=== PATIENT | male | born 1970 | race African-American/Black ===

== ENCOUNTER 2016-09-01 22:00 | Emergency (ER) | payer OTHER ==
[~2016-09-01] VITALS: Ht 180.3 cm; Wt 62.0 kg
[~2016-09-01 22:00] MED LIST: AMLO10 PO; CHOL4POW3 PO; HYDR-3533 PO; LABE100T2 PO; PANT40TA3 PO; SODI650T PO
[2016-09-01 22:03] VITALS: BP 178/91; PULSE 91; RESP 16; TEMP 97.9; O2SAT 99
--- NOTE | 2016-09-01 23:39 | PD ---
HPI Chief Complaint: Pain: Acute or Chronic Time Seen by Provider: 22:50 Travel History International Travel<30 days: No Contact w/Intl Traveler<30days: No Traveled to known affect area: No History of Present Illness HPI Patient comes in for evaluation of left shoulder pain ongoing for several years. Patient states over the past couple weeks he's been exercising more and over the past week having increased pain in his left shoulder that is worse with movement. Patient denies any injury, shortness of breath, chest pain, numbness or tingling, fevers, back pain, or neck pain. Pain is achy like in nature and radiates inferiorly. Patient states he ran out of his blood pressure medicine approximately 2 weeks ago and stopped taking his other medication on his own after having cataract surgery as he felt was too much medication to be taking while he was taking his eye drops. Patient denies any other medical concerns at this time. PFSH Past Medical History Arthritis: No Asthma: No Autoimmune Disease: No Blood Disorders: No Anxiety: No Depression: No Heart Rhythm Problems: No Cancer: No Cardiovascular Problems: Yes (HTN) High Cholesterol: No Chemotherapy: No Chest Pain: No Congestive Heart Failure: No COPD: No Cerebrovascular Accident: No Diabetes: Yes Patient Takes Glucophage: No Diminished Hearing: No Endocrine: Yes GERD: No Genitourinary: No Hiatal Hernia: No Immune Disorder: No Kidney Stones: No Musculoskeletal: Yes (right foot surgery) Neurologic: No Psychiatric: No Reproductive: No Respiratory: No (November 2015) Migraines: No Radiation Therapy: No Renal Failure: No Seizures: No Sickle Cell Disease: No Sleep Apnea: No Thyroid Disease: No Ulcer: No Tetanus Vaccination: < 5 Years Past Surgical History Abdominal Surgery: No AICD: No Arteriovenous Shunt: No Cardiac Surgery: No Ear Surgery: No Endocrine Surgery: No Eye Surgery: No Genitourinary Surgery: No Gynecologic Surgery: No Insulin Pump: No Joint Replacement: No Oral Surgery: No Pacemaker: No Thoracic Surgery: No Other Surgery: Yes (AKA L LEG, R FOOT AMPUTATION -APPROX A MONTH AGO) Social History Alcohol Use: No Tobacco Use: No Substance Use: No Allergies-Medications (Allergen,Severity, Reaction): Coded Allergies: *MDRO Multi-Drug Resistant Organism (Verified Adverse Reaction, Unknown, ) MRSA (foot wound) - 03/2010, 10/2014, 04/2015 MRSA PCR screen positive - 09/01/15 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 Sodium Bicarbonate 650 Mg Tab 650 Mg PO Q8HR Pantoprazole (Pantoprazole Sodium) 40 Mg Tab 40 Mg PO DAILY Labetalol (Labetalol HCl) 100 Mg Tab 100 Mg PO Q12HR Norvasc (Amlodipine Besylate) 10 Mg Tab 10 Mg PO DAILY Review of Systems Except as stated in HPI: all other systems reviewed are Neg Physical Exam Narrative GENERAL: Well-developed, well nourished, in no acute distress, and non-ill appearing. SKIN: Warm and dry. HEAD: Atraumatic. Normocephalic. EYES: Pupils equal and round. EOMI. No scleral icterus. No injection or drainage. ENT: No nasal bleeding or discharge. Mucous membranes pink and moist. NECK: Trachea midline. Supple. No nuclear rigidity. CARDIOVASCULAR: Regular rate and rhythm. No murmur appreciated. RESPIRATORY: No accessory muscle use. No respiratory distress. Clear to auscultation. Breath sounds equal bilaterally. MUSCULOSKELETAL: No obvious deformities. No clubbing. No cyanosis. No edema. Full range of motion. Shoulder:FROM equal BL with passive flexion, extension, Abduction, Adduction, internal/external rotation, and pronation/supination. Sensation equal BL deltoid muscles. Pulses equal BL distal to injury. Capillary refill less than 2 seconds distal to injury and equal BL. FROM distal to injury and equal BL. Strength distal to injury equal BL. NV intact distal to injury equal BL. Flexion and extension of thumb equal BL. Equal strength and movement with abduction/adductions of BL fingers. Model [employer]' strength equal BL. Patient reports tenderness to left posterior shoulder and scapula is worse with passive and active movement. Left BKA noted NEUROLOGICAL: Awake and alert. No obvious cranial nerve deficits. Motor grossly within normal limits. Normal speech. PSYCHIATRIC: Appropriate mood and affect; insight and judgment normal. Data Data Last Documented VS Vital Signs Date Time Temp Pulse Resp B/P Pulse Ox O2 Delivery O2 Flow Rate FiO2 09/02/16 01:44 98.2 81 16 156/72 98 09/01/16 22:03 Room Air Orders Basic Metabolic Panel (Bmp) (09/01/16 23:34) Urinalysis - C+S If Indicated (09/01/16 23:39) Urine Culture (09/01/16 23:40) Sodium Polysty Sulfate Liq (Kayexalate L (09/02/16 00:45) Cephalexin (Keflex) (09/02/16 00:45) Labs Laboratory Tests Test 09/01/16 09/01/16 23:30 23:40 Sodium Level 139 MEQ/L Potassium Level 5.2 MEQ/L Chloride Level 111 MEQ/L Carbon Dioxide Level 14.9 MEQ/L Anion Gap 13 MEQ/L Blood Urea Nitrogen 54 MG/DL Creatinine 3.87 MG/DL Estimat Glomerular Filtration 20 ML/MIN Rate Random Glucose 59 MG/DL Calcium Level 8.6 MG/DL Urine Color LIGHT-YELLOW Urine Turbidity HAZY Urine pH 5.5 Urine Specific [place] 1.006 Urine Protein 100 mg/dL Urine Glucose (UA) NEG mg/dL Urine Ketones NEG mg/dL Urine Occult Blood TRACE Urine Nitrite NEG Urine Bilirubin NEG Urine Urobilinogen LESS THAN 2.0 MG/DL Urine Leukocyte Esterase SMALL Urine RBC 1 /hpf Urine WBC 10 /hpf Urine Squamous Epithelial <1 /hpf Cells Urine Amorphous Sediment RARE Urine Bacteria RARE /hpf Urine Mucus FEW /lpf Microscopic Urinalysis Comment CULTURE INDICATED MDM Medical Decision Making Medical Screen Exam Complete: Yes Emergency Medical Condition: No Differential Diagnosis Acute on chronic pain, musculoskeletal pain, medical noncompliance, other Narrative Course Medical screening exam was performed, patient patient decided to stay as he now has concerns that he may be having an issue with his kidneys. There is no evidence of pyelonephritis. The patient is tolerating fluids, no fever and no back pain. There is no clinical evidence to suggest atypical cervicitis, PID, appendicitis. The patient was discharged on antibiotics and given warnings to return if condition worsens in any way, fever, vomiting and unable to tolerate medications or fluids, back pain or as needed. The patient was instructed to follow up with their physician. The patient agrees with plan of care. Patient in no obvious distress upon re-evaluation. All pertinent laboratory result(s) discussed with patient and patient was given a copy to get to his primary care doctor and/or aging department supervisor. Discussed patient with Dr. Falcon prior to discharge, who is in agreement with plan of care and disposition. Patient was asked if they wanted to speak to my attending, which the patient did not wish to do at this time. Any questions/concerns in reference to patient diagnosis/condition discussed and clarified prior to patient's discharge. Reinforced sheer importance of close follow up with patient's primary physician or primary care clinic and/or nephrology. Instructed patient to return to ED immediately, if symptoms return/worsen. Pt showed understanding of above instructions. Further instructions and recommendations were detailed in discharge paperwork. Pt left without difficulty out of ED at discharge. Diagnosis Primary Impression: UTI (urinary tract infection) Qualified Code: N39.0 - Urinary tract infection with hematuria, site unspecified Additional Impression: Noncompliance with medication regimen Referrals: Eitan Sky MD Patient Instructions: General Instructions, Urinary Tract Infection in Men (DC) Additional Instructions: Follow-up with your primary care physician and/or aging department supervisor this week for evaluation. Take all medication as prescribed. Take your home medications prescribed. Return to the emergency department if symptoms get worse. Med/Other Pt SpecificInfo: Prescription(s) given Scripts Cephalexin (Keflex)500 Mg [id number] Mg PO Q12H 10 Days Ref 0 Prov:Dafne Falcon MD 09/02/16 Disposition: 01 DISCHARGE HOME Condition: Stable Lm Otero Sep 01, 2016 23:39
[2016-09-01 23:56] LABS: BACTERIA, URINE RARE /hpf; BLOOD, URINE TRACE (NEG); GLUCOSE,URINE NEG (NEG); KETONE, URINE NEG (NEG); MUCUS URINE FEW /lpf (OCC); NITRITE,URINE NEG (NEG); PH, URINE 5.5 (5.0-8.5); SQUAMOUS EPITHELIAL CELL URINE <1 /hpf (0-5); URINE COLOR LIGHT-YELLOW (YELLW/STRAW)
[2016-09-01 23:57] LABS: COMMENT (UR) CULTURE INDICATED; CULTURE IF INDICATED CULTURE INDICATED
[2016-09-02 00:11] LABS: BICARBONATE 14.9 MEQ/L (21.0-32.0); POTASSIUM 5.2 MEQ/L (3.5-5.1)
[2016-09-02] MEDS ORDERED: SODIUM POLYSTYRENE SULFONATE SUSP 15 GM/60 ML CUP PO ONE (00:45)
[2016-09-02] MEDS ORDERED: CEPHALEXIN MONOHYDRATE 500 MG CAP PO ONE (00:45)
[2016-09-02] MEDS ORDERED: CEPH-460 PO (01:40)
[2016-09-02 01:44] VITALS: BP 156/72; TEMP 98.2
[2016-09-10] MEDS ORDERED: HYDR-3533 PO (13:28)
[2016-10-31] MEDS ORDERED: HYDR-3533 PO (13:11)
[2016-11-12] MEDS ORDERED: BACT800T5 PO (11:57)
[2016-11-12] MEDS ORDERED: ZYVO600T PO (11:57)
== END 2016-09-02 01:52 | disposition home or self-care (01) ==
LOC: NEPB 22:00
DX: N39.0 Urinary tract infection, site not specified (principal); E11.9 Type 2 diabetes mellitus without complications; M25.512 Pain in left shoulder; Z91.14 Patient's other noncompliance with medication regimen; Z89.512 Acquired absence of left leg below knee; Z87.39 Personal history of other diseases of the musculoskeletal system and connective tissue; Z86.79 Personal history of other diseases of the circulatory system
CPT/HCPCS: 80048; 81001; 87086; 99283

== ENCOUNTER 2016-09-06 13:03 | Emergency (ER) | payer OTHER ==
[~2016-09-06] VITALS: Ht 180.3 cm; Wt 60.0 kg
[~2016-09-06 13:03] MED LIST changes: +CEPH-460 PO
[2016-09-06 13:07] VITALS: BP 177/95; PULSE 104; RESP 18; TEMP 97.4; O2SAT 97
--- NOTE | 2016-09-06 13:31 | PD ---
HPI Chief Complaint: Pain: Acute or Chronic Time Seen by Provider: 13:31 Travel History International Travel<30 days: No Contact w/Intl Traveler<30days: No Traveled to known affect area: No History of Present Illness HPI 46-year-old male presents to the emergency department with complaint of left shoulder pain, left flank and left upper quadrant abdominal pain for a couple weeks. He was sent by his primary care provider, Dr. Valencia, for reevaluation. He said he was here just the other day and evaluated for the same complaint. Says he had a "slight fever of 98 or 99 "at the doctor's office. Denies history of kidney stones. Denies dysuria. Reports urinary frequency. Denies hematuria. Reports nausea without vomiting. No change in stool. Reports also feeling fatigued with intermittent feelings of lightheadedness and headaches. Denies headache at this time. Denies chest pain. Reports shortness of breath for the last 7-8 days that is worse with activity. Denies cough, nasal congestion, hemoptysis. Pain is worse with twisting. He says the pain it is just there. Rates pain 8-9/10. Has tried taking BC powder with some relief. No known allergies. Merry care provider is Dr. Valencia. History of hypertension and insulin-dependent diabetes that he is "somewhat" compliant with. History of left BKA. No other modifying factors or associated signs and symptoms. PFSH Past Medical History Arthritis: No Asthma: No Autoimmune Disease: No Blood Disorders: No Anxiety: No Depression: No Heart Rhythm Problems: No Cancer: No Cardiovascular Problems: Yes (HTN) High Cholesterol: No Chemotherapy: No Chest Pain: No Congestive Heart Failure: No COPD: No Cerebrovascular Accident: No Diabetes: Yes Patient Takes Glucophage: No Diminished Hearing: No Endocrine: Yes GERD: No Genitourinary: No Hiatal Hernia: No Hypertension: Yes Immune Disorder: No Kidney Stones: No Musculoskeletal: Yes (right foot surgery) Neurologic: No Psychiatric: No Reproductive: No Respiratory: No (November 2015) Migraines: No Radiation Therapy: No Renal Failure: No Seizures: No Sickle Cell Disease: No Sleep Apnea: No Thyroid Disease: No Ulcer: No Past Surgical History Abdominal Surgery: No AICD: No Arteriovenous Shunt: No Cardiac Surgery: No Ear Surgery: No Endocrine Surgery: No Eye Surgery: No Genitourinary Surgery: No Gynecologic Surgery: No Insulin Pump: No Joint Replacement: No Oral Surgery: No Pacemaker: No Thoracic Surgery: No Other Surgery: Yes (AKA L LEG, R FOOT AMPUTATION -APPROX A MONTH AGO) Social History Alcohol Use: No Tobacco Use: No Substance Use: No Allergies-Medications (Allergen,Severity, Reaction): Coded Allergies: *MDRO Multi-Drug Resistant Organism (Verified Adverse Reaction, Unknown, ) MRSA (foot wound) - 03/2010, 10/2014, 04/2015 MRSA PCR screen positive - 09/01/15 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 HEAD: Atraumatic. Normocephalic. EYES: Pupils equal and round. No scleral icterus. No injection or drainage. ENT: Mucosa pink and moist. Airway patent. NECK: Trachea midline. CARDIOVASCULAR: Regular rate and rhythm. No murmur appreciated. RESPIRATORY: No accessory muscle use. Clear to auscultation with decreased lung sounds to the left lower lung base. Breath sounds equal bilaterally. GASTROINTESTINAL: Abdomen soft, tenderness on palpation to the left upper quadrant, nondistended. Hepatic and splenic margins not palpable. Bowel sounds are active 4 quadrants. Nonrigid. No guarding. BACK: No CVA tenderness. MUSCULOSKELETAL: Left BKA. No obvious deformities. No clubbing. No cyanosis. No edema. NEUROLOGICAL: Awake and alert. Oriented 3. No obvious cranial nerve deficits. Motor grossly within normal limits. Normal speech. PSYCHIATRIC: Appropriate mood and affect; insight and judgment normal. Data Data Last Documented VS Vital Signs Date Time Temp Pulse Resp B/P Pulse Ox O2 Delivery O2 Flow Rate FiO2 09/06/16 13:41 97 Room Air 09/06/16 13:07 97.4 104 18 177/95 Orders Complete Blood Count With Diff (09/06/16 13:34) Comprehensive Metabolic Panel (09/06/16 13:34) Lipase (09/06/16 13:34) Ct Abd/Pel W/O Iv Contrast (09/06/16 13:34) Iv Access Insert/Monitor (09/06/16 13:34) Ecg Monitoring (09/06/16 13:34) Oximetry (09/06/16 13:34) Sodium Chloride 0.9% Flush (Ns Flush) (09/06/16 13:45) Chest, Single Ap (09/06/16 13:34) Labs Laboratory Tests Test 09/06/16 13:24 White Blood Count 9.3 TH/MM3 Red Blood Count 2.86 MIL/MM3 Hemoglobin 8.7 GM/DL Hematocrit 26.5 % Mean Corpuscular Volume 92.4 FL Mean Corpuscular Hemoglobin 30.3 PG Mean Corpuscular Hemoglobin 32.7 % Concent Red Cell Distribution Width 15.6 % Platelet Count 222 TH/MM3 Mean Platelet Volume 9.2 FL Neutrophils (%) (Auto) 66.4 % Lymphocytes (%) (Auto) 21.3 % Monocytes (%) (Auto) 9.6 % Eosinophils (%) (Auto) 1.8 % Basophils (%) (Auto) 0.9 % Neutrophils # (Auto) 6.2 TH/MM3 Lymphocytes # (Auto) 2.0 TH/MM3 Monocytes # (Auto) 0.9 TH/MM3 Eosinophils # (Auto) 0.2 TH/MM3 Basophils # (Auto) 0.1 TH/MM3 CBC Comment DIFF FINAL Differential Comment Sodium Level 138 MEQ/L Potassium Level 4.7 MEQ/L Chloride Level 111 MEQ/L Carbon Dioxide Level 18.1 MEQ/L Anion Gap 9 MEQ/L Blood Urea Nitrogen 45 MG/DL Creatinine 3.98 MG/DL Estimat Glomerular Filtration 20 ML/MIN Rate Random Glucose 98 MG/DL Calcium Level 8.4 MG/DL Total Bilirubin 0.3 MG/DL Aspartate Amino Transf 25 U/L (AST/SGOT) Alanine Aminotransferase 23 U/L (ALT/SGPT) Alkaline Phosphatase 102 U/L Total Protein 7.5 GM/DL Albumin 3.5 GM/DL Lipase 147 U/L [facility] Medical Decision Making Medical Screen Exam Complete: Yes Emergency Medical Condition: Yes Medical Record Reviewed: Yes Differential Diagnosis Nephrolithiasis, flank pain, pancreatitis Narrative Course 46-year-old male with left flank pain that was sent by his primary care provider for reevaluation. He was here the other day and evaluated for the same complaint. Patient placed on cardiopulmonary monitor. IV site obtained. Labs and imaging ordered. 1422: CBC consistent with past levels. BUN and creatinine elevated and consistent with past levels. Lipase 147. CT abdomen/pelvis concludes No evidence of calcified renal stones or hydronephrosis; 2. Contrast versus stones in the gallbladder; 3. Moderate stool in the colon. 1532: Chest x-ray with no acute findings. Patient will be discharged home. Dr. Adorno is aware of the patient's findings and agrees the patient is stable for outpatient follow-up. Patient verbalizes understanding and agreement with treatment plan. Patient is medically cleared and stable for discharge. Discussed reasons to return to the emergency department. Instructed patient to follow up with primary care provider. Patient agrees with treatment plan. The patients vital signs are stable and the patient is stable for outpatient follow- up and treatment. Patient discharged home, stable and in no acute distress. Diagnosis Primary Impression: Left flank pain Referrals: Primary Care Physician Patient Instructions: Flank Pain (ED), General Instructions Additional Instructions: Heating pad and/or ice to affected area to reduce pain Avoid aggravating activities; increase activity as tolerated Follow-up with primary care provider Return to emergency department immediately with worsening of symptoms Med/Other Pt SpecificInfo: No Change to Meds, No Meds Exist/No RX given Disposition: 01 DISCHARGE HOME Condition: Stable Patricia Calhoun Sep 06, 2016 13:31
[2016-09-06 13:41] VITALS: O2SAT 97
[2016-09-06] MEDS ORDERED: SODIUM CHLORIDE 0.9% FLUSH 5 ML FLUSH IVF PRN (13:45)
[2016-09-06 13:55] LABS: AUTOMATED NEUTROPHIL # 6.2 TH/MM3 (1.8-7.7); BASOPHIL # 0.1 TH/MM3 (0-0.2); BASOPHIL % 0.9 % (0.0-2.0); EOSINOPHIL # 0.2 TH/MM3 (0-0.4); EOSINOPHIL % 1.8 % (0.0-4.0); HEMATOCRIT 26.5 % (39.0-51.0); HEMO FLAGS DIFF FINAL; LYMPH % 21.3 % (9.0-44.0); MEAN CELL VOLUME 92.4 FL (80.0-100.0); MEAN CORPUSCULAR HEMOGLOBIN 30.3 PG (27.0-34.0); MEAN CORPUSCULAR HGB CONC 32.7 % (32.0-36.0); MONO % 9.6 % (0.0-8.0); NEUT % 66.4 % (16.0-70.0); PLATELET COUNT 222 TH/MM3 (150-450); RED BLOOD COUNT 2.86 MIL/MM3 (4.50-5.90); RED CELL DISTRIBUTION WIDTH 15.6 % (11.6-17.2); WHITE BLOOD COUNT 9.3 TH/MM3 (4.0-11.0)
[2016-09-06 14:09] LABS: ALT (GPT) 23 U/L (12-78); ANION GAP 9 MEQ/L (5-15); AST (GOT) 25 U/L (15-37); BICARBONATE 18.1 MEQ/L (21.0-32.0); BLOOD UREA NITROGEN 45 MG/DL (7-18); CHLORIDE 111 MEQ/L (98-107); GLOMERULAR FILTRATION RATE 20 ML/MIN (>89); POTASSIUM 4.7 MEQ/L (3.5-5.1); SODIUM (NA) 138 MEQ/L (136-145)
[2016-09-06 14:10] LABS: ALKALINE PHOSPHATASE 102 U/L (45-117); TOTAL BILIRUBIN ADULT 0.3 MG/DL (0.2-1.0)
--- NOTE | 2016-09-06 14:18 | RADRPT ---
EXAM DATE/TIME: 09/06/2016 13:51 [facility] COMPARISON: CT ABDOMEN & PELVIS W/O CONTRAST, December 13, 2015, 5:51. INDICATIONS : Left flank pain; fever, fatigue. ORAL CONTRAST: No oral contrast ingested. RADIATION DOSE: 4.66 CTDIvol (mGy) MEDICAL HISTORY : Hypertension. Diabetes mellitus type 2. SURGICAL HISTORY : None. ENCOUNTER: Initial ACUITY: 1 day PAIN SCALE: 5/10 LOCATION: Bilateral abdomen. TECHNIQUE: Volumetric scanning of the abdomen and pelvis was performed. Using automated exposure control and ad justment of the mA and/or kV according to patient size, radiation dose was kept as low as reasonably achievable to obtain optimal diagnostic quality images. The lack of IV contrast limits the diagnosis for certain organ pathology. FINDINGS: LOWER LUNGS: The visualized lower lungs are clear. LIVER: Homogeneous density without lesion. There is no dilation of the biliary tree. There is contrast vers us stones in the gallbladder. SPLEEN: Normal size without lesion. PANCREAS: Within normal limits. KIDNEYS: Normal in size and shape. There is no mass, stone, or hydronephrosis. ADRENAL GLANDS: Within normal limits. VASCULAR: There is no aortic aneurysm. BOWEL/MESENTERY: The stomach, small bowel, and colon demonstrate no acute abnormality. There is no free intraperitone al air or fluid. No inflammatory changes. Moderate amount of stool in the colon. ABDOMINAL WALL: Within normal limits. RETROPERITONEUM: There is no lymphadenopathy. BLADDER: No wall thickening or mass. REPRODUCTIVE: Within normal limits. INGUINAL: There is no lymphadenopathy or hernia. MUSCULOSKELETAL: Within normal limits for patient age. No significant change compared to the prior study. CONCLUSION: 1. No evidence of calcified renal stones or hydronephrosis. 2. Contrast versus stones in the gallbladder. 3. Moderate stool in the colon. Davy Kim MD on September 06, 2016 at 14:14 Board Certified Radiologist. This report was verified electronically.
--- NOTE | 2016-09-06 15:42 | RADRPT ---
EXAM DATE/TIME: 09/06/2016 14:10 [facility] COMPARISON: CHEST SINGLE AP, June 09, 2016, 22:04. INDICATIONS : Shortness of breath and cough. MEDICAL HISTORY : None. SURGICAL HISTORY : None. ENCOUNTER: Initial ACUITY: 1 week PAIN SCORE: 0/10 LOCATION: Bilateral chest FINDINGS: A single view of the chest demonstrates the lungs to be symmetrically aerated without evidence of mas s, infiltrate or effusion. The cardiomediastinal contours are unremarkable. Osseous structures are intact. CONCLUSION: No acute disease. Oscar Brady MD on September 06, 2016 at 15:40 Board Certified Radiologist. This report was verified electronically.
--- NOTE | 2016-09-06 15:45 | PD ---
Data Data Last Documented VS Vital Signs Date Time Temp Pulse Resp B/P Pulse Ox O2 Delivery O2 Flow Rate FiO2 09/06/16 13:41 97 Room Air 09/06/16 13:07 97.4 104 18 177/95 Orders Complete Blood Count With Diff (09/06/16 13:34) Comprehensive Metabolic Panel (09/06/16 13:34) Lipase (09/06/16 13:34) Ct Abd/Pel W/O Iv Contrast (09/06/16 13:34) Iv Access Insert/Monitor (09/06/16 13:34) Ecg Monitoring (09/06/16 13:34) Oximetry (09/06/16 13:34) Sodium Chloride 0.9% Flush (Ns Flush) (09/06/16 13:45) Chest, Single Ap (09/06/16 13:34) Labs Laboratory Tests Test 09/06/16 13:24 White Blood Count 9.3 TH/MM3 Red Blood Count 2.86 MIL/MM3 Hemoglobin 8.7 GM/DL Hematocrit 26.5 % Mean Corpuscular Volume 92.4 FL Mean Corpuscular Hemoglobin 30.3 PG Mean Corpuscular Hemoglobin 32.7 % Concent Red Cell Distribution Width 15.6 % Platelet Count 222 TH/MM3 Mean Platelet Volume 9.2 FL Neutrophils (%) (Auto) 66.4 % Lymphocytes (%) (Auto) 21.3 % Monocytes (%) (Auto) 9.6 % Eosinophils (%) (Auto) 1.8 % Basophils (%) (Auto) 0.9 % Neutrophils # (Auto) 6.2 TH/MM3 Lymphocytes # (Auto) 2.0 TH/MM3 Monocytes # (Auto) 0.9 TH/MM3 Eosinophils # (Auto) 0.2 TH/MM3 Basophils # (Auto) 0.1 TH/MM3 CBC Comment DIFF FINAL Differential Comment Sodium Level 138 MEQ/L Potassium Level 4.7 MEQ/L Chloride Level 111 MEQ/L Carbon Dioxide Level 18.1 MEQ/L Anion Gap 9 MEQ/L Blood Urea Nitrogen 45 MG/DL Creatinine 3.98 MG/DL Estimat Glomerular Filtration 20 ML/MIN Rate Random Glucose 98 MG/DL Calcium Level 8.4 MG/DL Total Bilirubin 0.3 MG/DL Aspartate Amino Transf 25 U/L (AST/SGOT) Alanine Aminotransferase 23 U/L (ALT/SGPT) Alkaline Phosphatase 102 U/L Total Protein 7.5 GM/DL Albumin 3.5 GM/DL Lipase 147 U/L MDM Supervised Visit with DEEPAK: Yes Narrative Course The history, exam, and medical decision-making in the associated mid-level provider note were completed with my assistance. I reviewed and agree with the findings presented. I attest that I had a [id number] encounter with the patient on the same day, and personally performed and documented my assessment and findings in the medical record. *My assessment and Findings: 46-year-old man who for flank pain. Etiology is unclear. Recently seen for the same. Diagnosis of UTI however culture was negative. Has multiple medical problems including baseline significant chronic kidney disease. We did CT imaging of his abdomen and pelvis, as well as x-ray, which hasn't revealed etiology. Labs are also unremarkable. At this point recommended supportive treatment and outpatient follow-up. There is some concern of fever at some point he may have some kind of occult infection. I don't really see any evidence of that. Diagnosis Primary Impression: Left flank pain Referrals: Primary Care Physician Patient Instructions: General Instructions, Flank Pain (ED) Additional Instruction: Heating pad and/or ice to affected area to reduce pain Avoid aggravating activities; increase activity as tolerated Follow-up with primary care provider Return to emergency department immediately with worsening of symptoms Disposition: 01 DISCHARGE HOME Condition: Stable Hari Adorno MD Sep 06, 2016 15:45
[2016-09-10] MEDS ORDERED: HYDR-3533 PO (13:28)
[2016-10-31] MEDS ORDERED: HYDR-3533 PO (13:11)
[2016-11-12] MEDS ORDERED: BACT800T5 PO (11:57)
[2016-11-12] MEDS ORDERED: ZYVO600T PO (11:57)
== END 2016-09-06 15:58 | disposition home or self-care (01) ==
LOC: NEPA 13:03
DX: R10.12 Left upper quadrant pain (principal); I10 Essential (primary) hypertension; E11.9 Type 2 diabetes mellitus without complications
CPT/HCPCS: 71010; 74176; 80053; 83690; 85025

== ENCOUNTER 2016-09-17 21:22 | Emergency (ER) | payer OTHER ==
[~2016-09-17 21:22] MED LIST changes: -CHOL4POW3 PO; -LABE100T2 PO; -SODI650T PO
[2016-09-17 21:30] VITALS: BP 173/85; PULSE 100; RESP 16; TEMP 98.3; O2SAT 100
[2016-10-31] MEDS ORDERED: HYDR-3533 PO (13:11)
[2016-11-12] MEDS ORDERED: BACT800T5 PO (11:57)
[2016-11-12] MEDS ORDERED: ZYVO600T PO (11:57)
== END 2016-09-17 22:09 | disposition left against medical advice (07) ==
LOC: NED 22:00
DX: Z53.21 Procedure and treatment not carried out due to patient leaving prior to being seen by health care provider (principal)
CPT/HCPCS: 99281

== ENCOUNTER 2016-10-09 12:18 | Inpatient (IN) | payer OTHER ==
[~2016-10-09] VITALS: Ht 180.3 cm; Wt 63.7 kg
[2016-10-09 12:23] VITALS: BP 128/71; PULSE 61; RESP 18; TEMP 98.2; O2SAT 98
--- NOTE | 2016-10-09 12:27 | PD ---
Physical Exam Time Seen by Provider: 12:[address] sent for evaluation of R foot wound that has been here for years with partial amputation. Pt Diabetic. Wound opens and closes periodically. Denies fever, vomiting. No recent antibx. Last took antibx end of 2014. Patient stable. Patient seen in triage. Awaiting bed placement. Data Data Last Documented VS Vital Signs Date Time Temp Pulse Resp B/P Pulse Ox O2 Delivery O2 Flow Rate FiO2 10/09/16 12:23 98.2 61 18 128/71 98 MDM Supervised Visit with DEEPAK: Patricia Hallman Oct 09, 2016 12:27
[2016-10-09 12:54] VITALS: BP 165/78; PULSE 89; RESP 20; O2SAT 100
--- NOTE | 2016-10-09 12:57 | PD ---
HPI Chief Complaint: Skin Problem Time Seen by Provider: 12:57 Travel History International Travel<30 days: No Contact w/Intl Traveler<30days: No Traveled to known affect area: No History of Present Illness HPI 46-year-old insulin dependent diabetic presents the emergency department with open wound on previous partial foot amputation on the right days noticed over the past 3 days. Patient was seen by his PCP today and sent here for further evaluation and treatment. Patient has mild pain in the right foot, but denies significant fever, chills, or changes in his blood sugars. 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 Pain currently is a 3 out of 10. Patient has history of renal insufficiency as well as MRSA. He also takes blood pressure medications. He has no known drug allergies. PFSH Past Medical History Arthritis: No Asthma: No Autoimmune Disease: No Blood Disorders: No Anxiety: No Depression: No Heart Rhythm Problems: No Cancer: No Cardiovascular Problems: Yes (HTN) High Cholesterol: No Chemotherapy: No Chest Pain: No Congestive Heart Failure: No COPD: No Cerebrovascular Accident: No Diabetes: Yes Diminished Hearing: No Endocrine: Yes GERD: No Genitourinary: No Hiatal Hernia: No Hypertension: Yes Immune Disorder: No Kidney Stones: No Musculoskeletal: Yes (right foot surgery) Neurologic: No Psychiatric: No Reproductive: No Respiratory: No (November 2015) Migraines: No Radiation Therapy: No Renal Failure: No Seizures: No Sickle Cell Disease: No Sleep Apnea: No Thyroid Disease: No Ulcer: No Past Surgical History Abdominal Surgery: No AICD: No Arteriovenous Shunt: No Cardiac Surgery: No Ear Surgery: No Endocrine Surgery: No Eye Surgery: No Genitourinary Surgery: No Gynecologic Surgery: No Insulin Pump: No Joint Replacement: No Oral Surgery: No Pacemaker: No Thoracic Surgery: No Other Surgery: Yes (AKA L LEG, R FOOT AMPUTATION -APPROX A MONTH AGO) Social History Alcohol Use: No Tobacco Use: No Substance Use: No Allergies-Medications (Allergen,Severity, Reaction): Coded Allergies: *MDRO Multi-Drug Resistant Organism (Verified Adverse Reaction, Unknown, ) MRSA (foot wound) - 03/2010, 10/2014, 04/2015 MRSA PCR screen positive - 09/01/15 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/16) Reported Meds & Prescriptions Reported Meds & Active Scripts Active Lortab (Hydrocodone-Acetaminophen) 5-325 Mg Tab 1 Tab PO BID PRN Norvasc (Amlodipine Besylate) 10 Mg Tab 10 Mg PO DAILY Reported Lantus Inj (Insulin Glargine) 1,000 Unit/10 Ml Vial 8 Units SQ HS Review of Systems Except as stated in HPI: all other systems reviewed are Neg General / Constitutional: No: Fever, Chills Eyes: No: Visual changes HENT: No: Headaches Cardiovascular: No: Chest Pain or Discomfort Respiratory: No: Shortness of Breath Gastrointestinal: No: Abdominal Pain Genitourinary: No: Dysuria Musculoskeletal: No: Pain Skin: Positive Lesions (diabetic foot wound on the right), No Rash Neurologic: No: Weakness Psychiatric: No: Depression Endocrine: No: Polydipsia Hematologic/Lymphatic: No: Easy Bruising Physical Exam Narrative GENERAL: Patient appears distress. SKIN: Warm and dry. Normal color. Normal turgor. Right foot has an open dry pressure wound to the plantar surface of the distal foot which is in part obtained. There is no erythema or obvious drainage. It is malodorous. The skin surrounding the opening is white and firm. HEAD: Atraumatic. Normocephalic. EYES: Pupils equal and round. No scleral icterus. No injection or drainage. ENT: No nasal bleeding or discharge. Mucous membranes pink and moist. Pharynx is clear. NECK: Trachea midline. No JVD. Supple and nontender. CARDIOVASCULAR: Regular rate and rhythm. RESPIRATORY: No accessory muscle use. Clear to auscultation. Breath sounds equal bilaterally. GASTROINTESTINAL: Abdomen soft, non-tender, nondistended. Hepatic and splenic margins not palpable. MUSCULOSKELETAL: Extremities without clubbing, cyanosis, or edema. Patient has a left-sided BKA and partial right foot amputation. NEUROLOGICAL: Awake and alert. No obvious cranial nerve deficits. Motor grossly within normal limits. Five out of 5 muscle strength in the arms and legs. Normal speech. PSYCHIATRIC: Appropriate mood and affect; insight and judgment normal. Data Data Last Documented VS Vital Signs Date Time Temp Pulse Resp B/P Pulse Ox O2 Delivery O2 Flow Rate FiO2 10/09/16 15:07 91 127/70 98 10/09/16 13:13 Room Air 10/09/16 12:54 20 10/09/16 12:23 98.2 Orders Electrocardiogram (10/09/16 13:01) Complete Blood Count With Diff (10/09/16 13:01) Comprehensive Metabolic Panel (10/09/16 13:01) Prothrombin Time / Inr (Pt) (10/09/16 13:01) Act Partial Throm Time (Ptt) (10/09/16 13:01) Lactic Acid Sepsis Protocol (10/09/16 13:01) Urinalysis - C+S If Indicated (10/09/16 13:01) Blood Culture (10/09/16 13:01) Wound Culture And Gram Stain (10/09/16 13:01) Chest, Single Ap (10/09/16 13:01) Blood Glucose (10/09/16 13:01) Ecg Monitoring (10/09/16 13:01) Iv Access Insert/Monitor (10/09/16 13:01) Oximetry (10/09/16 13:01) Oxygen Administration (10/09/16 13:01) Piperacil-Tazo 4.5 Gm Premix (Zosyn 4.5 (10/09/16 13:01) Vancomycin Inj (Vancomycin Inj) (10/09/16 13:01) Sodium Chlor 0.9% 1000 Ml Inj (Ns 1000 M (10/09/16 13:15) Foot, Complete (Vpy0hvw) (10/09/16 13:01) Ondansetron Inj (Zofran Inj) (10/09/16 15:15) Admit Order (Ed Use Only) (10/09/16 15:34) Consult Vascular Surgery (10/09/16 ) Labs Laboratory Tests Test 10/09/16 10/09/16 13:32 13:50 White Blood Count 9.1 TH/MM3 Red Blood Count 3.03 MIL/MM3 Hemoglobin 9.2 GM/DL Hematocrit 27.9 % Mean Corpuscular Volume 92.1 FL Mean Corpuscular Hemoglobin 30.4 PG Mean Corpuscular Hemoglobin 33.0 % Concent Red Cell Distribution Width 14.1 % Platelet Count 250 TH/MM3 Mean Platelet Volume 8.6 FL Neutrophils (%) (Auto) 70.8 % Lymphocytes (%) (Auto) 17.9 % Monocytes (%) (Auto) 8.1 % Eosinophils (%) (Auto) 2.4 % Basophils (%) (Auto) 0.8 % Neutrophils # (Auto) 6.4 TH/MM3 Lymphocytes # (Auto) 1.6 TH/MM3 Monocytes # (Auto) 0.7 TH/MM3 Eosinophils # (Auto) 0.2 TH/MM3 Basophils # (Auto) 0.1 TH/MM3 CBC Comment DIFF FINAL Differential Comment Sodium Level 137 MEQ/L Potassium Level 5.7 MEQ/L Chloride Level 112 MEQ/L Carbon Dioxide Level 15.9 MEQ/L Anion Gap 9 MEQ/L Blood Urea Nitrogen 61 MG/DL Creatinine 4.09 MG/DL Estimat Glomerular Filtration 19 ML/MIN Rate Random Glucose 68 MG/DL Calcium Level 8.8 MG/DL Total Bilirubin 0.2 MG/DL Aspartate Amino Transf 30 U/L (AST/SGOT) Alanine Aminotransferase 19 U/L (ALT/SGPT) Alkaline Phosphatase 109 U/L Total Protein 7.6 GM/DL Albumin 3.4 GM/DL Prothrombin Time 10.0 SEC Prothromb Time International 0.9 RATIO Ratio Activated Partial 29.0 SEC Thromboplast Time Lactic Acid Level 0.5 mmol/L [facility] Medical Decision Making Medical Screen Exam Complete: Yes Emergency Medical Condition: Yes Medical Record Reviewed: Yes Differential Diagnosis Diabetic foot ulcer. Osteomyelitis. Type I diabetic on insulin. Stage III chronic kidney disease. Narrative Course Patient is medically stable at time of exam. Labs ordered including CBC, CMP, lactic acid, blood cultures 2, and wound culture of the right foot wound. Chest x-ray is ordered as well as EKG and x-ray of the right foot. Patient is given 4.5 g Zosyn as well as 1000 mg vancomycin loading dose. Patient is given 1000 L normal saline IV bolus. Labs show CBC with no significant leukocytosis. Hemoglobin is 9.2. Hematocrit is 27.9. Coagulation studies are normal. CMP shows elevated potassium of 5.7. Chloride of 112. Carbon dioxide is 15.9. BUN is elevated at 61, and creatinine is 4.09, which is high as of the patient 's previous upon review. X-ray shows obvious ulcer in the right foot without obvious signs of osteomyelitis. Call was placed to Dr. Flowers, the assembler trim on-call, to discuss the patient. Patient was discussed with Dr. Flowers who stated that the patient would not benefit from podiatry, but will need a vascular surgeon or orthopedic evaluation for BKA of the right lower extremity. Patient is also in renal insufficiency with a creatinine of 4.09. Patient will be admitted to the hospitalist with consult to Dr. Cheng for right lower extremity evaluation. 1500 hrs. call was placed to the hospitalist for evaluation. 1535 patient is discussed with Dr. Granda, who agreed to admit the patient. Consult was placed for Dr. Cheng. Diagnosis Primary Impression: Acute worsening of stage 3 chronic kidney disease Additional Impression: Diabetic ulcer of right foot associated with type 2 diabetes mellitus Qualified Code: E11.621 - Diabetic ulcer of right midfoot associated with type 2 diabetes mellitus, with necrosis of muscle Admitting Information Admitting Physician Requests: Admit Condition: Stable Bud Louise Oct 09, 2016 12:57
[2016-10-09] MEDS ORDERED: VANCOMYCIN INJ 1,000 MG in SODIUM CHLOR 0.9% 250 ML INJ 250 ML IV STA (13:01)
[2016-10-09] MEDS ORDERED: PIPERACIL-TAZO 4.5 GM PREMIX 100 ML IV STA (13:01)
[2016-10-09 13:13] VITALS: O2SAT 100
[2016-10-09] MEDS ORDERED: SODIUM CHLOR 0.9% 1000 ML INJ 1,000 ML IV ONE (13:15)
[2016-10-09 13:42] LABS: AUTOMATED NEUTROPHIL # 6.4 TH/MM3 (1.8-7.7); BASOPHIL # 0.1 TH/MM3 (0-0.2); BASOPHIL % 0.8 % (0.0-2.0); EOSINOPHIL # 0.2 TH/MM3 (0-0.4); EOSINOPHIL % 2.4 % (0.0-4.0); HEMATOCRIT 27.9 % (39.0-51.0); HEMO FLAGS DIFF FINAL; LYMPH % 17.9 % (9.0-44.0); LYMPHOCYTE # 1.6 TH/MM3 (1.0-4.8); MEAN CELL VOLUME 92.1 FL (80.0-100.0); MEAN CORPUSCULAR HEMOGLOBIN 30.4 PG (27.0-34.0); MONO % 8.1 % (0.0-8.0); NEUT % 70.8 % (16.0-70.0); PLATELET COUNT 250 TH/MM3 (150-450); RED BLOOD COUNT 3.03 MIL/MM3 (4.50-5.90); RED CELL DISTRIBUTION WIDTH 14.1 % (11.6-17.2); WHITE BLOOD COUNT 9.1 TH/MM3 (4.0-11.0)
[2016-10-09 14:00] LABS: ALKALINE PHOSPHATASE 109 U/L (45-117); TOTAL BILIRUBIN ADULT 0.2 MG/DL (0.2-1.0)
[2016-10-09 14:20] LABS: INTERNATIONAL NORMALIZED RATIO 0.9 RATIO
[2016-10-09 14:22] LABS: ALT (GPT) 19 U/L (12-78); ANION GAP 9 MEQ/L (5-15); AST (GOT) 30 U/L (15-37); BICARBONATE 15.9 MEQ/L (21.0-32.0); BLOOD UREA NITROGEN 61 MG/DL (7-18); CHLORIDE 112 MEQ/L (98-107); GLOMERULAR FILTRATION RATE 19 ML/MIN (>89); POTASSIUM 5.7 MEQ/L (3.5-5.1); SODIUM (NA) 137 MEQ/L (136-145)
--- NOTE | 2016-10-09 14:49 | RADRPT ---
EXAM DATE/TIME: 10/09/2016 14:34 [facility] COMPARISON: FOOT RIGHT COMPLETE ([id number]), October 02, 2015, 18:53. INDICATIONS : Right foot discomfort, open wound. MEDICAL HISTORY : Hypertension. Diabetes mellitus type II. SURGICAL HISTORY : Amputation of all toes. ENCOUNTER: Initial ACUITY: 3 days PAIN SCORE: 2/10 LOCATION: Right plantar surface. FINDINGS: There is evidence for prior amputation at the level of the tarsometatarsal junction with hypertrophic changes. Subcutaneous alteration is present without signs of osteomyelitis techniques. CONCLUSION: Subcutaneous ulcer no definite evidence for osteomyelitis for technique. Monica Celaya MD on October 09, 2016 at 14:46 Board Certified Radiologist. This report was verified electronically.
[2016-10-09] MEDS ORDERED: LANTUS2P SQ (15:05)
[2016-10-09 15:07] VITALS: BP 127/70; PULSE 91; O2SAT 98
[2016-10-09] MEDS ORDERED: ONDANSETRON HCL 4 MG/2 ML VIAL IV PUSH ONE (15:15)
[2016-10-09] MEDS ORDERED: SODIUM CHLOR 0.9% 1000 ML INJ 1,000 ML IV SCH (15:33)
--- NOTE | 2016-10-09 15:43 | HHI.HP ---
HPI Service [facility] Primary Care Physician Jean Claude Valencia MD Admission Diagnosis Diabetic Foot Ulcer with Elevated Creatinine Diagnoses: Travel History International Travel<30 Days: No Contact w/Intl Traveler <30 Da: No Traveled to Known Affected Are: No History of Present Illness This is a 46-year-old gentleman status post left below-knee amputation, he has chronic kidney disease and diabetes on insulin, he also has a history of MRSA. He has had problems with his right foot also. He had right midfoot amputation. He went to his primary physician this morning as the right foot started draining with an open ulcer. He was recommended to come to the emergency department for further management. He was seen by the undersigned in room echo 56 at the emergency department. His alert and oriented. He denies any pain. He has seen a primer inspector before however he does not remember the name. No fever chills or diaphoresis. Review of Systems Other 10 systems reviewed and negative except for the above Past Family Social History Past Medical History Insulin requiring diabetes mellitus Peripheral arterial disease Poor nutrition Hypertension Recurrent diarrhea recurrent vomiting Hematemesis for which he had a bronchoscopy Chronic renal disease Past Surgical History Left below-knee amputation Right midfoot amputation Circumcision Reported Medications Reported Meds & Active Scripts Active Lortab (Hydrocodone-Acetaminophen) 5-325 Mg Tab 1 Tab PO BID PRN Norvasc (Amlodipine Besylate) 10 Mg Tab 10 Mg PO DAILY Reported Lantus Inj (Insulin Glargine) 1,000 Unit/10 Ml Vial 8 Units SQ HS Allergies: Coded Allergies: *MDRO Multi-Drug Resistant Organism (Verified Adverse Reaction, Unknown, ) MRSA (foot wound) - 03/2010, 10/2014, 04/2015 MRSA PCR screen positive - 09/01/15 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/16) Family History Reviewed but not contributory Social History No smoking, no excessive alcohol, no illicit drug use Physical Exam Vital Signs Vital Signs Date Time Temp Pulse Resp B/P Pulse Ox O2 Delivery O2 Flow Rate FiO2 10/09/16 15:07 91 127/70 98 10/09/16 13:13 100 Room Air 10/09/16 13:13 100 10/09/16 12:54 89 20 165/78 100 Room Air 10/09/16 12:23 98.2 61 18 128/71 98 Physical Exam GENERAL: This is a pleasant, poorly nourished, well-developed patient, in no apparent distress. SKIN: No rashes, ecchymoses or lesions. Cool and dry. HEAD: Atraumatic. Normocephalic. No temporal or scalp tenderness. EYES: Pupils equal round and reactive. Extraocular motions intact. No scleral icterus. No injection or drainage. ENT: Nose without bleeding, purulent drainage or septal hematoma. Throat without erythema, tonsillar hypertrophy or exudate. Uvula midline. Airway patent. NECK: Trachea midline. No JVD or lymphadenopathy. Supple, nontender, no meningeal signs. CARDIOVASCULAR: Regular rate and rhythm without murmurs, gallops, or rubs. RESPIRATORY: Clear to auscultation. Breath sounds equal bilaterally. No wheezes , rales, or rhonchi. GASTROINTESTINAL: Abdomen soft, non-tender, nondistended. No hepato-splenomegaly , or palpable masses. No guarding. MUSCULOSKELETAL: Left below-knee amputation, right midfoot amputation with a very small but very deep ulcer on the plantar aspect of the right foot stump NEUROLOGICAL: Awake and alert. Cranial nerves II through XII intact. Normal speech. Laboratory Laboratory Tests Test 10/09/16 10/09/16 13:32 13:50 White Blood Count 9.1 Red Blood Count 3.03 Hemoglobin 9.2 Hematocrit 27.9 Mean Corpuscular Volume 92.1 Mean Corpuscular Hemoglobin 30.4 Mean Corpuscular Hemoglobin 33.0 Concent Red Cell Distribution Width 14.1 Platelet Count 250 Mean Platelet Volume 8.6 Neutrophils (%) (Auto) 70.8 Lymphocytes (%) (Auto) 17.9 Monocytes (%) (Auto) 8.1 Eosinophils (%) (Auto) 2.4 Basophils (%) (Auto) 0.8 Neutrophils # (Auto) 6.4 Lymphocytes # (Auto) 1.6 Monocytes # (Auto) 0.7 Eosinophils # (Auto) 0.2 Basophils # (Auto) 0.1 CBC Comment DIFF FINAL Differential Comment Sodium Level 137 Potassium Level 5.7 Chloride Level 112 Carbon Dioxide Level 15.9 Anion Gap 9 Blood Urea Nitrogen 61 Creatinine 4.09 Estimat Glomerular Filtration 19 Rate Random Glucose 68 Calcium Level 8.8 Total Bilirubin 0.2 Aspartate Amino Transf 30 (AST/SGOT) Alanine Aminotransferase 19 (ALT/SGPT) Alkaline Phosphatase 109 Total Protein 7.6 Albumin 3.4 Prothrombin Time 10.0 Prothromb Time International 0.9 Ratio Activated Partial 29.0 Thromboplast Time Lactic Acid Level 0.5 Date/Time Procedure Status Source Growth 10/09/16 13:50 Aerobic Blood Culture Received Blood Peripheral Pending 10/09/16 13:50 Anaerobic Blood Culture Received Blood Peripheral Pending 10/09/16 13:13 Gram Stain - Final Resulted Wound Foot 10/09/16 13:13 Wound Culture Resulted Wound Foot Pending Result Diagram: 10/09/16 1332 10/09/16 1332 Assessment and Plan Assessment and Plan Assessment Right foot stump infection Right foot stump ulcer, rule out osteomyelitis Acute on chronic kidney disease Hyperkalemia Metabolic acidosis Anemia Hypoglycemia Management Admit to telemetry D5W with sodium bicarbonate drip at 100 mL an hour Repeat potassium level If above 5.5 he will need hyperkalemia cocktail Consult infectious disease Consult nephrology Follow renal indices Follow potassium level IV antibiotics Pharmacy to dose according to renal function Consult vascular surgery Discussed with patient Discussed with nurse Discussed with emergency physician Dr. Valencia will follow 40 minutes Discussed With: Nurse Yvrose Granda MD Oct 09, 2016 15:43
[2016-10-09] MEDS ORDERED: GLUCAGON 1 MG/ML VIAL OTHER PRN (15:45)
[2016-10-09] MEDS ORDERED: Vancomycin Consult Pharmacy 1 EA OTHER SCH (15:45)
[2016-10-09] MEDS ORDERED: NALOXONE HCL 0.4 MG/ML AMP IV PRN (15:45)
[2016-10-09] MEDS ORDERED: DEXT 5%-NACL 0.45% 1000 ML INJ 1,000 ML IV SCH (15:45)
[2016-10-09] MEDS ORDERED: SODIUM CHLORIDE 0.9% FLUSH 10 ML FLUSH IV FLUSH PRN (15:45)
[2016-10-09] MEDS ORDERED: DEXTROSE 50% IN WATER 50 ML VIAL(D50) IV PUSH PRN (15:45)
[2016-10-09] MEDS: INSULIN DETEMIR 100 UNITS/ML VIAL SQ SCH ×2 (16:00→23:08)
[2016-10-09] MEDS: INSULIN ASPART SUPPLEMENTAL SCALE SQ SCH ×2 (16:00→21:00)
[2016-10-09] MEDS: SODIUM BICARBONATE 8.4% INJ 100 MEQ in DEXTROSE 5% IN WATE 1000ML INJ 1,000 ML IV SCH ×2 (16:08)
[2016-10-09] MEDS: HEPARIN SODIUM - SQ 10,000 UNITS/ML VIAL SQ SCH (16:08)
[2016-10-09 16:14] VITALS: BP 143/78; PULSE 82; O2SAT 95
--- NOTE | 2016-10-09 16:27 | RADRPT ---
EXAM DATE/TIME: 10/09/2016 14:31 [facility] COMPARISON: CHEST SINGLE AP, September 06, 2016, 14:10. INDICATIONS : Fever. MEDICAL HISTORY : None. SURGICAL HISTORY : None. ENCOUNTER: Initial ACUITY: 1 day PAIN SCORE: 0/10 LOCATION: Bilateral chest FINDINGS: A single view of the chest demonstrates the lungs to be symmetrically aerated without evidence of mas s, infiltrate or effusion. The cardiomediastinal contours are unremarkable. Osseous structures are intact. CONCLUSION: No acute disease. Joe Gan MD on October 09, 2016 at 16:25 Board Certified Radiologist. This report was verified electronically.
[2016-10-09 20:00] VITALS: BP 136/82; PULSE 85; RESP 17; TEMP 95.5; O2SAT 100
--- NOTE | 2016-10-09 21:31 | MB ---
cc: SARAH PICKERING MD DATE OF CONSULTATION 10/09/16 REASON FOR CONSULTATION Chronic kidney disease with elevated BUN and creatinine. HISTORY OF PRESENT ILLNESS This is a very pleasant 46-year-old male with past medical history of diabetes mellitus, longstanding history of hypertension, peripheral vascular disease, chronic kidney disease, history of GI bleeding who was brought to the hospital because of infection in the right foot. I was called to see the patient because of elevated BUN and creatinine. The patient has known history of chronic kidney disease and he was recently seen by Dr. Arreguin for the first time last week and he was told that his kidney function is around 20%. The patient has now come in. He has creatinine of 4.0. He has this creatinine in the range of 3.4-3.8 in the last few months. He was also found to have low bicarb and high potassium. The patient has left below-knee amputation and in the right foot he has transmetatarsal amputation. After this he recently has infection in the bottom of the foot and there is an open wound through which he has a small discharge. He denies any history of fever. No sore throat. No nausea or vomiting. No history of diarrhea. Denies any dysuria, hematuria, not taking any nonsteroidal anti-inflammatory drugs. PAST MEDICAL HISTORY 1. Hypertension, 2. Diabetes mellitus, 3. Peripheral vascular disease, 4. Chronic kidney disease, 5. History of GI bleeding. PAST SURGICAL HISTORY 1. Left below-knee amputation 2. Right mid foot amputation. REVIEW OF SYSTEMS There is no history of fever. No sore throat. No headache, dizziness, no shortness of breath or chest pain. No palpitation. No nausea or vomiting. No history of diarrhea. No dysuria, hematuria. He has this discharge in the right foot. There is no pain. On the left side, he has a below-knee amputation and he has a prosthesis. SOCIAL HISTORY There is no history of smoking or alcoholism FAMILY HISTORY Noncontributory. ALLERGIES NO KNOWN DRUG ALLERGIES. MEDICATIONS Currently he is on following medications 1. IV fluids getting with Sodium bicarbonate. 2. Amlodipine 10 mg once a day 3. Levemir 8 units q.h.s. 4. Insulin aspart sliding scale. 5. Lindrith as needed. 6. He got one dose of Vancomycin and Zosyn. PHYSICAL EXAMINATION GENERAL: On examination the patient is awake, alert. He is not in acute distress. VITAL SIGNS: Last blood pressure is 143/78, temperature 98.2, oxygen saturation on room air is 95-100%. HEENT: Pupils equal reacting to light. Nonicteric sclerae, conjunctivae pale. NECK: Supple. JVD is not elevated. LUNGS: The patient has bilateral decreased air entry with occasional wheezing. HEART: S1, S2, regular rhythm. ABDOMEN: Soft, lax. There is no tenderness. Bowel sounds positive. EXTREMITIES: Left below-knee amputation on the right. There is no pedal edema. The right foot has an open wound with small amount of discharge. LABORATORY DATA WBC count is 9.1, hemoglobin 9.2, platelet count 215, neutrophils 70.8%. Sodium 137. Potassium 5.7, chloride 112, bicarb 15.9, BUN 61, creatinine 4.0, glucose 68. Calcium 8.8, AST, ALT normal, total protein 7.6. Albumin is 3.4. Urinalysis showing protein of 100. This was done last month. He previously had FINN negative and complements normal. This was in 2015. Cultures are pending. IMAGING STUDIES The patient had a chest x-ray done which shows no active disease. X-ray of the foot done shows that he has subcutaneous ulcer, no definite evidence of osteomyelitis. ASSESSMENT/PLAN 1. Infected right foot with peripheral vascular disease 2. Rule out osteomyelitis. 3. Chronic kidney disease, advanced renal failure 4. Metabolic acidosis and hyperkalemia. 5. Anemia. 6. Diabetes mellitus 7. Hypertension The patient has advanced renal disease and most likely he has diabetic nephropathy with proteinuria. He had an ultrasound kidney done in May and it shows that both his kidneys are normal in size with increased echogenicity and bilateral renal cysts. At present, his kidney function seems to be stable. There is some acidosis for which he is getting IV fluids with sodium bicarb. Avoid any nephrotoxins. Watch renal function. I discussed with the patient about possibility of dialysis in the future. Thank you for the consultation. I will follow the patient while he is in the hospital. MD MARISA Gonzalez/ /7:32 PM /9:13 PM
[2016-10-09] MEDS: SODIUM CHLORIDE 0.9% FLUSH 10 ML FLUSH IV FLUSH SCH (23:08)
[2016-10-10] VITALS: BP 148/71; PULSE 91; RESP 17; TEMP 96.8; O2SAT 100
[2016-10-10] MEDS: SODIUM BICARBONATE 8.4% INJ 100 MEQ in DEXTROSE 5% IN WATE 1000ML INJ 1,000 ML IV SCH ×4 (04:19→16:41)
[2016-10-10] MEDS: HEPARIN SODIUM - SQ 10,000 UNITS/ML VIAL SQ SCH ×2 (04:20→16:25)
[2016-10-10] MEDS: INSULIN ASPART SUPPLEMENTAL SCALE SQ SCH ×4 (04:26→19:47)
[2016-10-10 05:44] LABS: AUTOMATED NEUTROPHIL # 4.6 TH/MM3 (1.8-7.7); BASOPHIL # 0.1 TH/MM3 (0-0.2); BASOPHIL % 1.3 % (0.0-2.0); EOSINOPHIL # 0.2 TH/MM3 (0-0.4); EOSINOPHIL % 2.7 % (0.0-4.0); HEMATOCRIT 25.4 % (39.0-51.0); HEMO FLAGS DIFF FINAL; LYMPH % 13.3 % (9.0-44.0); LYMPHOCYTE # 0.8 TH/MM3 (1.0-4.8); MEAN CELL VOLUME 91.4 FL (80.0-100.0); MEAN CORPUSCULAR HEMOGLOBIN 30.3 PG (27.0-34.0); MEAN CORPUSCULAR HGB CONC 33.1 % (32.0-36.0); MONO % 8.3 % (0.0-8.0); NEUT % 74.4 % (16.0-70.0); PLATELET COUNT 222 TH/MM3 (150-450); RED BLOOD COUNT 2.78 MIL/MM3 (4.50-5.90); WHITE BLOOD COUNT 6.2 TH/MM3 (4.0-11.0)
[2016-10-10 06:14] LABS: BICARBONATE 21.8 MEQ/L (21.0-32.0); POTASSIUM 4.8 MEQ/L (3.5-5.1)
[2016-10-10 08:00] VITALS: BP 136/71; PULSE 79; RESP 17; TEMP 99; O2SAT 100
--- NOTE | 2016-10-10 08:46 | HHI.PR ---
Subjective History of Present Illness Patient stable no acute issue Podiatry consulted check Bilateral arterial doppler d/w RN. Review of Systems Constitutional Constitutional: Fatigue, Weakness Integumentary Skin Remarks Right foot wound. amputation of right forefoot. Vitals/Results Intake & Output 10/09/16 10/09/16 10/10/16 15:00 23:00 07:00 Intake Total 1530 ml 1322 ml Output Total 520 ml 200 ml Balance 1010 ml 1122 ml Intake Oral 240 ml 240 ml IV Total 1290 ml 1082 ml Output Urine Total 520 ml 200 ml # Voids 2 Vital Signs Vital Signs Date Time Temp Pulse Resp B/P Pulse Ox O2 Delivery O2 Flow Rate FiO2 10/10/16 08:00 99.0 79 17 136/71 100 10/10/16 00:00 96.8 91 17 148/71 100 10/09/16 20:00 95.5 85 17 136/82 100 10/09/16 16:14 82 143/78 95 Room Air 10/09/16 15:07 91 127/70 98 10/09/16 13:13 100 Room Air 10/09/16 13:13 100 10/09/16 12:54 89 20 165/78 100 Room Air 10/09/16 12:23 98.2 61 18 128/71 98 CBC/BMP: 10/10/16 0504 10/10/16 0504 Lab Results Laboratory Tests Test 10/09/16 10/09/16 10/10/16 13:32 13:50 05:04 White Blood Count 9.1 TH/MM3 6.2 TH/MM3 Red Blood Count 3.03 MIL/MM3 2.78 MIL/MM3 Hemoglobin 9.2 GM/DL 8.4 GM/DL Hematocrit 27.9 % 25.4 % Mean Corpuscular Volume 92.1 FL 91.4 FL Mean Corpuscular Hemoglobin 30.4 PG 30.3 PG Mean Corpuscular Hemoglobin 33.0 % 33.1 % Concent Red Cell Distribution Width 14.1 % 14.0 % Platelet Count 250 TH/MM3 222 TH/MM3 Mean Platelet Volume 8.6 FL 8.5 FL Neutrophils (%) (Auto) 70.8 % 74.4 % Lymphocytes (%) (Auto) 17.9 % 13.3 % Monocytes (%) (Auto) 8.1 % 8.3 % Eosinophils (%) (Auto) 2.4 % 2.7 % Basophils (%) (Auto) 0.8 % 1.3 % Neutrophils # (Auto) 6.4 TH/MM3 4.6 TH/MM3 Lymphocytes # (Auto) 1.6 TH/MM3 0.8 TH/MM3 Monocytes # (Auto) 0.7 TH/MM3 0.5 TH/MM3 Eosinophils # (Auto) 0.2 TH/MM3 0.2 TH/MM3 Basophils # (Auto) 0.1 TH/MM3 0.1 TH/MM3 CBC Comment DIFF FINAL DIFF FINAL Differential Comment Sodium Level 137 MEQ/L 140 MEQ/L Potassium Level 5.7 MEQ/L 4.8 MEQ/L Chloride Level 112 MEQ/L 111 MEQ/L Carbon Dioxide Level 15.9 MEQ/L 21.8 MEQ/L Anion Gap 9 MEQ/L 7 MEQ/L Blood Urea Nitrogen 61 MG/DL 53 MG/DL Creatinine 4.09 MG/DL 3.72 MG/DL Estimat Glomerular Filtration 19 ML/MIN 21 ML/MIN Rate Random Glucose 68 MG/DL 71 MG/DL Calcium Level 8.8 MG/DL 8.2 MG/DL Total Bilirubin 0.2 MG/DL Aspartate Amino Transf 30 U/L (AST/SGOT) Alanine Aminotransferase 19 U/L (ALT/SGPT) Alkaline Phosphatase 109 U/L Total Protein 7.6 GM/DL Albumin 3.4 GM/DL Prothrombin Time 10.0 SEC Prothromb Time International 0.9 RATIO Ratio Activated Partial 29.0 SEC Thromboplast Time Lactic Acid Level 0.5 mmol/L Microbiology Microbiology 10/09/16 Gram Stain - Final, Resulted 10/09/16 Wound Culture, Resulted Pending 10/09/16 Aerobic Blood Culture, Received Pending 10/09/16 Anaerobic Blood Culture, Received Pending 10/09/16 Aerobic Blood Culture, Received Pending 10/09/16 Anaerobic Blood Culture, Received Pending Physical Exam General General Appearance: Well Developed, No Acute Distress, Comfortable Eyes Eye Exam: Pupils Equal, Pupils Reactive, Sclera White, Extraocular Movement Intact Throat Throat Exam: Oral Mucosa [place] & Moist, Oral Pharynx Normal Neck Neck Exam: Neck Supple, Trachea Midline Pulmonary Resp Exam: Clear Bilaterally, Breath Sounds Equal, No Distress Cardiology CV Exam: Regular, Normal Sinus Rhythm Gastrointestinal/Abdomen GI Exam: Soft, Non-Tender, Bowel Sounds Present Musculoskeletal MS Exam: Normal Tone MS Remarks 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 Integumentary Skin Exam: Warm, Dry Skin Remarks Right foot wound. 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 Neurologic Neuro Exam: Alert, Awake, Oriented, Speech Clear, Moving All Extremities, No Focal Deficits Psychiatric Psych Exam: Appropriate Responses VTE Prophylaxis VTE Prophylaxis Meds: Heparin PUD Prophylasis PUD Prophylaxis: Protonix Assessment/Plan Assessment/Plan Assessment and Plan Right foot stump infection Right foot stump ulcer, rule out osteomyelitis Acute on chronic kidney disease Hyperkalemia resolved. Metabolic acidosis Anemia from chronic diseases including renal failure. Hypoglycemia Management Consult Podiatry and Infectious disease check arterial doppler Nephrology input noted D5W with sodium bicarbonate drip at 100 mL an hour Repeat potassium level If above 5.5 he will need hyperkalemia Follow renal indices Follow potassium level IV antibiotics Pharmacy to dose according to renal function Consult vascular surgery Discussed with patient Discussed with nurse Discussed Condition with: Patient Jean Claude Valencia MD Oct 10, 2016 08:46
[2016-10-10] MEDS: SODIUM CHLORIDE 0.9% FLUSH 10 ML FLUSH IV FLUSH SCH ×2 (09:00→19:46)
[2016-10-10 12:00] VITALS: BP 147/69; PULSE 85; RESP 16; TEMP 97; O2SAT 100
--- NOTE | 2016-10-10 14:39 | RADRPT ---
EXAM DATE/TIME: 10/10/2016 00:00 [facility] COMPARISON: No previous studies available for comparison. INDICATIONS : Diabetic Foot Ulcer TECHNIQUE: Five-station segmental examination of the lower extremities was performed. Pulsed-cuff waveform tracings and pressures were recorded. Ankle-brachial indices and toe-brachial indices were calculated. PRESSURES (mmHg): Brachial (arm): Right IV SITE Left 126 Lower Thigh: Right 162 Left BKA Calf: Right 167 Left BKA Ankle: Right 172 Left BKA HARRY: Right 1.37 Left BKA PULSED CUFF WAVEFORMS: Demonstrate normal amplitude bilaterally. CONCLUSION: Elevated segmental pressures and HARRY in the right lower extremity characteristic of vessels chronic v ascular disease. No findings to suggest significant inflow disease. Patrick Butts MD on October 10, 2016 at 14:37 Board Certified Radiologist. This report was verified electronically.
[2016-10-10 15:04] LABS: HEMOGLOBIN A1a 1.3 %; HEMOGLOBIN A1b 1.7 %; HEMOGLOBIN Ao 84.8 %; HEMOGLOBIN LA1C 2.3 %; HEMOGLOBIN P3 5.7 %
[2016-10-10 16:00] VITALS: BP 146/70; PULSE 86; RESP 17; TEMP 96.1; O2SAT 100
[2016-10-10] MEDS: ACETAMINOPHEN/HYDROcodone 325 MG/5 MG TAB PO PRN (16:25)
--- NOTE | 2016-10-10 16:35 | PD.CAR.PN ---
CVT Progress Note Subjective/Hospital Course: Consult received Full evaluation and consult dictation to follow Holly P[place] Objective: Vital Signs Date Time Temp Pulse Resp B/P Pulse Ox O2 Delivery O2 Flow Rate FiO2 10/10/16 12:00 97.0 85 16 147/69 100 10/10/16 08:00 99.0 79 17 136/71 100 10/10/16 00:00 96.8 91 17 148/71 100 10/09/16 20:00 95.5 85 17 136/82 100 Labs: Laboratory Tests Test 10/10/16 05:04 White Blood Count 6.2 TH/MM3 (4.0-11.0) Red Blood Count 2.78 MIL/MM3 (4.50-5.90) Hemoglobin 8.4 GM/DL (13.0-17.0) Hematocrit 25.4 % (39.0-51.0) Mean Corpuscular Volume 91.4 FL (80.0-100.0) Mean Corpuscular Hemoglobin 30.3 PG (27.0-34.0) Mean Corpuscular Hemoglobin 33.1 % Concent (32.0-36.0) Red Cell Distribution Width 14.0 % (11.6-17.2) Platelet Count 222 TH/MM3 (150-450) Mean Platelet Volume 8.5 FL (7.0-11.0) Neutrophils (%) (Auto) 74.4 % (16.0-70.0) Lymphocytes (%) (Auto) 13.3 % (9.0-44.0) Monocytes (%) (Auto) 8.3 % (0.0-8.0) Eosinophils (%) (Auto) 2.7 % (0.0-4.0) Basophils (%) (Auto) 1.3 % (0.0-2.0) Neutrophils # (Auto) 4.6 TH/MM3 (1.8-7.7) Lymphocytes # (Auto) 0.8 TH/MM3 (1.0-4.8) Monocytes # (Auto) 0.5 TH/MM3 (0-0.9) Eosinophils # (Auto) 0.2 TH/MM3 (0-0.4) Basophils # (Auto) 0.1 TH/MM3 (0-0.2) CBC Comment DIFF FINAL Differential Comment Sodium Level 140 MEQ/L (136-145) Potassium Level 4.8 MEQ/L (3.5-5.1) Chloride Level 111 MEQ/L (98-107) Carbon Dioxide Level 21.8 MEQ/L (21.0-32.0) Anion Gap 7 MEQ/L (5-15) Blood Urea Nitrogen 53 MG/DL (7-18) Creatinine 3.72 MG/DL (0.60-1.30) Estimat Glomerular Filtration 21 ML/MIN (>89) Rate Random Glucose 71 MG/DL (74-106) Hemoglobin A1c 5.2 % (4.3-6.0) Calcium Level 8.2 MG/DL (8.5-10.1) Result Diagram: 10/10/16 0504 10/10/16 0504 Zo Kovacs MD Oct 10, 2016 16:35
[2016-10-10] MEDS ORDERED: cefTRIAXone INJ 1,000 MG in SODIUM CHLORIDE 0.9% INJ 100 ML IV SCH (18:00)
--- NOTE | 2016-10-10 18:03 | HHI.NPPN ---
Subjective History of Present Illness 46-year-old male with past medical history of diabetes mellitus, longstanding history of hypertension, peripheral vascular disease, chronic kidney disease, history of GI bleeding who was brought to the hospital because of infection in the right foot. I was called to see the patient because of elevated BUN and creatinine. Additional Remarks Patient is alert, eating well, no SOB. Objective Data Data 10/09/16 10/10/16 19:00 07:00 Intake Total 1290 ml 1562 ml Output Total 450 ml 270 ml Balance 840 ml 1292 ml Intake Oral 480 ml IV Total 1290 ml 1082 ml Output Urine Total 450 ml 270 ml # Voids 2 Vital Signs Date Time Temp Pulse Resp B/P Pulse Ox O2 Delivery O2 Flow Rate FiO2 10/10/16 16:00 96.1 86 17 146/70 100 10/10/16 12:00 97.0 85 16 147/69 100 10/10/16 08:00 99.0 79 17 136/71 100 10/10/16 00:00 96.8 91 17 148/71 100 10/09/16 20:00 95.5 85 17 136/82 100 -: 10/10/16 0504 10/10/16 0504 Physical Exam General Appearance: No Acute Distress, Comfortable Eyes Eye Exam: Pupils Equal, Pupils Reactive, Sclera White, Extraocular Movement Intact Throat Throat Exam: Oral Mucosa [place] & Moist, Oral Pharynx Normal Neck Neck Exam: Neck Supple, Trachea Midline Pulmonary Resp Exam: Clear Bilaterally, Breath Sounds Equal, No Distress Cardiology CV Exam: Regular, Normal Sinus Rhythm Gastrointestinal/Abdomen GI Exam: Soft, Non-Tender, Bowel Sounds Present Musculoskeletal MS Exam: Normal Tone Integumentary Skin Exam: Warm, Dry Extremeties Extremities Exam: Trace Edema Neurologic Neuro Exam: Alert, Awake, Oriented, Speech Clear, No Focal Deficits Psychiatric Psych Exam: Appropriate Responses PUD Prophylasis PUD Prophylaxis: Protonix Assessment/Plan Assessment Summary: Anemia of CKD, Hypertension, Diabetes Mellitus, CKD Stage IV Problem List: (1) Diabetic ulcer of right foot associated with type 2 diabetes mellitus (2) Anemia in chronic illness (3) Cellulitis in diabetic foot (4) Hypertension (5) Diabetes mellitus (6) Chronic kidney disease (CKD) stage G4/A1, severely decreased glomerular filtration rate (GFR) between 15-29 mL/min/1.73 square meter and albuminuria creatinine ratio less than 30 mg/g (7) AMAN (acute kidney injury) Plan Patient has no SOB, doing well, BP is stable. Has some improvement in the Creatinine. Non oliguric. Has stage 4 chronic kidney disease and has an element of AMAN. Seen by ID and Vascular. Continue antibiotics and follow MRI results. Norah Lantigua MD Oct 10, 2016 18:03
--- NOTE | 2016-10-10 18:51 | EKG ---
Date Performed: 10/09/2016 Time Performed: 14:44:49 PTAGE: 46 years EKG: Sinus rhythm NORMAL ECG Compared to prior tracing no significant change PREVIOUS TRACING 06/09/16 23.03.25 DOCTOR: Antonio Falcon Interpretating Date/Time 10/10/2016 18:51:05
[2016-10-10] MEDS: INSULIN DETEMIR 100 UNITS/ML VIAL SQ SCH (19:47)
[2016-10-10 20:00] VITALS: BP 131/79; PULSE 87; RESP 20; TEMP 97.3; O2SAT 100
[2016-10-11] VITALS: BP 158/89; PULSE 82; RESP 20; TEMP 97.6; O2SAT 98
[2016-10-11] MEDS: SODIUM BICARBONATE 8.4% INJ 100 MEQ in DEXTROSE 5% IN WATE 1000ML INJ 1,000 ML IV SCH ×4 (02:03→12:00)
[2016-10-11] MEDS: HEPARIN SODIUM - SQ 10,000 UNITS/ML VIAL SQ SCH ×2 (03:33→16:00)
[2016-10-11] MEDS: INSULIN ASPART SUPPLEMENTAL SCALE SQ SCH ×4 (05:23→21:00)
[2016-10-11 05:26] LABS: AUTOMATED NEUTROPHIL # 2.9 TH/MM3 (1.8-7.7); BASOPHIL # 0.1 TH/MM3 (0-0.2); BASOPHIL % 1.1 % (0.0-2.0); EOSINOPHIL # 0.1 TH/MM3 (0-0.4); EOSINOPHIL % 2.7 % (0.0-4.0); HEMATOCRIT 23.1 % (39.0-51.0); HEMO FLAGS DIFF FINAL; LYMPH % 30.6 % (9.0-44.0); LYMPHOCYTE # 1.6 TH/MM3 (1.0-4.8); MEAN CELL VOLUME 90.1 FL (80.0-100.0); MEAN CORPUSCULAR HEMOGLOBIN 30.5 PG (27.0-34.0); MEAN CORPUSCULAR HGB CONC 33.8 % (32.0-36.0); MONO % 9.6 % (0.0-8.0); PLATELET COUNT 213 TH/MM3 (150-450); RED BLOOD COUNT 2.56 MIL/MM3 (4.50-5.90); WHITE BLOOD COUNT 5.2 TH/MM3 (4.0-11.0)
[2016-10-11 05:49] LABS: ALKALINE PHOSPHATASE 83 U/L (45-117); ALT (GPT) 14 U/L (12-78); ANION GAP 7 MEQ/L (5-15); AST (GOT) 19 U/L (15-37); BICARBONATE 25.9 MEQ/L (21.0-32.0); BLOOD UREA NITROGEN 45 MG/DL (7-18); CHLORIDE 108 MEQ/L (98-107); GLOMERULAR FILTRATION RATE 24 ML/MIN (>89); POTASSIUM 4.2 MEQ/L (3.5-5.1); SODIUM (NA) 141 MEQ/L (136-145); TOTAL BILIRUBIN ADULT 0.1 MG/DL (0.2-1.0)
[2016-10-11 08:00] VITALS: BP 137/79; PULSE 80; RESP 17; TEMP 97.3; O2SAT 100
[2016-10-11] MEDS: SODIUM CHLORIDE 0.9% FLUSH 10 ML FLUSH IV FLUSH SCH ×2 (08:37→21:00)
--- NOTE | 2016-10-11 09:16 | PD.CONS ---
History of Present Illness Service podiatry Consult Requested By ED Reason for Consult R foot ulcer Primary Care Physician Jean Claude Valencia MD Diagnoses: History of Present Illness Patient has long history of ulcer R plantar foot stump and multiple surgeries to include AKA on L side, as well. 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/16) Past Medical History Insulin requiring diabetes mellitus Peripheral arterial disease Poor nutrition Hypertension Recurrent diarrhea recurrent vomiting Hematemesis for which he had a bronchoscopy Chronic renal disease Past Surgical History Left above-knee amputation Right midfoot amputation Circumcision Active Ordered Medications Current Medications Medications (Trade) Dose Ordered Sig/Ayush Route Start Time Stop Time Status Last Admin (NS Flush) 2 ml UNSCH PRN IV FLUSH 10/09/16 15:45 (NS Flush) 2 ml BID IV FLUSH 10/09/16 21:00 10/09/16 23:08 (Heparin Inj) 5,000 units Q12H SQ 10/09/16 16:00 10/11/16 03:33 (Narcan Inj) 0.4 mg UNSCH PRN IV 10/09/16 15:45 (Norvasc) 10 mg DAILY PO 10/10/16 09:00 10/11/16 08:37 (Kempner 5-325 Mg) 1 tab BID PRN PO 10/09/16 15:45 10/10/16 16:25 Insulin Detemir 8 units 8 units HS SQ 10/09/16 16:00 10/10/16 19:47 Sodium Bicarbonate 100 meq/Dextrose 1,100 ml @ 100 mls/hr Q11H IV 10/09/16 16:00 10/11/16 02:03 (Vancomycin Consult Pharmacy) 0 ml @ 0 mls/hr UNSCH OTHER 10/09/16 15:45 (D50w (Vial) Inj) 25 ml UNSCH PRN IV PUSH 10/09/16 15:45 Glucagon 1 mg 1 mg UNSCH PRN OTHER 10/09/16 15:45 (Rocephin Inj/NS Inj) 100 ml @ 200 mls/hr Q24H IV 10/10/16 18:00 10/10/16 18:40 Family History nc Social History denies Physical Exam Vital Signs Vital Signs Date Time Temp Pulse Resp B/P Pulse Ox O2 Delivery O2 Flow Rate FiO2 10/11/16 08:00 97.3 80 17 137/79 100 10/11/16 00:00 97.6 82 20 158/89 98 10/10/16 20:00 97.3 87 20 131/79 100 10/10/16 16:00 96.1 86 17 146/70 100 10/10/16 12:00 97.0 85 16 147/69 100 Physical Exam R plantar foot with distal ulceration probing to bone, no lance purulence. Foul odor present. Macerated tissue present. Opening is 1cm diameter and probes to bone. No granulation tissue present. RLE very warm. Laboratory Laboratory Tests Test 10/11/16 05:00 White Blood Count 5.2 Red Blood Count 2.56 Hemoglobin 7.8 Hematocrit 23.1 Mean Corpuscular Volume 90.1 Mean Corpuscular Hemoglobin 30.5 Mean Corpuscular Hemoglobin 33.8 Concent Red Cell Distribution Width 14.0 Platelet Count 213 Mean Platelet Volume 8.5 Neutrophils (%) (Auto) 56.0 Lymphocytes (%) (Auto) 30.6 Monocytes (%) (Auto) 9.6 Eosinophils (%) (Auto) 2.7 Basophils (%) (Auto) 1.1 Neutrophils # (Auto) 2.9 Lymphocytes # (Auto) 1.6 Monocytes # (Auto) 0.5 Eosinophils # (Auto) 0.1 Basophils # (Auto) 0.1 CBC Comment DIFF FINAL Differential Comment Sodium Level 141 Potassium Level 4.2 Chloride Level 108 Carbon Dioxide Level 25.9 Anion Gap 7 Blood Urea Nitrogen 45 Creatinine 3.33 Estimat Glomerular Filtration 24 Rate Random Glucose 158 Calcium Level 7.5 Total Bilirubin 0.1 Aspartate Amino Transf 19 (AST/SGOT) Alanine Aminotransferase 14 (ALT/SGPT) Alkaline Phosphatase 83 Total Protein 6.2 Albumin 2.6 Random Vancomycin Level 7.8 Date/Time Procedure Status Source Growth 10/09/16 13:50 Aerobic Blood Culture - Preliminary Resulted Blood Peripheral NO GROWTH IN 1 DAY 10/09/16 13:50 Anaerobic Blood Culture - Preliminary Resulted Blood Peripheral NO GROWTH IN 1 DAY 10/09/16 13:13 Gram Stain - Final Resulted Wound Foot 10/09/16 13:13 Wound Culture - Preliminary Resulted Wound Foot HEAVY GROWTH NORMAL SKIN MIRI AT 24HRS Result Diagram: 10/11/16 0500 10/11/16 0500 Imaging Ordering MRI R foot Assessment and Plan Assessment and Plan R residual foot infection Treatment plan for more proximal amputation per Dr Kovacs. Wrote dressing change orders for residual R foot in the meantime. Patient states he may refuse amputation due to L aka and wait until it gets worse before moving forward. I explained risks associated with this. ORdering MRI R foot De Flowers DPM Oct 11, 2016 09:16
[2016-10-11] MEDS: ACETAMINOPHEN/HYDROcodone 325 MG/5 MG TAB PO PRN ×2 (10:14→22:02)
--- NOTE | 2016-10-11 10:15 | HHI.PR ---
Subjective History of Present Illness Patient stable no acute issue Podiatry input noted need more proximal amputation Patient refused amputation risk benefits and alternative explained to patient including he said he did wants amputation even though he will . checked Bilateral arterial doppler and MRI Right foot noted.. Review of Systems Constitutional Constitutional: Fatigue, Weakness Integumentary Skin Remarks Left BKA.Right foot wound. amputation of right forefoot. Vitals/Results Intake & Output 10/10/16 10/10/16 10/11/16 15:00 23:00 07:00 Intake Total 899 ml 922 ml 480 ml Output Total 600 ml 300 ml 550 ml Balance 299 ml 622 ml -70 ml Intake Oral 0 ml 480 ml 480 ml IV Total 899 ml 442 ml Output Urine Total 600 ml 300 ml 550 ml # Bowel Movements 1 Vital Signs Vital Signs Date Time Temp Pulse Resp B/P Pulse Ox O2 Delivery O2 Flow Rate FiO2 10/11/16 08:00 97.3 80 17 137/79 100 10/11/16 00:00 97.6 82 20 158/89 98 10/10/16 20:00 97.3 87 20 131/79 100 10/10/16 16:00 96.1 86 17 146/70 100 10/10/16 12:00 97.0 85 16 147/69 100 CBC/BMP: 10/11/16 0500 10/11/16 0500 Lab Results Laboratory Tests Test 10/11/16 05:00 White Blood Count 5.2 TH/MM3 Red Blood Count 2.56 MIL/MM3 Hemoglobin 7.8 GM/DL Hematocrit 23.1 % Mean Corpuscular Volume 90.1 FL Mean Corpuscular Hemoglobin 30.5 PG Mean Corpuscular Hemoglobin 33.8 % Concent Red Cell Distribution Width 14.0 % Platelet Count 213 TH/MM3 Mean Platelet Volume 8.5 FL Neutrophils (%) (Auto) 56.0 % Lymphocytes (%) (Auto) 30.6 % Monocytes (%) (Auto) 9.6 % Eosinophils (%) (Auto) 2.7 % Basophils (%) (Auto) 1.1 % Neutrophils # (Auto) 2.9 TH/MM3 Lymphocytes # (Auto) 1.6 TH/MM3 Monocytes # (Auto) 0.5 TH/MM3 Eosinophils # (Auto) 0.1 TH/MM3 Basophils # (Auto) 0.1 TH/MM3 CBC Comment DIFF FINAL Differential Comment Sodium Level 141 MEQ/L Potassium Level 4.2 MEQ/L Chloride Level 108 MEQ/L Carbon Dioxide Level 25.9 MEQ/L Anion Gap 7 MEQ/L Blood Urea Nitrogen 45 MG/DL Creatinine 3.33 MG/DL Estimat Glomerular Filtration 24 ML/MIN Rate Random Glucose 158 MG/DL Calcium Level 7.5 MG/DL Total Bilirubin 0.1 MG/DL Aspartate Amino Transf 19 U/L (AST/SGOT) Alanine Aminotransferase 14 U/L (ALT/SGPT) Alkaline Phosphatase 83 U/L Total Protein 6.2 GM/DL Albumin 2.6 GM/DL Random Vancomycin Level 7.8 COMMENT Physical Exam General General Appearance: Well Developed, No Acute Distress, Comfortable Eyes Eye Exam: Pupils Equal, Pupils Reactive, Sclera White, Extraocular Movement Intact Throat Throat Exam: Oral Mucosa [place] & Moist, Oral Pharynx Normal Neck Neck Exam: Neck Supple, Trachea Midline Pulmonary Resp Exam: Clear Bilaterally, Breath Sounds Equal, No Distress Cardiology CV Exam: Regular, Normal Sinus Rhythm Gastrointestinal/Abdomen GI Exam: Soft, Non-Tender, Bowel Sounds Present Musculoskeletal MS Exam: Normal Tone MS Remarks 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 R plantar foot with distal ulceration probing to bone, no lance purulence. Foul odor present. Macerated tissue present. Opening is 1cm diameter and probes to bone. No granulation tissue present. RLE very warm. Integumentary Skin Exam: Warm, Dry Skin Remarks Right foot wound. 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 R plantar foot with distal ulceration probing to bone, no lance purulence. Foul odor present. Macerated tissue present. Opening is 1cm diameter and probes to bone. No granulation tissue present. RLE very warm. Neurologic Neuro Exam: Alert, Awake, Oriented, Speech Clear, Moving All Extremities, No Focal Deficits Psychiatric Psych Exam: Appropriate Responses VTE Prophylaxis VTE Prophylaxis Meds: Heparin PUD Prophylasis PUD Prophylaxis: Protonix Assessment/Plan Assessment/Plan Assessment and Plan Right foot stump infection Right foot stump ulcer, rule out osteomyelitis Acute on chronic kidney disease Hyperkalemia resolved. Metabolic acidosis Anemia from chronic diseases including renal failure. Hypoglycemia Management Podiatry input noted need more proximal amputation Patient refused amputation risk benefits and alternative explained to patient including he said he did wants amputation even though he will . checked Bilateral arterial doppler and MRI Right foot noted.. Nephrology input noted D5W with sodium bicarbonate drip at 100 mL an hour Follow renal indices Follow potassium level IV antibiotics Pharmacy to dose according to renal function vascular surgery input noted. Discussed with patient Discussed with nurse Check CBC with diff Cmp in AM. Discussed Condition with: Patient Jean Claude Valencia MD Oct 11, 2016 10:15
--- NOTE | 2016-10-11 11:47 | RADRPT ---
EXAM DATE/TIME: 10/11/2016 10:30 [facility] COMPARISON: FOOT RIGHT LIMITED (2VWS), November 30, 2015, 15:23. FOOT RIGHT COMPLETE (MIN3VW S), October 09, 2016, 14:34. MRI FOOT RIGHT W/O CONTRAST, December 13, 2015, 15:54. INDICATIONS : Osteomyelitis. MEDICAL HISTORY : Diabetes mellitus type 2. Renal insufficiency, chronic. Hypertension. SURGICAL HISTORY : Right foot partial amputation, left BKA ENCOUNTER: Initial ACUITY: 1 week PAIN SCORE: 0/10 LOCATION: Right foot TECHNIQUE: Multiplanar, multisequence MRI examination was performed without contrast. FINDINGS: The patient is status post amputation at the level of the metatarsals. It appears that the proximal most aspect of the 2nd through 5th metatarsals remain in place. There is chronic remodeling at the s mall 5th metatarsal fragment that remains. There is abnormal signal within the 4th and 5th metatarsa l remaining fragments. These are seen as areas of low signal on the T1 weighted images and increased signal on the T2 weighted images. There are much lesser similar changes seen at the distal lateral cuboid bone. The remaining bony structures appear normal in signal. There is abnormal signal seen a t the distal stump. There is edema in this region. There also appears to be a focus of low signal s een inferior to the 4th and 5th metatarsals likely related to an ulcer at the plantar surface. A foc al fluid collection or abscess is not seen. CONCLUSION: 1. Abnormal signal at the small remaining portions of the proximal 4th and 5th metatarsals. There a ppears to be chronic remodeling at the small 5th metatarsal fragment. These signal changes were pres ent previously. Some degree of osteomyelitis needs to be considered. The patient does have an ulcer seen at the plantar soft tissues at this level. 2. Milder changes in the cuneiform bone being more prominent on the T2 weighted images. The T1 scott ges at the cuboid bone are less prominent making osteomyelitis in this region less likely. Heber Healy MD on October 11, 2016 at 11:29 Board Certified Radiologist. This report was verified electronically.
[2016-10-11 12:00] VITALS: BP 156/82; PULSE 88; RESP 18; TEMP 97.3; O2SAT 99
[2016-10-11] MEDS ORDERED: VANCOMYCIN 1,000 MG/NS 250 ML IV ONE ×2 (14:00)
[2016-10-11 16:00] VITALS: BP 136/72; PULSE 86; RESP 17; TEMP 96.3; O2SAT 99
--- NOTE | 2016-10-11 16:02 | PD.CONS ---
History of Present Illness Service Infectious Disease Consult Requested By Dr Opal Valencia Reason for Consult Evaluate patient with R foot wound Primary Care Physician Jean Claude Valencia MD Diagnoses: History of Present Illness Patient seen and examined. Records reviewed. Patient is a 46-year-old patient, has diabetes and known peripheral vascular disease, has had problem with multiple infections in both lower extremity. He ended up having a left AKA couple years ago. He is also had problem with infection in the right foot, and he had a trans metatarsal amputation back in 2012. 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 He was reportedly seen by his primary care physician on the day of admission because the patient had noted some drainage. He was told to go to the hospital for further evaluation and treatment. There's been no fever or chills. He does not experience any significant pain. Denies any other symptoms. Imaging studies showed some findings which is the same compared to his last MRI from 2012. Culture of the wound had normal felipe. His blood cultures are negative so far. Patient is being evaluated I podiatry as well as surgery. Infectious disease consultation is requested to evaluate the patient. He is currently on IV Rocephin and IV vancomycin Review of Systems Constitutional: DENIES: Fever, Chills, Night Sweats Eyes: DENIES: Eye pain Ears, nose, mouth, throat: DENIES: Nasal discharge, Oral lesions, Throat pain, Ear Pain, Sinus Pain, Toothache Respiratory: DENIES: Cough, Shortness of breath Cardiovascular: DENIES: Chest pain, Palpitations, Syncope, Dyspnea on Exertion Gastrointestinal: DENIES: Abdominal pain, Diarrhea, Nausea, Vomiting, Difficulty Swallowing Genitourinary: DENIES: Hematuria, Dysuria Musculoskeletal: DENIES: Muscle aches Integumentary: DENIES: Pruritus, Rash Neurologic: DENIES: Headache Psychiatric: DENIES: Confusion, Hallucinations 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/16) Past Medical History Insulin requiring diabetes mellitus Peripheral arterial disease Poor nutrition Hypertension Prev C diff colitis Chronic renal disease Multiple episodes of DFI, both LE Past Surgical History Multiple surgeries to L foot, and last one was left below-knee amputation Right midfoot amputation Circumcision Active Ordered Medications [place] Norvasc Rocephin Heparin Insulin Sodium bicarbonate IV vancomycin Social History No smoking No ETOH abuse No illicit drugs Physical Exam Vital Signs Vital Signs Date Time Temp Pulse Resp B/P Pulse Ox O2 Delivery O2 Flow Rate FiO2 10/11/16 12:00 97.3 88 18 156/82 99 10/11/16 08:00 97.3 80 17 137/79 100 10/11/16 00:00 97.6 82 20 158/89 98 10/10/16 20:00 97.3 87 20 131/79 100 10/10/16 16:00 96.1 86 17 146/70 100 Physical Exam GENERAL: This is a thin, well-developed male, awake and alert, in no apparent distress. SKIN: Cool and dry. No generalized rash or ecchymosis. HEAD: Atraumatic. Normocephalic. No temporal or scalp tenderness. EYES: [place] conjunctiva. Pupils equal round and reactive. Extraocular motions intact. No scleral icterus. No injection or drainage. ENT: Nose without bleeding, or purulent drainage. Moist oral mucosa. No thrush. Throat without erythema, or exudate. Uvula midline. Airway patent. NECK: Trachea midline. No JVD or lymphadenopathy. Supple, nontender, no meningeal signs. CARDIOVASCULAR: Regular rate and rhythm without murmurs, gallops, or rubs. RESPIRATORY: Clear to auscultation. Breath sounds equal bilaterally. No wheezes , rales, or rhonchi. GASTROINTESTINAL: Abdomen soft, flat, non-tender, nondistended. No hepato- splenomegaly, or palpable masses. No guarding. MUSCULOSKELETAL: LLE: well healed [place] stump. RLE - has well healed stump, but there is an ulcer on plantar aspect that is about 1 cm size opening, probes to the bone, no redness noted, small amount of serosanguineous drainage, no odor, no tenderness. No joint effusion, or edema, has good ROM. No R calf tenderness. NEUROLOGICAL: Awake and alert. Cranial nerves II through XII intact. Five out of 5 muscle strength in all muscle groups. Normal speech. PSYCH: Normal affect, calm and cooperative LINE: PIV with no evidence of infection Laboratory Laboratory Tests Test 10/11/16 05:00 White Blood Count 5.2 Red Blood Count 2.56 Hemoglobin 7.8 Hematocrit 23.1 Mean Corpuscular Volume 90.1 Mean Corpuscular Hemoglobin 30.5 Mean Corpuscular Hemoglobin 33.8 Concent Red Cell Distribution Width 14.0 Platelet Count 213 Mean Platelet Volume 8.5 Neutrophils (%) (Auto) 56.0 Lymphocytes (%) (Auto) 30.6 Monocytes (%) (Auto) 9.6 Eosinophils (%) (Auto) 2.7 Basophils (%) (Auto) 1.1 Neutrophils # (Auto) 2.9 Lymphocytes # (Auto) 1.6 Monocytes # (Auto) 0.5 Eosinophils # (Auto) 0.1 Basophils # (Auto) 0.1 CBC Comment DIFF FINAL Differential Comment Sodium Level 141 Potassium Level 4.2 Chloride Level 108 Carbon Dioxide Level 25.9 Anion Gap 7 Blood Urea Nitrogen 45 Creatinine 3.33 Estimat Glomerular Filtration 24 Rate Random Glucose 158 Calcium Level 7.5 Total Bilirubin 0.1 Aspartate Amino Transf 19 (AST/SGOT) Alanine Aminotransferase 14 (ALT/SGPT) Alkaline Phosphatase 83 Total Protein 6.2 Albumin 2.6 Random Vancomycin Level 7.8 Date/Time Procedure Status Source Growth 10/09/16 13:50 Aerobic Blood Culture - Preliminary Resulted Blood Peripheral NO GROWTH IN 2 DAYS 10/09/16 13:50 Anaerobic Blood Culture - Preliminary Resulted Blood Peripheral NO GROWTH IN 2 DAYS 10/09/16 13:13 Gram Stain - Final Complete Wound Foot 10/09/16 13:13 Wound Culture - Final Complete Wound Foot HEAVY GROWTH NORMAL SKIN FELIPE... Result Diagram: 10/11/16 0500 10/11/16 0500 Imaging RADIOLOGY STUDIES/FILMS REVIEWED Foot MRI 10/11/16 0000 Signed Impressions: Service Date/Time: Tuesday, October 11, 2016 10:30 - CONCLUSION: 1. Abnormal signal at the small remaining portions of the proximal 4th and 5th metatarsals. There appears to be chronic remodeling at the small 5th metatarsal fragment. These signal changes were present previously. Some degree of osteomyelitis needs to be considered. The patient does have an ulcer seen at the plantar soft tissues at this level. 2. Milder changes in the cuneiform bone being more prominent on the T2 weighted images. The T1 changes at the cuboid bone are less prominent making osteomyelitis in this region less likely. Heber Healy MD Foot X-Ray 10/09/16 1301 Signed Impressions: Service Date/Time: September 14:34 - CONCLUSION: Subcutaneous ulcer no definite evidence for osteomyelitis for technique. Monica Celyaa MD Chest X-Ray 10/09/16 1301 Signed Impressions: Service Date/Time: September 14:31 - CONCLUSION: No acute disease. Joe Gan MD Assessment and Plan Assessment and Plan IMPRESSION Chronic ulcer R foot, clinically no obvious findings of infection on exam that is not red, no swelling, no induration, no pain, has some small drainage, but probes to the bone - MRI has no changed compared to previous MRI - this is his only remaining foot, he has had L AKA DM PVD RECOMMENDATION Get ESR and CRP ? if one option is treat with oral Abx and wound care since he is stable and try to follow his wound closer - it seems that he has not really followed up with any podiatry or wound care clinic for this chronic ulcer - ? tx conservatively since this is his only limb remaining - if he fails and show more aggressive infection then amputate Continue IV vanco - will redose based on level Stop Rocephin Lactinex Monitor progress Will D/W podiatry I will follow along with you Thank you for this consultation Discussed Condition With D/W Margarita Florence MD Oct 11, 2016 16:02
--- NOTE | 2016-10-11 18:16 | MB ---
cc: ZO MAR MD DATE OF CONSULTATION 10/11/16 REASON FOR CONSULTATION Gangrene of the left foot and forefoot amputation, plantar ulcer, peripheral vascular disease, diabetes mellitus and chronic renal failure on dialysis with hypertension as well as medical noncompliance. HISTORY OF PRESENT ILLNESS A 46-year-old black male with quite complex medical history. He already had a right above-knee amputation for peripheral vascular disease. Now he had a left forefoot amputation which had healed nicely. Unfortunately, the patient developed a plantar ulcer and this is macerated and necrotic. The question arises about any possible further care. PAST MEDICAL HISTORY 1. Diabetes mellitus, 2. Hypertension, 3. Chronic renal failure on dialysis and GI bleeding PAST SURGICAL HISTORY Left above-knee amputation and right transmetatarsal amputation with a foot ulcer. SOCIAL HISTORY The patient denies smoking or drinking. MEDICATIONS Can be found on the record REVIEW OF SYSTEMS Except for above-noted, the patient is awake, alert and oriented. He appears to be anemic. PHYSICAL EXAMINATION GENERAL: A 46-year-old male. HEENT: Normocephalic. No trauma to the head. Pupils equally reactive. Extraocular muscles intact. The patient does have bilateral cataracts already. NECK: Bilateral carotid pulses. No bruits. CHEST: Bilateral breath sounds. HEART: Regular rhythm. ABDOMEN: Soft. Active bowel sounds. No rebound, no guarding and no masses. EXTREMITIES: The patient has actually palpable femoral pulses bilateral. He has a left above-knee amputation and on the right side the patient has a forefoot amputation. There is a 2 cm ulcer on the plantar surface of this which is macerated, but I do not see any drainage. There is a gangrenous area around it. The forefoot amputation itself is healed nicely. However, the patient has this ulcer on the bottom of the foot. NEUROLOGIC: Grossly intact. IMPRESSION/RECOMMENDATIONS I reviewed laboratory and diagnostic procedures. This gentleman has non-reconstructable vascular changes consistent with small-vessel disease of diabetes. In addition, the patient already has forefoot amputation. There is nowhere else to go. This ulcer is on tarsal level and there are no other options that below-knee amputation. The patient at this point refuses any surgery and basically dismissed me. I will be available if the patient changes his mind. I thank you much for referral. Zo CASEY /3:28 PM /6:04 PM
[2016-10-11 20:00] VITALS: BP 138/77; PULSE 90; RESP 20; TEMP 98; O2SAT 100
[2016-10-11] MEDS: INSULIN DETEMIR 100 UNITS/ML VIAL SQ SCH (22:00)
[2016-10-12] VITALS: BP 147/87; PULSE 84; RESP 20; TEMP 97; O2SAT 100
[2016-10-12] MEDS: SODIUM BICARBONATE 8.4% INJ 100 MEQ in DEXTROSE 5% IN WATE 1000ML INJ 1,000 ML IV SCH ×4 (00:15→10:00)
[2016-10-12] MEDS: HEPARIN SODIUM - SQ 10,000 UNITS/ML VIAL SQ SCH ×2 (05:19→15:34)
[2016-10-12 05:45] LABS: AUTOMATED NEUTROPHIL # 3.8 TH/MM3 (1.8-7.7); BASOPHIL # 0.1 TH/MM3 (0-0.2); BASOPHIL % 1.4 % (0.0-2.0); EOSINOPHIL # 0.2 TH/MM3 (0-0.4); EOSINOPHIL % 2.9 % (0.0-4.0); HEMATOCRIT 23.9 % (39.0-51.0); HEMO FLAGS DIFF FINAL; LYMPH % 28.1 % (9.0-44.0); LYMPHOCYTE # 1.8 TH/MM3 (1.0-4.8); MEAN CELL VOLUME 89.9 FL (80.0-100.0); MEAN CORPUSCULAR HEMOGLOBIN 30.5 PG (27.0-34.0); MEAN CORPUSCULAR HGB CONC 33.9 % (32.0-36.0); MONO % 9.9 % (0.0-8.0); NEUT % 57.7 % (16.0-70.0); PLATELET COUNT 223 TH/MM3 (150-450); RED BLOOD COUNT 2.66 MIL/MM3 (4.50-5.90); RED CELL DISTRIBUTION WIDTH 13.8 % (11.6-17.2); WHITE BLOOD COUNT 6.5 TH/MM3 (4.0-11.0)
[2016-10-12 05:48] LABS: ALT (GPT) 15 U/L (12-78); AST (GOT) 20 U/L (15-37); BICARBONATE 33.5 MEQ/L (21.0-32.0); BLOOD UREA NITROGEN 42 MG/DL (7-18); CHLORIDE 105 MEQ/L (98-107); GLOMERULAR FILTRATION RATE 26 ML/MIN (>89); POTASSIUM 4.1 MEQ/L (3.5-5.1); SODIUM (NA) 142 MEQ/L (136-145)
[2016-10-12 05:49] LABS: ANION GAP 4 MEQ/L (5-15)
[2016-10-12 05:51] LABS: ALKALINE PHOSPHATASE 83 U/L (45-117); TOTAL BILIRUBIN ADULT 0.2 MG/DL (0.2-1.0)
[2016-10-12] MEDS: INSULIN ASPART SUPPLEMENTAL SCALE SQ SCH ×4 (06:20→20:35)
[2016-10-12 08:00] VITALS: BP 144/85; PULSE 80; RESP 17; TEMP 97.6; O2SAT 100
[2016-10-12] MEDS: SODIUM CHLORIDE 0.9% FLUSH 10 ML FLUSH IV FLUSH SCH ×2 (08:11→20:35)
--- NOTE | 2016-10-12 10:54 | HHI.NPPN ---
Subjective History of Present Illness 46-year-old male with past medical history of diabetes mellitus, longstanding history of hypertension, peripheral vascular disease, chronic kidney disease, history of GI bleeding who was brought to the hospital because of infection in the right foot. I was called to see the patient because of elevated BUN and creatinine. Additional Remarks Patient is alert, eating well, no complain, feeling well. Objective Data Data 10/11/16 10/12/16 19:00 07:00 Intake Total 240 ml 1809 ml Output Total 500 ml 1150 ml Balance -260 ml 659 ml Intake Oral 240 ml 480 ml IV Total 1329 ml Output Urine Total 500 ml 1150 ml # Bowel Movements 0 1 Vital Signs Date Time Temp Pulse Resp B/P Pulse Ox O2 Delivery O2 Flow Rate FiO2 10/12/16 08:00 97.6 80 17 144/85 100 10/12/16 00:00 97.0 84 20 147/87 100 10/11/16 20:00 98.0 90 20 138/77 100 10/11/16 16:00 96.3 86 17 136/72 99 10/11/16 12:00 97.3 88 18 156/82 99 -: 10/12/16 0501 10/12/16 0501 Physical Exam General Appearance: No Acute Distress, Comfortable Eyes Eye Exam: Pupils Equal, Pupils Reactive, Sclera White, Extraocular Movement Intact Throat Throat Exam: Oral Mucosa [place] & Moist, Oral Pharynx Normal Neck Neck Exam: Neck Supple, Trachea Midline Pulmonary Resp Exam: Clear Bilaterally, Breath Sounds Equal, No Distress Cardiology CV Exam: Regular, Normal Sinus Rhythm Gastrointestinal/Abdomen GI Exam: Soft, Non-Tender, Bowel Sounds Present Musculoskeletal MS Exam: Normal Tone Integumentary Skin Exam: Warm, Dry Extremeties Extremities Exam: Trace Edema Neurologic Neuro Exam: Alert, Awake, Oriented, Speech Clear, No Focal Deficits Psychiatric Psych Exam: Appropriate Responses PUD Prophylasis PUD Prophylaxis: Protonix Assessment/Plan Assessment Summary: Anemia of CKD, Hypertension, Diabetes Mellitus, CKD Stage IV Problem List: (1) Diabetic ulcer of right foot associated with type 2 diabetes mellitus (2) Anemia in chronic illness (3) Cellulitis in diabetic foot (4) Hypertension (5) Diabetes mellitus (6) Chronic kidney disease (CKD) stage G4/A1, severely decreased glomerular filtration rate (GFR) between 15-29 mL/min/1.73 square meter and albuminuria creatinine ratio less than 30 mg/g (7) AMAN (acute kidney injury) Plan Patient has no SOB, doing well, BP is stable. Has some improvement in the Creatinine. Non oliguric. Has stage 4 chronic kidney disease and has an element of AMAN. Seen by ID and Vascular. Continue vanco. as per level. D/C IVF. Check iron study and one dose of Epogen for anemia. Norah Lantigua MD Oct 12, 2016 10:54
[2016-10-12] MEDS ORDERED: EPOETIN ALFA 20,000 UNITS/ML VIAL SQ ONE (11:00)
[2016-10-12 12:00] VITALS: BP 123/76; PULSE 89; RESP 18; TEMP 97.3; O2SAT 100
[2016-10-12] MEDS ORDERED: VANCOMYCIN 1,000 MG/NS 250 ML IV ONE ×2 (14:00)
[2016-10-12] MEDS: ACETAMINOPHEN/HYDROcodone 325 MG/5 MG TAB PO PRN (15:38)
[2016-10-12 16:00] VITALS: BP 157/85; PULSE 91; RESP 17; TEMP 98.1; O2SAT 100
[2016-10-12 20:00] VITALS: BP 152/88; PULSE 90; RESP 20; TEMP 97.8; O2SAT 100
[2016-10-12] MEDS: INSULIN DETEMIR 100 UNITS/ML VIAL SQ SCH (20:35)
[2016-10-13] VITALS: BP 146/89; PULSE 88; RESP 20; TEMP 98; O2SAT 98
[2016-10-13] MEDS: INSULIN ASPART SUPPLEMENTAL SCALE SQ SCH ×4 (04:30→21:00)
[2016-10-13] MEDS: HEPARIN SODIUM - SQ 10,000 UNITS/ML VIAL SQ SCH ×2 (04:30→16:58)
[2016-10-13 06:47] LABS: FERRITIN 418 NG/ML (26-388); TRANSFERRIN IRON PROFILE 119 MG/DL (200-360)
[2016-10-13 08:00] VITALS: BP 155/74; PULSE 91; RESP 14; TEMP 97.4; O2SAT 98
--- NOTE | 2016-10-13 08:35 | HHI.PR ---
Subjective History of Present Illness Patient seen on 10/12/16..Patient stable no acute issue Podiatry input noted need more proximal amputation Patient refused amputation risk benefits and alternative explained to patient including he said he did wants amputation even though he will . checked Bilateral arterial doppler and MRI Right foot noted.. need BKA per vascular surgeon. ID Input noted. Review of Systems Constitutional Constitutional: Fatigue, Weakness Integumentary Skin Remarks Left BKA.Right foot wound. amputation of right forefoot. Vitals/Results Intake & Output 10/12/16 10/12/16 10/13/16 15:00 23:00 07:00 Intake Total 960 ml 480 ml Output Total 900 ml 550 ml Balance 60 ml -70 ml Intake Oral 960 ml 480 ml Output Urine Total 900 ml 550 ml # Bowel Movements 0 0 Vital Signs Vital Signs Date Time Temp Pulse Resp B/P Pulse Ox O2 Delivery O2 Flow Rate FiO2 10/13/16 00:00 98.0 88 20 146/89 98 10/12/16 20:00 97.8 90 20 152/88 100 10/12/16 16:00 98.1 91 17 157/85 100 10/12/16 12:00 97.3 89 18 123/76 100 CBC/BMP: 10/12/16 0501 10/12/16 0501 Lab Results Laboratory Tests Test 10/13/16 05:51 Phosphorus Level 3.5 MG/DL Iron Level 68 MCG/DL Total Iron Binding Capacity 167 MCG/DL Percent Iron Saturation 40.8 % Ferritin 418 NG/ML Random Vancomycin Level 20.4 COMMENT Physical Exam General General Appearance: No Acute Distress, Comfortable Eyes Eye Exam: Pupils Equal, Pupils Reactive, Sclera White, Extraocular Movement Intact Throat Throat Exam: Oral Mucosa [place] & Moist, Oral Pharynx Normal Neck Neck Exam: Neck Supple, Trachea Midline Pulmonary Resp Exam: Clear Bilaterally, Breath Sounds Equal, No Distress Cardiology CV Exam: Regular, Normal Sinus Rhythm Gastrointestinal/Abdomen GI Exam: Soft, Non-Tender, Bowel Sounds Present Musculoskeletal MS Exam: Normal Tone MS Remarks 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 R plantar foot with distal ulceration probing to bone, no lance purulence. Foul odor present. Macerated tissue present. Opening is 1cm diameter and probes to bone. No granulation tissue present. RLE very warm. Integumentary Skin Exam: Warm, Dry Skin Remarks Right foot wound. Extremeties Extremities Exam: Trace Edema Extremeties Remarks 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 R plantar foot with distal ulceration probing to bone, no lance purulence. Foul odor present. Macerated tissue present. Opening is 1cm diameter and probes to bone. No granulation tissue present. RLE very warm. Neurologic Neuro Exam: Alert, Awake, Oriented, Speech Clear, No Focal Deficits Psychiatric Psych Exam: Appropriate Responses VTE Prophylaxis VTE Prophylaxis Meds: Heparin PUD Prophylasis PUD Prophylaxis: Protonix Assessment/Plan Assessment/Plan Assessment and Plan Right foot stump infection Right foot stump ulcer, rule out osteomyelitis Acute on chronic kidney disease Hyperkalemia resolved. Metabolic acidosis Anemia from chronic diseases including renal failure. Hypoglycemia Management Podiatry input noted need more proximal amputation Patient refused amputation risk benefits and alternative explained to patient including he said he did wants amputation even though he will . checked Bilateral arterial doppler and MRI Right foot noted.. need BKA per vascular surgeon. Nephrology input noted D5W with sodium bicarbonate drip at 100 mL an hour Follow renal indices Follow potassium level IV antibiotics Pharmacy to dose according to renal function vascular surgery input noted. Discussed with patient Discussed with nurse Check CBC with diff Cmp in AM. Discussed Condition with: Patient Jean Claude Valencia MD Oct 13, 2016 08:35
[2016-10-13] MEDS: SODIUM CHLORIDE 0.9% FLUSH 10 ML FLUSH IV FLUSH SCH ×2 (08:52→21:15)
[2016-10-13] MEDS: ACETAMINOPHEN/HYDROcodone 325 MG/5 MG TAB PO PRN ×2 (08:56→21:23)
[2016-10-13 12:00] VITALS: BP 146/80; PULSE 93; RESP 15; TEMP 97.5; O2SAT 96
[2016-10-13 16:00] VITALS: BP 147/74; PULSE 90; RESP 14; TEMP 98; O2SAT 99
--- NOTE | 2016-10-13 17:04 | HHI.PR ---
Subjective History of Present Illness Patient stable no acute issue Podiatry input noted need more proximal amputation Patient refused amputation risk benefits and alternative explained to patient including he said he did wants amputation even though he will . checked Bilateral arterial doppler and MRI Right foot noted.. need BKA per vascular surgeon. ID Input noted. Review of Systems Constitutional Constitutional: Fatigue, Weakness Integumentary Skin Remarks Left BKA.Right foot wound. amputation of right forefoot. Vitals/Results Intake & Output 10/12/16 10/12/16 10/13/16 15:00 23:00 07:00 Intake Total 960 ml 480 ml Output Total 900 ml 550 ml Balance 60 ml -70 ml Intake Oral 960 ml 480 ml Output Urine Total 900 ml 550 ml # Bowel Movements 0 0 Vital Signs Vital Signs Date Time Temp Pulse Resp B/P Pulse Ox O2 Delivery O2 Flow Rate FiO2 10/13/16 08:00 97.4 91 14 155/74 98 10/13/16 00:00 98.0 88 20 146/89 98 10/12/16 20:00 97.8 90 20 152/88 100 CBC/BMP: 10/12/16 0501 10/12/16 0501 Lab Results Laboratory Tests Test 10/13/16 05:51 Phosphorus Level 3.5 MG/DL Iron Level 68 MCG/DL Total Iron Binding Capacity 167 MCG/DL Percent Iron Saturation 40.8 % Ferritin 418 NG/ML Random Vancomycin Level 20.4 COMMENT Physical Exam General General Appearance: No Acute Distress, Comfortable Eyes Eye Exam: Pupils Equal, Pupils Reactive, Sclera White, Extraocular Movement Intact Throat Throat Exam: Oral Mucosa [place] & Moist, Oral Pharynx Normal Neck Neck Exam: Neck Supple, Trachea Midline Pulmonary Resp Exam: Clear Bilaterally, Breath Sounds Equal, No Distress Cardiology CV Exam: Regular, Normal Sinus Rhythm Gastrointestinal/Abdomen GI Exam: Soft, Non-Tender, Bowel Sounds Present Musculoskeletal MS Exam: Normal Tone MS Remarks 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 R plantar foot with distal ulceration probing to bone, no lance purulence. Foul odor present. Macerated tissue present. Opening is 1cm diameter and probes to bone. No granulation tissue present. RLE very warm. Integumentary Skin Exam: Warm, Dry Skin Remarks Right foot wound. Extremeties Extremities Exam: Trace Edema Extremeties Remarks 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 R plantar foot with distal ulceration probing to bone, no lance purulence. Foul odor present. Macerated tissue present. Opening is 1cm diameter and probes to bone. No granulation tissue present. RLE very warm. Neurologic Neuro Exam: Alert, Awake, Oriented, Speech Clear, No Focal Deficits Psychiatric Psych Exam: Appropriate Responses VTE Prophylaxis VTE Prophylaxis Meds: Heparin PUD Prophylasis PUD Prophylaxis: Protonix Assessment/Plan Assessment/Plan Assessment and Plan Right foot stump infection Right foot stump ulcer, rule out osteomyelitis.. on vancomycin per ID. Acute on chronic kidney disease Hyperkalemia resolved. Metabolic acidosis Anemia from chronic diseases including renal failure. Hypoglycemia Management Podiatry input noted need more proximal amputation Patient refused amputation risk benefits and alternative explained to patient including he said he did wants amputation even though he will . checked Bilateral arterial doppler and MRI Right foot noted.. need BKA per vascular surgeon. Nephrology input noted Follow renal indices Follow potassium level IV antibiotics per ID. Recomendation. Pharmacy to dose according to renal function vascular surgery input noted. Discussed with patient Discussed with nurse Check CBC with diff Cmp in AM. Discussed Condition with: Patient Jean Claude Valencia MD Oct 13, 2016 17:04
--- NOTE | 2016-10-13 17:28 | HHI.NPPN ---
Subjective History of Present Illness 46-year-old male with past medical history of diabetes mellitus, longstanding history of hypertension, peripheral vascular disease, chronic kidney disease, history of GI bleeding who was brought to the hospital because of infection in the right foot. I was called to see the patient because of elevated BUN and creatinine. Additional Remarks Patient is alert, no pain in Rt. leg, no SOB, eating well. Objective Data Data 10/12/16 10/13/16 19:00 07:00 Intake Total 960 ml 480 ml Output Total 900 ml 550 ml Balance 60 ml -70 ml Intake Oral 960 ml 480 ml Output Urine Total 900 ml 550 ml # Bowel Movements 0 0 Vital Signs Date Time Temp Pulse Resp B/P Pulse Ox O2 Delivery O2 Flow Rate FiO2 10/13/16 08:00 97.4 91 14 155/74 98 10/13/16 00:00 98.0 88 20 146/89 98 10/12/16 20:00 97.8 90 20 152/88 100 -: 10/12/16 0501 10/12/16 0501 Physical Exam General Appearance: No Acute Distress, Comfortable Eyes Eye Exam: Pupils Equal, Pupils Reactive, Sclera White, Extraocular Movement Intact Throat Throat Exam: Oral Mucosa [place] & Moist, Oral Pharynx Normal Neck Neck Exam: Neck Supple, Trachea Midline Pulmonary Resp Exam: Clear Bilaterally, Breath Sounds Equal, No Distress Cardiology CV Exam: Regular, Normal Sinus Rhythm Gastrointestinal/Abdomen GI Exam: Soft, Non-Tender, Bowel Sounds Present Musculoskeletal MS Exam: Normal Tone Integumentary Skin Exam: Warm, Dry Extremeties Extremities Exam: Trace Edema Neurologic Neuro Exam: Alert, Awake, Oriented, Speech Clear, No Focal Deficits Psychiatric Psych Exam: Appropriate Responses PUD Prophylasis PUD Prophylaxis: Protonix Assessment/Plan Assessment Summary: Anemia of CKD, Hypertension, Diabetes Mellitus, CKD Stage IV Problem List: (1) Diabetic ulcer of right foot associated with type 2 diabetes mellitus (2) Anemia in chronic illness (3) Cellulitis in diabetic foot (4) Hypertension (5) Diabetes mellitus (6) Chronic kidney disease (CKD) stage G4/A1, severely decreased glomerular filtration rate (GFR) between 15-29 mL/min/1.73 square meter and albuminuria creatinine ratio less than 30 mg/g (7) AMAN (acute kidney injury) Plan Patient has no SOB, doing well, BP is stable. Has some improvement in the Creatinine. Non oliguric. Has stage 4 chronic kidney disease and has an element of AMAN. Seen by ID and Vascular. Continue vanco. as per level. Got one dose of Epogen for anemia. Iron study is normal. Norah Lantigua MD Oct 13, 2016 17:28
[2016-10-13 20:00] VITALS: BP 146/76; PULSE 101; RESP 20; TEMP 97.8; O2SAT 98
[2016-10-13] MEDS: INSULIN DETEMIR 100 UNITS/ML VIAL SQ SCH (21:15)
[2016-10-14] VITALS: BP 140/80; PULSE 94; RESP 20; TEMP 97.8; O2SAT 99
[2016-10-14] MEDS: HEPARIN SODIUM - SQ 10,000 UNITS/ML VIAL SQ SCH ×2 (04:18→17:23)
[2016-10-14] MEDS: INSULIN ASPART SUPPLEMENTAL SCALE SQ SCH ×4 (04:19→21:00)
[2016-10-14 08:00] VITALS: BP 139/76; PULSE 85; RESP 17; TEMP 97.7; O2SAT 97
[2016-10-14] MEDS: SODIUM CHLORIDE 0.9% FLUSH 10 ML FLUSH IV FLUSH SCH ×2 (09:01→21:00)
--- NOTE | 2016-10-14 09:31 | HHI.PR ---
Subjective History of Present Illness Patient stable no acute issue Podiatry input noted need more proximal amputation Patient refused amputation risk benefits and alternative explained to patient including he said he did wants amputation even though he will . checked Bilateral arterial doppler and MRI Right foot noted.. need BKA per vascular surgeon. ID Input noted. Has stage 4 chronic kidney disease and has an element of AMAN. Got one dose of Epogen for anemia. Iron study is normal. Review of Systems Constitutional Constitutional: Fatigue, Weakness Integumentary Skin Remarks Left AKA.Right foot wound. amputation of right forefoot. Vitals/Results Intake & Output 10/13/16 10/13/16 10/14/16 15:00 23:00 07:00 Intake Total 360 ml 440 ml 220 ml Output Total 1125 ml 200 ml 400 ml Balance -765 ml 240 ml -180 ml Intake Oral 360 ml 440 ml 220 ml Output Urine Total 1125 ml 200 ml 400 ml # Bowel Movements 1 0 0 Vital Signs Vital Signs Date Time Temp Pulse Resp B/P Pulse Ox O2 Delivery O2 Flow Rate FiO2 10/14/16 08:00 97.7 85 17 139/76 97 10/14/16 00:00 97.8 94 20 140/80 99 10/13/16 20:00 97.8 101 20 146/76 98 10/13/16 16:00 98.0 90 14 147/74 99 10/13/16 12:00 97.5 93 15 146/80 96 CBC/BMP: 10/12/16 0501 10/14/16 0420 Lab Results Laboratory Tests Test 10/14/16 04:20 Creatinine 2.99 MG/DL Estimat Glomerular Filtration 27 ML/MIN Rate Random Vancomycin Level 14.9 COMMENT Physical Exam General General Appearance: No Acute Distress, Comfortable Eyes Eye Exam: Pupils Equal, Pupils Reactive, Sclera White, Extraocular Movement Intact Throat Throat Exam: Oral Mucosa [place] & Moist, Oral Pharynx Normal Neck Neck Exam: Neck Supple, Trachea Midline Pulmonary Resp Exam: Clear Bilaterally, Breath Sounds Equal, No Distress Cardiology CV Exam: Regular, Normal Sinus Rhythm Gastrointestinal/Abdomen GI Exam: Soft, Non-Tender, Bowel Sounds Present Musculoskeletal MS Exam: Normal Tone MS Remarks Left AKA and right partial foot amputation. R plantar foot with distal ulceration probing to bone, no lance purulence. Foul odor present. Macerated tissue present. Opening is 1cm diameter and probes to bone. No granulation tissue present. RLE very warm. Integumentary Skin Exam: Warm, Dry Skin Remarks Right foot wound. Extremeties Extremities Exam: Trace Edema Extremeties Remarks Left AKA and right partial foot amputation. R plantar foot with distal ulceration probing to bone, no lance purulence. Foul odor present. Macerated tissue present. Opening is 1cm diameter and probes to bone. No granulation tissue present. RLE very warm. Neurologic Neuro Exam: Alert, Awake, Oriented, Speech Clear, No Focal Deficits Psychiatric Psych Exam: Appropriate Responses VTE Prophylaxis VTE Prophylaxis Meds: Heparin PUD Prophylasis PUD Prophylaxis: Protonix Assessment/Plan Assessment/Plan Assessment and Plan Right foot stump infection Right foot stump ulcer, rule out osteomyelitis.. on vancomycin per ID. Acute on chronic kidney disease stage 4 renal failure non oliguric. Hyperkalemia resolved. Metabolic acidosis Anemia from chronic diseases including renal failure. Hypoglycemia..resolved. S/P Left AKA. Management Podiatry input noted need more proximal amputation Patient refused amputation risk benefits and alternative explained to patient including he said he did wants amputation even though he will . checked Bilateral arterial doppler and MRI Right foot noted.. need BKA per vascular surgeon. Nephrology /ID/ Vascular surgeon input noted Follow renal indices Follow potassium level IV antibiotics per ID. Recomendation. Pharmacy to dose according to renal function Discussed with patient Discussed with nurse Check CBC with diff Cmp in AM. Discussed Condition with: Patient Jean Claude Valencia MD Oct 14, 2016 09:31
--- NOTE | 2016-10-14 10:28 | PD.POD ---
Subjective Podiatric Problems Chronic infection/chronic osteomyelitis R plantar lateral residual foot Past Med/Surg/Social History Past Medical History HEENT: REPORTS HX OF: Cataracts Endocrine: REPORTS HX OF: Diabetes mellitus (Diagnosed in 1992), DENIES HX OF : Graves disease, Hyperthyroidism, Hypothyroidism, Other endocrine history Respiratory: DENIES HX OF: Allergies/hay fever, Asthma, COPD, CPAP use, Sleep apnea, Other respiratory history Cardiovascular: DENIES HX OF: Abdominal aortic aneurysm, Angina, Atrial fibrillation, Cardiac arrhythmias, Coronary artery disease, Deep venous thrombosis, Heart failure, Heart valve disease, Hyperlipidemia, Hypertension, Myocardial infarction, Peripheral vascular dz, Other CV history Gastrointestinal: DENIES HX OF: Colitis, GERD, Irritable bowel syndrome, Liver disease, Pancreatitis, Peptic ulcer disease, Other GI history Genitourinary: DENIES HX OF: Chlamydia, Gonorrhea, Hemodialysis, Herpes genitalis, Human papillomavirus, Kidney disease, Kidney failure, Kidney stones, Past UTI, Peritoneal dialysis, Urinary incontinence, Other history Genitourinary - male: DENIES HX OF: Benign prost. hyperplasia, Erectile dysfunction, Prostatitis, Testicular problems, Undescended testicle Musculoskeletal: DENIES HX OF: Fibromyalgia, Fractures, Gout, Osteoarthritis, Osteoporosis, Rheumatoid arthritis, Other musculoskeletal hx Cancer/Hematology: DENIES HX OF: Anemia, Bladder Cancer, Blood cancer, Brain cancer, Breast cancer, Colorectal cancer, Endocrine cancer, Eye cancer, GI cancer, cancer, Kidney cancer, Leukemia, Liver cancer, Lung cancer, Lymphoma , Musculoskeletal cancer, Neurologic cancer, Oral cancer, Skin cancer, Stomach cancer, Thyroid cancer, Other cancer/hematology Cancer - male: DENIES HX OF: Prostate cancer, Testicular cancer Infectious disease: DENIES HX OF: AIDS, Chickenpox, Hepatitis, HIV, Measles, MRSA, Mumps, Polio, Positive PPD, Rheumatic fever, Rubella, Syphilis, Tuberculosis, Vanc-resistant enterococc, Other inf disease history Integumentary: DENIES HX OF: Acne, Eczema, Psoriasis, Other integumentary hx Neurologic: DENIES HX OF: ADHD, Autism, Dementia, Developmental delay, Headaches, Multiple sclerosis, Parkinson disease, Peripheral neuropathy, Restless leg syndrome, Seizures, Stroke, Transient ischemic attack, Other neurologic history Psychiatric: DENIES HX OF: Anorexia nervosa, Anxiety, Bipolar disorder, Bulimia , Depression, Schizophrenia, Other psychiatric history Genetic/metabolic: DENIES HX OF: Cystic fibrosis, Down syndrome, Other genetic history, Other metabolic history Events: DENIES HX OF: Anaphylaxis, Gunshot wound, Motor vehicle accident, Other events Disabilities: DENIES HX OF: Hearing deficit, Vision deficit, Hemiparesis, Paraplegia, Quadriplegia, Other disabilities Past Surgical History Gastrointestinal: DENIES HX OF: Colectomy, total Musculoskeletal: REPORTS HX OF: Other musculoskeletal srg (Lt AKA) Social History Smoking Status: Former Smoker Objective Vital Signs Vital Signs Date Time Temp Pulse Resp B/P Pulse Ox O2 Delivery O2 Flow Rate FiO2 10/14/16 08:00 97.7 85 17 139/76 97 10/14/16 00:00 97.8 94 20 140/80 99 10/13/16 20:00 97.8 101 20 146/76 98 10/13/16 16:00 98.0 90 14 147/74 99 10/13/16 12:00 97.5 93 15 146/80 96 Coded Allergies: *MDRO Multi-Drug Resistant Organism (Verified Adverse Reaction, Unknown, ) MRSA (foot wound) - 03/2010, 10/2014, 04/2015 MRSA PCR Screen POSITIVE - 09/01/15 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/16) Medications and IVs Current Medications Medications (Trade) Dose Ordered Sig/Ayush Route Start Time Stop Time Status Last Admin (NS Flush) 2 ml UNSCH PRN IV FLUSH 10/09/16 15:45 (NS Flush) 2 ml BID IV FLUSH 10/09/16 21:00 10/14/16 09:01 (Heparin Inj) 5,000 units Q12H SQ 10/09/16 16:00 10/14/16 04:18 (Narcan Inj) 0.4 mg UNSCH PRN IV 10/09/16 15:45 (Norvasc) 10 mg DAILY PO 10/10/16 09:00 10/14/16 09:01 ([place] 5-325 Mg) 1 tab BID PRN PO 10/09/16 15:45 10/13/16 21:23 Insulin Detemir 8 units 8 units HS SQ 10/09/16 16:00 10/13/16 21:15 (Vancomycin Consult Pharmacy) 0 ml @ 0 mls/hr UNSCH OTHER 10/09/16 15:45 (D50w (Vial) Inj) 25 ml UNSCH PRN IV PUSH 10/09/16 15:45 Glucagon 1 mg 1 mg UNSCH PRN OTHER 10/09/16 15:45 (Vancomycin Inj/ NS 250 ml Inj) 250 ml @ 250 mls/hr ONCE ONCE IV 10/14/16 11:00 10/14/16 11:59 Other Results Last Impressions Foot MRI 10/11/16 0000 Signed Impressions: Service Date/Time: Tuesday, October 11, 2016 10:30 - CONCLUSION: 1. Abnormal signal at the small remaining portions of the proximal 4th and 5th metatarsals. There appears to be chronic remodeling at the small 5th metatarsal fragment. These signal changes were present previously. Some degree of osteomyelitis needs to be considered. The patient does have an ulcer seen at the plantar soft tissues at this level. 2. Milder changes in the cuneiform bone being more prominent on the T2 weighted images. The T1 changes at the cuboid bone are less prominent making osteomyelitis in this region less likely. Heber Healy MD Foot X-Ray 10/09/16 1301 Signed Impressions: Service Date/Time: September 14:34 - CONCLUSION: Subcutaneous ulcer no definite evidence for osteomyelitis for technique. K. Sammy Celaya MD Chest X-Ray 10/09/16 1301 Signed Impressions: Service Date/Time: September 14:31 - CONCLUSION: No acute disease. Joe Gan MD Assessment & Plan A/P Chronic infection/chronic osteomyelitis R plantar lateral residual foot Called and reviewed treatment options with patient again this morning via telephone at request of attending. Discussed that his options with history of chronic wound and recurring infections with osteomyelitis are to continue with a regimen per infectious diseases recommendations for treatment of osteomyelitis with local wound care vs move forward with BKA R side. I explained I understand his dilemma, and he understands amputation is inevitable, but will consider his options and let his attending know if he wants to move on with IV antibiotics vs amputation. I explained we do not do more proximal amputations at the level of the foot and the next amputation level would be BKA, as he has no foot salvage options at this point. I will pass this information on the the staging technician on-call, Dr Bonner, for further management of the issue, if required. De Flowers DPM Oct 14, 2016 10:28
--- NOTE | 2016-10-14 10:50 | HHI.NPPN ---
Subjective History of Present Illness 46-year-old male with past medical history of diabetes mellitus, longstanding history of hypertension, peripheral vascular disease, chronic kidney disease, history of GI bleeding who was brought to the hospital because of infection in the right foot. I was called to see the patient because of elevated BUN and creatinine. Additional Remarks Patient is alert, no pain in Rt. leg, no SOB, clinically same. Objective Data Data 10/13/16 10/14/16 19:00 07:00 Intake Total 360 ml 660 ml Output Total 1125 ml 600 ml Balance -765 ml 60 ml Intake Oral 360 ml 660 ml Output Urine Total 1125 ml 600 ml # Bowel Movements 1 0 Vital Signs Date Time Temp Pulse Resp B/P Pulse Ox O2 Delivery O2 Flow Rate FiO2 10/14/16 08:00 97.7 85 17 139/76 97 10/14/16 00:00 97.8 94 20 140/80 99 10/13/16 20:00 97.8 101 20 146/76 98 10/13/16 16:00 98.0 90 14 147/74 99 10/13/16 12:00 97.5 93 15 146/80 96 -: 10/12/16 0501 10/14/16 0420 Physical Exam General Appearance: No Acute Distress, Comfortable Eyes Eye Exam: Pupils Equal, Pupils Reactive, Sclera White, Extraocular Movement Intact Throat Throat Exam: Oral Mucosa [place] & Moist, Oral Pharynx Normal Neck Neck Exam: Neck Supple, Trachea Midline Pulmonary Resp Exam: Clear Bilaterally, Breath Sounds Equal, No Distress Cardiology CV Exam: Regular, Normal Sinus Rhythm Gastrointestinal/Abdomen GI Exam: Soft, Non-Tender, Bowel Sounds Present Musculoskeletal MS Exam: Normal Tone Integumentary Skin Exam: Warm, Dry Extremeties Extremities Exam: Trace Edema Neurologic Neuro Exam: Alert, Awake, Oriented, Speech Clear, No Focal Deficits Psychiatric Psych Exam: Appropriate Responses PUD Prophylasis PUD Prophylaxis: Protonix Assessment/Plan Assessment Summary: Anemia of CKD, Hypertension, Diabetes Mellitus, CKD Stage IV Problem List: (1) Diabetic ulcer of right foot associated with type 2 diabetes mellitus (2) Anemia in chronic illness (3) Cellulitis in diabetic foot (4) Hypertension (5) Diabetes mellitus (6) Chronic kidney disease (CKD) stage G4/A1, severely decreased glomerular filtration rate (GFR) between 15-29 mL/min/1.73 square meter and albuminuria creatinine ratio less than 30 mg/g (7) AMAN (acute kidney injury) Plan Patient has no SOB, doing well, BP is stable. Has some more improvement in the Creatinine. Non oliguric, so he has an element of AMAN. Has stage 4 chronic kidney disease and has an element of AMAN. Seen by ID and Vascular. Continue vanco. as per level, now it is above 15. Got one dose of Epogen for anemia. Iron study is normal. Avoid Nephrotoxins, follow BMP. Norah Lantigua MD Oct 14, 2016 10:50
[2016-10-14] MEDS ORDERED: VANCOMYCIN 1,000 MG/NS 250 ML IV ONE ×2 (11:00)
[2016-10-14 12:00] VITALS: BP 142/77; PULSE 94; RESP 17; TEMP 97.6; O2SAT 97
--- NOTE | 2016-10-14 12:26 | HHI.IDPN ---
Subjective Subjective Remarks Notes reviewed No fever Podiatry and vascular notes reviewed MRI no change compared to his MRI from 2016 Antibiotics Vanco - dosing based on level Lines PIV Past Medical History Reviewed Allergies: Coded Allergies: *MDRO Multi-Drug Resistant Organism (Verified Adverse Reaction, Unknown, ) MRSA (foot wound) - 03/2010, 10/2014, 04/2015 MRSA PCR Screen POSITIVE - 09/01/15 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/16) Objective . Vital Signs Date Time Temp Pulse Resp B/P Pulse Ox O2 Delivery O2 Flow Rate FiO2 10/14/16 08:00 97.7 85 17 139/76 97 10/14/16 00:00 97.8 94 20 140/80 99 10/13/16 20:00 97.8 101 20 146/76 98 10/13/16 16:00 98.0 90 14 147/74 99 10/13/16 10/13/16 10/14/16 15:00 23:00 07:00 Intake Total 360 ml 440 ml 220 ml Output Total 1125 ml 200 ml 400 ml Balance -765 ml 240 ml -180 ml Intake Oral 360 ml 440 ml 220 ml Output Urine Total 1125 ml 200 ml 400 ml # Bowel Movements 1 0 0 . Laboratory Tests Test 10/13/16 10/14/16 05:51 04:20 Phosphorus Level 3.5 MG/DL Iron Level 68 MCG/DL Total Iron Binding Capacity 167 MCG/DL Percent Iron Saturation 40.8 % Ferritin 418 NG/ML Creatinine 2.99 MG/DL Estimat Glomerular Filtration 27 ML/MIN Rate Imaging Last Impressions Foot MRI 10/11/16 0000 Signed Impressions: Service Date/Time: Tuesday, October 11, 2016 10:30 - CONCLUSION: 1. Abnormal signal at the small remaining portions of the proximal 4th and 5th metatarsals. There appears to be chronic remodeling at the small 5th metatarsal fragment. These signal changes were present previously. Some degree of osteomyelitis needs to be considered. The patient does have an ulcer seen at the plantar soft tissues at this level. 2. Milder changes in the cuneiform bone being more prominent on the T2 weighted images. The T1 changes at the cuboid bone are less prominent making osteomyelitis in this region less likely. Heber Healy MD Foot X-Ray 10/09/16 1301 Signed Impressions: Service Date/Time: September 14:34 - CONCLUSION: Subcutaneous ulcer no definite evidence for osteomyelitis for technique. K. Sammy Celaya MD Chest X-Ray 10/09/16 1301 Signed Impressions: Service Date/Time: September 14:31 - CONCLUSION: No acute disease. Joe Gan MD Physical Exam GENERAL: awake and alert, in no apparent distress. SKIN: Cool and dry. No generalized rash or ecchymosis. HEENT: [place] conjunctiva. No scleral icterus. No injection or drainage. Moist oral mucosa. NECK: Trachea midline. No JVD or lymphadenopathy. Supple, nontender, no meningeal signs. CARDIOVASCULAR: Regular rate and rhythm without murmurs, gallops, or rubs. RESPIRATORY: Clear to auscultation. Breath sounds equal bilaterally. No wheezes , rales, or rhonchi. GASTROINTESTINAL: Abdomen soft, flat, non-tender, nondistended. No hepato- splenomegaly, or palpable masses. No guarding. MUSCULOSKELETAL: LLE: well healed [place] stump. RLE - has well healed stump, but there is an ulcer on plantar aspect that is about 1 cm size opening, probes to the bone, no redness noted, small amount of serosanguineous drainage, no odor, no tenderness. NEUROLOGICAL: Grossly non-focal. PSYCH: Normal affect, calm and cooperative LINE: PIV with no evidence of infection Assessment & Plan Remarks IMPRESSION Chronic ulcer R foot, clinically no obvious findings of infection on exam that is not red, no swelling, no induration, no pain, has some small drainage, but probes to the bone - MRI has no changed compared to previous MRI - this is his only remaining foot, he has had L AKA DM PVD RECOMMENDATION ? if one option is treat with oral Abx and wound care since he is stable and try to follow his wound closer - it seems that he has not really followed up with any podiatry or wound care clinic for this chronic ulcer - ? tx conservatively since this is his only limb remaining - if he fails and show more aggressive infection then amputate Continue IV vanco - will redose based on level Monitor progress Higher amputation has been recommended to patient and he is making a decision Margarita Rosario MD Oct 14, 2016 12:25
[2016-10-14 16:00] VITALS: BP 121/71; PULSE 88; RESP 17; TEMP 98.1; O2SAT 98
[2016-10-14] MEDS: ACETAMINOPHEN/HYDROcodone 325 MG/5 MG TAB PO PRN (18:14)
[2016-10-14 20:00] VITALS: BP 154/91; PULSE 86; RESP 20; TEMP 97.5; O2SAT 99
[2016-10-14] MEDS: INSULIN DETEMIR 100 UNITS/ML VIAL SQ SCH (21:00)
[2016-10-15] VITALS: BP 131/79; PULSE 88; RESP 20; TEMP 97.6; O2SAT 99
[2016-10-15 05:31] LABS: AUTOMATED NEUTROPHIL # 4.3 TH/MM3 (1.8-7.7); BASOPHIL # 0.1 TH/MM3 (0-0.2); BASOPHIL % 1.2 % (0.0-2.0); EOSINOPHIL # 0.2 TH/MM3 (0-0.4); EOSINOPHIL % 2.2 % (0.0-4.0); HEMATOCRIT 24.4 % (39.0-51.0); HEMO FLAGS DIFF FINAL; LYMPH % 26.8 % (9.0-44.0); LYMPHOCYTE # 2.1 TH/MM3 (1.0-4.8); MEAN CELL VOLUME 91.8 FL (80.0-100.0); MEAN CORPUSCULAR HEMOGLOBIN 30.1 PG (27.0-34.0); MEAN CORPUSCULAR HGB CONC 32.8 % (32.0-36.0); MONO % 13.9 % (0.0-8.0); NEUT % 55.9 % (16.0-70.0); PLATELET COUNT 187 TH/MM3 (150-450); RED BLOOD COUNT 2.66 MIL/MM3 (4.50-5.90); RED CELL DISTRIBUTION WIDTH 13.9 % (11.6-17.2); WHITE BLOOD COUNT 7.7 TH/MM3 (4.0-11.0)
[2016-10-15] MEDS: HEPARIN SODIUM - SQ 10,000 UNITS/ML VIAL SQ SCH ×2 (05:32→15:58)
[2016-10-15 05:44] LABS: ALKALINE PHOSPHATASE 80 U/L (45-117); ALT (GPT) 17 U/L (12-78); ANION GAP 6 MEQ/L (5-15); AST (GOT) 23 U/L (15-37); BLOOD UREA NITROGEN 37 MG/DL (7-18); CHLORIDE 107 MEQ/L (98-107); GLOMERULAR FILTRATION RATE 26 ML/MIN (>89); SODIUM (NA) 141 MEQ/L (136-145); TOTAL BILIRUBIN ADULT 0.2 MG/DL (0.2-1.0)
[2016-10-15] MEDS: INSULIN ASPART SUPPLEMENTAL SCALE SQ SCH ×4 (07:00→21:44)
[2016-10-15 08:00] VITALS: BP 134/73; PULSE 90; RESP 17; TEMP 98.3; O2SAT 99
[2016-10-15] MEDS: SODIUM CHLORIDE 0.9% FLUSH 10 ML FLUSH IV FLUSH SCH ×2 (08:21→21:00)
[2016-10-15 12:00] VITALS: BP 143/82; PULSE 91; RESP 19; TEMP 97.5; O2SAT 100
[2016-10-15] MEDS: ACETAMINOPHEN/HYDROcodone 325 MG/5 MG TAB PO PRN (15:58)
[2016-10-15 16:00] VITALS: BP 157/82; PULSE 95; RESP 18; TEMP 97.3; O2SAT 98
--- NOTE | 2016-10-15 18:35 | HHI.PR ---
Subjective History of Present Illness Patient stable no acute issue Podiatry input noted need more proximal amputation checked Bilateral arterial doppler and MRI Right foot noted.. need BKA per vascular surgeon. ID Input noted. Has stage 4 chronic kidney disease and has an element of AMAN. Patient all question answered to patient satisfaction and patient verbalize understanding. Review of Systems Constitutional Constitutional: Fatigue, Weakness Integumentary Skin Remarks Left AKA.Right foot wound. amputation of right forefoot. Vitals/Results Intake & Output 10/14/16 10/14/16 10/15/16 15:00 23:00 07:00 Intake Total 250 ml 480 ml 240 ml Balance 250 ml 480 ml 240 ml Intake Oral 480 ml 240 ml IV Total 250 ml # Voids 3 1 Vital Signs Vital Signs Date Time Temp Pulse Resp B/P Pulse Ox O2 Delivery O2 Flow Rate FiO2 10/15/16 16:00 97.3 95 18 157/82 98 10/15/16 12:00 97.5 91 19 143/82 100 10/15/16 08:00 98.3 90 17 134/73 99 10/15/16 00:00 97.6 88 20 131/79 99 10/14/16 20:00 97.5 86 20 154/91 99 CBC/BMP: 10/15/16 0420 10/15/16 0420 Lab Results Laboratory Tests Test 10/15/16 04:20 White Blood Count 7.7 TH/MM3 Red Blood Count 2.66 MIL/MM3 Hemoglobin 8.0 GM/DL Hematocrit 24.4 % Mean Corpuscular Volume 91.8 FL Mean Corpuscular Hemoglobin 30.1 PG Mean Corpuscular Hemoglobin 32.8 % Concent Red Cell Distribution Width 13.9 % Platelet Count 187 TH/MM3 Mean Platelet Volume 8.2 FL Neutrophils (%) (Auto) 55.9 % Lymphocytes (%) (Auto) 26.8 % Monocytes (%) (Auto) 13.9 % Eosinophils (%) (Auto) 2.2 % Basophils (%) (Auto) 1.2 % Neutrophils # (Auto) 4.3 TH/MM3 Lymphocytes # (Auto) 2.1 TH/MM3 Monocytes # (Auto) 1.1 TH/MM3 Eosinophils # (Auto) 0.2 TH/MM3 Basophils # (Auto) 0.1 TH/MM3 CBC Comment DIFF FINAL Differential Comment Sodium Level 141 MEQ/L Potassium Level 4.0 MEQ/L Chloride Level 107 MEQ/L Carbon Dioxide Level 28.0 MEQ/L Anion Gap 6 MEQ/L Blood Urea Nitrogen 37 MG/DL Creatinine 3.11 MG/DL Estimat Glomerular Filtration 26 ML/MIN Rate Random Glucose 70 MG/DL Calcium Level 8.3 MG/DL Total Bilirubin 0.2 MG/DL Aspartate Amino Transf 23 U/L (AST/SGOT) Alanine Aminotransferase 17 U/L (ALT/SGPT) Alkaline Phosphatase 80 U/L Total Protein 6.5 GM/DL Albumin 2.8 GM/DL Physical Exam General General Appearance: No Acute Distress, Comfortable Eyes Eye Exam: Pupils Equal, Pupils Reactive, Sclera White, Extraocular Movement Intact Throat Throat Exam: Oral Mucosa [place] & Moist, Oral Pharynx Normal Neck Neck Exam: Neck Supple, Trachea Midline Pulmonary Resp Exam: Clear Bilaterally, Breath Sounds Equal, No Distress Cardiology CV Exam: Regular, Normal Sinus Rhythm Gastrointestinal/Abdomen GI Exam: Soft, Non-Tender, Bowel Sounds Present Musculoskeletal MS Exam: Normal Tone MS Remarks Left AKA and right partial foot amputation. R plantar foot with distal ulceration probing to bone, no lance purulence. Foul odor present. Macerated tissue present. Opening is 1cm diameter and probes to bone. No granulation tissue present. RLE very warm. Integumentary Skin Exam: Warm, Dry Skin Remarks Right foot wound. Extremeties Extremities Exam: Trace Edema Extremeties Remarks Left AKA and right partial foot amputation. R plantar foot with distal ulceration probing to bone, no lance purulence. Foul odor present. Macerated tissue present. Opening is 1cm diameter and probes to bone. No granulation tissue present. RLE very warm. Neurologic Neuro Exam: Alert, Awake, Oriented, Speech Clear, No Focal Deficits Psychiatric Psych Exam: Appropriate Responses VTE Prophylaxis VTE Prophylaxis Meds: Heparin PUD Prophylasis PUD Prophylaxis: Protonix Assessment/Plan Assessment/Plan Assessment and Plan Right foot stump infection Right foot stump ulcer, rule out osteomyelitis.. on vancomycin per ID. Acute on chronic kidney disease stage 4 renal failure non oliguric. Hyperkalemia resolved. Metabolic acidosis Anemia from chronic diseases including renal failure. Hypoglycemia..resolved. S/P Left AKA. Management Podiatry input noted need more proximal amputation Patient refused amputation risk benefits and alternative explained to patient including he said he did not wants amputation even though he will . checked Bilateral arterial doppler and MRI Right foot noted.. need BKA per vascular surgeon. Nephrology /ID/ Vascular surgeon input noted Follow renal indices Follow potassium level IV antibiotics per ID. Recommendation. Pharmacy to dose according to renal function Discussed with patient Discussed with nurse Check CBC with diff Cmp in AM. Discussed Condition with: Patient Jean Claude Valencia MD Oct 15, 2016 18:35 Jean Claude Valencia MD Oct 15, 2016 18:35
--- NOTE | 2016-10-15 18:47 | HHI.NPPN ---
Subjective History of Present Illness 46-year-old male with past medical history of diabetes mellitus, longstanding history of hypertension, peripheral vascular disease, chronic kidney disease, history of GI bleeding who was brought to the hospital because of infection in the right foot. I was called to see the patient because of elevated BUN and creatinine. Additional Remarks Patient is alert, no pain in Rt. leg, no SOB, able to walk small distance, with left leg prosthesis. Objective Data Data 10/14/16 10/15/16 19:00 07:00 Intake Total 250 ml 720 ml Balance 250 ml 720 ml Intake Oral 720 ml IV Total 250 ml # Voids 4 Vital Signs Date Time Temp Pulse Resp B/P Pulse Ox O2 Delivery O2 Flow Rate FiO2 10/15/16 16:00 97.3 95 18 157/82 98 10/15/16 12:00 97.5 91 19 143/82 100 10/15/16 08:00 98.3 90 17 134/73 99 10/15/16 00:00 97.6 88 20 131/79 99 10/14/16 20:00 97.5 86 20 154/91 99 -: 10/15/16 0420 10/15/16 0420 Physical Exam General Appearance: No Acute Distress, Comfortable Eyes Eye Exam: Pupils Equal, Pupils Reactive, Sclera White, Extraocular Movement Intact Throat Throat Exam: Oral Mucosa [place] & Moist, Oral Pharynx Normal Neck Neck Exam: Neck Supple, Trachea Midline Pulmonary Resp Exam: Clear Bilaterally, Breath Sounds Equal, No Distress Cardiology CV Exam: Regular, Normal Sinus Rhythm Gastrointestinal/Abdomen GI Exam: Soft, Non-Tender, Bowel Sounds Present Musculoskeletal MS Exam: Normal Tone Integumentary Skin Exam: Warm, Dry Extremeties Extremities Exam: Trace Edema Neurologic Neuro Exam: Alert, Awake, Oriented, Speech Clear, No Focal Deficits Psychiatric Psych Exam: Appropriate Responses PUD Prophylasis PUD Prophylaxis: Protonix Assessment/Plan Assessment Summary: Anemia of CKD, Hypertension, Diabetes Mellitus, CKD Stage IV Problem List: (1) Diabetic ulcer of right foot associated with type 2 diabetes mellitus (2) Anemia in chronic illness (3) Cellulitis in diabetic foot (4) Hypertension (5) Diabetes mellitus (6) Chronic kidney disease (CKD) stage G4/A1, severely decreased glomerular filtration rate (GFR) between 15-29 mL/min/1.73 square meter and albuminuria creatinine ratio less than 30 mg/g (7) AMAN (acute kidney injury) Plan Patient has no SOB, doing well, BP is stable. Has some more improvement in the Creatinine. Non oliguric, so he has an element of AMAN. Has stage 4 chronic kidney disease and has an element of AMAN. Seen by ID and Vascular. Continue vanco. as per level, now it is above 15. Got one dose of Epogen for anemia. Iron study is normal. ID follow up noted., Continue antibiotics. Follow the Vanco. level. Creatinine is stable. Norah Lantigua MD Oct 15, 2016 18:47
[2016-10-15 20:00] VITALS: BP 115/69; PULSE 89; RESP 17; TEMP 97.7; O2SAT 98
[2016-10-15] MEDS: INSULIN DETEMIR 100 UNITS/ML VIAL SQ SCH (21:44)
[2016-10-16] VITALS: BP 107/62; PULSE 82; RESP 17; TEMP 97.2; O2SAT 98
[2016-10-16] MEDS: HEPARIN SODIUM - SQ 10,000 UNITS/ML VIAL SQ SCH ×2 (06:13→16:00)
[2016-10-16] MEDS: INSULIN ASPART SUPPLEMENTAL SCALE SQ SCH ×4 (06:20→21:00)
[2016-10-16 08:00] VITALS: BP 129/65; PULSE 74; RESP 16; TEMP 97.5; O2SAT 97
[2016-10-16] MEDS: SODIUM CHLORIDE 0.9% FLUSH 10 ML FLUSH IV FLUSH SCH ×2 (09:00→21:00)
--- NOTE | 2016-10-16 09:35 | HHI.NPPN ---
Subjective History of Present Illness 46-year-old male with past medical history of diabetes mellitus, longstanding history of hypertension, peripheral vascular disease, chronic kidney disease, history of GI bleeding who was brought to the hospital because of infection in the right foot. I was called to see the patient because of elevated BUN and creatinine. Additional Remarks Patient is alert, no pain in Rt. leg, no SOB, eating well. Objective Data Data 10/15/16 10/16/16 19:00 07:00 Intake Total 480 ml 240 ml Output Total 800 ml 150 ml Balance -320 ml 90 ml Intake Oral 480 ml 240 ml Output Urine Total 800 ml 150 ml # Bowel Movements 0 1 Vital Signs Date Time Temp Pulse Resp B/P Pulse Ox O2 Delivery O2 Flow Rate FiO2 10/16/16 08:00 97.5 74 16 129/65 97 10/16/16 00:00 97.2 82 17 107/62 98 10/15/16 20:00 97.7 89 17 115/69 98 10/15/16 16:00 97.3 95 18 157/82 98 10/15/16 12:00 97.5 91 19 143/82 100 -: 10/15/16 0420 10/15/16 0420 Physical Exam General Appearance: No Acute Distress, Comfortable Eyes Eye Exam: Pupils Equal, Pupils Reactive, Sclera White, Extraocular Movement Intact Throat Throat Exam: Oral Mucosa [place] & Moist, Oral Pharynx Normal Neck Neck Exam: Neck Supple, Trachea Midline Pulmonary Resp Exam: Clear Bilaterally, Breath Sounds Equal, No Distress Cardiology CV Exam: Regular, Normal Sinus Rhythm Gastrointestinal/Abdomen GI Exam: Soft, Non-Tender, Bowel Sounds Present Musculoskeletal MS Exam: Normal Tone Integumentary Skin Exam: Warm, Dry Extremeties Extremities Exam: Trace Edema Neurologic Neuro Exam: Alert, Awake, Oriented, Speech Clear, No Focal Deficits Psychiatric Psych Exam: Appropriate Responses PUD Prophylasis PUD Prophylaxis: Protonix Assessment/Plan Assessment Summary: Anemia of CKD, Hypertension, Diabetes Mellitus, CKD Stage IV Problem List: (1) Diabetic ulcer of right foot associated with type 2 diabetes mellitus (2) Anemia in chronic illness (3) Cellulitis in diabetic foot (4) Hypertension (5) Diabetes mellitus (6) Chronic kidney disease (CKD) stage G4/A1, severely decreased glomerular filtration rate (GFR) between 15-29 mL/min/1.73 square meter and albuminuria creatinine ratio less than 30 mg/g (7) AMAN (acute kidney injury) Plan Patient has no SOB, doing well, BP is stable. Has some more improvement in the Creatinine. Non oliguric, so he has an element of AMAN. Has stage 4 chronic kidney disease and has an element of AMAN. Seen by ID and Vascular. Continue vanco. as per level, now it is above 15. Got one dose of Epogen for anemia. Iron study is normal. Vanco. level is 16.9. Patient want to try antibiotics before considering amputation. He understand that amputation is a possibility. Creatinine has been stable. Norah Lantigua MD Oct 16, 2016 09:34
[2016-10-16] MEDS ORDERED: VANCOMYCIN 1,000 MG/NS 250 ML IV ONE ×2 (11:00)
[2016-10-16 12:00] VITALS: BP 117/67; PULSE 91; RESP 16; TEMP 96.5; O2SAT 100
--- NOTE | 2016-10-16 12:49 | HHI.IDPN ---
Subjective Subjective Remarks Notes reviewed No fever Podiatry and vascular notes reviewed MRI no change compared to his MRI from 2016 Antibiotics Vanco - dosing based on level Lines PIV Past Medical History Reviewed Allergies: Coded Allergies: *MDRO Multi-Drug Resistant Organism (Verified Adverse Reaction, Unknown, ) MRSA (foot wound) - 03/2010, 10/2014, 04/2015 MRSA PCR Screen POSITIVE - 09/01/15 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/16) Objective . Vital Signs Date Time Temp Pulse Resp B/P Pulse Ox O2 Delivery O2 Flow Rate FiO2 10/16/16 12:00 96.5 91 16 117/67 100 10/16/16 08:00 97.5 74 16 129/65 97 10/16/16 00:00 97.2 82 17 107/62 98 10/15/16 20:00 97.7 89 17 115/69 98 10/15/16 16:00 97.3 95 18 157/82 98 10/15/16 10/15/16 10/16/16 15:00 23:00 07:00 Intake Total 480 ml 240 ml Output Total 800 ml 150 ml Balance -320 ml 90 ml Intake Oral 480 ml 240 ml Output Urine Total 800 ml 150 ml # Bowel Movements 0 1 . Laboratory Tests Test 10/15/16 04:20 White Blood Count 7.7 TH/MM3 Red Blood Count 2.66 MIL/MM3 Hemoglobin 8.0 GM/DL Hematocrit 24.4 % Mean Corpuscular Volume 91.8 FL Mean Corpuscular Hemoglobin 30.1 PG Mean Corpuscular Hemoglobin 32.8 % Concent Red Cell Distribution Width 13.9 % Platelet Count 187 TH/MM3 Mean Platelet Volume 8.2 FL Neutrophils (%) (Auto) 55.9 % Lymphocytes (%) (Auto) 26.8 % Monocytes (%) (Auto) 13.9 % Eosinophils (%) (Auto) 2.2 % Basophils (%) (Auto) 1.2 % Neutrophils # (Auto) 4.3 TH/MM3 Lymphocytes # (Auto) 2.1 TH/MM3 Monocytes # (Auto) 1.1 TH/MM3 Eosinophils # (Auto) 0.2 TH/MM3 Basophils # (Auto) 0.1 TH/MM3 CBC Comment DIFF FINAL Differential Comment Laboratory Tests Test 10/15/16 04:20 Sodium Level 141 MEQ/L Potassium Level 4.0 MEQ/L Chloride Level 107 MEQ/L Carbon Dioxide Level 28.0 MEQ/L Anion Gap 6 MEQ/L Blood Urea Nitrogen 37 MG/DL Creatinine 3.11 MG/DL Estimat Glomerular Filtration 26 ML/MIN Rate Random Glucose 70 MG/DL Calcium Level 8.3 MG/DL Total Bilirubin 0.2 MG/DL Aspartate Amino Transf 23 U/L (AST/SGOT) Alanine Aminotransferase 17 U/L (ALT/SGPT) Alkaline Phosphatase 80 U/L Total Protein 6.5 GM/DL Albumin 2.8 GM/DL Imaging Last Impressions Foot MRI 10/11/16 0000 Signed Impressions: Service Date/Time: Tuesday, October 11, 2016 10:30 - CONCLUSION: 1. Abnormal signal at the small remaining portions of the proximal 4th and 5th metatarsals. There appears to be chronic remodeling at the small 5th metatarsal fragment. These signal changes were present previously. Some degree of osteomyelitis needs to be considered. The patient does have an ulcer seen at the plantar soft tissues at this level. 2. Milder changes in the cuneiform bone being more prominent on the T2 weighted images. The T1 changes at the cuboid bone are less prominent making osteomyelitis in this region less likely. Hebre Healy MD Foot X-Ray 10/09/16 1301 Signed Impressions: Service Date/Time: September 14:34 - CONCLUSION: Subcutaneous ulcer no definite evidence for osteomyelitis for technique. K. Sammy Celaya MD Chest X-Ray 10/09/16 1301 Signed Impressions: Service Date/Time: September 14:31 - CONCLUSION: No acute disease. Joe Gan MD Physical Exam GENERAL: awake and alert, in no apparent distress. SKIN: Cool and dry. No generalized rash or ecchymosis. HEENT: [place] conjunctiva. No scleral icterus. No injection or drainage. Moist oral mucosa. NECK: Trachea midline. No JVD or lymphadenopathy. Supple, nontender, no meningeal signs. CARDIOVASCULAR: Regular rate and rhythm without murmurs, gallops, or rubs. RESPIRATORY: Clear to auscultation. Breath sounds equal bilaterally. No wheezes , rales, or rhonchi. GASTROINTESTINAL: Abdomen soft, flat, non-tender, nondistended. No hepato- splenomegaly, or palpable masses. No guarding. MUSCULOSKELETAL: LLE: well healed LAKA stump. RLE - has well healed stump, but there is an ulcer on plantar aspect that is about 1 cm size opening, probes to the bone, no redness noted, small amount of serosanguineous drainage, no odor, no tenderness. NEUROLOGICAL: Grossly non-focal. PSYCH: Normal affect, calm and cooperative LINE: PIV with no evidence of infection Assessment & Plan Remarks IMPRESSION Chronic ulcer R foot, clinically no obvious findings of infection on exam that is not red, no swelling, no induration, no pain, has some small drainage, but probes to the bone - MRI has no changed compared to previous MRI - this is his only remaining foot, he has had L AKA DM PVD RECOMMENDATION ? if one option is treat with oral Abx and wound care since he is stable and try to follow his wound closer - it seems that he has not really followed up with any podiatry or wound care clinic for this chronic ulcer - ? tx conservatively since this is his only limb remaining - if he fails and show more aggressive infection then amputate Continue IV vanco - will redose based on level Monitor progress Higher amputation has been recommended to patient and he does not want amputation at this time D/W Margarita Florence MD Oct 16, 2016 12:49
[2016-10-16 16:00] VITALS: BP 135/68; PULSE 97; RESP 16; TEMP 94.5; O2SAT 99
[2016-10-16 20:00] VITALS: BP 136/66; PULSE 88; RESP 17; TEMP 97.8; O2SAT 98
[2016-10-16] MEDS: ACETAMINOPHEN/HYDROcodone 325 MG/5 MG TAB PO PRN (21:08)
[2016-10-16] MEDS: INSULIN DETEMIR 100 UNITS/ML VIAL SQ SCH (21:09)
[2016-10-16 21:27] VITALS: O2SAT 98
--- NOTE | 2016-10-16 22:50 | HHI.PR ---
Subjective History of Present Illness I went to patient room and I said good morning and ask how's he doing. Patient was very rude and abnxious with me Used F Word on me he yelled and screemed threatned me RN on duty was present in room with me Security was called in to secure me and two security person came d/w Mr Adhikari security person about patient nasty and abnoxious behaviour . he was angery because I told him that journeyman apprentice electricians and vascular surgeon recommended amputation which he refused. D/W Incharge NOAM Wisdom about the whole situation and told have some other attending to see him tomorrow onword. D/W Dr Lantigua account manager forest service. Review of Systems Integumentary Skin Remarks Left AKA.Right foot wound. amputation of right forefoot. Vitals/Results Intake & Output 10/15/16 10/15/16 10/16/16 15:00 23:00 07:00 Intake Total 480 ml 240 ml Output Total 800 ml 150 ml Balance -320 ml 90 ml Intake Oral 480 ml 240 ml Output Urine Total 800 ml 150 ml # Bowel Movements 0 1 Vital Signs Vital Signs Date Time Temp Pulse Resp B/P Pulse Ox O2 Delivery O2 Flow Rate FiO2 10/16/16 21:27 98 21 10/16/16 20:00 97.8 88 17 136/66 98 10/16/16 16:00 94.5 97 16 135/68 99 10/16/16 12:00 96.5 91 16 117/67 100 10/16/16 08:00 97.5 74 16 129/65 97 10/16/16 00:00 97.2 82 17 107/62 98 CBC/BMP: 10/15/16 0420 10/15/16 0420 Lab Results Laboratory Tests Test 10/16/16 04:37 Random Vancomycin Level 16.9 COMMENT Physical Exam General Appearance Remarks Patient not examined. Musculoskeletal MS Remarks Left AKA and right partial foot amputation. Integumentary Skin Remarks Right foot wound. Extremeties Extremeties Remarks Left AKA and right partial foot amputation. VTE Prophylaxis VTE Prophylaxis Meds: Heparin PUD Prophylasis PUD Prophylaxis: Protonix Assessment/Plan Assessment/Plan Assessment and Plan Right foot stump infection Right foot stump ulcer, rule out osteomyelitis.. on vancomycin per ID. Acute on chronic kidney disease stage 4 renal failure non oliguric. Hyperkalemia resolved. Metabolic acidosis Anemia from chronic diseases including renal failure. Hypoglycemia..resolved. S/P Left AKA. Management Podiatry input noted need more proximal amputation Patient refused amputation risk benefits and alternative explained to patient including he said he did wants amputation even though he will . checked Bilateral arterial doppler and MRI Right foot noted.. need BKA per vascular surgeon. Nephrology /ID/ Vascular surgeon input noted Follow renal indices Follow potassium level IV antibiotics per ID. Recomendation. Pharmacy to dose according to renal function I went to patient room and I said good morning and ask how's he doing. Patient was very rude and abnxious with me Used F Word on me he yelled and screemed threatned me RN on duty was present in room with me Security was called in to secure me and two security person came d/w Mr Adhikari security person about patient nasty and abnoxious behaviour . he was angery because I told him that journeyman apprentice electricians and vascular surgeon recommended amputation which he refused. D/W Incharge NOAM Wisdom about the whole situation and told have some other attending to see him tomorrow onword. D/W Dr Lantigua account manager forest service. Jean Claude Valencia MD Oct 16, 2016 22:50 Discussed with patient Discussed with nurse Check CBC with diff Cmp in AM. Jean Claude Valencia MD Oct 16, 2016 22:50 Assessment/Plan Assessment and Plan Right foot stump infection Right foot stump ulcer, rule out osteomyelitis.. on vancomycin per ID. Acute on chronic kidney disease stage 4 renal failure non oliguric. Hyperkalemia resolved. Metabolic acidosis Anemia from chronic diseases including renal failure. Hypoglycemia..resolved. S/P Left AKA. Management Podiatry input noted need more proximal amputation Patient refused amputation risk benefits and alternative explained to patient including he said he did wants amputation even though he will . checked Bilateral arterial doppler and MRI Right foot noted.. need BKA per vascular surgeon. Nephrology /ID/ Vascular surgeon input noted Follow renal indices Follow potassium level IV antibiotics per ID. Recomendation. Pharmacy to dose according to renal function Discussed with patient Discussed with nurse Check CBC with diff Cmp in AM. Jean Claude Valencia MD Oct 16, 2016 22:50
[2016-10-17] VITALS: BP 126/62; PULSE 80; RESP 17; TEMP 97.4; O2SAT 98
[2016-10-17] MEDS: HEPARIN SODIUM - SQ 10,000 UNITS/ML VIAL SQ SCH ×2 (03:40→15:59)
[2016-10-17] MEDS: INSULIN ASPART SUPPLEMENTAL SCALE SQ SCH ×4 (06:26→22:24)
[2016-10-17 08:00] VITALS: BP 125/64; PULSE 83; RESP 18; TEMP 97.6; O2SAT 99
[2016-10-17] MEDS: SODIUM CHLORIDE 0.9% FLUSH 10 ML FLUSH IV FLUSH SCH ×2 (08:31→19:27)
--- NOTE | 2016-10-17 09:35 | HHI.IDPN ---
Subjective Subjective Remarks Notes reviewed No fever D/W patient regarding Rx of his infection R foot - will Rx with IV Abx, but he needs follow-up with wound care to ensure care for his open wound and try to close and heal this If recurrent infection, then he will need higher amputation Patient does not want higher amputation at this time MRI no change compared to his MRI from 2016 Spent about 45 minutes with laying out and ordering treatment plan, explaining to patient, and arranging with counseling case manager Antibiotics Vanco - dosing based on level Lines PIV Past Medical History Reviewed Allergies: Coded Allergies: *MDRO Multi-Drug Resistant Organism (Verified Adverse Reaction, Unknown, ) MRSA (foot wound) - 03/2010, 10/2014, 04/2015 MRSA PCR Screen POSITIVE - 09/01/15 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/16) Objective . Vital Signs Date Time Temp Pulse Resp B/P Pulse Ox O2 Delivery O2 Flow Rate FiO2 10/17/16 08:00 97.6 83 18 125/64 99 10/17/16 00:00 97.4 80 17 126/62 98 10/16/16 21:27 98 21 10/16/16 20:00 97.8 88 17 136/66 98 10/16/16 16:00 94.5 97 16 135/68 99 10/16/16 12:00 96.5 91 16 117/67 100 10/16/16 10/16/16 10/17/16 15:00 23:00 07:00 Intake Total 240 ml 240 ml 240 ml Output Total 200 ml 200 ml Balance 240 ml 40 ml 40 ml Intake Oral 240 ml 240 ml 240 ml IV Total 0 ml 0 ml Output Urine Total 200 ml 200 ml # Voids 3 # Bowel Movements 0 Imaging Last Impressions Foot MRI 10/11/16 0000 Signed Impressions: Service Date/Time: Tuesday, October 11, 2016 10:30 - CONCLUSION: 1. Abnormal signal at the small remaining portions of the proximal 4th and 5th metatarsals. There appears to be chronic remodeling at the small 5th metatarsal fragment. These signal changes were present previously. Some degree of osteomyelitis needs to be considered. The patient does have an ulcer seen at the plantar soft tissues at this level. 2. Milder changes in the cuneiform bone being more prominent on the T2 weighted images. The T1 changes at the cuboid bone are less prominent making osteomyelitis in this region less likely. Heber Healy MD Foot X-Ray 10/09/16 1301 Signed Impressions: Service Date/Time: September 14:34 - CONCLUSION: Subcutaneous ulcer no definite evidence for osteomyelitis for technique. FanyAntoine Celaya MD Chest X-Ray 10/09/16 1301 Signed Impressions: Service Date/Time: September 14:31 - CONCLUSION: No acute disease. Joe Gan MD Physical Exam GENERAL: awake and alert, in no apparent distress. SKIN: Cool and dry. No generalized rash or ecchymosis. HEENT: [place] conjunctiva. No scleral icterus. No injection or drainage. Moist oral mucosa. NECK: Trachea midline. No JVD or lymphadenopathy. Supple, nontender, no meningeal signs. CARDIOVASCULAR: Regular rate and rhythm without murmurs, gallops, or rubs. RESPIRATORY: Clear to auscultation. Breath sounds equal bilaterally. No wheezes , rales, or rhonchi. GASTROINTESTINAL: Abdomen soft, flat, non-tender, nondistended. No hepato- splenomegaly, or palpable masses. No guarding. MUSCULOSKELETAL: LLE: well healed LAKA stump. RLE - has well healed stump, but there is an ulcer on plantar aspect that is about 1 cm size opening, probes to the bone, no redness noted, small amount of serosanguineous drainage, no odor, no tenderness. NEUROLOGICAL: Grossly non-focal. PSYCH: Normal affect, calm and cooperative LINE: PIV with no evidence of infection Assessment & Plan Remarks IMPRESSION Chronic ulcer R foot, clinically no obvious findings of infection on exam that is not red, no swelling, no induration, no pain, has some small drainage, but probes to the bone - MRI has no changed compared to previous MRI - Probes to bone, osteo very likely - this is his only remaining foot, he has had L AKA DM PVD RECOMMENDATION Will Rx with IV Vanco and combine with aggressive wound care and follow-up D/W patient that if he wants to save his foot, that he needs to be compliant with wound care and their recommendations D/W Dr Lantigua - [place] valle for venous access; I will order [place] placement by IR Consult CM to assist with IV Abx arrangements and patient will also need [facility] for wound care Once arrangements made, then he can be D/C from ID standpoint today Explained plan to the patient Discussed with Margarita Ferguson MD Oct 17, 2016 09:35
--- NOTE | 2016-10-17 09:37 | HHI.FF ---
Infusion Therapy Location of Infusion Therapy: Ambulatory Infusion Therapy Order Patient Information Patient Weight 63.7 kg Diagnosis: Coded Allergies: *MDRO Multi-Drug Resistant Organism (Verified Adverse Reaction, Unknown, ) MRSA (foot wound) - 03/2010, 10/2014, 04/2015 MRSA PCR Screen POSITIVE - 09/01/15 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/16) Administer Medication Vancomycin 1 gram IV q 48 hours Stop Treatment: November 19, 2016 Additional Information Venous access: Other ([place]) Additional Instructions [x] Peripheral flush and dressing changes per protocol [x] Implanted port and central oil field pipeline supervisor: * Implanted port: 10 ml Normal Saline followed by 5 ml Heparin 100 units/ml Heparin flush after each use and monthly to maintain. [] May leave port accessed during therapy. [] May leave peripheral site accessed for duration of therapy. [x] If patient has SOB or respiratory distress, check oxygen saturation. If less than 90% or clinical signs of respiratory distress, administer oxygen at 2 L/min. via nasal cannula and notify physician. [x] Anaphylaxis/Reaction orders: * Stop infusion. * Keep IV line open with saline flush. * Notify physician. * Monitor vital signs every 15 minutes until symptoms resolve. * Check Oxygen saturation; Oxygen at 2 L/min. via nasal cannula if less than 90% or clinical signs of respiratory distress. * Administer diphenhydramine (Benadryl) 25 mg IV STAT, (unless patient has received as pre-med). May repeat once, if necessary. * Solu-Cortef 250 mg IVP over 30-60 seconds, use 100 mg vials for each dissolution. * Epinephrine (1mg/1 ml) 0.3 mg subcutaneously or IVP now with any signs of respiratory distress. * Check with physician for new additional pre-med orders if patient is re- challenged or re-treated. [x] May remove PICC line when treatment complete, after confirming with Physician. [x] If the patient is admitted to the hospital, the ED, or transferred via [facility] , complete transfer form including medication reconciliation order sheet. Laboratory Tests Weekly Labs: CBC w/diff, Creatinine, Vancomycin Trough (Labs every Thursday or Thursday - copy to tn) Margarita Rosario MD Oct 17, 2016 09:37
[2016-10-17] MEDS ORDERED: ceFAZolin 2 GM PREMIX 50 ML IV SCH (11:00)
[2016-10-17] MEDS ORDERED: VANCOMYCIN INJ 1,000 MG in SODIUM CHLOR 0.9% 250 ML INJ 250 ML IV SCH (11:00)
[2016-10-17 12:00] VITALS: BP 129/64; PULSE 86; RESP 20; TEMP 97; O2SAT 100
--- NOTE | 2016-10-17 12:26 | HHI.NPPN ---
Subjective History of Present Illness 46-year-old male with past medical history of diabetes mellitus, longstanding history of hypertension, peripheral vascular disease, chronic kidney disease, history of GI bleeding who was brought to the hospital because of infection in the right foot. I was called to see the patient because of elevated BUN and creatinine. Additional Remarks Patient is alert, no pain in Rt. leg, no SOB, eating well. Objective Data Data 10/16/16 10/17/16 19:00 07:00 Intake Total 240 ml 480 ml Output Total 400 ml Balance 240 ml 80 ml Intake Oral 240 ml 480 ml IV Total 0 ml Output Urine Total 400 ml # Voids 3 # Bowel Movements 0 Vital Signs Date Time Temp Pulse Resp B/P Pulse Ox O2 Delivery O2 Flow Rate FiO2 10/17/16 08:00 97.6 83 18 125/64 99 10/17/16 00:00 97.4 80 17 126/62 98 10/16/16 21:27 98 21 10/16/16 20:00 97.8 88 17 136/66 98 10/16/16 16:00 94.5 97 16 135/68 99 -: 10/15/16 0420 10/15/16 0420 Physical Exam PUD Prophylasis PUD Prophylaxis: Protonix Assessment/Plan Assessment Summary: Anemia of CKD, Hypertension, Diabetes Mellitus, CKD Stage IV Problem List: (1) Diabetic ulcer of right foot associated with type 2 diabetes mellitus (2) Anemia in chronic illness (3) Cellulitis in diabetic foot (4) Hypertension (5) Diabetes mellitus (6) Chronic kidney disease (CKD) stage G4/A1, severely decreased glomerular filtration rate (GFR) between 15-29 mL/min/1.73 square meter and albuminuria creatinine ratio less than 30 mg/g (7) AMAN (acute kidney injury) Plan Patient has no SOB, doing well, BP is stable. Has some more improvement in the Creatinine. Non oliguric, so he has an element of AMAN. Has stage 4 chronic kidney disease and has an element of AMAN. Seen by ID and Vascular. Continue vanco. as per level, now it is above 15. Got one dose of Epogen for anemia. Iron study is normal. Vanco. level is 16.9. Patient want to try antibiotics before considering amputation. He understand that amputation is a possibility. Creatinine has been stable. Norah Lantigua MD Oct 17, 2016 12:26
[2016-10-17] MEDS: LACTOBACILLUS ACIDOPHILUS TAB PO SCH ×2 (12:50→17:54)
--- NOTE | 2016-10-17 13:02 | HHI.FF ---
Face to Face Verification Diagnosis: (1) Diabetic ulcer of right foot associated with type 2 diabetes mellitus (2) Acute on chronic renal failure Home Health Nursing Order: Diabetic education Wound care and dressing changes Nursing assessment with vital signs Instructions: clean stump w normal saline, then apply iodoform packing to the right partial foot amputation, apply 4x4 gauze and primapour daily. I have seen patient Lj Dennison on 10/17/16. My clinical findings support the need for the requested home health care services because: for wound care management Ltd mobility - disease progression Infection w/ risk of complications I certify that my clinical findings support that this patient is homebound because: wound care management Unable to use public transportation Dinorah Gates MD Oct 17, 2016 13:02
[2016-10-17] MEDS ORDERED: fentaNYL CITRATE 250 MCG/5 ML AMP ONE (14:09)
[2016-10-17] MEDS ORDERED: MIDAZOLAM HCL 5 MG/5 ML VIAL ONE (14:09)
--- NOTE | 2016-10-17 14:09 | HHI.PR ---
Subjective Remarks Dr. Valencia requested that pt be transferred to my service as pt no longer wants him to follow him while in the hospital. I evaluated the patient, he tells me that he has some pain but doesn't need any pain meds at this time. He denies any nausea or vomiting, chest pain or SOB. Pt spoke w CM and is hopeful that he can be all set up for outpatient IV abx. Objective Vitals Vital Signs Date Time Temp Pulse Resp B/P Pulse Ox O2 Delivery O2 Flow Rate FiO2 10/17/16 08:00 97.6 83 18 125/64 99 10/17/16 00:00 97.4 80 17 126/62 98 10/16/16 21:27 98 21 10/16/16 20:00 97.8 88 17 136/66 98 10/16/16 16:00 94.5 97 16 135/68 99 I/O 10/16/16 10/16/16 10/16/16 10/17/16 10/17/16 10/17/16 07:00 15:00 23:00 07:00 15:00 23:00 Intake Total 240 ml 240 ml 240 ml Output Total 200 ml 200 ml Balance 240 ml 40 ml 40 ml Intake Oral 240 ml 240 ml 240 ml IV Total 0 ml 0 ml Output Urine Total 200 ml 200 ml # Voids 3 # Bowel Movements 0 Result Diagram: 10/15/16 0420 10/15/16 0420 Imaging Last Impressions Foot MRI 10/11/16 0000 Signed Impressions: Service Date/Time: Tuesday, October 11, 2016 10:30 - CONCLUSION: 1. Abnormal signal at the small remaining portions of the proximal 4th and 5th metatarsals. There appears to be chronic remodeling at the small 5th metatarsal fragment. These signal changes were present previously. Some degree of osteomyelitis needs to be considered. The patient does have an ulcer seen at the plantar soft tissues at this level. 2. Milder changes in the cuneiform bone being more prominent on the T2 weighted images. The T1 changes at the cuboid bone are less prominent making osteomyelitis in this region less likely. Heber Healy MD Foot X-Ray 10/09/16 1301 Signed Impressions: Service Date/Time: September 14:34 - CONCLUSION: Subcutaneous ulcer no definite evidence for osteomyelitis for technique. K. Sammy Celaya MD Chest X-Ray 10/09/16 1301 Signed Impressions: Service Date/Time: September 14:31 - CONCLUSION: No acute disease. Joe Gan MD Objective Remarks GENERAL: Well-nourished, well-developed patient in no apparent distress. CARDIOVASCULAR: Regular rate and rhythm. RESPIRATORY: No accessory muscle use. Clear to auscultation. Breath sounds equal bilaterally. GASTROINTESTINAL: Abdomen soft, non-tender, nondistended. Hepatic and splenic margins not palpable. MUSCULOSKELETAL: Left AKA and right partial foot amputation. dressing over the right stump. d/c/i A/P Assessment and Plan Right foot stump infection Right foot stump ulcer, rule out osteomyelitis. on vancomycin per ID. Acute on chronic kidney disease stage 4 renal failure non oliguric. Hyperkalemia resolved. Metabolic acidosis Anemia from chronic diseases including renal failure. Hypoglycemia.resolved. S/P Left AKA. Management per review of records, Podiatry and vascular sx recommended a more proximal amputation, however pt refused. Pt would like to try to salvage his limb by trying IV abx first. I have discussed the case w Dr. Rosario, and she is ok for patient to go on IV vanc as an outpatient but has emphasized to the patient that he needs follow-up with wound care to ensure care for his open wound and try to close and heal this. Home health Face to face has been submitted to CM. If recurrent infection, then he will need higher amputation, but he must f/u w podiatry/ wound care to ensure care for his open wound and try to close and heal this Debby and she is working on getting everything set up. Pt is going for goldstein placement (which was approved by nephrology) today. Bilateral arterial doppler and MRI Right foot noted.. need BKA per vascular surgeon. Nephrology /ID/ Vascular surgeon input noted Follow renal indices Follow potassium level IV antibiotics per ID Pharmacy to dose according to renal function Discharge Planning awaiting on CM to make final arrangement for d/c planning. Dinorah Gates MD Oct 17, 2016 14:09
[2016-10-17] MEDS ORDERED: LIDOCAINE 1%/EPINEPHrine 1:100,000 SOLN 20 ML VIAL ONE (14:14)
--- NOTE | 2016-10-17 15:20 | PD.RAD ---
Post Procedure Progress Note Pre Procedure Diagnosis: (1) Foot osteomyelitis, right Post Procedure Diagnosis: (1) Foot osteomyelitis, right Procedure Date: Oct 17, 2016 Supervising Radiologist: Jarrell Brooks Proceduralist/Assist: Jo Ann Cameron, RT(R), Silvia Otero RT(R)() Anesthesia: Conscious Sedation Plan of Activity Patient to Unit: [facility] Patient Condition: Good See PACS Report for procedural detail/treatment Central Venous Access Device Procedure 1 Right Internal Jugular Tunneled Central Line Placement single lumen Jarrell Brooks MD Oct 17, 2016 15:20
[2016-10-17 16:00] VITALS: BP 130/62; PULSE 131; RESP 18; TEMP 96.9; O2SAT 96
--- NOTE | 2016-10-17 16:35 | RADRPT ---
EXAM DATE/TIME: 10/17/2016 14:23 [facility] COMPARISON: No previous studies available for comparison. INDICATIONS : Patient with a history of right foot wound requiring antibiotics. MEDICAL HISTORY : Diabetes PAD HTN Renal disease SURGICAL HISTORY : Left below knee amputation Right mid-foot amputation Circumcision ENCOUNTER: Initial ACUITY: 1 week PAIN SCORE: 7/10 LOCATION: Right foot FLUORO TIME: 0.9 minutes IMAGE SERIES: 1 SEDATION TIME: 15 minutes ACCESS: Right internal jugular vein SEDATION: 1.) 2 mg midazolam (Versed) IV 2.) 100 mcg fentanyl (Sublimaze) IV Prophylactic antibiotics were administered with appropriate pre-procedure timing. Vancomycin within 2 hours of procedure, Ancef (or alternative) within 1 hour of procedure. DEVICE: 1. 7 [place]zer[place] single lumen Comer catheter PROCEDURE : 1. Ultrasound-guided puncture of the prescribed vein. 2. Fluoroscopic guidance. 3. Comer catheter placement 4. Conscious sedation with continuous EKG and oximetry monitoring. The risks, benefits and alternatives to the procedure were explained and verbal and written consent w as obtained. The site was prepped in sterile fashion. Full sterile technique was used, including ca p, mask, sterile gloves and gown and a large sterile sheet. Hand hygiene and 2% chlorhexidine Betadi ne was utilized per protocol for cutaneous antisepsis with appropriate dry time for site. The skin a nd subcutaneous tissues were infiltrated with local anesthetic solution. With ultrasound and fluoroscopic guidance a dermatotomy was created in the supraclavicular region. A micropuncture set was used to access to the prescribed vein and serial dilatation was performed to a ccept a Comer catheter. A subcutaneous tunnel was created and in antegrade fashion the catheter wa s pulled through the tunnel, cut to the appropriate length and place through the sheath. The cathete r was locked with heparin and sutured in place. Conscious sedation was performed with the prescribed dosages and duration as above in the presence of an independent trained radiology nurse to assist in the monitoring of the patient. EKG and oximetry remained stable throughout the procedure. The patient tolerated the procedure well and there were no complications. The patient was sent to post anesthesia recovery in stable condition. CONCLUSION: Uncomplicated Comer catheter placement as above. Jarrell Brooks MD on October 17, 2016 at 16:33 Board Certified Radiologist. This report was verified electronically.
[2016-10-17] MEDS: ACETAMINOPHEN/HYDROcodone 325 MG/5 MG TAB PO PRN (19:26)
[2016-10-17] MEDS: INSULIN DETEMIR 100 UNITS/ML VIAL SQ SCH (19:27)
[2016-10-17 20:00] VITALS: BP 147/82; PULSE 84; RESP 17; TEMP 95.5; O2SAT 100
[2016-10-18] VITALS: BP 146/81; PULSE 84; RESP 17; TEMP 96.2; O2SAT 98
[2016-10-18] MEDS: HEPARIN SODIUM - SQ 10,000 UNITS/ML VIAL SQ SCH ×2 (02:33→16:09)
[2016-10-18] MEDS: INSULIN ASPART SUPPLEMENTAL SCALE SQ SCH ×4 (06:19→21:00)
[2016-10-18 08:00] VITALS: BP 153/76; PULSE 90; RESP 18; TEMP 97.4; O2SAT 100
[2016-10-18] MEDS: SODIUM CHLORIDE 0.9% FLUSH 10 ML FLUSH IV FLUSH SCH ×2 (09:20→21:04)
[2016-10-18] MEDS: LACTOBACILLUS ACIDOPHILUS TAB PO SCH ×3 (09:20→16:44)
--- NOTE | 2016-10-18 09:36 | HHI.NPPN ---
Subjective History of Present Illness 46-year-old male with past medical history of diabetes mellitus, longstanding history of hypertension, peripheral vascular disease, chronic kidney disease, history of GI bleeding who was brought to the hospital because of infection in the right foot. I was called to see the patient because of elevated BUN and creatinine. Additional Remarks Appears to have stage IV CKD. No new labs are available. Objective Data Data 10/17/16 10/18/16 19:00 07:00 Intake Total 120 ml 720 ml Output Total 1050 ml Balance 120 ml -330 ml Intake Oral 120 ml 720 ml IV Total 0 ml Output Urine Total 1050 ml # Bowel Movements 0 Vital Signs Date Time Temp Pulse Resp B/P Pulse Ox O2 Delivery O2 Flow Rate FiO2 10/18/16 08:00 97.4 90 18 153/76 100 10/18/16 00:00 96.2 84 17 146/81 98 10/17/16 20:00 95.5 84 17 147/82 100 10/17/16 16:00 96.9 131 18 130/62 96 10/17/16 12:00 97.0 86 20 129/64 100 -: 10/15/16 0420 10/15/16 0420 Physical Exam General Appearance: No Acute Distress Pulmonary Resp Exam: Clear Bilaterally, Breath Sounds Equal Cardiology CV Exam: Normal Sinus Rhythm Gastrointestinal/Abdomen GI Exam: Soft PUD Prophylasis PUD Prophylaxis: Protonix Assessment/Plan Assessment Summary: Anemia of CKD, Hypertension, Diabetes Mellitus, CKD Stage IV Problem List: (1) Diabetic ulcer of right foot associated with type 2 diabetes mellitus (2) Anemia in chronic illness (3) Cellulitis in diabetic foot (4) Hypertension (5) Diabetes mellitus (6) Chronic kidney disease (CKD) stage G4/A1, severely decreased glomerular filtration rate (GFR) between 15-29 mL/min/1.73 square meter and albuminuria creatinine ratio less than 30 mg/g (7) AMAN (acute kidney injury) Plan: patient is s/p left AKA. Now on IV Vancomycin. ID following. Carefully monitor Vancomycin level, avoid levels above 20. Renal function is poor, however there is no immediate need for dialysis. Notes were reviewed. No new labs after . Will repeat. Eitan Sky MD Oct 18, 2016 09:36
--- NOTE | 2016-10-18 11:35 | PD.CAR.PN ---
CVT Progress Note Subjective/Hospital Course: Consult received Full evaluation and consult dictation to follow Holly Paniagua 10/18/16 Patient refuses amputation and wants to be an antibiotics I do not believe that antibiotic therapy combined with the Sheldon amputations in best interest of the patient or medically appropriate for it is futile it will not result in favorable outcome Just because patient wants something doesn't mean its medically indicated appropriate or within standers of accepted care I'll sign off the case and if patient changes his mind I'll be available Objective: Vital Signs Date Time Temp Pulse Resp B/P Pulse Ox O2 Delivery O2 Flow Rate FiO2 10/18/16 08:00 97.4 90 18 153/76 100 10/18/16 00:00 96.2 84 17 146/81 98 10/17/16 20:00 95.5 84 17 147/82 100 10/17/16 16:00 96.9 131 18 130/62 96 10/17/16 12:00 97.0 86 20 129/64 100 Labs: Laboratory Tests Test 10/18/16 02:30 Random Vancomycin Level 30.8 COMMENT Result Diagram: 10/15/16 0420 10/15/16 0420 Zo Kovacs MD Oct 18, 2016 11:35
[2016-10-18 12:00] VITALS: BP 129/67; PULSE 92; RESP 18; TEMP 97.5; O2SAT 100
[2016-10-18] MEDS: ACETAMINOPHEN/HYDROcodone 325 MG/5 MG TAB PO PRN (14:09)
--- NOTE | 2016-10-18 14:51 | HHI.PR ---
Subjective Remarks Patient states he has a little bit of pain in his stump but at this time does not need any pain medications. He spoke with case management regarding his discharge planning. He denies any chest pain, shortness of breath, nausea or vomiting Objective Vitals Vital Signs Date Time Temp Pulse Resp B/P Pulse Ox O2 Delivery O2 Flow Rate FiO2 10/18/16 12:00 97.5 92 18 129/67 100 10/18/16 08:00 97.4 90 18 153/76 100 10/18/16 00:00 96.2 84 17 146/81 98 10/17/16 20:00 95.5 84 17 147/82 100 10/17/16 16:00 96.9 131 18 130/62 96 I/O 10/17/16 10/17/16 10/17/16 10/18/16 10/18/16 10/18/16 07:00 15:00 23:00 07:00 15:00 23:00 Intake Total 240 ml 120 ml 480 ml 240 ml Output Total 200 ml 450 ml 600 ml Balance 40 ml 120 ml 30 ml -360 ml Intake Oral 240 ml 120 ml 480 ml 240 ml IV Total 0 ml 0 ml 0 ml Output Urine Total 200 ml 450 ml 600 ml # Bowel Movements 0 Result Diagram: 10/15/16 0420 10/15/16 0420 Imaging Last Impressions Catheter Placement X-Ray 10/17/16 0000 Signed Impressions: Service Date/Time: Monday, October 17, 2016 14:23 - CONCLUSION: Uncomplicated Goldstein catheter placement as above. Jarrell Brooks MD Foot MRI 10/11/16 0000 Signed Impressions: Service Date/Time: Tuesday, October 11, 2016 10:30 - CONCLUSION: 1. Abnormal signal at the small remaining portions of the proximal 4th and 5th metatarsals. There appears to be chronic remodeling at the small 5th metatarsal fragment. These signal changes were present previously. Some degree of osteomyelitis needs to be considered. The patient does have an ulcer seen at the plantar soft tissues at this level. 2. Milder changes in the cuneiform bone being more prominent on the T2 weighted images. The T1 changes at the cuboid bone are less prominent making osteomyelitis in this region less likely. Heber Haely MD Foot X-Ray 10/09/16 1301 Signed Impressions: Service Date/Time: September 14:34 - CONCLUSION: Subcutaneous ulcer no definite evidence for osteomyelitis for technique. K. Sammy Celaya MD Chest X-Ray 10/09/16 1301 Signed Impressions: Service Date/Time: September 14:31 - CONCLUSION: No acute disease. Joe Gan MD Objective Remarks GENERAL: Well-nourished, well-developed patient in no apparent distress. Patient sitting on the side of the bed CARDIOVASCULAR: Regular rate and rhythm. RESPIRATORY: No accessory muscle use. Clear to auscultation. Breath sounds equal bilaterally. GASTROINTESTINAL: Abdomen soft, non-tender, nondistended. Hepatic and splenic margins not palpable. MUSCULOSKELETAL: Left AKA and right partial foot amputation. dressing over the right stump. d/c/i A/P Assessment and Plan Right foot stump infection Right foot stump ulcer, rule out osteomyelitis. on vancomycin per ID. Acute on chronic kidney disease stage 4 renal failure non oliguric. Hyperkalemia resolved. Metabolic acidosis Anemia from chronic diseases including renal failure. Hypoglycemia.resolved. S/P Left AKA. Management per review of records, Podiatry and vascular sx recommended a more proximal amputation, however pt continues to refuse. Pt would like to try to salvage his limb by trying IV abx first. I have discussed the case w Dr. Rosario, and she is ok for patient to go on IV vanc as an outpatient but has emphasized to the patient that he needs follow-up with wound care to ensure care for his open wound and try to close and heal this. Home health Face to face has been submitted to CM. If recurrent infection, then he will need higher amputation, but he must f/u w podiatry/ wound care to ensure care for his open wound and try to close and heal this Debby and she is working on getting everything set up. Pt did get his goldstein placement (which was approved by nephrology). Bilateral arterial doppler and MRI Right foot noted.. need BKA per vascular surgeon however patient continues to refuse. Nephrology /ID/ Vascular surgeon input noted Follow renal indices Follow potassium level IV antibiotics per ID Pharmacy to dose according to renal function Discharge Planning awaiting on CM to make final arrangement for d/c planning. Dinorah Gates MD Oct 18, 2016 14:51
[2016-10-18 16:00] VITALS: BP 138/81; PULSE 83; RESP 18; TEMP 96.5; O2SAT 100
[2016-10-18 20:00] VITALS: BP 148/101; PULSE 90; RESP 20; TEMP 97.7; O2SAT 100
[2016-10-18] MEDS: INSULIN DETEMIR 100 UNITS/ML VIAL SQ SCH (21:04)
[2016-10-19] VITALS: BP 151/97; PULSE 101; RESP 20; TEMP 98; O2SAT 100
[2016-10-19] MEDS: ACETAMINOPHEN/HYDROcodone 325 MG/5 MG TAB PO PRN ×2 (03:00→21:41)
[2016-10-19] MEDS: HEPARIN SODIUM - SQ 10,000 UNITS/ML VIAL SQ SCH ×2 (03:00→16:32)
[2016-10-19] MEDS: INSULIN ASPART SUPPLEMENTAL SCALE SQ SCH ×4 (06:45→21:00)
[2016-10-19 06:51] LABS: BASOPHIL # 0.1 TH/MM3 (0-0.2); BASOPHIL % 0.7 % (0.0-2.0); EOSINOPHIL # 0.3 TH/MM3 (0-0.4); EOSINOPHIL % 2.7 % (0.0-4.0); HEMATOCRIT 24.2 % (39.0-51.0); HEMO FLAGS DIFF FINAL; LYMPH % 24.9 % (9.0-44.0); LYMPHOCYTE # 2.3 TH/MM3 (1.0-4.8); MEAN CELL VOLUME 93.7 FL (80.0-100.0); MEAN CORPUSCULAR HEMOGLOBIN 30.1 PG (27.0-34.0); MEAN CORPUSCULAR HGB CONC 32.1 % (32.0-36.0); MONO % 8.4 % (0.0-8.0); NEUT % 63.3 % (16.0-70.0); PLATELET COUNT 218 TH/MM3 (150-450); RED BLOOD COUNT 2.58 MIL/MM3 (4.50-5.90); RED CELL DISTRIBUTION WIDTH 14.2 % (11.6-17.2); WHITE BLOOD COUNT 9.4 TH/MM3 (4.0-11.0)
[2016-10-19 07:04] LABS: BICARBONATE 22.3 MEQ/L (21.0-32.0); POTASSIUM 4.5 MEQ/L (3.5-5.1)
[2016-10-19 08:00] VITALS: BP 133/76; PULSE 97; RESP 20; O2SAT 95
[2016-10-19] MEDS: LACTOBACILLUS ACIDOPHILUS TAB PO SCH ×3 (08:20→16:33)
[2016-10-19] MEDS: SODIUM CHLORIDE 0.9% FLUSH 10 ML FLUSH IV FLUSH SCH ×2 (08:21→21:43)
--- NOTE | 2016-10-19 10:27 | HHI.NPPN ---
Subjective History of Present Illness 46-year-old male with past medical history of diabetes mellitus, longstanding history of hypertension, peripheral vascular disease, chronic kidney disease, history of GI bleeding who was brought to the hospital because of infection in the right foot. I was called to see the patient because of elevated BUN and creatinine. Additional Remarks Appears to have stage IV CKD. Labs noted. Objective Data Data 10/18/16 10/19/16 19:00 07:00 Intake Total 800 ml 960 ml Output Total 400 ml Balance 400 ml 960 ml Intake Oral 800 ml 960 ml Output Urine Total 400 ml # Voids 4 # Bowel Movements 1 1 Vital Signs Date Time Temp Pulse Resp B/P Pulse Ox O2 Delivery O2 Flow Rate FiO2 10/19/16 08:00 97 20 133/76 95 10/19/16 04:00 18 10/19/16 00:00 98.0 101 20 151/97 100 10/18/16 20:00 97.7 90 20 148/101 100 10/18/16 16:00 96.5 83 18 138/81 100 10/18/16 12:00 97.5 92 18 129/67 100 -: 10/19/16 0500 10/19/16 0500 Physical Exam General Appearance: No Acute Distress Pulmonary Resp Exam: Clear Bilaterally, Breath Sounds Equal Cardiology CV Exam: Normal Sinus Rhythm Gastrointestinal/Abdomen GI Exam: Soft PUD Prophylasis PUD Prophylaxis: Protonix Assessment/Plan Assessment Summary: Anemia of CKD, Hypertension, Diabetes Mellitus, CKD Stage IV Problem List: (1) Diabetic ulcer of right foot associated with type 2 diabetes mellitus (2) Anemia in chronic illness (3) Cellulitis in diabetic foot (4) Hypertension (5) Diabetes mellitus (6) Chronic kidney disease (CKD) stage G4/A1, severely decreased glomerular filtration rate (GFR) between 15-29 mL/min/1.73 square meter and albuminuria creatinine ratio less than 30 mg/g (7) AMAN (acute kidney injury) Plan: patient is s/p left AKA. Now on IV Vancomycin. ID following. Carefully monitor Vancomycin level, avoid levels above 20. Renal function is poor, however there is no immediate need for dialysis. Notes were reviewed. Repeat labs noted. No immediate need for dialysis, but dialysis is in his future. Eitan Sky MD Oct 19, 2016 10:26
--- NOTE | 2016-10-19 11:36 | HHI.PR ---
Subjective Remarks pt tells me that he has had 3 bouts of loose stools today. no abdominal cramping. no CP/SOB/N/V Objective Vitals Vital Signs Date Time Temp Pulse Resp B/P Pulse Ox O2 Delivery O2 Flow Rate FiO2 10/19/16 08:00 97 20 133/76 95 10/19/16 04:00 18 10/19/16 00:00 98.0 101 20 151/97 100 10/18/16 20:00 97.7 90 20 148/101 100 10/18/16 16:00 96.5 83 18 138/81 100 10/18/16 12:00 97.5 92 18 129/67 100 I/O 10/18/16 10/18/16 10/18/16 10/19/16 10/19/16 10/19/16 07:00 15:00 23:00 07:00 15:00 23:00 Intake Total 240 ml 800 ml 480 ml 480 ml Output Total 600 ml 400 ml Balance -360 ml 400 ml 480 ml 480 ml Intake Oral 240 ml 800 ml 480 ml 480 ml IV Total 0 ml Output Urine Total 600 ml 400 ml # Voids 2 2 # Bowel Movements 1 1 Result Diagram: 10/19/16 0500 10/19/16 0500 Imaging Last Impressions Catheter Placement X-Ray 10/17/16 0000 Signed Impressions: Service Date/Time: Monday, October 17, 2016 14:23 - CONCLUSION: Uncomplicated Goldstein catheter placement as above. Jarrell Brooks MD Foot MRI 10/11/16 0000 Signed Impressions: Service Date/Time: Tuesday, October 11, 2016 10:30 - CONCLUSION: 1. Abnormal signal at the small remaining portions of the proximal 4th and 5th metatarsals. There appears to be chronic remodeling at the small 5th metatarsal fragment. These signal changes were present previously. Some degree of osteomyelitis needs to be considered. The patient does have an ulcer seen at the plantar soft tissues at this level. 2. Milder changes in the cuneiform bone being more prominent on the T2 weighted images. The T1 changes at the cuboid bone are less prominent making osteomyelitis in this region less likely. Heber Healy MD Foot X-Ray 10/09/16 1301 Signed Impressions: Service Date/Time: September 14:34 - CONCLUSION: Subcutaneous ulcer no definite evidence for osteomyelitis for technique. K. Sammy Celaya MD Chest X-Ray 10/09/16 1301 Signed Impressions: Service Date/Time: September 14:31 - CONCLUSION: No acute disease. Joe Gan MD Objective Remarks GENERAL: Well-nourished, well-developed patient in no apparent distress. Patient sitting on the side of the bed CARDIOVASCULAR: Regular rate and rhythm. RESPIRATORY: No accessory muscle use. Clear to auscultation. Breath sounds equal bilaterally. GASTROINTESTINAL: Abdomen soft, non-tender, nondistended. MUSCULOSKELETAL: Left AKA and right partial foot amputation. dressing over the right stump A/P Assessment and Plan Update management 10/19/16: continue IV abx. Pt w loose stools today. Monitor closely. Pt already on lactinex, continue. Consider testing for C. Diff if pt continues to have loose stools. Awaiting for CM to arrange outpatient IV abx and home health for wound care. Right foot stump infection Right foot stump ulcer, rule out osteomyelitis. on vancomycin per ID. Acute on chronic kidney disease stage 4 renal failure non oliguric. Hyperkalemia resolved. Metabolic acidosis Anemia from chronic diseases including renal failure. Hypoglycemia.resolved. S/P Left AKA. Management per review of records, Podiatry and vascular sx recommended a more proximal amputation, however pt continues to refuse. Pt would like to try to salvage his limb by trying IV abx first. I have discussed the case w Dr. Rosario, and she is ok for patient to go on IV vanc as an outpatient but has emphasized to the patient that he needs follow-up with wound care to ensure care for his open wound and try to close and heal this. Home health Face to face has been submitted to CM. If recurrent infection, then he will need higher amputation, but he must f/u w podiatry/ wound care to ensure care for his open wound and try to close and heal this Debby and she is working on getting everything set up. Pt did get his goldstein placement (which was approved by nephrology). Bilateral arterial doppler and MRI Right foot noted.. need BKA per vascular surgeon however patient continues to refuse. Nephrology /ID/ Vascular surgeon input noted Follow renal indices Follow potassium level IV antibiotics per ID Pharmacy to dose according to renal function Discharge Planning awaiting on CM to make final arrangement for d/c planning. Dinorah Gates MD Oct 19, 2016 11:36
[2016-10-19 12:00] VITALS: BP 148/80; PULSE 91; RESP 20; TEMP 97.9; O2SAT 100
[2016-10-19 16:00] VITALS: BP 156/73; PULSE 97; RESP 18; TEMP 97.4; O2SAT 98
[2016-10-19 20:49] VITALS: BP 144/74; PULSE 80; RESP 18; TEMP 97.7; O2SAT 95
[2016-10-19] MEDS: INSULIN DETEMIR 100 UNITS/ML VIAL SQ SCH (21:43)
[2016-10-20] MEDS: HEPARIN SODIUM - SQ 10,000 UNITS/ML VIAL SQ SCH ×2 (04:58→16:19)
[2016-10-20] MEDS: INSULIN ASPART SUPPLEMENTAL SCALE SQ SCH ×4 (07:00→21:45)
[2016-10-20 08:00] VITALS: BP 140/75; PULSE 84; RESP 18; TEMP 97.4; O2SAT 100
[2016-10-20] MEDS: LACTOBACILLUS ACIDOPHILUS TAB PO SCH ×3 (08:19→16:19)
[2016-10-20] MEDS: SODIUM CHLORIDE 0.9% FLUSH 10 ML FLUSH IV FLUSH SCH ×2 (08:20→21:42)
[2016-10-20 12:00] VITALS: BP 124/65; PULSE 85; RESP 18; TEMP 97.5; O2SAT 100
[2016-10-20 16:00] VITALS: BP 156/88; PULSE 93; RESP 20; TEMP 96.4; O2SAT 99
--- NOTE | 2016-10-20 16:29 | HHI.NPPN ---
Subjective History of Present Illness 46-year-old male with past medical history of diabetes mellitus, longstanding history of hypertension, peripheral vascular disease, chronic kidney disease, history of GI bleeding who was brought to the hospital because of infection in the right foot. I was called to see the patient because of elevated BUN and creatinine. Additional Remarks Patient is alert, no SOB, mild pain in Rt. foot. Objective Data Data 10/19/16 10/20/16 19:00 07:00 Intake Total 800 ml Output Total 375 ml Balance 425 ml Intake Oral 800 ml Output Urine Total 375 ml # Bowel Movements 2 Vital Signs Date Time Temp Pulse Resp B/P Pulse Ox O2 Delivery O2 Flow Rate FiO2 10/20/16 12:00 97.5 85 18 124/65 100 10/20/16 08:00 97.4 84 18 140/75 100 10/19/16 22:41 18 10/19/16 20:49 97.7 80 18 144/74 95 -: 10/19/16 0500 10/19/16 0500 Physical Exam General Appearance: No Acute Distress Pulmonary Resp Exam: Clear Bilaterally, Breath Sounds Equal Cardiology CV Exam: Normal Sinus Rhythm Gastrointestinal/Abdomen GI Exam: Soft PUD Prophylasis PUD Prophylaxis: Protonix Assessment/Plan Assessment Summary: Anemia of CKD, Hypertension, Diabetes Mellitus, CKD Stage IV Problem List: (1) Diabetic ulcer of right foot associated with type 2 diabetes mellitus (2) Anemia in chronic illness (3) Cellulitis in diabetic foot (4) Hypertension (5) Diabetes mellitus (6) Chronic kidney disease (CKD) stage G4/A1, severely decreased glomerular filtration rate (GFR) between 15-29 mL/min/1.73 square meter and albuminuria creatinine ratio less than 30 mg/g (7) AMAN (acute kidney injury) Plan: patient is s/p left AKA. Now on IV Vancomycin. ID following. Carefully monitor Vancomycin level, avoid levels above 20. Renal function is stable, however there is no immediate need for dialysis. Hgb. is low and stable. Epogen given 10/12. To continue out patient antibiotics as per ID. Problem Qualifiers (1) Hypertension: Qualified Code: I10 - Essential hypertension Norah Lantigua MD October 20, 2016 16:29
--- NOTE | 2016-10-20 17:25 | HHI.PR ---
Subjective Remarks Pt feels well. had 2 loose stools today. no other complaints. denies any chest pain, SOB, nausea or vomiting Objective Vitals Vital Signs Date Time Temp Pulse Resp B/P Pulse Ox O2 Delivery O2 Flow Rate FiO2 10/20/16 12:00 97.5 85 18 124/65 100 10/20/16 08:00 97.4 84 18 140/75 100 10/19/16 22:41 18 10/19/16 20:49 97.7 80 18 144/74 95 I/O 10/19/16 10/19/16 10/19/16 10/20/16 10/20/16 10/20/16 07:00 15:00 23:00 07:00 15:00 23:00 Intake Total 480 ml 800 ml 0 ml Output Total 375 ml Balance 480 ml 425 ml 0 ml Intake Oral 480 ml 800 ml IV Total 0 ml Output Urine Total 375 ml # Voids 2 # Bowel Movements 1 2 Result Diagram: 10/19/16 0500 10/19/16 0500 Imaging Last Impressions Catheter Placement X-Ray 10/17/16 0000 Signed Impressions: Service Date/Time: Monday, October 17, 2016 14:23 - CONCLUSION: Uncomplicated Goldstein catheter placement as above. Jarrell Brooks MD Foot MRI 10/11/16 0000 Signed Impressions: Service Date/Time: Tuesday, October 11, 2016 10:30 - CONCLUSION: 1. Abnormal signal at the small remaining portions of the proximal 4th and 5th metatarsals. There appears to be chronic remodeling at the small 5th metatarsal fragment. These signal changes were present previously. Some degree of osteomyelitis needs to be considered. The patient does have an ulcer seen at the plantar soft tissues at this level. 2. Milder changes in the cuneiform bone being more prominent on the T2 weighted images. The T1 changes at the cuboid bone are less prominent making osteomyelitis in this region less likely. Heber eHaly MD Foot X-Ray 10/09/16 1301 Signed Impressions: Service Date/Time: September 14:34 - CONCLUSION: Subcutaneous ulcer no definite evidence for osteomyelitis for technique. K. Sammy Celaya MD Chest X-Ray 10/09/16 1301 Signed Impressions: Service Date/Time: September 14:31 - CONCLUSION: No acute disease. Joe Gan MD Objective Remarks GENERAL: Well-nourished, well-developed patient in no apparent distress. Patient sitting on the side of the bed CARDIOVASCULAR: Regular rate and rhythm. RESPIRATORY: No accessory muscle use. Clear to auscultation. Breath sounds equal bilaterally. GASTROINTESTINAL: Abdomen soft, non-tender, nondistended. MUSCULOSKELETAL: Left AKA and right partial foot amputation. dressing over the right stump A/P Assessment and Plan Update management 10/19/16: continue IV abx. Pt w loose stools today. Monitor closely. Pt already on lactinex, continue. Consider testing for C. Diff if pt continues to have loose stools. Awaiting for CM to arrange outpatient IV abx and home health for wound care. Update management 10/20/16: continue IV abx. continue lactinex and monitor BMs. Awaiting for CM to arrange outpatient IV abx and home health for wound care. Right foot stump infection Right foot stump ulcer, rule out osteomyelitis. on vancomycin per ID. Acute on chronic kidney disease stage 4 renal failure non oliguric. Hyperkalemia resolved. Metabolic acidosis Anemia from chronic diseases including renal failure. Hypoglycemia.resolved. S/P Left AKA. Management per review of records, Podiatry and vascular sx recommended a more proximal amputation, however pt continues to refuse. Pt would like to try to salvage his limb by trying IV abx first. I have discussed the case w Dr. Rosario, and she is ok for patient to go on IV vanc as an outpatient but has emphasized to the patient that he needs follow-up with wound care to ensure care for his open wound and try to close and heal this. Home health Face to face has been submitted to CM. If recurrent infection, then he will need higher amputation, but he must f/u w podiatry/ wound care to ensure care for his open wound and try to close and heal this Debby and she is working on getting everything set up. Pt did get his goldstein placement (which was approved by nephrology). Bilateral arterial doppler and MRI Right foot noted.. need BKA per vascular surgeon however patient continues to refuse. Nephrology /ID/ Vascular surgeon input noted Follow renal indices Follow potassium level IV antibiotics per ID Pharmacy to dose according to renal function Discharge Planning awaiting on CM to make final arrangement for d/c planning. Dinorah Gates MD October 20, 2016 17:25
[2016-10-20 20:00] VITALS: BP 144/82; PULSE 90; RESP 20; TEMP 97.2; O2SAT 97
[2016-10-20] MEDS ORDERED: VANCOMYCIN 1,000 MG/NS 250 ML IV ONE ×2 (21:00)
[2016-10-20] MEDS: ACETAMINOPHEN/HYDROcodone 325 MG/5 MG TAB PO PRN (21:41)
[2016-10-20] MEDS: INSULIN DETEMIR 100 UNITS/ML VIAL SQ SCH (21:45)
[2016-10-21] VITALS: BP 139/84; PULSE 86; RESP 18; TEMP 98; O2SAT 99
[2016-10-21] MEDS: HEPARIN SODIUM - SQ 10,000 UNITS/ML VIAL SQ SCH (05:07)
[2016-10-21] MEDS: INSULIN ASPART SUPPLEMENTAL SCALE SQ SCH ×2 (06:26→10:51)
[2016-10-21 08:00] VITALS: BP 156/77; PULSE 92; RESP 16; TEMP 96.3; O2SAT 99
[2016-10-21] MEDS: LACTOBACILLUS ACIDOPHILUS TAB PO SCH ×2 (08:34→11:29)
[2016-10-21] MEDS: SODIUM CHLORIDE 0.9% FLUSH 10 ML FLUSH IV FLUSH SCH (08:36)
[2016-10-21 12:00] VITALS: BP 135/72; PULSE 94; RESP 17; TEMP 96.6; O2SAT 100
--- NOTE | 2016-10-21 13:02 | HHI.DS ---
Discharge Summary Admission Date Oct 09, 2016 at 15:37 Discharge Date: October 21, 2016 Admitting Diagnosis Diabetic Foot Ulcer with Elevated Creatinine (1) Diabetic ulcer of right foot associated with type 2 diabetes mellitus ICD Code: E11.621 (2) Chronic kidney disease (CKD) stage G4/A1, severely decreased glomerular filtration rate (GFR) between 15-29 mL/min/1.73 square meter and albuminuria creatinine ratio less than 30 mg/g ICD Code: N18.4 (3) Diabetes mellitus ICD Code: E11.9 Procedures 10/17/16 Comer catheter placement Brief History - From Admission This is a 46-year-old gentleman status post left below-knee amputation, he has chronic kidney disease and diabetes on insulin, he also has a history of MRSA. He has had problems with his right foot also. He had right midfoot amputation. He went to his primary physician this morning as the right foot started draining with an open ulcer. He was recommended to come to the emergency department for further management. He was seen by the undersigned in room echo 56 at the emergency department. His alert and oriented. He denies any pain. 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 No fever chills or diaphoresis. CBC/BMP: 10/19/16 0500 10/21/16 0513 Significant Findings Laboratory Tests Test 10/19/16 10/21/16 05:00 05:13 Red Blood Count 2.58 MIL/MM3 (4.50-5.90) Hemoglobin 7.8 GM/DL (13.0-17.0) Hematocrit 24.2 % (39.0-51.0) Monocytes (%) (Auto) 8.4 % (0.0-8.0) Chloride Level 112 MEQ/L (98-107) Blood Urea Nitrogen 46 MG/DL (7-18) Creatinine 3.48 MG/DL 2.96 MG/DL (0.60-1.30) (0.60-1.30) Estimat Glomerular Filtration 23 ML/MIN (>89) 28 ML/MIN (>89) Rate Random Glucose 144 MG/DL (74-106) Albumin 3.1 GM/DL (3.4-5.0) Imaging Last Impressions Catheter Placement X-Ray 10/17/16 0000 Signed Impressions: Service Date/Time: Monday, October 17, 2016 14:23 - CONCLUSION: Uncomplicated Comer catheter placement as above. Jarrell Brooks MD Foot MRI 10/11/16 0000 Signed Impressions: Service Date/Time: Tuesday, October 11, 2016 10:30 - CONCLUSION: 1. Abnormal signal at the small remaining portions of the proximal 4th and 5th metatarsals. There appears to be chronic remodeling at the small 5th metatarsal fragment. These signal changes were present previously. Some degree of osteomyelitis needs to be considered. The patient does have an ulcer seen at the plantar soft tissues at this level. 2. Milder changes in the cuneiform bone being more prominent on the T2 weighted images. The T1 changes at the cuboid bone are less prominent making osteomyelitis in this region less likely. Heber Healy MD Foot X-Ray 10/09/16 1301 Signed Impressions: Service Date/Time: September 14:34 - CONCLUSION: Subcutaneous ulcer no definite evidence for osteomyelitis for technique. K. Sammy Celaya MD Chest X-Ray 10/09/16 1301 Signed Impressions: Service Date/Time: September 14:31 - CONCLUSION: No acute disease. Joe Gan MD PE at Discharge GENERAL: Well-nourished, well-developed patient in no apparent distress. Patient sitting on the side of the bed CARDIOVASCULAR: Regular rate and rhythm. RESPIRATORY: No accessory muscle use. Clear to auscultation. Breath sounds equal bilaterally. GASTROINTESTINAL: Abdomen soft, non-tender, nondistended. MUSCULOSKELETAL: Left AKA and right partial foot amputation. dressing over the right stump Pt update on day of discharge The patient has no complaints at this time. He is anxious to be discharged home. Pain is well controlled. Hospital Course The patient was admitted for treatment of infection of the right foot stump. Podiatry was consulted. Infectious disease was consulted. Antibiotics were adjusted. Nephrology was consulted regarding acute on chronic kidney disease. Vascular surgery was consulted. Recommendation was made for below-knee amputation. The patient refused. He requested to have the infection treated with IV antibiotics to try to salvage his leg. Infectious disease made recommendations for outpatient antibiotics. Comer catheter was placed. Arrangements were made by case management for the patient to receive outpatient IV antibiotics. Pt Condition on Discharge: Stable Discharge Disposition: Disch w/ Home Health Serv Discharge Time: > 30 minutes Discharge Instructions DIET: Follow Instructions for: Diabetic Diet Activities you can perform: Regular-No Restrictions Follow up Referrals: Nephrology with Norah Lantigua MD PCP Follow-up - 1 Week [facility]ound Care Clinic Continued Medications: Amlodipine (Norvasc) 10 Mg Tab 10 MG PO DAILY #30 TAB Hydrocodone-Acetaminophen (Lortab) 5-325 Mg Tab 1 TAB PO BID PRN PAIN #60 Ref 0 TAB Insulin Glargine Inj (Lantus Inj) 1,000 Unit/10 Ml Vial 8 UNITS SQ HS Blood Sugar Management Ref 0 VIAL Dilip Auguste MD October 21, 2016 13:01
--- NOTE | 2016-10-21 14:58 | HHI.NPPN ---
Subjective History of Present Illness 46-year-old male with past medical history of diabetes mellitus, longstanding history of hypertension, peripheral vascular disease, chronic kidney disease, history of GI bleeding who was brought to the hospital because of infection in the right foot. I was called to see the patient because of elevated BUN and creatinine. Additional Remarks Patient seen before the discharge, feeling well, pain in foot is better. Objective Data Data 10/20/16 10/21/16 19:00 07:00 Intake Total 600 ml 910 ml Output Total 400 ml 150 ml Balance 200 ml 760 ml Intake Oral 600 ml 660 ml IV Total 0 ml 250 ml Output Urine Total 400 ml 150 ml # Bowel Movements 2 0 Vital Signs Date Time Temp Pulse Resp B/P Pulse Ox O2 Delivery O2 Flow Rate FiO2 10/21/16 12:00 96.6 94 17 135/72 100 10/21/16 08:00 96.3 92 16 156/77 99 10/21/16 00:00 98.0 86 18 139/84 99 10/20/16 20:00 97.2 90 20 144/82 97 10/20/16 16:00 96.4 93 20 156/88 99 -: 10/19/16 0500 10/21/16 0513 Physical Exam General Appearance: No Acute Distress Pulmonary Resp Exam: Clear Bilaterally, Breath Sounds Equal Cardiology CV Exam: Normal Sinus Rhythm Gastrointestinal/Abdomen GI Exam: Soft PUD Prophylasis PUD Prophylaxis: Protonix Assessment/Plan Assessment Summary: Anemia of CKD, Hypertension, Diabetes Mellitus, CKD Stage IV Problem List: (1) Diabetic ulcer of right foot associated with type 2 diabetes mellitus (2) Anemia in chronic illness (3) Cellulitis in diabetic foot (4) Hypertension (5) Diabetes mellitus (6) Chronic kidney disease (CKD) stage G4/A1, severely decreased glomerular filtration rate (GFR) between 15-29 mL/min/1.73 square meter and albuminuria creatinine ratio less than 30 mg/g (7) AMAN (acute kidney injury) Plan: Patient is s/p left AKA. On IV Vanco. for Rt. foot wound. Creatinine is better, has an element of AMAN also. Now for D/C, I will follow in 2-3 weeks. Problem Qualifiers (1) Hypertension: Qualified Code: I10 - Essential hypertension Norah Lantigua MD October 21, 2016 14:58
[2016-10-31] MEDS ORDERED: HYDR-3533 PO (13:11)
[2016-11-12] MEDS ORDERED: ZYVO600T PO (11:57)
[2016-11-12] MEDS ORDERED: BACT800T5 PO (11:57)
== END 2016-10-21 14:15 | disposition home health service (06) | DRG 638 ==
LOC: NEPE 12:18 → NEDA 15:37 → N07A 18:48
PROVIDERS: ADMIT Family Medicine; ATTEND Family Medicine
PROC: 05HM33Z Insertion of Infusion Device into Right Internal Jugular Vein, Percutaneous Approach (ICD-10-PCS; principal; 2016-10-17)
PROC: B513ZZA Fluoroscopy of Right Jugular Veins, Guidance (ICD-10-PCS; 2016-10-17)
DX: E11.621 Type 2 diabetes mellitus with foot ulcer (principal); E87.2 Acidosis; L97.519 Non-pressure chronic ulcer of other part of right foot with unspecified severity; N17.9 Acute kidney failure, unspecified; E11.22 Type 2 diabetes mellitus with diabetic chronic kidney disease; L03.115 Cellulitis of right lower limb; I12.9 Hypertensive chronic kidney disease with stage 1 through stage 4 chronic kidney disease, or unspecified chronic kidney disease; N18.4 Chronic kidney disease, stage 4 (severe); E11.649 Type 2 diabetes mellitus with hypoglycemia without coma; E87.5 Hyperkalemia; D63.1 Anemia in chronic kidney disease; Z79.4 Long term (current) use of insulin; Z89.512 Acquired absence of left leg below knee; Z86.14 Personal history of Methicillin resistant Staphylococcus aureus infection; I73.9 Peripheral vascular disease, unspecified; Z89.431 Acquired absence of right foot; Z91.19 Patient's noncompliance with other medical treatment and regimen; H26.9 Unspecified cataract; Z87.891 Personal history of nicotine dependence
CPT/HCPCS: 36558; 71010; 73630; 73718; 76937; 77001; 80048; 80053; 80069; 80202; 82565; 82728; 82948; 83036; 83540; 83550; 83605; 84100; 85025; 85610; 85652; 85730; 86140; 87040; 87070; 93005; 93923; 96365; 96375; 99152; C1751; C1769; J0696; J1642; J1644; J1815; J2250; J2405; J2543; J3010; J3370; J7030; J7050; J7070; Q4081

== ENCOUNTER 2016-12-08 12:53 | Day surgery (SDC) | payer OTHER ==
[~2016-12-08 12:53] MED LIST changes: +BACT800T5 PO; -CEPH-460 PO; +LANTUS2P SQ; -PANT40TA3 PO; +ZYVO600T PO
[2016-12-08 13:12] VITALS: BP 144/82; PULSE 85; RESP 20; TEMP 96.4; O2SAT 100
[2016-12-08] MEDS ORDERED: FURO40TA PO (13:14)
[2016-12-08 14:30] VITALS: BP 117/70; PULSE 83; RESP 18; TEMP 96.5; O2SAT 100
--- NOTE | 2016-12-08 15:27 | RADRPT ---
EXAM DATE/TIME: 12/08/2016 00:00 [facility] COMPARISON: LUCERO CATHETER PLACEMENT W/US, RIGHT, October 17, 2016, 14:23. INDICATIONS : Patient completed antibiotics, no longer needs lucero. MEDICAL HISTORY : Diabetes PAD HTN Renal disease Hx of GI bleed SURGICAL HISTORY : Left below knee amputation Right mid-foot amputation Circumcision ENCOUNTER: Subsequent ACUITY: 2 months PAIN SCORE: 0/10 PROCEDURE : 1. PermaCath removal. The risks, benefits and alternatives to the procedure were explained and verbal and written consent w as obtained. The site was prepped in sterile fashion. Full sterile technique was used, including ca p, mask, sterile gloves and gown and a large sterile sheet. Hand hygiene and 2% chlorhexidine and/or betadine/alcohol prep was utilized per protocol for cutaneous antisepsis. The skin and subcutaneous tissues were infiltrated with local anesthetic solution. The tract was anesthetized with 1% Lidocaine using. The single lumen Lucero catheter was dissected from the subcutaneous tissues and easily removed in one piece. Manual pressure was applied to the ve notomy site until hemostasis was obtained. Sterile dressing was applied. The patient tolerated the procedure well and there were no complications. CONCLUSION: Uncomplicated Lucero catheter removal. Cristian De La Torre MD on December 08, 2016 at 15:24 Board Certified Radiologist. This report was verified electronically.
== END 2016-12-08 14:45 | disposition home or self-care (01) ==
LOC: HROP 12:53 → HRIP 12:54 → HROP 14:45
PROVIDERS: ATTEND Internal Medicine Infectious Disease
DX: Z45.2 Encounter for adjustment and management of vascular access device (principal); N28.9 Disorder of kidney and ureter, unspecified; E11.9 Type 2 diabetes mellitus without complications; I10 Essential (primary) hypertension; I73.9 Peripheral vascular disease, unspecified
CPT/HCPCS: 36589

== ENCOUNTER 2017-02-02 03:55 | Observation (INO) | payer OTHER ==
[~2017-02-02 03:55] MED LIST changes: -BACT800T5 PO; +FURO40TA PO
[2017-02-02 03:58] VITALS: BP 178/96; PULSE 114; RESP 16; O2SAT 100
[2017-02-02] MEDS ORDERED: BACT400T PO (04:09)
[2017-02-02] MEDS ORDERED: AMLO10TA2 PO (04:09)
[2017-02-02] MEDS ORDERED: PANT40TA3 PO (04:09)
[2017-02-02] MEDS ORDERED: AMOX500T PO (04:09)
[2017-02-02] MEDS ORDERED: TYLETAB34 PO (04:12)
[2017-02-02] MEDS ORDERED: MORPHINE SULFATE 4 MG/ML INJ IV PUSH ONE (04:15)
[2017-02-02] MEDS ORDERED: ONDANSETRON HCL 4 MG/2 ML VIAL IV PUSH ONE (04:15)
--- NOTE | 2017-02-02 04:22 | PD ---
HPI Chief Complaint: Pain: Acute or Chronic Time Seen by Provider: 04:05 Travel History International Travel<30 days: No Contact w/Intl Traveler<30days: No Traveled to known affect area: No History of Present Illness HPI The patient is a 46 year old male who presents to the [facility] emergency department with a history of worsening pain in his left shoulder and back that began 2 days ago. The patient also reports having difficulty concentrating and focusing. He is unsure whether this may be related to changes in his medication regimen. He reports that he has been dizzy over the last 2 days doing family things and has not administered his Lantus insulin. The patient reports that he has not taken any pain medicine for the last 2 days. He is on hydrocodone for pain related to an open wound on his right foot. The patient reports that the open wound is cared for by Dr. Dunham. The patient denies any new trauma or heavy lifting to exacerbate his pain. He denies having any chest pain, chest pressure, or shortness of breath. He does report 2 days ago having nausea and vomiting twice. He reports that his primary care physician is Dr. Barrios. The patient reports that his recent history is complicated by having a dental infection. He reports that he is on amoxicillin currently for this. He reports that he was also given a prescription for Tylenol with Codeine for pain. The patient reports that he does smoke marijuana frequently. He did smoke prior to arrival. On review of systems, patient denies any recent fevers , cough, congestion, neck pain, abdominal pain,diarrhea, or neurologic symptoms. The patient reports that he last moved his bowels earlier today. The patient reports that he has been urinating less frequently. [facility] Past Medical History Narrative Medical The patient's past medical history is significant for peripheral arterial disease status post amputation of the left leg [id number], forefoot amputation of the right foot in 2012. The patient has a history of hypertension , diabetes mellitus, hyperlipidemia, and a history of renal insufficiency. Arthritis: No Asthma: No Autoimmune Disease: No Blood Disorders: No Anxiety: No Depression: No Heart Rhythm Problems: No Cancer: No Cardiovascular Problems: Yes (HTN) High Cholesterol: No Chemotherapy: No Chest Pain: No Congestive Heart Failure: No COPD: No Cerebrovascular Accident: No Diabetes: Yes Patient Takes Glucophage: No Diminished Hearing: No Endocrine: Yes GERD: No Genitourinary: No Hiatal Hernia: No Hypertension: Yes Immune Disorder: No Kidney Stones: No Musculoskeletal: Yes (right foot surgery) Neurologic: No Psychiatric: No Reproductive: No Respiratory: Yes (November 2015) Migraines: No Radiation Therapy: No Renal Failure: Yes Seizures: No Sickle Cell Disease: No Sleep Apnea: No Thyroid Disease: No Ulcer: No Past Surgical History Narrative Surgical The patient's past surgical history is significant for a right forefoot amputation, left [id number] amputation, colectomy. 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 Reported Meds & Prescriptions Reported Meds & Active Scripts Active Lortab (Hydrocodone-Acetaminophen) 5-325 Mg Tab 1 Tab PO BID PRN Reported Tylenol-Codeine #3 (Acetaminophen-Codeine) 300-30 mg Tab 1 Tab PO Q4H PRN Amlodipine (Amlodipine Besylate) 10 Mg Tab 10 Mg PO DAILY Pantoprazole (Pantoprazole Sodium) 40 Mg Tab 40 Mg PO DAILY Bactrim (Sulfamethoxazole-Trimethoprim) 400-80 Mg Tab 1 Tab PO BID Amoxicillin 500 Mg Tab 500 Mg PO TID Lantus Inj (Insulin Glargine) 1,000 Unit/10 Ml Vial 8 Units SQ HS Review of Systems Except as stated in HPI: all other systems reviewed are Neg General / Constitutional: No: Fever Eyes: No: Visual changes HENT: No: Headaches Cardiovascular: No: Chest Pain or Discomfort Respiratory: No: Shortness of Breath Gastrointestinal: No: Abdominal Pain Genitourinary: No: Dysuria Musculoskeletal: Positive: Myalgias, Arthralgias, Pain Skin: No Rash Neurologic: Positive: Change in Mentation, No: Weakness, Focal Abnormalities, Slurred Speech, Sensory Disturbance Psychiatric: No: Depression Endocrine: No: Polydipsia Hematologic/Lymphatic: No: Easy Bruising Physical Exam Narrative General: The patient is a well-developed well-nourished male, uncomfortable appearing on arrival reporting back and left shoulder pain. Head and Neck exam: Head is normocephalic atraumatic. Eyes: EOMI, pupils are equal round and reactive to light. Nose: Midline septum with pink mucous membranes Mouth: Dentition unremarkable. Moist mucus membranes. Posterior oropharynx is not erythematous. No tonsillar hypertrophy. Uvula midline. Airway patent. Neck: No palpable lymphadenopathy. No nuchal rigidity. No thyromegaly. Cardiovascular: Regular rate and rhythm without murmurs, gallops, or rubs. No pulse deficit to the extremities and simultaneous auscultation and palpation of his radial artery. Lungs: Clear to auscultation bilaterally. No wheezes, rhonchi, or rales. Abdomen: Soft, without tenderness to palpation in all 4 quadrants of the abdomen. No guarding, rebound, or rigidity. Normal bowel sounds are audible. No tenderness on palpation of McBurney's point. Negative [place] sign. Extremities: No clubbing, cyanosis, or edema. 2+ pulses in bilateral upper extremities. No calf tenderness on palpation on the right. The patient has a clean, dry, and intact bandage in place over the right foot. The patient has a left above-the- knee amputation noted. Back: No spinous process tenderness to palpation. No costovertebral angle tenderness to palpation. The patient on examination of the left shoulder, is noted to have tenderness on palpation along the left trapezius muscle. There is no erythema or ecchymosis. No step-off or crepitus. No loss of range of motion of the left shoulder. Neurologic Exam: Grossly nonfocal. Data Data Last Documented VS Vital Signs Date Time Temp Pulse Resp B/P Pulse Ox O2 Delivery O2 Flow Rate FiO2 02/02/17 05:57 16 02/02/17 05:52 98.4 95 122/66 99 Room Air Orders Electrocardiogram (02/02/17 04:05) Complete Blood Count With Diff (02/02/17 04:05) Comprehensive Metabolic Panel (02/02/17 04:05) Creatine Kinase (Cpk) (02/02/17 04:05) Ckmb (Isoenzyme) Profile (02/02/17 04:05) Troponin I (02/02/17 04:05) Prothrombin Time / Inr (Pt) (02/02/17 04:05) Act Partial Throm Time (Ptt) (02/02/17 04:05) C-Reactive Protein (Crp) (02/02/17 04:05) Lipase (02/02/17 04:05) Urinalysis - C+S If Indicated (02/02/17 04:05) [place] Sedimentation Rate (02/02/17 04:05) Magnesium (Mg) (02/02/17 04:05) Chest, Single Ap (02/02/17 04:05) Ct Brain W/O Iv Contrast(Rout) (02/02/17 04:05) Iv Access Insert/Monitor (02/02/17 04:05) Ecg Monitoring (02/02/17 04:05) Oximetry (02/02/17 04:05) Drug Screen, Random Urine (02/02/17 04:05) Alcohol (Ethanol) (02/02/17 04:05) Morphine Inj (Morphine Inj) (02/02/17 04:15) Ondansetron Inj (Zofran Inj) (02/02/17 04:15) Sodium Chlorid 0.9% 500 Ml Inj (Ns 500 M (02/02/17 04:30) CKMB (02/02/17 04:30) CKMB% (02/02/17 04:30) Admit Order (Ed Use Only) (02/02/17 06:04) Labs Laboratory Tests Test 02/02/17 04:30 White Blood Count 11.4 TH/MM3 Red Blood Count 2.96 MIL/MM3 Hemoglobin 8.5 GM/DL Hematocrit 26.9 % Mean Corpuscular Volume 91.1 FL Mean Corpuscular Hemoglobin 28.7 PG Mean Corpuscular Hemoglobin 31.6 % Concent Red Cell Distribution Width 14.4 % Platelet Count 300 TH/MM3 Mean Platelet Volume 7.9 FL Neutrophils (%) (Auto) 70.7 % Lymphocytes (%) (Auto) 18.8 % Monocytes (%) (Auto) 7.5 % Eosinophils (%) (Auto) 1.9 % Basophils (%) (Auto) 1.1 % Neutrophils # (Auto) 8.1 TH/MM3 Lymphocytes # (Auto) 2.1 TH/MM3 Monocytes # (Auto) 0.9 TH/MM3 Eosinophils # (Auto) 0.2 TH/MM3 Basophils # (Auto) 0.1 TH/MM3 CBC Comment DIFF FINAL Differential Comment Erythrocyte Sedimentation Rate GREATER THAN 140 mm/hr Prothrombin Time 10.4 SEC Prothromb Time International 0.9 RATIO Ratio Activated Partial 28.9 SEC Thromboplast Time Sodium Level 140 MEQ/L Potassium Level 5.6 MEQ/L Chloride Level 114 MEQ/L Carbon Dioxide Level 17.6 MEQ/L Anion Gap 8 MEQ/L Blood Urea Nitrogen 78 MG/DL Creatinine 4.97 MG/DL Estimat Glomerular Filtration 15 ML/MIN Rate Random Glucose 103 MG/DL Calcium Level 8.3 MG/DL Magnesium Level 2.5 MG/DL Total Bilirubin 0.1 MG/DL Aspartate Amino Transf 22 U/L (AST/SGOT) Alanine Aminotransferase 16 U/L (ALT/SGPT) Alkaline Phosphatase 96 U/L Total Creatine Kinase 290 U/L Creatine Kinase MB 5.7 NG/ML Troponin I LESS THAN 0.02 NG/ML C-Reactive Protein 1.22 MG/DL Total Protein 8.8 GM/DL Albumin 3.8 GM/DL Lipase 200 U/L Ethyl Alcohol Level LESS THAN 3 MG/DL MDM Medical Decision Making Medical Screen Exam Complete: Yes Emergency Medical Condition: Yes Medical Record Reviewed: Yes Interpretation(s) Last Impressions Head CT 02/02/17404 Signed Impressions: Service Date/Time: Thursday, February 02, 2017 05:21 - CONCLUSION: Negative noncontrast CT brain. Todd Cueva MD Chest X-Ray 02/02/175 Signed Impressions: Service Date/Time: Thursday, February 02, 2017 04:10 - CONCLUSION: The lungs are clear. Todd Cueva MD Differential Diagnosis Musculoskeletal strain, versus arthritis, versus exacerbation of chronic pain, versus acute coronary syndrome Narrative Course During the course of the patients emergency department visit, the patients history, examination, and differential diagnosis were reviewed with the patient. The patient had IV access obtained and blood work sent for analysis. The patient was on a plant guard with oximetry and blood pressure monitoring. An EKG was ordered. The patient's EKG shows a sinus tachycardia rate of 102, no acute ST segment elevation or depression. QRS duration is 90 ms , QTC 392 ms. No peaked T waves. The patient was initially provided morphine 4 mg IV for pain, Zofran 4 mg IV for nausea. The patient was started on normal saline 500 mL bolus 1. The patients laboratory studies were reviewed and remarkable for a CBC that shows a white count of 11.4, hemoglobin 8.5 which is stable compared to previously, platelets 300 with 70.7 neutrophils, lymphocytes 18.8, monocytes 7.5. Sedimentation rate is elevated at greater than 140, CMP is remarkable for a potassium of 5.6, acidosis with CO2 of 17.6, creatinine is elevated at 4.97 which is increased compared to his last evaluation at 3.48, BUN is also elevated at 78 compared to 46 on October 19, 2016. Given the patient's acidosis and hyperkalemia with acute on chronic renal failure the patient will be admitted to the hospital for IV hydration and reassessment of his electrolytes and kidney function. Radiology studies were reviewed and remarkable for CT scan of the brain that shows no acute abnormality, chest x-ray shows no acute abnormality. The patients results were discussed with the patient, including the plan of care. I explained that further testing and/ or monitoring is indicated based on the patients history, examination, and/ or laboratory findings. Therefore, I recommended admission for additional evaluation. The patient expressed understanding and was agreeable with this plan. The patient was admitted to the hospital in guarded condition and sent to a bed under the care of the [facility]. Physician Communication Physician Communication The patient's case was discussed with Dr. Sosa who did agree to admit the patient for further evaluation and treatment at this time. Diagnosis Primary Impression: Acute on chronic renal failure Qualified Code: N17.9 - Acute renal failure superimposed on chronic kidney disease, unspecified CKD stage, unspecified acute renal failure type Additional Impressions: Hyperkalemia Acidosis Noncompliance w/medication treatment due to intermit use of medication Admitting Information Admitting Physician Requests: Observation Dafne Falcon MD Feb 02, 2017 04:22
[2017-02-02] MEDS ORDERED: SODIUM CHLORID 0.9% 500 ML INJ 500 ML IV ONE (04:30)
--- NOTE | 2017-02-02 04:36 | RADRPT ---
EXAM DATE/TIME: 02/02/2017 04:10 [facility] COMPARISON: CHEST SINGLE AP, October 09, 2016, 14:31. INDICATIONS : Cough. MEDICAL HISTORY : None. SURGICAL HISTORY : None. ENCOUNTER: Initial ACUITY: 1 day PAIN SCORE: 0/10 LOCATION: Bilateral chest FINDINGS: A single view of the chest demonstrates the lungs to be symmetrically aerated without evidence of mas s, infiltrate or effusion. The cardiomediastinal contours are unremarkable. Osseous structures are intact. CONCLUSION: The lungs are clear. Todd Cueva MD on February 02, 2017 at 4:34 Board Certified Radiologist. This report was verified electronically.
[2017-02-02 05:01] LABS: AUTOMATED NEUTROPHIL # 8.1 TH/MM3 (1.8-7.7); BASOPHIL # 0.1 TH/MM3 (0-0.2); BASOPHIL % 1.1 % (0.0-2.0); EOSINOPHIL # 0.2 TH/MM3 (0-0.4); EOSINOPHIL % 1.9 % (0.0-4.0); HEMATOCRIT 26.9 % (39.0-51.0); HEMO FLAGS DIFF FINAL; LYMPH % 18.8 % (9.0-44.0); LYMPHOCYTE # 2.1 TH/MM3 (1.0-4.8); MEAN CELL VOLUME 91.1 FL (80.0-100.0); MEAN CORPUSCULAR HEMOGLOBIN 28.7 PG (27.0-34.0); MEAN CORPUSCULAR HGB CONC 31.6 % (32.0-36.0); MONO % 7.5 % (0.0-8.0); NEUT % 70.7 % (16.0-70.0); PLATELET COUNT 300 TH/MM3 (150-450); RED BLOOD COUNT 2.96 MIL/MM3 (4.50-5.90); RED CELL DISTRIBUTION WIDTH 14.4 % (11.6-17.2); WHITE BLOOD COUNT 11.4 TH/MM3 (4.0-11.0)
[2017-02-02 05:11] LABS: ANION GAP 8 MEQ/L (5-15); AST (GOT) 22 U/L (15-37); BICARBONATE 17.6 MEQ/L (21.0-32.0); BLOOD UREA NITROGEN 78 MG/DL (7-18); CHLORIDE 114 MEQ/L (98-107); GLOMERULAR FILTRATION RATE 15 ML/MIN (>89); MAGNESIUM 2.5 MG/DL (1.5-2.5); POTASSIUM 5.6 MEQ/L (3.5-5.1); SODIUM (NA) 140 MEQ/L (136-145)
[2017-02-02 05:12] LABS: APTT (PATIENT) 28.9 SEC (24.3-30.1); INTERNATIONAL NORMALIZED RATIO 0.9 RATIO; PROTHROMBIN TIME - PATIENT 10.4 SEC (9.8-11.6)
[2017-02-02 05:15] LABS: ALKALINE PHOSPHATASE 96 U/L (45-117); ALT (GPT) 16 U/L (12-78); CREATINE KINASE 290 U/L (39-308); TOTAL BILIRUBIN ADULT 0.1 MG/DL (0.2-1.0)
--- NOTE | 2017-02-02 05:31 | RADRPT ---
EXAM DATE/TIME: 02/02/2017 05:21 [facility] COMPARISON: CT BRAIN W/O CONTRAST, December 13, 2015, 5:49. INDICATIONS : Altered mental status; patient complains of tremors and feeling unable to focus. RADIATION DOSE: 37.49 CTDIvol (mGy) MEDICAL HISTORY : Hypertension. Diabetes mellitus type 2. Renal failure. SURGICAL HISTORY : None. ENCOUNTER: Initial ACUITY: 1 day PAIN SCALE: 0/10 LOCATION: cranial TECHNIQUE: Multiple contiguous axial images were obtained of the head. Using automated exposure control and adj ustment of the mA and/or kV according to patient size, radiation dose was kept as low as reasonably a chievable to obtain optimal diagnostic quality images. DICOM format image data is available electro nically for review and comparison. FINDINGS: CEREBRUM: The ventricles are normal for age. No evidence of midline shift, mass lesion, hemorrhage or acute in farction. No extra-axial fluid collections are seen. POSTERIOR FOSSA: The cerebellum and brainstem are intact. The 4th ventricle is midline. The cerebellopontine angle i s unremarkable. EXTRACRANIAL: The visualized portion of the orbits is intact. SKULL: The calvaria is intact. No evidence of skull fracture. Focal area of scalp thickening in the left s upraorbital frontal region at site of prior hematoma CONCLUSION: Negative noncontrast CT brain. Todd Cueva MD on February 02, 2017 at 5:27 Board Certified Radiologist. This report was verified electronically.
[2017-02-02 05:33] LABS: ALCOHOL LESS THAN 3 MG/DL (0-5)
[2017-02-02 05:45] LABS: CKMB 5.7 NG/ML (0.5-3.6)
[2017-02-02 05:52] VITALS: BP 122/66; PULSE 95; RESP 16; TEMP 98.4; O2SAT 99
[2017-02-02] MEDS ORDERED: SODIUM CHLOR 0.9% 1000 ML INJ 1,000 ML IV SCH ×2 (06:22→06:30)
[2017-02-02] MEDS ORDERED: SENNOSIDES 8.6 MG TAB PO PRN (06:30)
[2017-02-02] MEDS ORDERED: ONDANSETRON HCL 4 MG/2 ML VIAL IVP PRN (06:30)
[2017-02-02] MEDS ORDERED: ACETAMINOPHEN/HYDROcodone 325 MG/5 MG TAB PO PRN (06:30)
[2017-02-02] MEDS ORDERED: MAGNESIUM HYDROXIDE SUSP 30 ML CUP PO PRN (06:30)
[2017-02-02] MEDS ORDERED: GLUCAGON 1 MG/ML VIAL OTHER PRN (06:30)
[2017-02-02] MEDS ORDERED: DEXTROSE 50% IN WATER 50 ML VIAL(D50) IV PRN (06:30)
[2017-02-02] MEDS ORDERED: SODIUM CHLORIDE 0.9% FLUSH 10 ML FLUSH IV FLUSH PRN (06:30)
[2017-02-02] MEDS ORDERED: MORPHINE SULFATE 4 MG/ML INJ IV PRN (06:30)
[2017-02-02] MEDS ORDERED: BISACODYL 10 MG SUPP RECTAL PRN (06:30)
[2017-02-02] MEDS ORDERED: LACTULOSE SYRUP 20 GM/30 ML CUP PO PRN (06:30)
[2017-02-02] MEDS ORDERED: ACETAMINOPHEN 325 MG TAB PO PRN (06:30)
[2017-02-02] MEDS: INSULIN ASPART SUPPLEMENTAL SCALE SQ SCH ×4 (07:00→21:00)
[2017-02-02 07:51] LABS: BACTERIA, URINE RARE /hpf; COMMENT (UR) CULTURE INDICATED; CULTURE IF INDICATED CULTURE INDICATED; HYALINE CAST, URINE 2 /lpf (RARE)
[2017-02-02 08:21] LABS: GLUCOSE,URINE NEG (NEG); KETONE, URINE NEG (NEG); NITRITE,URINE NEG (NEG); URINE COLOR YELLOW (YELLW/STRAW)
[2017-02-02 08:25] LABS: BLOOD, URINE TRACE (NEG)
[2017-02-02] MEDS: SODIUM CHLORIDE 0.9% FLUSH 10 ML FLUSH IV FLUSH SCH ×2 (09:00→21:00)
[2017-02-02 09:01] VITALS: BP 120/61; PULSE 84; RESP 18; TEMP 97.8; O2SAT 100
[2017-02-02] MEDS: DOCUSATE SODIUM 50 MG/SENNA 8.6 MG TAB PO SCH ×2 (09:02→22:15)
[2017-02-02] MEDS: PANTOPRAZOLE SOD 40 MG DELAYED RELEASE TAB PO SCH (09:02)
[2017-02-02] MEDS ORDERED: SODIUM POLYSTYRENE SULFONATE SUSP 15 GM/60 ML CUP PO ONE (10:30)
--- NOTE | 2017-02-02 10:31 | HHI.HP ---
2 days is the estimated time the patient will need to remain in the hospital, assuming treatment plan goals are met and no additional complications. HPI Service [facility] Hospitalists Primary Care Physician No Primary Care Physician Admission Diagnosis Acute on chronic renal failure, medication non-compliance Diagnoses: (1) Metabolic encephalopathy Diagnosis: Principal (2) Malnutrition Diagnosis: Principal (3) Foot ulcer Diagnosis: Principal (4) ATN (acute tubular necrosis) Diagnosis: Principal (5) Acute renal failure Diagnosis: Principal (6) Noncompliance Diagnosis: Principal (7) Toxic metabolic encephalopathy Diagnosis: Principal (8) Weakness Diagnosis: Secondary (9) Noncompliance with medication regimen Diagnosis: Principal (10) HTN (hypertension) Diagnosis: Principal (11) DM (diabetes mellitus) Diagnosis: Principal (12) Status post above knee amputation of left lower extremity Diagnosis: Principal (13) Smoker Diagnosis: Principal (14) Noncompliance w/medication treatment due to intermit use ofmedication Diagnosis: Principal Chief Complaint: Left-sided upper back and shoulder pain Difficulty focusing and concentrating Decreased urinary output Travel History International Travel<30 Days: No Contact w/Intl Traveler <30 Da: No Traveled to Known Affected Are: No History of Present Illness This is a 46 yo male with a PMHX significant for hypertension, dyslipidemia, chronic renal insufficiency, insulin-dependent diabetes, PAD status post left AKA and right forefoot amputation who presents to [facility] ED with complaints of left-sided upper back and shoulder pain ongoing for the past 2 days. Patient also states he's had difficulty focusing and concentrating. He is having difficulty recalling words. He endorses occasional dizziness. He states he's felt feverish at the house but did not take his temperature. He reports nausea with nonbilious non-bloody vomiting several days ago but this has since resolved. He denies any complaints of abdominal pain. He denies any complaints of chest pain or shortness of breath. He does endorse palpitations intermittently. He denies any numbness, tingling or weakness. He denies any hematuria, dysuria, diarrhea or constipation. He last moved his bowels this morning. He does state that he feels that his urinary output has been low. He also endorses a 10 pound weight loss in the past month due to decreased appetite. He admits he has not been eating and drinking as he normally does. He also admits that he occasionally does not take his medications. He follows with [facility] Dr. Arreguin of [facility] and was last seen in December. He had been taking a sample of a medication that Dr. Arreguin had given him but ran out. He can not recall the name of the medication. He also reports being treated with a one month course of Amoxicillin for a dental infection but completed the treatment 4 or 5 days ago. Additionally, patient reports a non healing ulcer on the right foot that he has been undergoing treatment for from Dr. Dunham. In the ED, patient has slightly elevated white count of 11.4. His ESR is 140 and CRP is 1.22. His potassium is 5.6. His BUN is 78. Creatinine is 4.97 and GFR is 15. Troponin was less than 0.02. CT of the head was unremarkable. I do not feel patient will turn around in 24 hours it appears he will need to stay in the hospital at least 2-3 days Will make him a admission instead of observation Review of Systems ROS Limitations: Altered Mental Status Constitutional: COMPLAINS OF: Fatigue, Fever, Weight loss, Chills, Change in appetite, DENIES: Diaphoretic episodes, Weight gain, Dizziness Endocrine: DENIES: Heat/cold intolerance, Polydipsia, Polyuria Eyes: DENIES: Blurred vision, Diplopia, Eye inflammation Ears, nose, mouth, throat: DENIES: Tinnitus, Hearing loss, Vertigo, Nasal discharge Respiratory: DENIES: Apneas, Cough, Snoring, Wheezing Cardiovascular: DENIES: Chest pain, Palpitations, Syncope, Dyspnea on Exertion Gastrointestinal: DENIES: Abdominal pain, Bloody stools Musculoskeletal: COMPLAINS OF: Joint pain, Muscle aches, DENIES: Stiffness, Joint Swelling Integumentary: DENIES: Abnormal pigmentation Hematologic/lymphatic: DENIES: Bruising, Lymphadenopathy Immunologic/allergic: DENIES: Eczema, Urticaria Neurologic: COMPLAINS OF: Headache, Speech Problems, DENIES: Abnormal gait, Localized weakness, Paresthesias, Seizures Psychiatric: COMPLAINS OF: Anxiety, Confusion, DENIES: Mood changes, Depression, Hallucinations, Agitation, Suicidal Ideation, Homicidal Ideation, Delusions Except as stated in HPI: all other systems reviewed are Neg Past Family Social History Past Medical History Hypertension IDDM HLD Renal insufficiency nonhealing ulcer right foot PAD status post left AKA and right forefoot amputation History of MRSA GERD Past Surgical History Left above-knee amputation Right forefoot amputation Reported Medications Tylenol-Codeine #3 (Acetaminophen-Codeine) 300-30 mg Tab 1 Tab PO Q4H PRN Amlodipine (Amlodipine Besylate) 10 Mg Tab 10 Mg PO DAILY Pantoprazole (Pantoprazole Sodium) 40 Mg Tab 40 Mg PO DAILY Bactrim (Sulfamethoxazole-Trimethoprim) 400-80 Mg Tab 1 Tab PO BID Amoxicillin 500 Mg Tab 500 Mg PO TID Lantus Inj (Insulin Glargine) 1,000 Unit/10 Ml Vial 8 Units SQ HS Allergies: Coded Allergies: *MDRO Multi-Drug Resistant Organism (Verified Adverse Reaction, Unknown, ) MRSA (foot wound) - 03/2010, 10/2014, 04/2015 MRSA PCR Screen POSITIVE - 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 Active Ordered Medications Current Medications Medications (Trade) Dose Ordered Sig/Ayush Route Start Time Stop Time Status Last Admin Sodium Chloride 1,000 ml @ 100 mls/hr Q10H IV 02/02/17 06:30 (NS 1000 ml Inj) 1,000 ml @ 100 mls/hr Q10H IV 02/02/17 06:22 02/02/17 06:49 (NS Flush) 2 ml UNSCH PRN IV FLUSH 02/02/17 06:30 (NS Flush) 2 ml BID IV FLUSH 02/02/17 09:00 (Zofran Inj) 4 mg Q6H PRN IVP 02/02/17 06:30 (Tylenol) 650 mg Q6H PRN PO 02/02/17 06:30 ([place] 5-325 Mg) 1 tab Q4H PRN PO 02/02/17 06:30 (Morphine Inj) 2 mg Q3H PRN IV 02/02/17 06:30 (Sneha-Colace) 1 tab BID PO 02/02/17 09:00 02/02/17 09:02 (Milk Of Magnesia Liq) 30 ml Q12H PRN PO 02/02/17 06:30 (Senokot) 17.2 mg Q12H PRN PO 02/02/17 06:30 (Dulcolax Supp) 10 mg DAILY PRN RECTAL 02/02/17 06:30 (Lactulose Liq) 30 ml DAILY PRN PO 02/02/17 06:30 (Norvasc) 10 mg DAILY PO 02/02/17 09:00 02/02/17 09:02 (Levemir Inj) 8 units HS SQ 02/02/17 21:00 (Protonix) 40 mg DAILY PO 02/02/17 09:00 02/02/17 09:02 (D50w (Vial) Inj) 50 ml UNSCH PRN IV 02/02/17 06:30 (Glucagon Inj) 1 mg UNSCH PRN OTHER 02/02/17 06:30 Family History Mother, HTN Father, in his 60s, mesothelioma Social History Patient has a history of tobacco use but quit 1-1/2 years ago. Prior to quitting, patient reports smoking a pack of cigars daily since 1995. He denies any alcohol use. He admits to frequent marijuana use. Denies any history of IV drug use. Patient lives with his brother. Physical Exam Vital Signs Vital Signs Date Time Temp Pulse Resp B/P Pulse Ox O2 Delivery O2 Flow Rate FiO2 02/02/17 09:01 97.8 84 18 120/61 100 02/02/17 05:57 16 02/02/17 05:52 98.4 95 16 122/66 99 Room Air 02/02/17 03:58 114 16 178/96 100 Physical Exam GENERAL: This is a well-nourished, well-developed patient, in no apparent distress. Awake and alert. A&Ox3. Some difficulty getting the words out from what he normally does SKIN: Cool and dry. Wound right foot. Dressed. HEAD: Atraumatic. Normocephalic. No temporal or scalp tenderness. EYES: Pupils equal round and reactive. Extraocular motions intact. No scleral icterus. No injection or drainage. ENT: Nose without bleeding, purulent drainage or septal hematoma. Throat without erythema, tonsillar hypertrophy or exudate. Uvula midline. Airway patent. NECK: Trachea midline. No JVD or lymphadenopathy. Supple, nontender, no meningeal signs. CARDIOVASCULAR: Regular rate and rhythm without murmurs, gallops, or rubs. S1- S2 no S3 or S4 no heave or thrill or rub or gallop RESPIRATORY: Clear to auscultation. Breath sounds equal bilaterally. No wheezes , rales, or rhonchi. GASTROINTESTINAL: Abdomen soft, non-tender, nondistended. No hepato-splenomegaly , or palpable masses. No guarding. MUSCULOSKELETAL: (+)tender palpable muscle spasm left periscapular area. Extremities without clubbing or cyanosis. (+) Trace edema noted in the right lower extremity. (+)open wound right foot/dressed. Status post left AKA. Status post right forefoot amputation. No joint tenderness, effusion, or edema noted. No calf tenderness. NEUROLOGICAL: Awake and alert. Able to move all extremities. No focal neurologic findings appreciated. Slow but appropriate speech with stuttering. Insight and judgment are limited mood and behavior are appropriate Laboratory Laboratory Tests Test 02/02/17 02/02/17 04:30 06:40 White Blood Count 11.4 Red Blood Count 2.96 Hemoglobin 8.5 Hematocrit 26.9 Mean Corpuscular Volume 91.1 Mean Corpuscular Hemoglobin 28.7 Mean Corpuscular Hemoglobin 31.6 Concent Red Cell Distribution Width 14.4 Platelet Count 300 Mean Platelet Volume 7.9 Neutrophils (%) (Auto) 70.7 Lymphocytes (%) (Auto) 18.8 Monocytes (%) (Auto) 7.5 Eosinophils (%) (Auto) 1.9 Basophils (%) (Auto) 1.1 Neutrophils # (Auto) 8.1 Lymphocytes # (Auto) 2.1 Monocytes # (Auto) 0.9 Eosinophils # (Auto) 0.2 Basophils # (Auto) 0.1 CBC Comment DIFF FINAL Differential Comment Erythrocyte Sedimentation Rate GREATER THAN 140 Prothrombin Time 10.4 Prothromb Time International 0.9 Ratio Activated Partial 28.9 Thromboplast Time Sodium Level 140 Potassium Level 5.6 Chloride Level 114 Carbon Dioxide Level 17.6 Anion Gap 8 Blood Urea Nitrogen 78 Creatinine 4.97 Estimat Glomerular Filtration 15 Rate Random Glucose 103 Calcium Level 8.3 Magnesium Level 2.5 Total Bilirubin 0.1 Aspartate Amino Transf 22 (AST/SGOT) Alanine Aminotransferase 16 (ALT/SGPT) Alkaline Phosphatase 96 Total Creatine Kinase 290 Creatine Kinase MB 5.7 Troponin I LESS THAN 0.02 C-Reactive Protein 1.22 Total Protein 8.8 Albumin 3.8 Lipase 200 Ethyl Alcohol Level LESS THAN 3 Urine Color YELLOW Urine Turbidity CLEAR Urine pH 5.0 Urine Specific Ligu[place] 1.010 Urine Protein 100 Urine Glucose (UA) NEG Urine Ketones NEG Urine Occult Blood TRACE Urine Nitrite NEG Urine Bilirubin NEG Urine Urobilinogen 0.2 Urine Leukocyte Esterase SMALL Urine RBC 2 Urine WBC 13 Urine Bacteria RARE Urine Hyaline Casts 2 Urine Yeast (Budding) FEW Microscopic Urinalysis Comment CULTURE INDICATED Urine Opiates Screen NEG Urine Barbiturates Screen NEG Urine Amphetamines Screen NEG Urine Benzodiazepines Screen NEG Urine Cocaine Screen NEG Urine Cannabinoids Screen POS Date/Time Procedure Status Source Growth 02/02/17 06:40 Urine Culture Received Urine Random Urine Pending Result Diagram: 02/02/1742902/02/17429 Imaging Last Impressions Head CT 02/02/17404 Signed Impressions: Service Date/Time: Thursday, February 02, 2017 05:21 - CONCLUSION: Negative noncontrast CT brain. Todd Cueva MD Chest X-Ray 02/02/17404 Signed Impressions: Service Date/Time: Thursday, February 02, 2017 04:10 - CONCLUSION: The lungs are clear. Todd Cueva MD Assessment and Plan Problem List: (1) Noncompliance ICD Code: Z91.19 Status: Chronic (2) ATN (acute tubular necrosis) ICD Code: N17.0 Status: Acute (3) Acute renal failure ICD Code: N17.9 Status: Resolved (4) Delirium secondary to multiple medical problems ICD Code: F05 Status: Acute (5) Diabetes mellitus ICD Code: E11.9 Status: Chronic (6) AMAN (acute kidney injury) ICD Code: N17.9 Status: Acute (7) Hypertension ICD Code: I10 Status: Chronic (8) Acute on chronic renal failure ICD Code: N17.9 Status: Acute (9) Anemia in chronic illness ICD Code: D63.8 Status: Chronic (10) Diabetic ulcer of right foot associated with type 2 diabetes mellitus ICD Code: E11.621 Status: Chronic (11) Status post above knee amputation of left lower extremity ICD Code: Z89.612 Status: Chronic (12) Smoker ICD Code: F17.200 Status: Acute Assessment and Plan 46 yo male with a PMHX significant for hypertension, dyslipidemia, chronic renal insufficiency, insulin-dependent diabetes, PAD status post left AKA and right forefoot amputation who presents to [facility] ED with complaints of left-sided upper back and shoulder pain ongoing for the past 2 days as well as decreased urinary output, difficulty with concentration, 10lb wt loss in the past month and nonhealing wound on the right foot. Acute on chronic renal failure Medication noncompliance Azotemia creatinine 4.97. baseline appears to be 3 - 3.4 recent Bactrim use Consult Nephrology IVF strict I&Os avoid nephrotoxic agents monitor BMP UTI UA positive for proteinuria, small leukocytes, 13 WBCs and rare bacteria. Culture indicated. Begin IV Rocephin follow up on urine culture results Metabolic encephalopathy secondary to acute renal failure and UTI CT head personally reviewed and unremarkable treat underlying cause and monitor for improvement obtain TSH level and ammonia level Hyperkalemia potassium 5.6 possibly due to recent Bactrim use give dose of Kayexalate monitor potassium level Hypertension resume patients home dose of amlodipine 10mg daily Monitor BP IDDM resume patients home dose of insulin accuchecks ISS Hgb A1c 5.2 10/10/16 obtain new A1c level Nonhealing wound right foot patient followed by Dr. Dunham as outpatient previously on Bactrim Wound care consult pain management obtain wound culture Left sided upper back pain likely musculoskeletal K thermia Lidocaine patch monitor Weight loss patient reports 10lb weight loss in past month Audiovisual Lead Technician consult Anemia likely secondary to chronic disease/renal insufficiency chronic stable monitor as indicated Marijuana use UDS positive for cannabinoids counseled on cessation GI prophylaxis/GERD Pantoprazole daily DVT prophylaxis SCD/LILIANA hose Discussed with patient and Dr. Pemberton Code Status Full code Discussed Condition With As discussed with physician plant attendant or assistant operator and patient The exam, history, and the medical decision-making described in the above note were completed with the assistance of the mid-level provider. I reviewed and agree with the findings presented. I attest that I had a [id number] encounter with the patient on the same day, and personally performed and documented my assessment and findings in the medical record. The services are ordered in accordance with Medicare regulations or non- Medicare payer requirements, as applicable. In the case of services not specified as inpatient-only, they are appropriately provided as inpatient services in accordance with the 2-midnight benchmark. Problem Qualifiers (1) Acute on chronic renal failure: Qualified Code: N17.9 - Acute renal failure superimposed on chronic kidney disease, unspecified CKD stage, unspecified acute renal failure type Lizzy Mike Feb 02, 2017 10:31 Delmer Pemberton DO Feb 02, 2017 11:12
[2017-02-02] MEDS: cefTRIAXone INJ 1,000 MG in SODIUM CHLORIDE 0.9% INJ 100 ML IV SCH (11:26)
[2017-02-02] MEDS: LACTOBACILLUS ACIDOPHILUS TAB PO SCH ×2 (11:32→22:15)
[2017-02-02] MEDS: LIDOCAINE HCL 5% PATCH T-DERMAL SCH (12:09)
--- NOTE | 2017-02-02 12:15 | PD.CONS ---
[facility] Service Nephrology Consult Requested By Rashid Reason for Consult Acute on CKD Primary Care Physician No Primary Care Physician History of Present Illness This is a 46 y/o AAM patient. He has a hx of diabetes mellitus, HTN, anemia, hyperlipidemia, PAD s/p AKA on left, midfoot amputation on left. He also has CKD 4, baseline creatinine ranges from 3-3.4, GFR around 23-27. On arrival his labs were abnormal for the following: K 5.6, C02 17.6, Cr 4.97, BUN 78. He came in for shoulder and back pain, no injury. He has a non healing wound on his right foot that he has been on Bactrim for several weeks. Since admission he has received Kayexalate, has been on 0.9% NS @ 100 cc/hr. He is not in distress. We were consulted for renal management. He is a full code. (Izzy Bhakta) Review of Systems Constitutional: COMPLAINS OF: Fatigue, Weight loss, DENIES: Change in appetite Respiratory: DENIES: Cough, Shortness of breath Cardiovascular: DENIES: Chest pain, Lower Extremity Edema Gastrointestinal: DENIES: Abdominal pain, Diarrhea, Nausea, Vomiting Musculoskeletal: COMPLAINS OF: Joint pain, Muscle aches, Back pain Neurologic: COMPLAINS OF: Speech Problems Psychiatric: DENIES: Mood changes (Izzy Bhakta) Past Family Social History Allergies: Coded Allergies: *MDRO Multi-Drug Resistant Organism (Verified Adverse Reaction, Unknown, ) MRSA (foot wound) - 03/2010, 10/2014, 04/2015 MRSA PCR Screen POSITIVE - 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 Past Medical History 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, baseline creatinine 3-3.4, GFR 23-27 Hypertension DM II Hyperlipidemia nonhealing ulcer right foot PAD status post left AKA and right forefoot amputation History of MRSA GERD Past Surgical History Left above-knee amputation Right forefoot amputation Reported Medications Tylenol-Codeine #3 (Acetaminophen-Codeine) 300-30 mg Tab 1 Tab PO Q4H PRN Amlodipine (Amlodipine Besylate) 10 Mg Tab 10 Mg PO DAILY Pantoprazole (Pantoprazole Sodium) 40 Mg Tab 40 Mg PO DAILY Bactrim (Sulfamethoxazole-Trimethoprim) 400-80 Mg Tab 1 Tab PO BID Amoxicillin 500 Mg Tab 500 Mg PO TID Lantus Inj (Insulin Glargine) 1,000 Unit/10 Ml Vial 8 Units SQ HS Active Ordered Medications Current Medications Medications (Trade) Dose Ordered Sig/Ayush Route Start Time Stop Time Status Last Admin Sodium Chloride 1,000 ml @ 100 mls/hr Q10H IV 02/02/17 06:30 (NS 1000 ml Inj) 1,000 ml @ 100 mls/hr Q10H IV 02/02/17 06:22 02/02/17 06:49 (NS Flush) 2 ml UNSCH PRN IV FLUSH 02/02/17 06:30 (NS Flush) 2 ml BID IV FLUSH 02/02/17 09:00 (Zofran Inj) 4 mg Q6H PRN IVP 02/02/17 06:30 (Tylenol) 650 mg Q6H PRN PO 02/02/17 06:30 ([place] 5-325 Mg) 1 tab Q4H PRN PO 02/02/17 06:30 (Morphine Inj) 2 mg Q3H PRN IV 02/02/17 06:30 (Sneha-Colace) 1 tab BID PO 02/02/17 09:00 02/02/17 09:02 (Milk Of Magnesia Liq) 30 ml Q12H PRN PO 02/02/17 06:30 (Senokot) 17.2 mg Q12H PRN PO 02/02/17 06:30 (Dulcolax Supp) 10 mg DAILY PRN RECTAL 02/02/17 06:30 (Lactulose Liq) 30 ml DAILY PRN PO 02/02/17 06:30 (Norvasc) 10 mg DAILY PO 02/02/17 09:00 02/02/17 09:02 (Levemir Inj) 8 units HS SQ 02/02/17 21:00 (Protonix) 40 mg DAILY PO 02/02/17 09:00 02/02/17 09:02 (D50w (Vial) Inj) 50 ml UNSCH PRN IV 02/02/17 06:30 Glucagon 1 mg 1 mg UNSCH PRN OTHER 02/02/17 06:30 (Rocephin Inj/NS Inj) 100 ml @ 200 mls/hr Q24H IV 8/14/17 11:00 02/02/17 11:26 (Lidoderm 5% Patch.12 Hr) 1 patch DAILY T-DERMAL 02/02/17 11:00 (Lactinex) 1 tab Q12HR PO 02/02/17 10:30 02/02/17 11:32 Miscellaneous Information 1 Q24H T-DERMAL 02/02/17 21:00 ([place] 5-325 Mg) 1 tab BID PRN PO 02/02/17 11:30 UNV (Bactrim 400-80 Mg) 1 tab BID PO 02/02/17 21:00 UNV Family History No hx of renal disorders Social History Single lives locally with brother former smoker No ETOH, uses marijuana occasionally ambulatory with prosthetic full code (Izzy Bhakta) Physical Exam Vital Signs Vital Signs Date Time Temp Pulse Resp B/P Pulse Ox O2 Delivery O2 Flow Rate FiO2 02/02/17 09:01 97.8 84 18 120/61 100 02/02/17 05:57 16 02/02/17 05:52 98.4 95 16 122/66 99 Room Air 02/02/17 03:58 114 16 178/96 100 Physical Exam Middle aged AAM awake, alert; some stuttering and expressive aphasia lungs: decreased in bases, no wheezing or rhonchi S1/S2, RRR no murmurs Abd: normal bowel sounds, non tender Ext: left AKA, incision well healed; right mid foot amputation, wound plantar surface Laboratory Laboratory Tests Test 02/02/17 02/02/17 04:30 06:40 White Blood Count 11.4 Red Blood Count 2.96 Hemoglobin 8.5 Hematocrit 26.9 Mean Corpuscular Volume 91.1 Mean Corpuscular Hemoglobin 28.7 Mean Corpuscular Hemoglobin 31.6 Concent Red Cell Distribution Width 14.4 Platelet Count 300 Mean Platelet Volume 7.9 Neutrophils (%) (Auto) 70.7 Lymphocytes (%) (Auto) 18.8 Monocytes (%) (Auto) 7.5 Eosinophils (%) (Auto) 1.9 Basophils (%) (Auto) 1.1 Neutrophils # (Auto) 8.1 Lymphocytes # (Auto) 2.1 Monocytes # (Auto) 0.9 Eosinophils # (Auto) 0.2 Basophils # (Auto) 0.1 CBC Comment DIFF FINAL Differential Comment Erythrocyte Sedimentation Rate GREATER THAN 140 Prothrombin Time 10.4 Prothromb Time International 0.9 Ratio Activated Partial 28.9 Thromboplast Time Sodium Level 140 Potassium Level 5.6 Chloride Level 114 Carbon Dioxide Level 17.6 Anion Gap 8 Blood Urea Nitrogen 78 Creatinine 4.97 Estimat Glomerular Filtration 15 Rate Random Glucose 103 Calcium Level 8.3 Magnesium Level 2.5 Total Bilirubin 0.1 Aspartate Amino Transf 22 (AST/SGOT) Alanine Aminotransferase 16 (ALT/SGPT) Alkaline Phosphatase 96 Total Creatine Kinase 290 Creatine Kinase MB 5.7 Troponin I LESS THAN 0.02 C-Reactive Protein 1.22 Total Protein 8.8 Albumin 3.8 Lipase 200 Ethyl Alcohol Level LESS THAN 3 Urine Color YELLOW Urine Turbidity CLEAR Urine pH 5.0 Urine Specific [place] 1.010 Urine Protein 100 Urine Glucose (UA) NEG Urine Ketones NEG Urine Occult Blood TRACE Urine Nitrite NEG Urine Bilirubin NEG Urine Urobilinogen 0.2 Urine Leukocyte Esterase SMALL Urine RBC 2 Urine WBC 13 Urine Bacteria RARE Urine Hyaline Casts 2 Urine Yeast (Budding) FEW Microscopic Urinalysis Comment CULTURE INDICATED Urine Opiates Screen NEG Urine Barbiturates Screen NEG Urine Amphetamines Screen NEG Urine Benzodiazepines Screen NEG Urine Cocaine Screen NEG Urine Cannabinoids Screen POS Date/Time Procedure Status Source Growth 02/02/17 06:40 Urine Culture Received Urine Random Urine Pending (Izzy Bhakta) Result Diagram: 02/02/1742902/02/17 043 Imaging Last [address] 02/02/17404 Signed Impressions: Service Date/Time: Thursday, February 02, 2017 05:21 - CONCLUSION: Negative noncontrast CT brain. Todd Cueva MD Chest X-Ray 02/02/17404 Signed Impressions: Service Date/Time: Thursday, February 02, 2017 04:10 - CONCLUSION: The lungs are clear. Todd Cueva MD (Izzy Bhakta) Assessment and Plan Problem List: (1) Acute on chronic renal failure Plan: He has underlying CKD 4, due to diabetic nephropathy he had follow up with Dr. He in past few months and reports his renal function had been stable he reports his oral fluid intake recently has been poor past several days; in addition he has been on Bactrim for several weeks for wound on his right foot ( Bactrim can cause AMAN and hyperkalemia) I will change IVF to contain bicarbonate, currently on 0.9% NS @ 100 cc/hr follow urine output, he is being treated for UTI with rocephin quantify proteinuria avoid nephrotoxic substances obtain Renal US to evaluate for obstruction labs in AM he is not in need of dialysis support at this time (2) Hyperkalemia Plan: Due to reduction in GFR also, Trimethoprim (ingredient in Bactrim) prevents distal tubular potassium and creatinine secretion, causing serum levels of both to rise he was given Kayexalate give 1/2 amp Dextrose and 10 units IV insulin follow BMP (3) Metabolic acidosis Plan: change IVF to contain sodium bicarbonate follow renal panel (4) Anemia in chronic illness Plan: check iron profile (5) DM (diabetes mellitus) Plan: continue insulin as ordered blood sugar goal 140-180 mg/dL (6) HTN (hypertension) Plan: He is on amlodipine follow blood pressure, currently acceptable (Izzy Bhakta) Assessment and Plan patient was seen and examined. Agree with above assessment and plan. Bicarbonate drip. Monitor potassium. He has underlying stage IV CKD, likely due to diabetic nephropathy. (Eitan Sky MD) Problem Qualifiers (1) Acute on chronic renal failure: Qualified Code: N17.9 - Acute renal failure superimposed on chronic kidney disease, unspecified CKD stage, unspecified acute renal failure type Izzy Bhakta Feb 02, 2017 12:15 Eitan Sky MD Feb 03, 2017 11:50
--- NOTE | 2017-02-02 13:47 | RADRPT ---
EXAM DATE/TIME: 02/02/2017 12:16 [place] COMPARISON: US KIDNEY/RENAL/BLADDER, June 12, 2016, 14:23. INDICATIONS : Increased BUN/Creatinine. MEDICAL HISTORY : Hypertension. Renal failure. Diabetes. SURGICAL HISTORY : Right foot surgery. Left AKA. ENCOUNTER: Initial ACUITY: 1 day PAIN SCORE: 0/10 LOCATION: Bilateral flank MEASUREMENTS: RIGHT KIDNEY: 9.9 x 4.4 x 4.6 cm LEFT KIDNEY: 10.5 x 6.1 x 5.0 cm FINDINGS: RIGHT KIDNEY: The kidney is echogenic. No hydronephrosis or solid lesion. A 5 mm anechoic cyst is seen involving th e medial upper pole. LEFT KIDNEY: The kidney is echogenic. No hydronephrosis or solid lesion. 2 simple cysts are seen. Each measures 5 mm. One within the upper pole and one within the lower pole. BLADDER: Within normal limits given the degree of distension. CONCLUSION: Echogenic kidneys without hydronephrosis. This is a nonspecific finding. Todd Julien Jr., MD on February 02, 2017 at 13:06 Board Certified Radiologist. This report was verified electronically.
[2017-02-02] MEDS ORDERED: SODIUM CHLORIDE 23.4% INJ 38.5 MEQ, SODIUM BICARBONATE 8.4% INJ 75 MEQ in WATER STERILE... IV SCH (14:00)
[2017-02-02] MEDS ORDERED: INSULIN HUMAN REGULAR 1,000 UNITS/10 ML VIAL IV PUSH ONE (14:00)
[2017-02-02] MEDS ORDERED: DEXTROSE 50% IN WATER 50 ML SYRINGE IV ONE (14:00)
[2017-02-02] MEDS: SODIUM CHLORIDE 23.4% INJ 38.5 MEQ, SODIUM BICARBONATE 8.4% INJ 100 MEQ in WATER STERIL... IV SCH (14:15)
[2017-02-02 15:48] VITALS: BP 121/68; PULSE 76; RESP 20; TEMP 98.1; O2SAT 98
--- NOTE | 2017-02-02 16:41 | EKG ---
Date Performed: 02/02/2017 Time Performed: 05:16:06 PTAGE: 46 years EKG: SINUS TACHYCARDIA ABNORMAL RHYTHM ECG PREVIOUS TRACING : 10/09/2016 14.44 Since previous tracing, no significant change noted DOCTOR: Elizabeth Choi Interpretating Date/Time 02/02/2017 16:39:54
[2017-02-02 20:29] VITALS: BP 154/76; PULSE 67; RESP 18; TEMP 98.4; O2SAT 97
[2017-02-02] MEDS: INSULIN DETEMIR 100 UNITS/ML VIAL SQ SCH (21:00)
[2017-02-02] MEDS: REMOVE OLD LIDOCAINE PATCH T-DERMAL SCH (21:00)
[2017-02-02] MEDS ORDERED: SULFAMETHOXAZOLE-TRIMETHOPRIM 400-80 MG TAB PO SCH (21:00)
[2017-02-02 23:25] LABS: POTASSIUM 5.5 MEQ/L (3.5-5.1)
[2017-02-03] VITALS (9 sets, daily range): BP systolic 122–154; BP diastolic 62–89; PULSE 73–88; RESP 16–18; TEMP 96.3–98.6; O2SAT 99–100
[2017-02-03] MEDS: SODIUM CHLORIDE 23.4% INJ 38.5 MEQ, SODIUM BICARBONATE 8.4% INJ 100 MEQ in WATER STERIL... IV SCH ×2 (01:49→14:57)
[2017-02-03] MEDS: ACETAMINOPHEN/HYDROcodone 325 MG/5 MG TAB PO PRN ×2 (02:01→21:18)
[2017-02-03] MEDS: INSULIN ASPART SUPPLEMENTAL SCALE SQ SCH ×4 (05:47→21:00)
--- NOTE | 2017-02-03 08:19 | HHI.PR ---
Subjective Remarks resting comfortably with no distress. no pain, sob. afebrile. Objective Vitals Vital Signs Date Time Temp Pulse Resp B/P Pulse Ox O2 Delivery O2 Flow Rate FiO2 02/03/17 04:00 96.3 80 18 123/78 100 02/03/17 03:01 16 02/03/17 01:33 98.6 86 18 151/83 100 02/02/17 20:29 98.4 67 18 154/76 97 02/02/17 15:48 98.1 76 20 121/68 98 02/02/17 09:01 97.8 84 18 120/61 100 I/O 02/02/17 02/02/17 02/02/17 02/03/17 02/03/17 02/03/17 07:00 15:00 23:00 07:00 15:00 23:00 Intake Total 240 ml Output Total 500 ml 750 ml Balance -500 ml -510 ml Intake Oral 240 ml Output Urine Total 200 ml 750 ml Emesis 300 ml # Voids 3 Result Diagram: 02/02/17 04302/02/172050 Imaging Last Impressions Head CT 02/02/17404 Signed Impressions: Service Date/Time: Thursday, February 02, 2017 05:21 - CONCLUSION: Negative noncontrast CT brain. Todd Cueva MD Chest X-Ray 02/02/17404 Signed Impressions: Service Date/Time: Thursday, February 02, 2017 04:10 - CONCLUSION: The lungs are clear. Todd Cueva MD Renal Ultrasound 02/02/17 0000 Signed Impressions: Service Date/Time: Thursday, February 02, 2017 12:16 - CONCLUSION: Echogenic kidneys without hydronephrosis. This is a nonspecific finding. Todd Julien Jr., MD Objective Remarks GENERAL: This is a well-nourished, well-developed patient, in no apparent distress. CARDIOVASCULAR: Regular rate and regular rhythm without murmurs, gallops, or rubs. RESPIRATORY: Clear to auscultation. Breath sounds equal bilaterally. No wheezes , rales, or rhonchi. GASTROINTESTINAL: Abdomen soft, non-tender, nondistended. Normal, active bowel sounds MUSCULOSKELETAL: Extremities without clubbing, cyanosis, or edema. NEURO: Alert & Oriented x4 to person, place, time, situation. Moves all ext x4 Medications and IVs Current Medications Morphine Sulfate (Morphine Inj) 4 mg ONCE ONCE IV PUSH Last administered on 04:40; Start 02/02/17 at 04:15; Stop 02/02/17 at 04:16; Status DC Ondansetron HCl 4 mg 4 mg ONCE ONCE IV PUSH Last administered on 02/02/17 04: 40; Start 02/02/17 at 04:15; Stop 02/02/17 at 04:16; Status DC Sodium Chloride 500 ml @ 500 mls/hr BOLUS ONCE IV Last administered on 04:40; Start 02/02/17 at 04:30; Stop 02/02/17 at 05:36; Status DC Sodium Chloride 1,000 ml @ 100 mls/hr Q10H IV ; Start 02/02/17 at 06:30; Stop 02/02/17 at 11:59; Status DC Sodium Chloride (NS 1000 ml Inj) 1,000 ml @ 100 mls/hr Q10H IV Last administered on 02/02/17 06:49; Start 02/02/17 at 06:22; Stop 02/02/17 at 11:59 ; Status DC Sodium Chloride (NS Flush) 2 ml UNSCH PRN IV FLUSH FLUSH AFTER USING IV ACCESS ; Start 02/02/17 at 06:30 Sodium Chloride (NS Flush) 2 ml BID IV FLUSH ; Start 02/02/17 at 09:00 Ondansetron HCl (Zofran Inj) 4 mg Q6H PRN IVP NAUSEA OR VOMITING; Start at 06:30 Acetaminophen (Tylenol) 650 mg Q6H PRN PO FEVER/PAIN SCALE 1 TO 2; Start at 06:30 Acetaminophen/ Hydrocodone Bitart ([place] 5-325 Mg) 1 tab Q4H PRN PO PAIN SCALE 3 TO 5; Start 02/02/17 at 06:30; Stop 02/02/17 at 12:16; Status DC Morphine Sulfate (Morphine Inj) 2 mg Q3H PRN IV Pain 6-10; Start 02/02/17 at 06 :30 Senna/Docusate Sodium (Sneha-Colace) 1 tab BID PO Last administered on 22:15; Start 02/02/17 at 09:00 Magnesium Hydroxide (Milk Of Magnesia Liq) 30 ml Q12H PRN PO MILD - MODERATE CONSTIPATION; Start 02/02/17 at 06:30 Sennosides (Senokot) 17.2 mg Q12H PRN PO MODERATE - SEVERE CONSTIPATION; Start 02/02/17 at 06:30 Bisacodyl (Dulcolax Supp) 10 mg DAILY PRN RECTAL SEVERE CONSITIPATION; Start at 06:30 Lactulose (Lactulose Liq) 30 ml DAILY PRN PO SEVERE CONSITIPATION; Start at 06:30 Amlodipine Besylate (Norvasc) 10 mg DAILY PO Last administered on 02/02/17 09: 02; Start 02/02/17 at 09:00 Insulin Detemir (Levemir Inj) 8 units HS SQ ; Start 02/02/17 at 21:00 Pantoprazole Sodium (Protonix) 40 mg DAILY PO Last administered on 02/02/17 09 :02; Start 02/02/17 at 09:00 Dextrose (D50w (Vial) Inj) 50 ml UNSCH PRN IV HYPOGLYCEMIA-SEE COMMENTS; Start 02/02/17 at 06:30 Glucagon (Glucagon Inj) 1 mg UNSCH PRN OTHER HYPOGLYCEMIA-SEE COMMENTS; Start 02/02/17 at 06:30 Insulin Aspart 1 1 ACHS SLIDING SCALE SQ ; Start 02/02/17 at 07:00 Ceftriaxone Sodium/Sodium Chloride (Rocephin Inj/NS Inj) 100 ml @ 200 mls/hr Q24H IV Last administered on 02/02/17 11:26; Start 02/02/17 at 11:00 Sodium Polystyrene Sulfonate (Kayexalate Liq) 30 gm ONCE ONCE PO Last administered on 02/02/17 11:24; Start 02/02/17 at 10:30; Stop 02/02/17 at 10:52 ; Status DC Lidocaine HCl (Lidoderm 5% Patch.12 Hr) 1 patch DAILY T-DERMAL Last administered on 02/02/17 12:09; Start 02/02/17 at 11:00 Lactobacillus Acidophilus (Lactinex) 1 tab Q12HR PO Last administered on 22:15; Start 02/02/17 at 10:30 Miscellaneous Information 1 Q24H T-DERMAL Last administered on 02/02/17 21:00 ; Start 02/02/17 at 21:00 Acetaminophen/ Hydrocodone Bitart ([place] 5-325 Mg) 1 tab BID PRN PO PAIN 1-5 Last administered on 02/03/17 02:01; Start 02/02/17 at 11:30 Trimethoprim/ Sulfamethoxazole 1 tab 1 tab BID PO ; Start 02/02/17 at 21:00; Stop 02/02/17 at 21:00; Status DC Sodium Chloride 38.5 meq/Sodium Bicarbonate 75 meq/Sterile Water 1,084.625 ml @ 70 mls/hr [id number] IV ; Start 02/02/17 at 14:00; Stop 02/02/17 at 14:00; Status DC Sodium Chloride/ Sodium Bicarbonate/ Sterile Water (Sodium Chloride 23.4% Inj/ Sodium Bicarbonate 8.4% Inj/Sterile Water For Inj) 1,109.625 ml @ 70 mls/hr [id number] IV Last administered on 02/03/17 01:49; Start 02/02/17 at 14:00 Insulin Human Regular (NovoLIN R INJ) 10 units ONCE ONCE IV PUSH Last administered on 02/02/17 14:14; Start 02/02/17 at 14:00; Stop 02/02/17 at 14:01 ; Status DC Dextrose (D50w (Syr) Inj) 25 ml ONCE ONCE IV Last administered on 02/02/17 14 :15; Start 02/02/17 at 14:00; Stop 02/02/17 at 14:01; Status DC A/P Assessment and Plan Acute on chronic renal failure Medication noncompliance Azotemia creatinine 4.97. baseline appears to be 3 - 3.4 recent Bactrim use nephrology consult appreciated. continue IVF strict I&Os avoid nephrotoxic agents monitor BMP UTI UA positive for proteinuria, small leukocytes, 13 WBCs and rare bacteria. Culture indicated. continue IV Rocephin follow up on urine culture results Metabolic encephalopathy-improved secondary to acute renal failure and UTI CT head unremarkable treat underlying cause and monitor for improvement Hyperkalemia possibly due to recent Bactrim use received dose of Kayexalate monitor potassium level Hypertension resumed patients home dose of amlodipine 10mg daily Monitor BP IDDM resumed patients home dose of insulin accu checks ISS Hgb A1c 5.2 10/10/16 obtain new A1c level Nonhealing wound right foot patient followed by Dr. Dunham as outpatient previously on Bactrim Wound care consulted pain management follow wound culture Left sided upper back pain likely musculoskeletal K thermia Lidocaine patch monitor Weight loss patient reports 10lb weight loss in past month Aerophysics Engineer consulted Anemia likely secondary to chronic disease/renal insufficiency chronic stable monitor as indicated Marijuana use UDS positive for cannabinoids counseled on cessation GI prophylaxis/GERD Pantoprazole daily DVT prophylaxis SCD/LILIANA Jazmyne Anne MD Feb 03, 2017 08:19
[2017-02-03] MEDS: SODIUM CHLORIDE 0.9% FLUSH 10 ML FLUSH IV FLUSH SCH ×2 (09:00→21:19)
[2017-02-03] MEDS: PANTOPRAZOLE SOD 40 MG DELAYED RELEASE TAB PO SCH (09:55)
[2017-02-03] MEDS: LACTOBACILLUS ACIDOPHILUS TAB PO SCH ×2 (09:55→21:18)
[2017-02-03] MEDS: DOCUSATE SODIUM 50 MG/SENNA 8.6 MG TAB PO SCH ×2 (09:55→21:00)
[2017-02-03] MEDS: LIDOCAINE HCL 5% PATCH T-DERMAL SCH (09:56)
[2017-02-03 10:47] LABS: HEMOGLOBIN A1a 1.3 %; HEMOGLOBIN A1b 1.6 %; HEMOGLOBIN Ao 82.9 %; HEMOGLOBIN F 0.3 %; HEMOGLOBIN LA1C 2.6 %; HEMOGLOBIN P3 6.5 %
--- NOTE | 2017-02-03 11:10 | HHI.NPPN ---
Subjective Renal Failure: Chronic, Acute, Stage IV Interval History He is resting comfortably. AM labs have not resulted. No concerns from the patient. He is non oliguric. (Izzy Bhakta) Review of Systems General Constitutional: Fatigue (Izzy Bhakta) Skin Skin: Ulcers (Izzy Bhakta) Objective Data Data 02/02/17 02/03/17 19:00 07:00 Intake Total 240 ml Output Total 500 ml 750 ml Balance -500 ml -510 ml Intake Oral 240 ml Output Urine Total 200 ml 750 ml Emesis 300 ml # Voids 3 Vital Signs Date Time Temp Pulse Resp B/P Pulse Ox O2 Delivery O2 Flow Rate FiO2 02/03/17 08:00 97.9 78 16 154/89 99 02/03/17 04:00 96.3 80 18 123/78 100 02/03/17 03:01 16 02/03/17 01:33 98.6 86 18 151/83 100 02/02/17 20:29 98.4 67 18 154/76 97 02/02/17 15:48 98.1 76 20 121/68 98 (Izzy Bhakta) -: 02/02/17 0430 02/02/17 2051 Microbiology 02/02/17 Gram Stain - Final, Resulted 02/02/17 Wound Culture, Resulted Pending Imaging Last Impressions Head CT 02/02/17 0405 Signed Impressions: Service Date/Time: Thursday, February 02, 2017 05:21 - CONCLUSION: Negative noncontrast CT brain. Todd Cueva MD Chest X-Ray 02/02/17 0405 Signed Impressions: Service Date/Time: Thursday, February 02, 2017 04:10 - CONCLUSION: The lungs are clear. Todd Cueva MD Renal Ultrasound 02/02/17 0000 Signed Impressions: Service Date/Time: Thursday, February 02, 2017 12:16 - CONCLUSION: Echogenic kidneys without hydronephrosis. This is a nonspecific finding. Todd Julien Jr., MD Drip Comment bicarb gtt (Izzy Bhakta) Physical Exam General Appearance: Well Developed, No Acute Distress, Comfortable, Sleeping (Izzy Bhakta) Eyes Eye Exam: Pupils Equal (Izzy Bhakta) Throat Throat Exam: Oral Mucosa [place] & Moist (Izzy Bhakat) Pulmonary Resp Exam: Clear Bilaterally, Breath Sounds Equal (Izzy Bhakta) Cardiology CV Exam: Regular, Normal Sinus Rhythm, Good Perfusion (Izzy Bhakta) Gastrointestinal/Abdomen GI Exam: Soft, Non-Tender, Bowel Sounds Present (Izzy Bhakta) Musculoskeletal MS Exam: Normal Tone, Good Strength MS Remarks left AKA right midfoot amputation (Izzy Bhakta) Integumentary Skin Exam: Warm, Dry Skin Remarks ulcer plantar surface of right foot (Izzy Bhakta) Extremeties Extremities Exam: No Edema (Izzy Bhakta) Neurologic Neuro Exam: Alert, Awake, Oriented, Speech Clear, Moving All Extremities ( Izzy Bhakta) Psychiatric Psych Exam: Appropriate Responses (Izzy hBakta) Assessment/Plan Discussed Condition With: Patient Assessment Summary: AMAN/Acute Renal Failure, Hypertension, CKD Stage IV Electrolyte Assessment: Hyperkalemia, Metabolic Acidosis Problem List: (1) Acute on chronic renal failure Plan: He has underlying CKD 4, due to diabetic nephropathy, follow with Dr. He outpatient AMAN from Bactrim use, (Bactrim can cause elevated serum creatinine and potassium levels), also possible dehydration, prerenal azotemia Continue bicarbonate drip US is negative for obstruction being treated for UTI with Rocephi, he is non oliguric protein quantification ordered avoid nephrotoxic substances daily renal panel (2) Hyperkalemia Plan: Due to reduction in GFR also, Trimethoprim (ingredient in Bactrim) prevents distal tubular potassium and creatinine secretion, causing serum levels of both to rise (Bactrim was stopped) repeat renal panel in process If needed, repeat IV dextrose, insulin, bicarbonate (3) Metabolic acidosis Plan: continue sodium bicarbonate gtt follow renal panel (4) Anemia in chronic illness Plan: iron profile has been ordered (5) DM (diabetes mellitus) Plan: continue insulin as ordered blood sugar goal 140-180 mg/dL (6) HTN (hypertension) Plan: He is on amlodipine follow blood pressure, currently acceptable (Izzy Bhakta) Plan patient was seen and examined. Renal function has improved, now at baseline. Hyperkalemia has improved. Stop IVF. Encourage oral intake. Needs dietary potassium restriction. He can be discharged if no other medical concerns exist. (Eitan Sky MD) Problem Qualifiers (1) Acute on chronic renal failure: Qualified Code: N17.9 - Acute renal failure superimposed on chronic kidney disease, unspecified CKD stage, unspecified acute renal failure type Izzy Bhakta Feb 03, 2017 11:10 Eitan Sky MD Feb 03, 2017 17:30
[2017-02-03] MEDS: cefTRIAXone INJ 1,000 MG in SODIUM CHLORIDE 0.9% INJ 100 ML IV SCH (11:50)
[2017-02-03 13:30] LABS: AUTOMATED NEUTROPHIL # 4.7 TH/MM3 (1.8-7.7); BASOPHIL # 0.1 TH/MM3 (0-0.2); BASOPHIL % 1.8 % (0.0-2.0); EOSINOPHIL # 0.2 TH/MM3 (0-0.4); EOSINOPHIL % 2.8 % (0.0-4.0); HEMATOCRIT 23.3 % (39.0-51.0); HEMO FLAGS DIFF FINAL; LYMPHOCYTE # 1.7 TH/MM3 (1.0-4.8); MEAN CELL VOLUME 88.2 FL (80.0-100.0); MEAN CORPUSCULAR HEMOGLOBIN 31.1 PG (27.0-34.0); MEAN CORPUSCULAR HGB CONC 35.3 % (32.0-36.0); NEUT % 64.4 % (16.0-70.0); PLATELET COUNT 238 TH/MM3 (150-450); RED BLOOD COUNT 2.64 MIL/MM3 (4.50-5.90); RED CELL DISTRIBUTION WIDTH 14.1 % (11.6-17.2); WHITE BLOOD COUNT 7.4 TH/MM3 (4.0-11.0)
[2017-02-03 13:44] LABS: TRANSFERRIN IRON PROFILE 132 MG/DL (200-360)
--- NOTE | 2017-02-03 13:46 | PD.WCN.NOT ---
Wound Consult Description: Consult for Wound Management of the right foot per TRE Mike Communicated with: NOAM Joel Recommendation: Cleanse right 5th metatarsal wound with NS and gauze. Apply Optifoam Gentle AG cut to fit into wound bed. Secure with dry cover such as rolled gauze and latasha wrap for extra protection if desired. Change every 3 days and PRN for saturation or dislodgement. Additional Information: Patient seen on for chronic right foot wound. Rolled gauze was removed to reveal a wound noted to 5th met head on the plantar surface fo the right foot. Wound bed is pale red and moist measuring 3cm x 1.6cm x 1cm with 2.3cm of undermining noted @ 5 o'clock. Wound margins are hyperkeratotic measuring ~2cm out from wound bed. Wound was cleansed with NS and gauze, with wound culture obtained. Wound was dressed with Optifoam Gentle AG as ordered per Dr Dunham in the outpatient setting, which is recommended for continuity of care. Optifoam AG was secured with 4x4's and rolled gauze with latasha wrap which may remain in place for up to 3-5 days unless soiled or dislodged. Gabrielle Hernandez [facility] Feb 03, 2017 13:46
[2017-02-03 13:49] LABS: ALT (GPT) 12 U/L (12-78); ANION GAP 6 MEQ/L (5-15); AST (GOT) 18 U/L (15-37); BICARBONATE 22.2 MEQ/L (21.0-32.0); BLOOD UREA NITROGEN 69 MG/DL (7-18); CHLORIDE 112 MEQ/L (98-107); GLOMERULAR FILTRATION RATE 23 ML/MIN (>89); MAGNESIUM 2.2 MG/DL (1.5-2.5); POTASSIUM 4.7 MEQ/L (3.5-5.1); SODIUM (NA) 140 MEQ/L (136-145)
[2017-02-03 13:54] LABS: ALKALINE PHOSPHATASE 86 U/L (45-117); FREE T4 1.14 NG/DL (0.76-1.46); TOTAL BILIRUBIN ADULT 0.2 MG/DL (0.2-1.0)
[2017-02-03 16:13] LABS: HEMOGLOBIN A1a 1.4 %; HEMOGLOBIN LA1C 2.6 %; HEMOGLOBIN P3 6.4 %
[2017-02-03] MEDS: REMOVE OLD LIDOCAINE PATCH T-DERMAL SCH (21:00)
[2017-02-03] MEDS: INSULIN DETEMIR 100 UNITS/ML VIAL SQ SCH (21:17)
[2017-02-04] VITALS: BP 133/76; PULSE 84; RESP 16; TEMP 98; O2SAT 100
[2017-02-04 04:00] VITALS: BP 135/77; PULSE 83; RESP 16; TEMP 98; O2SAT 100
[2017-02-04] MEDS: INSULIN ASPART SUPPLEMENTAL SCALE SQ SCH ×3 (05:11→16:00)
[2017-02-04 08:00] VITALS: BP 147/74; PULSE 78; RESP 18; TEMP 98.7; O2SAT 97
[2017-02-04] MEDS: LACTOBACILLUS ACIDOPHILUS TAB PO SCH (08:00)
[2017-02-04] MEDS: DOCUSATE SODIUM 50 MG/SENNA 8.6 MG TAB PO SCH (08:00)
[2017-02-04] MEDS: PANTOPRAZOLE SOD 40 MG DELAYED RELEASE TAB PO SCH (08:00)
[2017-02-04] MEDS: SODIUM CHLORIDE 0.9% FLUSH 10 ML FLUSH IV FLUSH SCH (08:00)
[2017-02-04] MEDS: LIDOCAINE HCL 5% PATCH T-DERMAL SCH (08:01)
--- NOTE | 2017-02-04 08:04 | HHI.PR ---
Subjective Remarks resting comfortably with no distress. no chest pain or sob. renal function at his baseline now. d/w the RN. Objective Vitals Vital Signs Date Time Temp Pulse Resp B/P Pulse Ox O2 Delivery O2 Flow Rate FiO2 02/04/17 04:00 98.0 83 16 135/77 100 02/04/17 00:00 98.0 84 16 133/76 100 02/03/17 20:00 97.5 88 16 135/71 99 02/03/17 16:07 79 02/03/17 16:00 98.2 79 16 126/82 99 02/03/17 12:09 76 02/03/17 12:00 98.0 77 18 122/62 99 02/03/17 08:26 75 02/03/17 08:00 97.9 78 16 154/89 99 I/O 02/03/17 02/03/17 02/03/17 02/04/17 02/04/17 02/04/17 07:00 15:00 23:00 07:00 15:00 23:00 Intake Total 240 ml 644 ml 1270 ml 350 ml Output Total 750 ml 950 ml 300 ml Balance -510 ml 644 ml 320 ml 50 ml Intake Oral 240 ml 1270 ml 350 ml IV Total 644 ml Output Urine Total 750 ml 950 ml 300 ml # Voids 3 # Bowel Movements 2 0 Result Diagram: 02/03/17 1255 02/03/17 1255 Imaging Last Impressions Head CT 02/02/175 Signed Impressions: Service Date/Time: Thursday, February 02, 2017 05:21 - CONCLUSION: Negative noncontrast CT brain. Todd Cueva MD Chest X-Ray 02/02/17 0405 Signed Impressions: Service Date/Time: Thursday, February 02, 2017 04:10 - CONCLUSION: The lungs are clear. oTdd Cueva MD Renal Ultrasound 02/02/17 0000 Signed Impressions: Service Date/Time: Thursday, February 02, 2017 12:16 - CONCLUSION: Echogenic kidneys without hydronephrosis. This is a nonspecific finding. Todd Julien Jr., MD Objective Remarks GENERAL: This is a well-nourished, well-developed patient, in no apparent distress. CARDIOVASCULAR: Regular rate and regular rhythm without murmurs, gallops, or rubs. RESPIRATORY: Clear to auscultation. Breath sounds equal bilaterally. No wheezes , rales, or rhonchi. GASTROINTESTINAL: Abdomen soft, non-tender, nondistended. Normal, active bowel sounds MUSCULOSKELETAL: Extremities without clubbing, cyanosis, or edema. NEURO: Alert & Oriented x4 to person, place, time, situation. Moves all ext x4 Procedures none Medications and IVs Current Medications Morphine Sulfate (Morphine Inj) 4 mg ONCE ONCE IV PUSH Last administered on 04:40; Start 02/02/17 at 04:15; Stop 02/02/17 at 04:16; Status DC Ondansetron HCl 4 mg 4 mg ONCE ONCE IV PUSH Last administered on 02/02/17 04: 40; Start 02/02/17 at 04:15; Stop 02/02/17 at 04:16; Status DC Sodium Chloride 500 ml @ 500 mls/hr BOLUS ONCE IV Last administered on 04:40; Start 02/02/17 at 04:30; Stop 02/02/17 at 05:36; Status DC Sodium Chloride 1,000 ml @ 100 mls/hr Q10H IV ; Start 02/02/17 at 06:30; Stop 02/02/17 at 11:59; Status DC Sodium Chloride (NS 1000 ml Inj) 1,000 ml @ 100 mls/hr Q10H IV Last administered on 02/02/17 06:49; Start 02/02/17 at 06:22; Stop 02/02/17 at 11:59 ; Status DC Sodium Chloride (NS Flush) 2 ml UNSCH PRN IV FLUSH FLUSH AFTER USING IV ACCESS ; Start 02/02/17 at 06:30 Sodium Chloride (NS Flush) 2 ml BID IV FLUSH Last administered on 02/03/17 21: 19; Start 02/02/17 at 09:00 Ondansetron HCl (Zofran Inj) 4 mg Q6H PRN IVP NAUSEA OR VOMITING; Start at 06:30 Acetaminophen (Tylenol) 650 mg Q6H PRN PO FEVER/PAIN SCALE 1 TO 2; Start at 06:30 Acetaminophen/ Hydrocodone Bitart ([place] 5-325 Mg) 1 tab Q4H PRN PO PAIN SCALE 3 TO 5; Start 02/02/17 at 06:30; Stop 02/02/17 at 12:16; Status DC Morphine Sulfate (Morphine Inj) 2 mg Q3H PRN IV Pain 6-10; Start 02/02/17 at 06 :30 Senna/Docusate Sodium (Sneha-Colace) 1 tab BID PO Last administered on 09:55; Start 02/02/17 at 09:00 Magnesium Hydroxide (Milk Of Magnesia Liq) 30 ml Q12H PRN PO MILD - MODERATE CONSTIPATION; Start 02/02/17 at 06:30 Sennosides (Senokot) 17.2 mg Q12H PRN PO MODERATE - SEVERE CONSTIPATION Last administered on 02/03/17 09:55; Start 02/02/17 at 06:30 Bisacodyl (Dulcolax Supp) 10 mg DAILY PRN RECTAL SEVERE CONSITIPATION; Start at 06:30 Lactulose (Lactulose Liq) 30 ml DAILY PRN PO SEVERE CONSITIPATION; Start at 06:30 Amlodipine Besylate (Norvasc) 10 mg DAILY PO Last administered on 02/03/17 09: 55; Start 02/02/17 at 09:00 Insulin Detemir (Levemir Inj) 8 units HS SQ Last administered on 02/03/17 21: 17; Start 02/02/17 at 21:00 Pantoprazole Sodium (Protonix) 40 mg DAILY PO Last administered on 02/03/17 09 :55; Start 02/02/17 at 09:00 Dextrose (D50w (Vial) Inj) 50 ml UNSCH PRN IV HYPOGLYCEMIA-SEE COMMENTS; Start 02/02/17 at 06:30 Glucagon (Glucagon Inj) 1 mg UNSCH PRN OTHER HYPOGLYCEMIA-SEE COMMENTS; Start 02/02/17 at 06:30 Insulin Aspart 1 1 ACHS SLIDING SCALE SQ ; Start 02/02/17 at 07:00 Ceftriaxone Sodium/Sodium Chloride (Rocephin Inj/NS Inj) 100 ml @ 200 mls/hr Q24H IV Last administered on 02/03/17 11:50; Start 02/02/17 at 11:00 Sodium Polystyrene Sulfonate (Kayexalate Liq) 30 gm ONCE ONCE PO Last administered on 02/02/17 11:24; Start 02/02/17 at 10:30; Stop 02/02/17 at 10:52 ; Status DC Lidocaine HCl (Lidoderm 5% Patch.12 Hr) 1 patch DAILY T-DERMAL Last administered on 02/03/17 09:56; Start 02/02/17 at 11:00 Lactobacillus Acidophilus (Lactinex) 1 tab Q12HR PO Last administered on 21:18; Start 02/02/17 at 10:30 Miscellaneous Information 1 Q24H T-DERMAL Last administered on 02/03/17 21:00 ; Start 02/02/17 at 21:00 Acetaminophen/ Hydrocodone Bitart ([place] 5-325 Mg) 1 tab BID PRN PO PAIN 1-5 Last administered on 02/03/17 21:18; Start 02/02/17 at 11:30 Trimethoprim/ Sulfamethoxazole 1 tab 1 tab BID PO ; Start 02/02/17 at 21:00; Stop 02/02/17 at 21:00; Status DC Sodium Chloride 38.5 meq/Sodium Bicarbonate 75 meq/Sterile Water 1,084.625 ml @ 70 mls/hr [id number] IV ; Start 02/02/17 at 14:00; Stop 02/02/17 at 14:00; Status DC Sodium Chloride/ Sodium Bicarbonate/ Sterile Water (Sodium Chloride 23.4% Inj/ Sodium Bicarbonate 8.4% Inj/Sterile Water For Inj) 1,109.625 ml @ 70 mls/hr [id number] IV Last administered on 02/03/17 14:57; Start 02/02/17 at 14:00; Stop 02/03/17 at 17:30; Status DC Insulin Human Regular (NovoLIN R INJ) 10 units ONCE ONCE IV PUSH Last administered on 02/02/17 14:14; Start 02/02/17 at 14:00; Stop 02/02/17 at 14:01 ; Status DC Dextrose (D50w (Syr) Inj) 25 ml ONCE ONCE IV Last administered on 02/02/17 14 :15; Start 02/02/17 at 14:00; Stop 02/02/17 at 14:01; Status DC A/P Assessment and Plan Acute on chronic renal failure-improved and now at his baseline. Medication noncompliance Azotemia recent Bactrim use nephrology f/u appreciated; signed off- f/u as outpatient. avoid nephrotoxic agents monitor BMP possible UTI UA positive for proteinuria, small leukocytes, 13 WBCs and rare bacteria. Culture negative. stop antibiotic. Metabolic encephalopathy-resolved. secondary to acute renal failure CT head unremarkable Hyperkalemia-resolved. possibly due to recent Bactrim use Hypertension resumed patients home dose of amlodipine 10mg daily Monitor BP IDDM resumed patients home dose of insulin accu checks ISS A1c 5.5. Nonhealing wound right foot patient followed by Dr. 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 see med list. f/u; pcp and nephrology. d/w the patient and RN. Jazmyne Izaguirre MD Feb 04, 2017 08:04
--- NOTE | 2017-02-04 08:06 | HHI.DS ---
Discharge Summary Admission Date Feb 02, 2017 at 06:06 Discharge Date: Feb 04, 2017 Admitting Diagnosis Acute on chronic renal failure, medication non-compliance (1) Noncompliance ICD Code: Z91.19 Diagnosis: Principal (2) ATN (acute tubular necrosis) ICD Code: N17.0 Diagnosis: Principal (3) Acute renal failure ICD Code: N17.9 Diagnosis: Principal (4) Delirium secondary to multiple medical problems ICD Code: F05 Diagnosis: Principal (5) Diabetes mellitus ICD Code: E11.9 Diagnosis: Secondary (6) AMAN (acute kidney injury) ICD Code: N17.9 Diagnosis: Principal (7) Hypertension ICD Code: I10 Diagnosis: Secondary (8) Acute on chronic renal failure ICD Code: N17.9 Diagnosis: Principal (9) Anemia in chronic illness ICD Code: D63.8 Diagnosis: Secondary (10) Diabetic ulcer of right foot associated with type 2 diabetes mellitus ICD Code: E11.621 Diagnosis: Secondary Procedures none Brief History - From Admission This is a 46 yo male with a PMHX significant for hypertension, dyslipidemia, chronic renal insufficiency, insulin-dependent diabetes, PAD status post left AKA and right forefoot amputation who presents to [facility] ED with complaints of left-sided upper back and shoulder pain ongoing for the past 2 days. Patient also states he's had difficulty focusing and concentrating. He is having difficulty recalling words. He endorses occasional dizziness. He states he's felt feverish at the house but did not take his temperature. He reports nausea with nonbilious non-bloody vomiting several days ago but this has since resolved. He denies any complaints of abdominal pain. He denies any complaints of chest pain or shortness of breath. He does endorse palpitations intermittently. He denies any numbness, tingling or weakness. He denies any hematuria, dysuria, diarrhea or constipation. He last moved his bowels this morning. He does state that he feels that his urinary output has been low. He also endorses a 10 pound weight loss in the past month due to decreased appetite. He admits he has not been eating and drinking as he normally does. He also admits that he occasionally does not take his medications. He follows with Exercise Planner Dr. Arreguin of [facility] and was last seen in December. He had been taking a sample of a medication that Dr. Arreguin had given him but ran out. He can not recall the name of the medication. He also reports being treated with a one month course of Amoxicillin for a dental infection but completed the treatment 4 or 5 days ago. Additionally, patient reports a non healing ulcer on the right foot that he has been undergoing treatment for from Dr. Dunham. In the ED, patient has slightly elevated white count of 11.4. His ESR is 140 and CRP is 1.22. His potassium is 5.6. His BUN is 78. Creatinine is 4.97 and GFR is 15. Troponin was less than 0.02. CT of the head was unremarkable. I do not feel patient will turn around in 24 hours it appears he will need to stay in the hospital at least 2-3 days Will make him a admission instead of observation CBC/BMP: 02/03/17 1255 02/03/17 1255 Significant Findings Laboratory Tests Test 02/02/17 02/02/17 02/02/17 02/03/17 04:30 06:40 20:51 12:55 White Blood Count 11.4 TH/MM3 (4.0-11.0) Red Blood Count 2.96 MIL/MM3 2.64 MIL/MM3 (4.50-5.90) (4.50-5.90) Hemoglobin 8.5 GM/DL 8.2 GM/DL (13.0-17.0) (13.0-17.0) Hematocrit 26.9 % 23.3 % (39.0-51.0) (39.0-51.0) Mean Corpuscular Hemoglobin 31.6 % Concent (32.0-36.0) Neutrophils (%) (Auto) 70.7 % (16.0-70.0) Neutrophils # (Auto) 8.1 TH/MM3 (1.8-7.7) Erythrocyte Sedimentation Rate GREATER THAN 140 mm/hr (0-15) Potassium Level 5.6 MEQ/L 5.5 MEQ/L (3.5-5.1) (3.5-5.1) Chloride Level 114 MEQ/L 112 MEQ/L (98-107) (98-107) Carbon Dioxide Level 17.6 MEQ/L (21.0-32.0) Blood Urea Nitrogen 78 MG/DL (7-18) 69 MG/DL (7-18) Creatinine 4.97 MG/DL 3.51 MG/DL (0.60-1.30) (0.60-1.30) Estimat Glomerular Filtration 15 ML/MIN (>89) 23 ML/MIN (>89) Rate Calcium Level 8.3 MG/DL 7.9 MG/DL (8.5-10.1) (8.5-10.1) Total Bilirubin 0.1 MG/DL (0.2-1.0) Creatine Kinase MB 5.7 NG/ML (0.5-3.6) Troponin I LESS THAN 0.02 NG/ML (0.02-0.05) C-Reactive Protein 1.22 MG/DL (0.00-0.30) Total Protein 8.8 GM/DL (6.4-8.2) Urine Protein 100 mg/dL (NEG-TRACE) Urine Occult Blood TRACE (NEG) Urine WBC 13 /hpf (0-5) Urine Bacteria RARE /hpf (NONE) Urine Yeast (Budding) FEW (NONE) Urine Cannabinoids Screen POS (NEG) Random Glucose 70 MG/DL (74-106) Total Iron Binding Capacity 185 MCG/DL (250-450) Albumin 3.1 GM/DL (3.4-5.0) Imaging Last Impressions Head CT 02/02/17404 Signed Impressions: Service Date/Time: Thursday, February 02, 2017 05:21 - CONCLUSION: Negative noncontrast CT brain. Todd Cueva MD Chest X-Ray 02/02/175 Signed Impressions: Service Date/Time: Thursday, February 02, 2017 04:10 - CONCLUSION: The lungs are clear. Todd Cueva MD Renal Ultrasound 02/02/17 0000 Signed Impressions: Service Date/Time: Thursday, February 02, 2017 12:16 - CONCLUSION: Echogenic kidneys without hydronephrosis. This is a nonspecific finding. Todd Julien Jr., MD PE at Discharge GENERAL: This is a well-nourished, well-developed patient, in no apparent distress. CARDIOVASCULAR: Regular rate and regular rhythm without murmurs, gallops, or rubs. RESPIRATORY: Clear to auscultation. Breath sounds equal bilaterally. No wheezes , rales, or rhonchi. GASTROINTESTINAL: Abdomen soft, non-tender, nondistended. Normal, active bowel sounds MUSCULOSKELETAL: Extremities without clubbing, cyanosis, or edema. NEURO: Alert & Oriented x4 to person, place, time, situation. Moves all ext x4 Hospital Course Acute on chronic renal failure-improved and now at his baseline. Medication noncompliance Azotemia recent Bactrim use nephrology f/u appreciated; signed off- f/u as outpatient. avoid nephrotoxic agents monitor BMP possible UTI UA positive for proteinuria, small leukocytes, 13 WBCs and rare bacteria. Culture negative. stop antibiotic. Metabolic encephalopathy-resolved. secondary to acute renal failure CT head unremarkable Hyperkalemia-resolved. possibly due to recent Bactrim use Hypertension resumed patients home dose of amlodipine 10mg daily Monitor BP IDDM resumed patients home dose of insulin accu checks ISS A1c 5.5. Nonhealing wound right foot patient followed by Dr. Dunham as outpatient previously on Bactrim Wound care consulted Left sided upper back pain likely musculoskeletal K thermia Weight loss patient reports 10lb weight loss in past month Dye Range Operator Cloth consulted Anemia likely secondary to chronic disease/renal insufficiency chronic stable monitor as indicated Marijuana use UDS positive for cannabinoids counseled on cessation GI prophylaxis/GERD Pantoprazole daily DVT prophylaxis SCD/LILIANA hose Pt Condition on Discharge: Good Discharge Disposition: Discharge Home Discharge Time: <= 30 minutes Discharge Instructions DIET: Follow Instructions for: Diabetic Diet, Renal Failure Diet Activities you can perform: Regular-No Restrictions Follow up Referrals: Nephrology PCP Follow-up Continued Medications: Acetaminophen-Codeine (Tylenol-Codeine #3) 300-30 mg Tab 1 TAB PO Q4H PRN PAIN Ref 0 TAB Amlodipine (Amlodipine) 10 Mg Tab 10 MG PO DAILY Blood Pressure Management #30 Ref 0 TAB Hydrocodone-Acetaminophen (Lortab) 5-325 Mg Tab 1 TAB PO BID PRN PAIN #60 Ref 0 TAB Insulin Glargine Inj (Lantus Inj) 1,000 Unit/10 Ml Vial 8 UNITS SQ HS Blood Sugar Management Ref 0 VIAL Pantoprazole (Pantoprazole) 40 Mg Tab 40 MG PO DAILY Reflux #30 Ref 0 TAB Discontinued Medications: Amoxicillin (Amoxicillin) 500 Mg Tab 500 MG PO TID Infection Ref 0 TAB Sulfamethoxazole-Trimethoprim (Bactrim) 400-80 Mg Tab 1 TAB PO BID Infection Ref 0 TAB Jazmyne Izaguirre MD Feb 04, 2017 08:06
[2017-02-04] MEDS: ARTIFICIAL TEARS OPTH SOLN 15 ML BTL RIGHT EYE SCH ×3 (09:00→17:00)
[2017-02-04] MEDS: cefTRIAXone INJ 1,000 MG in SODIUM CHLORIDE 0.9% INJ 100 ML IV SCH (11:46)
[2017-02-04 12:00] VITALS: BP 138/80; PULSE 70; RESP 18; TEMP 98.1; O2SAT 98
[2017-02-04 16:00] VITALS: BP 139/77; PULSE 74; RESP 18; TEMP 97.6; O2SAT 99
[2017-02-13] MEDS ORDERED: HYDR-3533 PO (09:50)
[2017-04-08] MEDS ORDERED: HYDR-3533 PO (14:04)
== END 2017-02-04 21:53 | disposition home or self-care (01) ==
LOC: NEPE 03:55 → NEDA 06:06 → NEPGCP 07:46 → INTOOBSV 11:11 → OBSVTOIN 11:11 → HOCB 02-03 01:10
PROVIDERS: ADMIT Internal Medicine; ATTEND Internal Medicine
DX: N17.0 Acute kidney failure with tubular necrosis (principal); F05 Delirium due to known physiological condition; N18.4 Chronic kidney disease, stage 4 (severe); I12.9 Hypertensive chronic kidney disease with stage 1 through stage 4 chronic kidney disease, or unspecified chronic kidney disease; E11.22 Type 2 diabetes mellitus with diabetic chronic kidney disease; E11.621 Type 2 diabetes mellitus with foot ulcer; L97.519 Non-pressure chronic ulcer of other part of right foot with unspecified severity; D63.8 Anemia in other chronic diseases classified elsewhere; E87.5 Hyperkalemia; E78.5 Hyperlipidemia, unspecified; E46 Unspecified protein-calorie malnutrition; F12.90 Cannabis use, unspecified, uncomplicated; I73.9 Peripheral vascular disease, unspecified; K21.9 Gastro-esophageal reflux disease without esophagitis; N39.0 Urinary tract infection, site not specified; A49.8 Other bacterial infections of unspecified site; R94.31 Abnormal electrocardiogram [ECG] [EKG]; Z79.4 Long term (current) use of insulin; Z89.612 Acquired absence of left leg above knee; Z91.14 Patient's other noncompliance with medication regimen
CPT/HCPCS: 70450; 71010; 76775; 80053; 80307; 81001; 82140; 82550; 82552; 82948; 83036; 83540; 83550; 83690; 83735; 84100; 84132; 84439; 84443; 84484; 85025; 85610; 85652; 85730; 86140; 87070; 87077; 87086; 87186; 87205; 93005; 96361; 96365; 96372; 96375; 97162; 97165; 99285; G0378; G8987; G8988; G8989; J0696; J1815; J2270; J2405; J7030; J7040

== ENCOUNTER 2017-06-20 15:27 | Emergency (ER) | payer OTHER ==
[~2017-06-20] VITALS: Ht 180.3 cm; Wt 57.0 kg
[~2017-06-20 15:27] MED LIST changes: -AMLO10 PO; +AMLO10TA2 PO; -FURO40TA PO; +HYDR-3516 PO; +PANT40TA3 PO; +TYLETAB34 PO; -ZYVO600T PO
[2017-06-20 15:29] VITALS: BP 129/73; PULSE 91; RESP 14; TEMP 97.8; O2SAT 100
[2017-06-20 16:14] VITALS: RESP 16; O2SAT 100
[2017-06-20] MEDS ORDERED: SODIUM CHLORIDE 0.9% FLUSH 10 ML FLUSH IVF PRN (16:15)
[2017-06-20 16:38] LABS: AUTOMATED NEUTROPHIL # 6.1 TH/MM3 (1.8-7.7); BASOPHIL # 0.1 TH/MM3 (0-0.2); BASOPHIL % 1.4 % (0.0-2.0); EOSINOPHIL # 0.2 TH/MM3 (0-0.4); EOSINOPHIL % 2.8 % (0.0-4.0); HEMATOCRIT 27.1 % (39.0-51.0); HEMOGLOBIN 8.8 GM/DL (13.0-17.0); LYMPH % 18.7 % (9.0-44.0); LYMPHOCYTE # 1.6 TH/MM3 (1.0-4.8); MEAN CELL VOLUME 91.5 FL (80.0-100.0); MEAN CORPUSCULAR HEMOGLOBIN 29.6 PG (27.0-34.0); MEAN CORPUSCULAR HGB CONC 32.4 % (32.0-36.0); MONO % 7.7 % (0.0-8.0); MONOCYTE # 0.7 TH/MM3 (0-0.9); NEUT % 69.4 % (16.0-70.0); PLATELET COUNT 256 TH/MM3 (150-450); RED BLOOD COUNT 2.96 MIL/MM3 (4.50-5.90); WHITE BLOOD COUNT 8.7 TH/MM3 (4.0-11.0)
[2017-06-20 17:03] LABS: ALBUMIN 3.8 GM/DL (3.4-5.0); AST (GOT) 16 U/L (15-37); BLOOD UREA NITROGEN 70 MG/DL (7-18); CALCIUM 8.7 MG/DL (8.5-10.1); CHLORIDE 111 MEQ/L (98-107); CREATININE 3.66 MG/DL (0.60-1.30); GLOMERULAR FILTRATION RATE 22 ML/MIN (>89); GLUCOSE,RANDOM 90 MG/DL (74-106); SODIUM (NA) 138 MEQ/L (136-145)
[2017-06-20 17:05] LABS: ALT (GPT) 19 U/L (12-78)
[2017-06-20 17:07] LABS: ALKALINE PHOSPHATASE 104 U/L (45-117); TOTAL BILIRUBIN ADULT 0.2 MG/DL (0.2-1.0); TOTAL PROTEIN 8.6 GM/DL (6.4-8.2)
[2017-06-20 17:30] VITALS: BP 122/85; PULSE 86; RESP 16; TEMP 97.8; O2SAT 100
--- NOTE | 2017-06-20 17:57 | PD ---
HPI Chief Complaint: Abnormal Results Time Seen by Provider: 15:52 Travel History International Travel<30 days: No Contact w/Intl Traveler<30days: No Traveled to known affect area: No History of Present Illness HPI This is a 46-year-old male with a history of diabetes mellitus, stage III kidney disease, who presents here today stating his primary care doctor called him and told him to come to the emergency department for abnormal blood test. The patient was told that he has a low hemoglobin. The patient reports he was not told how low it was. When asked if he's been lightheaded or dizzy he says he has been a little weaker than normal. He denies any shortness of breath or chest pain or palpitations. Patient denies any melanotic stool. He denies any urinary frequency or dysuria. He has no other complaints time my examination. PFSH Past Medical History Arthritis: No Asthma: No Autoimmune Disease: No Blood Disorders: No Anxiety: No Depression: No Heart Rhythm Problems: No Cancer: No Cardiovascular Problems: Yes High Cholesterol: No Chemotherapy: No Chest Pain: No Congestive Heart Failure: No COPD: No Cerebrovascular Accident: No Diabetes: Yes Patient Takes Glucophage: No Diminished Hearing: No Endocrine: Yes GERD: No Genitourinary: No Hiatal Hernia: No Hypertension: Yes Immune Disorder: No Kidney Stones: No Musculoskeletal: Yes (right foot surgery, left aka amputation) Neurologic: No Psychiatric: No Reproductive: No Respiratory: No Migraines: No Radiation Therapy: No Renal Failure: Yes Seizures: No Sickle Cell Disease: No Sleep Apnea: No Thyroid Disease: No Ulcer: No Tetanus Vaccination: < 5 Years Influenza Vaccination: Yes Past Surgical History Abdominal Surgery: No AICD: No Arteriovenous Shunt: No Cardiac Surgery: No Ear Surgery: No Endocrine Surgery: No Eye Surgery: No Genitourinary Surgery: No Gynecologic Surgery: No Insulin Pump: No Joint Replacement: No Oral Surgery: No Pacemaker: No Thoracic Surgery: No Other Surgery: Yes (AKA L LEG, R FOOT AMPUTATION ) Social History Alcohol Use: No Tobacco Use: No (quit 2 years) Substance Use: No Allergies-Medications (Allergen,Severity, Reaction): Coded Allergies: *MDRO Multi-Drug Resistant Organism (Verified Adverse Reaction, Unknown, 06/20/17) MRSA (foot wound) - 03/2010, 10/2014, 04/2015 MRSA PCR Screen POSITIVE - 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 Reported Meds & Prescriptions Reported Meds & Active Scripts Active Zantac (Ranitidine HCl) 150 Mg Tab 150 Mg PO DAILY Hydrocodone-Acetaminophen 5-325 mg Tab 1 Tab PO BID PRN Reported Amlodipine (Amlodipine Besylate) 10 Mg Tab 10 Mg PO DAILY Lantus Inj (Insulin Glargine) 1,000 Unit/10 Ml Vial 4-6 Units SQ HS Review of Systems Except as stated in HPI: all other systems reviewed are Neg General / Constitutional: No: Fever, Chills HENT: No: Headaches, Lightheadedness Cardiovascular: No: Chest Pain or Discomfort, Palpitations Respiratory: No: Cough, Shortness of Breath Gastrointestinal: No: Nausea, Vomiting, Abdominal Pain, Hematochezia, Other ( no melanotic stool) Genitourinary: No: Frequency, Dysuria Musculoskeletal: Positive: Weakness (I'll generalized), Other (left AKA), No: Pain Neurologic: Positive: Weakness, No: Dizziness (mild generalized), Headache Physical Exam Narrative GENERAL: Developed well-nourished male in no acute rest her distress. SKIN: Focused skin assessment warm/dry. HEAD: Atraumatic. Normocephalic. EYES: No scleral icterus. No injection or drainage. ENT: No nasal bleeding or discharge. Mucous membranes pink and moist. NECK: Trachea midline. Supple. CARDIOVASCULAR: Regular rate and rhythm. No murmur appreciated. RESPIRATORY: No accessory muscle use. Clear to auscultation. Breath sounds equal bilaterally. GASTROINTESTINAL: Abdomen soft, non-tender, nondistended. RECTAL EXAM: No masses or tenderness, stool is brown. Questionable trace positive. MUSCULOSKELETAL: Status post left AKA. Right lower extremity has no pretibial edema. He has had have his foot removed secondary to diabetes mellitus. NEUROLOGICAL: Awake and alert. No obvious cranial nerve deficits. Motor grossly within normal limits. Normal speech. PSYCHIATRIC: Appropriate mood and affect; insight and judgment normal. Data Data Last Documented VS Vital Signs Date Time Temp Pulse Resp B/P (MAP) Pulse Ox O2 Delivery O2 Flow Rate FiO2 06/20/17 17:30 97.8 86 16 122/85 (97) 100 Room Air Orders Orders Complete Blood Count With Diff (06/20/17 16:01) Comprehensive Metabolic Panel (06/20/17 16:01) Prothrombin Time / Inr (Pt) (06/20/17 16:01) Act Partial Throm Time (Ptt) (06/20/17 16:01) Type And Screen (06/20/17 16:01) Ecg Monitoring (06/20/17 16:01) Iv Access Insert/Monitor (06/20/17 16:) Oximetry (06/20/17 16:01) Sodium Chloride 0.9% Flush (Ns Flush) (06/20/17 16:15) Labs Laboratory Tests Test 06/20/17 16:15 White Blood Count 8.7 TH/MM3 Red Blood Count 2.96 MIL/MM3 Hemoglobin 8.8 GM/DL Hematocrit 27.1 % Mean Corpuscular Volume 91.5 FL Mean Corpuscular Hemoglobin 29.6 PG Mean Corpuscular Hemoglobin Concent 32.4 % Red Cell Distribution Width 15.0 % Platelet Count 256 TH/MM3 Mean Platelet Volume 8.0 FL Neutrophils (%) (Auto) 69.4 % Lymphocytes (%) (Auto) 18.7 % Monocytes (%) (Auto) 7.7 % Eosinophils (%) (Auto) 2.8 % Basophils (%) (Auto) 1.4 % Neutrophils # (Auto) 6.1 TH/MM3 Lymphocytes # (Auto) 1.6 TH/MM3 Monocytes # (Auto) 0.7 TH/MM3 Eosinophils # (Auto) 0.2 TH/MM3 Basophils # (Auto) 0.1 TH/MM3 CBC Comment DIFF FINAL Differential Comment Prothrombin Time 10.0 SEC Prothromb Time International Ratio 1.0 RATIO Activated Partial Thromboplast Time 31.2 SEC Blood Urea Nitrogen 70 MG/DL Creatinine 3.66 MG/DL Random Glucose 90 MG/DL Total Protein 8.6 GM/DL Albumin 3.8 GM/DL Calcium Level 8.7 MG/DL Alkaline Phosphatase 104 U/L Aspartate Amino Transf (AST/SGOT) 16 U/L Alanine Aminotransferase (ALT/SGPT) 19 U/L Total Bilirubin 0.2 MG/DL Sodium Level 138 MEQ/L Potassium Level 4.8 MEQ/L Chloride Level 111 MEQ/L Carbon Dioxide Level 16.0 MEQ/L Anion Gap 11 MEQ/L Estimat Glomerular Filtration Rate 22 ML/MIN MDM Medical Decision Making Medical Screen Exam Complete: Yes Emergency Medical Condition: Yes Differential Diagnosis Anemia versus lab error versus metabolic derangement. Narrative Course 46-year-old male with a history of stage III renal disease, chronic anemia, who presents at the request of his primary care doctor stating his hemoglobin was low. The patient states that he's been slightly more weak than normal but not severely. On exam he had questionable trace heme positive stools. Hemoglobin here is 8.8 which is at his baseline. His BUN/creatinine is also at his baseline. The patient will be discharged and placed on Zantac 150 daily. He is instructed to follow up with his primary care physician as well as his painter airbrush. CC: Dr. Heber Barrios. Dr. Luis A Arreguin Diagnosis Primary Impression: chronic anemia Additional Impressions: Stage III chronic kidney disease questionable trace heme positive stool Additional Instructions: Follow up with your primary care doctor and painter airbrush. Return as needed. Med/Other Pt SpecificInfo: Prescription(s) given Scripts Ranitidine (Zantac) 150 Mg Tab 150 MG PO DAILY for Reduce Stomach Acid, #30 TAB 0 Refills Prov: Ganesh Cabrera MD 06/20/17 Disposition: 01 DISCHARGE HOME Condition: Stable Ganesh Cabrera MD Jun 20, 2017 17:57
[2017-06-20] MEDS ORDERED: ZANT150T2 PO (18:43)
== END 2017-06-20 20:00 | disposition home or self-care (01) ==
LOC: NEPC 15:27
DX: I12.9 Hypertensive chronic kidney disease with stage 1 through stage 4 chronic kidney disease, or unspecified chronic kidney disease (principal); N18.3 Chronic kidney disease, stage 3 (moderate); E11.22 Type 2 diabetes mellitus with diabetic chronic kidney disease; D63.1 Anemia in chronic kidney disease; Z79.4 Long term (current) use of insulin; Z87.891 Personal history of nicotine dependence; Z89.612 Acquired absence of left leg above knee
CPT/HCPCS: 80053; 85025; 85610; 85730; 86850; 86900; 86901; 99283

== ENCOUNTER 2017-10-07 19:07 | Observation (INO) | payer OTHER ==
[~2017-10-07] VITALS: Ht 180.3 cm; Wt 60.5 kg
[~2017-10-07 19:07] MED LIST changes: -HYDR-3533 PO; -PANT40TA3 PO; -TYLETAB34 PO; +ZANT150T2 PO
[2017-10-07 20:10] VITALS: BP 182/90; PULSE 98; RESP 18; TEMP 97.8; O2SAT 100
[2017-10-07] MEDS ORDERED: FOLI20CA PO (22:55)
[2017-10-07] MEDS ORDERED: iron PO (22:55)
[2017-10-07] MEDS ORDERED: PANTOPRAZOLE INJ 80 MG in SODIUM CHLORIDE 0.9% INJ 100 ML IV SCH (23:00)
[2017-10-07] MEDS ORDERED: SODIUM CHLOR 0.9% 1000 ML INJ 1,000 ML IV ONE (23:00)
[2017-10-07] MEDS ORDERED: PANTOPRAZOLE SODIUM 40 MG VIAL IV PUSH ONE (23:00)
--- NOTE | 2017-10-07 23:03 | PD ---
HPI Chief Complaint: GI Complaint Time Seen by Provider: 22:33 Travel History International Travel<30 days: No Contact w/Intl Traveler<30days: No Traveled to known affect area: No History of Present Illness HPI pt has N/V/D and now turned to blood coffee ground emesis . epigastric pain and he recently was in the ER and admitted for Anemia had EGD to search for source and nothing found, colonscopy planned for in [facility] . now dull ache abdo local in epigastric area , vomited coffee ground in ER guaiac positive , Pt on IRON , AMODIPINE and epogen IM but last HBG was 11 so they didnt given it per pt PFSH Past Medical History Arthritis: No Asthma: No Autoimmune Disease: No Blood Disorders: No Anxiety: No Depression: No Heart Rhythm Problems: No Cancer: No Cardiovascular Problems: Yes High Cholesterol: No Chemotherapy: No Chest Pain: No Congestive Heart Failure: No COPD: No Cerebrovascular Accident: No Diabetes: Yes Patient Takes Glucophage: Yes Diminished Hearing: No Endocrine: Yes GERD: No Genitourinary: No Hiatal Hernia: No Hypertension: Yes Immune Disorder: No Kidney Stones: No Musculoskeletal: Yes (right foot surgery, left aka amputation) Neurologic: No Psychiatric: No Reproductive: No Respiratory: No Migraines: No Radiation Therapy: No Renal Failure: Yes Seizures: No Sickle Cell Disease: No Sleep Apnea: No Thyroid Disease: No Ulcer: No Past Surgical History Abdominal Surgery: No AICD: No Arteriovenous Shunt: No Cardiac Surgery: No Ear Surgery: No Endocrine Surgery: No Eye Surgery: No Genitourinary Surgery: No Gynecologic Surgery: No Insulin Pump: No Joint Replacement: No Oral Surgery: No Pacemaker: No Thoracic Surgery: No Other Surgery: Yes (AKA L LEG, R FOOT AMPUTATION ) Social History Alcohol Use: No Tobacco Use: No (quit 2 years) Substance Use: No Allergies-Medications (Allergen,Severity, Reaction): Coded Allergies: *MDRO Multi-Drug Resistant Organism (Verified Adverse Reaction, Unknown, ) MRSA (foot wound) - 03/2010, 10/2014, 04/2015 MRSA PCR Screen POSITIVE - 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 HEAD: Atraumatic. Normocephalic. EYES: Pupils equal and round. No scleral icterus. No injection or drainage. ENT: No nasal bleeding or discharge. Mucous membranes pink and moist. NECK: Trachea midline. No JVD. CARDIOVASCULAR: Regular rate and rhythm. RESPIRATORY: No accessory muscle use. Clear to auscultation. Breath sounds equal bilaterally. GASTROINTESTINAL: Abdomen tenderness epigastric tenderness , nondistended. Hepatic and splenic margins not palpable. MUSCULOSKELETAL: Extremities without clubbing, cyanosis, or edema. No obvious deformities. NEUROLOGICAL: Awake and alert. No obvious cranial nerve deficits. Motor grossly within normal limits. Five out of 5 muscle strength in the arms and legs. Normal speech. PSYCHIATRIC: Appropriate mood and affect; insight and judgment normal. Data Data Last Documented VS Vital Signs Date Time Temp Pulse Resp B/P (MAP) Pulse Ox O2 Delivery O2 Flow Rate FiO2 10/07/17 20:10 97.8 98 18 182/90 (120) 100 Orders Orders Pantoprazole Inj (Protonix Inj) (10/07/17 23:00) Pantoprazole Inj (Protonix Inj) (10/07/17 23:00) Sodium Chlor 0.9% 1000 Ml Inj (Ns 1000 M (10/07/17 23:00) Complete Blood Count With Diff (10/07/17 22:57) Comprehensive Metabolic Panel (10/07/17 22:57) Lipase (10/07/17 22:57) Magnesium (Mg) (10/07/17 22:57) Chest, Single Ap (10/07/17 22:57) Type And Screen (10/07/17 22:57) Ondansetron Inj (Zofran Inj) (10/07/17 23:30) Ondansetron Inj (Zofran Inj) (10/08/17 00:15) Sodium Chlor 0.9% 1000 Ml Inj (Ns 1000 M (10/08/17 01:15) Dext 5%-Nacl 0.45% 1000 Ml Inj (D5w-1/2 (10/08/17 01:15) Place In Observation (10/08/17 ) Vital Signs (Adult) Q4H (10/08/17 01:37) Activity Oob Ad Bella (10/08/17 01:37) Sanitation Officer / Telemetry KIRT.Q8H (10/08/17 01:37) Intake + Output KIRT.QSHIFT (10/08/17 01:37) Diet Npo (10/08/17 Breakfast) Sodium Chloride 0.9% Flush (Ns Flush) (10/08/17 01:45) Sodium Chloride 0.9% Flush (Ns Flush) (10/08/17 09:00) Sodium Chloride 0.9... W/Pantoprazole In (10/08/17 10:00) Hgb & Hct (10/08/17 05:00) Hgb & Hct (10/08/17 11:00) Hgb & Hct (10/08/17 17:00) Complete Blood Count With Diff (10/08/17 05:00) Comprehensive Metabolic Panel (10/08/17 05:00) Consult Gastroenterology (10/08/17 ) Bedside Glucose KIRT.CSUGAR (10/08/17 01:37) Blood Glucose Goal (Criteria) (10/08/17 01:37) Hypoglycemia 70 Mg/Dl Or < (10/08/17 01:37) Notify Dr: Other (10/08/17 01:37) Dextrose 50% In Edy (Vial) Inj (D50w (Vi (10/08/17 01:45) Glucagon Inj (Glucagon Inj) (10/08/17 01:45) Insulin Aspart Supplemtl Scale (Novolog (10/08/17 08:00) Dext 5%-Nacl 0.9% 1000 Ml Inj (D5w-Ns 10 (10/08/17 01:45) Amlodipine (Norvasc) (10/08/17 09:00) Morphine Inj (Morphine Inj) (10/08/17 01:45) Labs Laboratory Tests Test 10/07/17 23:00 White Blood Count 17.1 TH/MM3 Red Blood Count 3.91 MIL/MM3 Hemoglobin 11.1 GM/DL Hematocrit 34.5 % Mean Corpuscular Volume 88.3 FL Mean Corpuscular Hemoglobin 28.5 PG Mean Corpuscular Hemoglobin Concent 32.3 % Red Cell Distribution Width 16.0 % Platelet Count 231 TH/MM3 Mean Platelet Volume 9.2 FL Neutrophils (%) (Auto) 92.0 % Lymphocytes (%) (Auto) 4.6 % Monocytes (%) (Auto) 3.0 % Eosinophils (%) (Auto) 0.0 % Basophils (%) (Auto) 0.4 % Neutrophils # (Auto) 15.8 TH/MM3 Lymphocytes # (Auto) 0.8 TH/MM3 Monocytes # (Auto) 0.5 TH/MM3 Eosinophils # (Auto) 0.0 TH/MM3 Basophils # (Auto) 0.1 TH/MM3 CBC Comment DIFF FINAL Differential Comment Blood Urea Nitrogen 62 MG/DL Creatinine 4.65 MG/DL Random Glucose 166 MG/DL Total Protein 9.9 GM/DL Albumin 3.9 GM/DL Calcium Level 9.2 MG/DL Magnesium Level 2.1 MG/DL Alkaline Phosphatase 101 U/L Aspartate Amino Transf (AST/SGOT) 39 U/L Alanine Aminotransferase (ALT/SGPT) 17 U/L Total Bilirubin 0.4 MG/DL Sodium Level 142 MEQ/L Potassium Level 5.1 MEQ/L Chloride Level 109 MEQ/L Carbon Dioxide Level 22.4 MEQ/L Anion Gap 11 MEQ/L Estimat Glomerular Filtration Rate 16 ML/MIN Lipase 169 U/L [facility] Medical Decision Making Medical Screen Exam Complete: Yes Emergency Medical Condition: Yes Differential Diagnosis gastric ulcer vs duodenal ulcer vs gerd or variceal bleed Narrative Course pt has coffee ground emesis and vomitted multiple times in ER protonix 80 mg push and 8mg drip IVPB and zofran x 2 and med surg H and H Diagnosis Primary Impression: GI bleed Qualified Codes: K25.4 - Chronic or unspecified gastric ulcer with hemorrhage Admitting Information Admitting Physician Requests: Shravan Marte MD Oct 07, 2017 23:03
[2017-10-07 23:11] LABS: AUTOMATED NEUTROPHIL # 15.8 TH/MM3 (1.8-7.7); BASOPHIL # 0.1 TH/MM3 (0-0.2); BASOPHIL % 0.4 % (0.0-2.0); HEMATOCRIT 34.5 % (39.0-51.0); HEMOGLOBIN 11.1 GM/DL (13.0-17.0); LYMPH % 4.6 % (9.0-44.0); LYMPHOCYTE # 0.8 TH/MM3 (1.0-4.8); MEAN CELL VOLUME 88.3 FL (80.0-100.0); MEAN CORPUSCULAR HEMOGLOBIN 28.5 PG (27.0-34.0); MEAN CORPUSCULAR HGB CONC 32.3 % (32.0-36.0); MEAN PLATELET VOLUME 9.2 FL (7.0-11.0); MONOCYTE # 0.5 TH/MM3 (0-0.9); PLATELET COUNT 231 TH/MM3 (150-450); RED BLOOD COUNT 3.91 MIL/MM3 (4.50-5.90); WHITE BLOOD COUNT 17.1 TH/MM3 (4.0-11.0)
--- NOTE | 2017-10-07 23:20 | RADRPT ---
EXAM DATE/TIME: 10/07/2017 23:13 [place] COMPARISON: CHEST SINGLE AP, February 02, 2017, 4:10. INDICATIONS : Chest discomfort, nausea, vomiting for 2 days MEDICAL HISTORY : None. SURGICAL HISTORY : None. ENCOUNTER: Initial ACUITY: 2 days PAIN SCORE: 0/10 LOCATION: Bilateral chest FINDINGS: A single view of the chest demonstrates the lungs to be symmetrically aerated without evidence of mas s, infiltrate or effusion. The cardiomediastinal contours are unremarkable. Osseous structures are intact. CONCLUSION: No evidence of acute cardiopulmonary disease. Heber Osuna MD on October 07, 2017 at 23:18 Board Certified Radiologist. This report was verified electronically.
[2017-10-07] MEDS ORDERED: ONDANSETRON HCL 4 MG/2 ML VIAL IV PUSH ONE (23:30)
[2017-10-07 23:35] LABS: ALKALINE PHOSPHATASE 101 U/L (45-117); TOTAL BILIRUBIN ADULT 0.4 MG/DL (0.2-1.0); TOTAL PROTEIN 9.9 GM/DL (6.4-8.2)
[2017-10-08 00:04] LABS: ALBUMIN 3.9 GM/DL (3.4-5.0); ALT (GPT) 17 U/L (12-78); AST (GOT) 39 U/L (15-37); BICARBONATE 22.4 MEQ/L (21.0-32.0); BLOOD UREA NITROGEN 62 MG/DL (7-18); CALCIUM 9.2 MG/DL (8.5-10.1); CHLORIDE 109 MEQ/L (98-107); CREATININE 4.65 MG/DL (0.60-1.30); GLOMERULAR FILTRATION RATE 16 ML/MIN (>89); GLUCOSE,RANDOM 166 MG/DL (74-106); MAGNESIUM 2.1 MG/DL (1.5-2.5); SODIUM (NA) 142 MEQ/L (136-145)
[2017-10-08] MEDS ORDERED: ONDANSETRON HCL 4 MG/2 ML VIAL IV PUSH ONE (00:15)
[2017-10-08] MEDS ORDERED: SODIUM CHLOR 0.9% 1000 ML INJ 1,000 ML IV ONE (01:15)
[2017-10-08] MEDS ORDERED: DEXT 5%-NACL 0.45% 1000 ML INJ 1,000 ML IV SCH (01:15)
[2017-10-08] MEDS ORDERED: GLUCAGON 1 MG/ML VIAL OTHER PRN (01:45)
[2017-10-08] MEDS ORDERED: DEXTROSE 50% IN WATER 50 ML VIAL(D50) IV PUSH PRN (01:45)
[2017-10-08] MEDS ORDERED: SODIUM CHLORIDE 0.9% FLUSH 10 ML FLUSH IV FLUSH PRN (01:45)
[2017-10-08] MEDS: DEXT 5%-NACL 0.9% 1000 ML INJ 1,000 ML IV SCH ×3 (02:46→18:41)
[2017-10-08 05:25] VITALS: BP 180/101; PULSE 100; RESP 19; TEMP 98.7; O2SAT 100
[2017-10-08 05:52] LABS: AUTOMATED NEUTROPHIL # 13.4 TH/MM3 (1.8-7.7); BASOPHIL # 0.1 TH/MM3 (0-0.2); BASOPHIL % 0.4 % (0.0-2.0); HEMATOCRIT 31.5 % (39.0-51.0); HEMOGLOBIN 10.1 GM/DL (13.0-17.0); LYMPH % 7.1 % (9.0-44.0); LYMPHOCYTE # 1.1 TH/MM3 (1.0-4.8); MEAN CELL VOLUME 88.8 FL (80.0-100.0); MEAN CORPUSCULAR HEMOGLOBIN 28.6 PG (27.0-34.0); MEAN CORPUSCULAR HGB CONC 32.2 % (32.0-36.0); MEAN PLATELET VOLUME 9.1 FL (7.0-11.0); MONO % 5.8 % (0.0-8.0); MONOCYTE # 0.9 TH/MM3 (0-0.9); NEUT % 86.7 % (16.0-70.0); PLATELET COUNT 220 TH/MM3 (150-450); RED BLOOD COUNT 3.54 MIL/MM3 (4.50-5.90); RED CELL DISTRIBUTION WIDTH 16.2 % (11.6-17.2); WHITE BLOOD COUNT 15.4 TH/MM3 (4.0-11.0)
[2017-10-08 06:20] LABS: ALBUMIN 3.4 GM/DL (3.4-5.0); ALKALINE PHOSPHATASE 91 U/L (45-117); ALT (GPT) 16 U/L (12-78); AST (GOT) 34 U/L (15-37); BICARBONATE 20.2 MEQ/L (21.0-32.0); BLOOD UREA NITROGEN 60 MG/DL (7-18); CALCIUM 8.4 MG/DL (8.5-10.1); CHLORIDE 115 MEQ/L (98-107); CREATININE 4.25 MG/DL (0.60-1.30); GLOMERULAR FILTRATION RATE 18 ML/MIN (>89); GLUCOSE,RANDOM 154 MG/DL (74-106); SODIUM (NA) 145 MEQ/L (136-145); TOTAL BILIRUBIN ADULT 0.2 MG/DL (0.2-1.0); TOTAL PROTEIN 8.4 GM/DL (6.4-8.2)
[2017-10-08] MEDS: INSULIN ASPART SUPPLEMENTAL SCALE SQ SCH ×4 (08:00→21:00)
[2017-10-08 08:19] VITALS: BP 185/87; PULSE 93; RESP 18; TEMP 98.5; O2SAT 100
[2017-10-08] MEDS: PANTOPRAZOLE INJ 80 MG in SODIUM CHLORIDE 0.9% INJ 100 ML IV SCH ×2 (08:44→18:40)
[2017-10-08] MEDS: SODIUM CHLORIDE 0.9% FLUSH 10 ML FLUSH IV FLUSH SCH ×2 (09:00→21:00)
--- NOTE | 2017-10-08 09:57 | PD.CONS ---
HPI History of Present Illness This is a 47 year old male with DM, renal failure, h pylori, who presented to the ER for n/v with coffee ground emesis, abd pain. Pain is in epigastric area , intermittent and worse with movement. Admits some diarrhea as well. ONset 2d ago. After multiple episodes vomiting he started to notice coffee ground appearance. Denies blood in stool or black tarry stool, fever, sick contacts. he had an EGD 2 months ago at [facility] with finding "swelling and redness." he had EGD here in 2016 with finding h pylori, esophagitis, gastritis, gastroparesis. Subsequently had GES that did show gastroparesis. He sees a GI physician in [facility] and has colonoscopy scheduled in a few weeks from now. 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 Family History denies Social History no etoh no tobacco no illicit drug use Review of Systems Constitutional: DENIES: Fever Endocrine: DENIES: Polydipsia Eyes: DENIES: Blurred vision Ears, nose, mouth, throat: DENIES: Hearing loss Respiratory: DENIES: Cough Cardiovascular: DENIES: Chest pain Gastrointestinal: COMPLAINS OF: Abdominal pain, Diarrhea, Nausea, Vomiting, Hematemesis, DENIES: Black stools, Bloody stools Genitourinary: DENIES: Hematuria Musculoskeletal: DENIES: Muscle aches Integumentary: DENIES: Abnormal pigmentation Hematologic/lymphatic: DENIES: Bruising Immunologic/allergic: DENIES: Eczema Neurologic: COMPLAINS OF: Abnormal gait (amputee) Psychiatric: DENIES: Confusion GI Exam Vitals I&O Vital Signs Date Time Temp Pulse Resp B/P (MAP) Pulse Ox O2 Delivery O2 Flow Rate FiO2 10/08/17 08:19 98.5 93 18 185/87 (119) 100 Room Air 10/08/17 05:25 98.7 100 19 180/101 (127) 100 Room Air 10/07/17 20:10 97.8 98 18 182/90 (120) 100 I/O 10/07/17 10/07/17 10/07/17 10/08/17 10/08/17 10/08/17 07:00 15:00 23:00 07:00 15:00 23:00 Intake Total 2000 ml Balance 2000 ml Intake IV Total 2000 ml Imaging Last Impressions Chest X-Ray 10/07/17 2283 Signed Impressions: Service Date/Time: Saturday, October 07, 2017 23:13 - CONCLUSION: No evidence of acute cardiopulmonary disease. Heber Osuna MD Laboratory Test 10/07/17 23:00 10/08/17 05:19 White Blood Count 17.1 TH/MM3 15.4 TH/MM3 Red Blood Count 3.91 MIL/MM3 3.54 MIL/MM3 Hemoglobin 11.1 GM/DL 10.1 GM/DL Hematocrit 34.5 % 31.5 % Mean Corpuscular Volume 88.3 FL 88.8 FL Mean Corpuscular Hemoglobin 28.5 PG 28.6 PG Mean Corpuscular Hemoglobin Concent 32.3 % 32.2 % Red Cell Distribution Width 16.0 % 16.2 % Platelet Count 231 TH/MM3 220 TH/MM3 Mean Platelet Volume 9.2 FL 9.1 FL Neutrophils (%) (Auto) 92.0 % 86.7 % Lymphocytes (%) (Auto) 4.6 % 7.1 % Monocytes (%) (Auto) 3.0 % 5.8 % Eosinophils (%) (Auto) 0.0 % 0.0 % Basophils (%) (Auto) 0.4 % 0.4 % Neutrophils # (Auto) 15.8 TH/MM3 13.4 TH/MM3 Lymphocytes # (Auto) 0.8 TH/MM3 1.1 TH/MM3 Monocytes # (Auto) 0.5 TH/MM3 0.9 TH/MM3 Eosinophils # (Auto) 0.0 TH/MM3 0.0 TH/MM3 Basophils # (Auto) 0.1 TH/MM3 0.1 TH/MM3 CBC Comment DIFF FINAL DIFF FINAL Differential Comment Blood Urea Nitrogen 62 MG/DL 60 MG/DL Creatinine 4.65 MG/DL 4.25 MG/DL Random Glucose 166 MG/DL 154 MG/DL Total Protein 9.9 GM/DL 8.4 GM/DL Albumin 3.9 GM/DL 3.4 GM/DL Calcium Level 9.2 MG/DL 8.4 MG/DL Magnesium Level 2.1 MG/DL Alkaline Phosphatase 101 U/L 91 U/L Aspartate Amino Transf (AST/SGOT) 39 U/L 34 U/L Alanine Aminotransferase (ALT/SGPT) 17 U/L 16 U/L Total Bilirubin 0.4 MG/DL 0.2 MG/DL Sodium Level 142 MEQ/L 145 MEQ/L Potassium Level 5.1 MEQ/L 3.7 MEQ/L Chloride Level 109 MEQ/L 115 MEQ/L Carbon Dioxide Level 22.4 MEQ/L 20.2 MEQ/L Anion Gap 11 MEQ/L 10 MEQ/L Estimat Glomerular Filtration Rate 16 ML/MIN 18 ML/MIN Lipase 169 U/L Physical Examination HEENT: PERRL; normocephalic; atraumatic; no jaundice. CHEST: CTA. CARDIAC: RRR ABDOMEN: Soft, nondistended, nontender; no hepatosplenomegaly; bowel sounds are present in all four quadrants. EXTREMITIES: right foot amputation, left AKA SKIN: Normal; no rash; no jaundice. 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 Assessment and Plan Plan ASSESSMENT - n/v, epigastric pain, coffee ground emesis - could be underlying gastroparesis with bleeding from ulcer or esophagitis. has hx esophagitis, h pylori stool is guiac pos. says he had EGD 2m ago at [facility] but I do not see record. [place] [facility] [place]ritis, suggestive gastroparesis, esophagitis, h pylori. Does not take anything for gastroparesis. - anemia - mild multifactorial PLAN - EGD today - NPO - obtain consent - consider trial EENathan bethanechol - further recs to follow pt seen by myself and Dr Handley and this note is on her behalf Reyna Mckay Oct 08, 2017 09:57
[2017-10-08] MEDS ORDERED: LIDOCAINE HCL 1% PF 5 ML SYRINGE OTHER ONE (12:00)
[2017-10-08] MEDS ORDERED: PROPOFOL 200 MG/20 ML AMP IV ONE (12:00)
[2017-10-08] MEDS ORDERED: SUCCINYLCHOLINE CHLORIDE 100 MG/5 ML SYRINGE IV PUSH ONE (12:00)
[2017-10-08 12:13] VITALS: BP 193/89; PULSE 103; RESP 18; O2SAT 98
[2017-10-08] MEDS ORDERED: IRON18TA PO (12:38)
[2017-10-08] MEDS ORDERED: SODIUM CHLORID 0.9% 500 ML IV PRN (13:30)
[2017-10-08] MEDS ORDERED: POVIDONE IODINE 5% (ANTISEPSIS KIT) 4 APPLICATIONS EACH NARE PRN (13:30)
[2017-10-08] MEDS ORDERED: LACTATED RINGER'S 1000 ML IV PRN (13:30)
[2017-10-08] MEDS ORDERED: CHLORHEXIDINE GLUCONATE 2 % 1 PACK (2 CLOTHS) TOPICAL PRN (13:30)
[2017-10-08] MEDS ORDERED: METOPROLOL TARTRATE 25 MG TAB PO PRN (13:30)
[2017-10-08] MEDS ORDERED: ETOMIDATE 20 MG/10 ML VIAL ONE (14:14)
--- NOTE | 2017-10-08 15:20 | GIPROC ---
[facility] [address] [facility]. [facility], [address] EGD PROCEDURE REPORT EXAM DATE: 10/08/2017 PATIENT NAME: Lj Dennison MR #: [id number] BIRTHDATE: 1970 ATTENDING: Aisha Handley MD ORDER #: [id number] DATA CONTROL CLERK: Baljit Rojas and Nayeli Carnes STATUS: inpatient INDICATIONS: The patient is a 47 yr old male here for an EGD due to nausea, vomiting, abdominal pain PROCEDURE PERFORMED: EGD w/ biopsy MEDICATIONS: None and Per Anesthesia. TOPICAL ANESTHETIC: none CONSENT: The patient understands the risks and benefits of the procedure and understands that these risks include, but are not limited to: sedation, allergic reaction, infection, perforation and/or bleeding. Alternative means of evaluation and treatment include, among others: physical exam, x-rays, and/or surgical intervention. The patient elects to proceed with this endoscopic procedure. medical equipment was checked for proper function. Hand hygiene and appropriate measures for infection prevention was taken. After the risks, benefits and alternatives of the procedure were thoroughly explained, Informed consent was verified, confirmed and timeout was successfully executed by the treatment team. The patient was anesthetized with topical anesthesia and the Pentax [id number] endoscope was introduced through the mouth and advanced to the second portion of the duodenum. Retroflexed views revealed a hiatal hernia The gastroscope was then slowly withdrawn and removed. Gastritis antrum-biopsy duodenum second [id number] esophagitis severe, hemorrhagic distal esophagus-biopsy. ADVERSE EVENTS: There were no complications. IMPRESSIONS: 1. Gastritis antrum-biopsy duodenum second [id number] esophagitis severe, hemorrhagic distal esophagus-biopsy 2. Retroflexed views revealed a hiatal hernia RECOMMENDATIONS: 1. Await biopsy results. Biopsy results will not be ready for 7-10 days. If you don't hear from us in two weeks, call our office for biopsy results. 2. Anti-reflux regimen 3. Continue PPI 4. Npo except medication reglan iv carafate liquid PATIENT CONDITION: stable DISPOSITION: Inpatient REPEAT EXAM: Return 6 weeks EGD Aisha Handley MD eSigned: Aisha Handley MD 10/08/2017 3:20 PM cc: PATIENT NAME: Lj Dennison MR#: [id number]
[2017-10-08] MEDS ORDERED: DO NOT ADM ANY ANTICOAGULANT DRUGS PRN (16:00)
--- NOTE | 2017-10-08 17:05 | HHI.HP ---
[facility] Primary [facility] Physician Heber Barrios MD Admission Diagnosis GI hemorrhage coffee ground Emesis Diagnoses: Chief Complaint: Nausea, vomiting, diarrhea. Travel History International Travel<30 Days: No Contact w/Intl Traveler <30 Da: No Traveled to Known Affected Are: No History of Present Illness Mr. Dennison is a 47 year old male with a history of hypertension , diabetes mellitus, CKD stage IV who presents to the ED on 10/08/2017 due to nausea, vomiting, diarrhea that started in the morning of 10/07/2017. He reports coffee ground emesis but no melena or hematochezia. At the time of this interview, patient is about to go to endoscopy lab for EGD. He denies any chest pain, shortness of breath, fever, chills. He was started on Protonix drip in the ED. Review of Systems Except as stated in HPI: all other systems reviewed are Neg Past Family Social History Past Medical History Hypertension Diabetes mellitus CKD stage IV Past Surgical History Partial right foot amputation left AKA Reported Medications Hydrocodone-Acetaminophen 5-325 mg Tab 1 Tab PO BID PRN Reported [iron] PO DAILY Folic Acid 20 Mg Cap PO DAILY Amlodipine (Amlodipine Besylate) 10 Mg Tab 10 Mg PO DAILY Lantus Inj (Insulin Glargine) 1,000 Unit/10 Ml Vial 4-6 Units SQ HS Allergies: Coded Allergies: *MDRO Multi-Drug Resistant Organism (Verified Adverse Reaction, Unknown, ) MRSA (foot wound) - 03/2010, 10/2014, 04/2015 MRSA PCR Screen POSITIVE - 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 Social History Patient denies using tobacco, alcohol, illicit drugs. Physical Exam Vital Signs Vital Signs Date Time Temp Pulse Resp B/P (MAP) Pulse Ox O2 Delivery O2 Flow Rate FiO2 10/08/17 15:45 97.9 94 16 165/96 (119) 98 10/08/17 15:30 93 16 185/96 (125) 96 10/08/17 15:26 97.9 96 15 166/94 (118) 96 Room Air 10/08/17 12:13 103 18 193/89 (123) 98 Room Air 10/08/17 08:19 98.5 93 18 185/87 (119) 100 Room Air 10/08/17 05:25 98.7 100 19 180/101 (127) 100 Room Air 10/07/17 20:10 97.8 98 18 182/90 (120) 100 Physical Exam GENERAL: This is a well-nourished, well-developed patient, in no apparent distress. SKIN: No rashes, ecchymoses or lesions. Warm and dry. HEAD: Atraumatic. Normocephalic. No temporal or scalp tenderness. EYES: Pupils equal round and reactive. No injection or drainage. ENT: Nose without bleeding, purulent drainage or septal hematoma. Airway patent. NECK: Trachea midline. No lymphadenopathy. Supple, nontender, no meningeal signs. CARDIOVASCULAR: Regular rate and rhythm without murmurs, gallops, or rubs. No JVD. RESPIRATORY: Clear to auscultation. Breath sounds equal bilaterally. No wheezes , rales, or rhonchi. GASTROINTESTINAL: Abdomen soft, non-tender, nondistended. No guarding. MUSCULOSKELETAL: Extremities without clubbing, cyanosis, or edema. Left AKA and right partial foot amputation noted NEUROLOGICAL: Awake and alert. Cranial nerves II through XII intact. No focal neurological deficits. Normal speech. Laboratory Laboratory Tests Test 10/07/17 23:00 10/08/17 05:19 White Blood Count 17.1 15.4 Red Blood Count 3.91 3.54 Hemoglobin 11.1 10.1 Hematocrit 34.5 31.5 Mean Corpuscular Volume 88.3 88.8 Mean Corpuscular Hemoglobin 28.5 28.6 Mean Corpuscular Hemoglobin Concent 32.3 32.2 Red Cell Distribution Width 16.0 16.2 Platelet Count 231 220 Mean Platelet Volume 9.2 9.1 Neutrophils (%) (Auto) 92.0 86.7 Lymphocytes (%) (Auto) 4.6 7.1 Monocytes (%) (Auto) 3.0 5.8 Eosinophils (%) (Auto) 0.0 0.0 Basophils (%) (Auto) 0.4 0.4 Neutrophils # (Auto) 15.8 13.4 Lymphocytes # (Auto) 0.8 1.1 Monocytes # (Auto) 0.5 0.9 Eosinophils # (Auto) 0.0 0.0 Basophils # (Auto) 0.1 0.1 CBC Comment DIFF FINAL DIFF FINAL Differential Comment Blood Urea Nitrogen 62 60 Creatinine 4.65 4.25 Random Glucose 166 154 Total Protein 9.9 8.4 Albumin 3.9 3.4 Calcium Level 9.2 8.4 Magnesium Level 2.1 Alkaline Phosphatase 101 91 Aspartate Amino Transf (AST/SGOT) 39 34 Alanine Aminotransferase (ALT/SGPT) 17 16 Total Bilirubin 0.4 0.2 Sodium Level 142 145 Potassium Level 5.1 3.7 Chloride Level 109 115 Carbon Dioxide Level 22.4 20.2 Anion Gap 11 10 Estimat Glomerular Filtration Rate 16 18 Lipase 169 Result Diagram: 10/08/1719 10/08/1719 Imaging Last Impressions Chest X-Ray 10/07/17 0905 Signed Impressions: Service Date/Time: Saturday, October 07, 2017 23:13 - CONCLUSION: No evidence of acute cardiopulmonary disease. MD Al Jacobseni VTE Risk Assessment Caprini VTE Risk Assessment: No/Low Risk (score <= 1) Caprini Risk Assessment Model Point Value = 1 Point Value = 2 Point Value = 3 Point Value = 5 Age 41-60 Minor surgery BMI > 25 kg/m2 Swollen legs Varicose veins or History of unexplained or recurrent spontaneous Oral contraceptives or hormone replacement Sepsis (< 1 month) Serious lung disease, including pneumonia (< 1 month) Abnormal pulmonary function Acute myocardial infarction Congestive heart failure (< 1 month) History of inflammatory bowel disease Medical patient at bed rest Age 61-74 Arthroscopic surgery Major open surgery (> 45 min) Laparoscopic surgery (> 45 min) Malignancy Confined to bed (> 72 hours) Immobilizing plaster cast Central venous access Age >= 75 History of VTE Family history of VTE Factor V Leiden Prothrombin [id number] Lupus anticoagulant Anticardiolipin antibodies Elevated serum homocysteine Heparin-induced thrombocytopenia Other congenital or acquired thrombophilia Stroke (< 1 month) Elective arthroplasty Hip, pelvis, or leg fracture Acute spinal cord injury (< 1 month) Prophylaxis Regimen Total Risk Factor Score Risk Level Prophylaxis Regimen 0-1 Low Early ambulation 2 Moderate Order ONE of the following: *Sequential Compression Device (SCD) *Heparin 5000 units SQ BID 3-4 Higher Order ONE of the following medications: *Heparin 5000 units SQ TID *Enoxaparin/Lovenox 40 mg SQ daily (WT < 150 kg, CrCl > 30 mL/min) *Enoxaparin/Lovenox 30 mg SQ daily (WT < 150 kg, CrCl > 10-29 mL/min) *Enoxaparin/Lovenox 30 mg SQ BID (WT < 150 kg, CrCl > 30 mL/min) AND/OR *Sequential Compression Device (SCD) 5 or more Highest Order ONE of the following medications: *Heparin 5000 units SQ TID (Preferred with Epidurals) *Enoxaparin/Lovenox 40 mg SQ daily (WT < 150 kg, CrCl > 30 mL/min) *Enoxaparin/Lovenox 30 mg SQ daily (WT < 150 kg, CrCl > 10-29 mL/min) *Enoxaparin/Lovenox 30 mg SQ BID (WT < 150 kg, CrCl > 30 mL/min) AND *Sequential Compression Device (SCD) Assessment and Plan Problem List: (1) Acute GI bleeding ICD Code: K92.2 - Gastrointestinal hemorrhage, unspecified (2) Chronic kidney disease (CKD) stage G4/A1, severely decreased glomerular filtration rate (GFR) between 15-29 mL/min/1.73 square meter and albuminuria creatinine ratio less than 30 mg/g ICD Code: N18.4 - Chronic kidney disease, stage 4 (severe) Status: Chronic (3) HTN (hypertension) ICD Code: I10 - Essential (primary) hypertension Status: Chronic (4) DM (diabetes mellitus) ICD Code: E11.9 - Type 2 diabetes mellitus without complications Status: Chronic Assessment and Plan Mr. Dennison is a pleasant 47-year-old -Turk[place] male with a history of diabetes mellitus, CKD stage IV, hypertension who presents to the emergency department on 10/08/2017 due to nausea vomiting diarrhea and later on hematemesis that started on 10/07/2017. Hemoglobin was 11.1 on arrival. Patient underwent EGD on the same day. Acute upper GI bleeding Hemoglobin 11.1 on arrival. Last repeated hemoglobin 9.5. EGD shows gastritis and hemorrhagic distal esophagus. Sucralfate, PPI drip. CBC, BMP in the morning. If Hgb remains stable, we can likely change PPI drip to PO PPI twice a day. Hypertension Continue amlodipine 10 mg daily. Clonidine as needed. Diabetes mellitus we will continue sliding scale insulin. Will add Levemir 5 units QHS. May need meal coverage as well Goal blood glucose 140-180. 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 Creatinine 3.6 in May 2017. This admission creatinine 4.65 and later on is 4.25. Avoid nephrotoxins. Full code. Ambulation. If longer than 24-48 hour hospitalization anticipated, consider SCDs for DVT prophylaxis. Hank Valencia DO Oct 08, 2017 17:05
[2017-10-08 18:04] VITALS: BP 188/97; PULSE 107; RESP 18; TEMP 98.3; O2SAT 99
[2017-10-08] MEDS: ONDANSETRON HCL 4 MG/2 ML VIAL IV PUSH PRN (20:09)
[2017-10-08] MEDS: MORPHINE SULFATE 2 MG/ML SYRINGE IV PUSH PRN (20:09)
[2017-10-08 21:06] VITALS: BP 186/102; PULSE 88; RESP 16; TEMP 98.6; O2SAT 98
[2017-10-08 21:08] VITALS: PULSE 101
[2017-10-08] MEDS ORDERED: NITROGLYCERIN 0.4 MG SL 25 TABS/BTL SL PRN (22:15)
[2017-10-08] MEDS: METOCLOPRAMIDE HCL 10 MG/2 ML VIAL IV PUSH SCH (22:24)
[2017-10-08 22:34] LABS: HEMATOCRIT 29.7 % (39.0-51.0); HEMOGLOBIN 9.5 GM/DL (13.0-17.0)
[2017-10-08 23:53] LABS: TROPONIN I 0.04 NG/ML (0.02-0.05)
[2017-10-09] VITALS (15 sets, daily range): BP systolic 133–195; BP diastolic 76–103; PULSE 76–103; RESP 15–20; TEMP 98.3–98.8; O2SAT 18–100
[2017-10-09] MEDS ORDERED: GLUCAGON 1 MG/ML VIAL OTHER PRN
[2017-10-09] MEDS ORDERED: DEXTROSE 50% IN WATER 50 ML VIAL(D50) IV PUSH PRN
[2017-10-09] MEDS: cloNIDine HCL 0.1 MG TAB PO PRN (00:56)
[2017-10-09] MEDS: PANTOPRAZOLE INJ 80 MG in SODIUM CHLORIDE 0.9% INJ 100 ML IV SCH (03:08)
[2017-10-09] MEDS: DEXT 5%-NACL 0.9% 1000 ML INJ 1,000 ML IV SCH ×2 (03:10→14:33)
[2017-10-09 04:05] LABS: AUTOMATED NEUTROPHIL # 11.8 TH/MM3 (1.8-7.7); BASOPHIL # 0.1 TH/MM3 (0-0.2); BASOPHIL % 0.5 % (0.0-2.0); EOSINOPHIL % 0.2 % (0.0-4.0); HEMATOCRIT 29.7 % (39.0-51.0); HEMOGLOBIN 9.4 GM/DL (13.0-17.0); LYMPH % 10.1 % (9.0-44.0); LYMPHOCYTE # 1.4 TH/MM3 (1.0-4.8); MEAN CELL VOLUME 88.4 FL (80.0-100.0); MEAN CORPUSCULAR HEMOGLOBIN 27.9 PG (27.0-34.0); MEAN CORPUSCULAR HGB CONC 31.6 % (32.0-36.0); MEAN PLATELET VOLUME 8.5 FL (7.0-11.0); MONO % 6.9 % (0.0-8.0); NEUT % 82.3 % (16.0-70.0); PLATELET COUNT 191 TH/MM3 (150-450); RED BLOOD COUNT 3.37 MIL/MM3 (4.50-5.90); RED CELL DISTRIBUTION WIDTH 16.1 % (11.6-17.2); WHITE BLOOD COUNT 14.3 TH/MM3 (4.0-11.0)
[2017-10-09] MEDS ORDERED: cloNIDine HCL 0.1 MG TAB PO ONE (04:30)
[2017-10-09] MEDS ORDERED: ACETAMINOPHEN/HYDROcodone 325 MG/5 MG TAB PO ONE (04:30)
[2017-10-09 04:46] LABS: TROPONIN I 0.04 NG/ML (0.02-0.05)
[2017-10-09] MEDS: METOCLOPRAMIDE HCL 10 MG/2 ML VIAL IV PUSH SCH ×3 (04:53→20:22)
[2017-10-09] MEDS: ONDANSETRON HCL 4 MG/2 ML VIAL IV PUSH PRN ×2 (06:08→21:33)
[2017-10-09] MEDS: INSULIN ASPART SUPPLEMENTAL SCALE SQ SCH ×4 (08:00→20:21)
[2017-10-09] MEDS: SUCRALFATE 1 GM/10 ML CUP PO SCH ×4 (08:56→20:20)
[2017-10-09] MEDS: SODIUM CHLORIDE 0.9% FLUSH 10 ML FLUSH IV FLUSH SCH ×2 (08:57→20:21)
--- NOTE | 2017-10-09 09:35 | HHI.GIFU ---
Subjective Remarks Pt resting in bed Complaining of some nausea, controlled on medication Denies emesis since EGD yesterday Denies abdominal pain Would like something to drink (Carol Blair) Objective Vitals I&O Vital Signs Date Time Temp Pulse Resp B/P (MAP) Pulse Ox O2 Delivery O2 Flow Rate FiO2 10/09/17 07:08 98.7 85 18 166/93 (117) 98 10/09/17 05:54 98.3 76 15 174/95 (121) 97 10/09/17 04:44 160/91 (114) 10/09/17 04:11 85 10/09/17 03:03 98.4 84 16 173/103 (126) 100 10/09/17 02:16 98 18 177/93 (121) 100 10/09/17 00:06 103 15 189/98 (128) 98 10/09/17 00:04 101 10/08/17 21:08 101 10/08/17 21:06 98.6 88 16 186/102 (130) 98 10/08/17 18:04 98.3 107 18 188/97 (127) 99 10/08/17 15:45 97.9 94 16 165/96 (119) 98 10/08/17 15:30 93 16 185/96 (125) 96 10/08/17 15:26 97.9 96 15 166/94 (118) 96 Room Air 10/08/17 12:13 103 18 193/89 (123) 98 Room Air I/O 10/08/17 10/08/17 10/08/17 10/09/17 10/09/17 10/09/17 07:00 15:00 23:00 07:00 15:00 23:00 Intake Total 2000 ml 150 ml 1000 ml Output Total 700 ml 1000 ml Balance 2000 ml -700 ml 150 ml 0 ml Intake Oral 1000 ml IV Total 2000 ml Other 150 ml Output Urine Total 700 ml 1000 ml # Voids 1 Laboratory Laboratory Tests Test 10/08/17 22:15 10/08/17 22:52 10/09/17 03:49 Hemoglobin 9.5 9.4 Hematocrit 29.7 29.7 Total Creatine Kinase 1445 1292 Creatine Kinase MB 7.6 6.7 Creatine Kinase MB % 0.5 0.5 Troponin I 0.04 0.04 White Blood Count 14.3 Red Blood Count 3.37 Mean Corpuscular Volume 88.4 Mean Corpuscular Hemoglobin 27.9 Mean Corpuscular Hemoglobin Concent 31.6 Red Cell Distribution Width 16.1 Platelet Count 191 Mean Platelet Volume 8.5 Neutrophils (%) (Auto) 82.3 Lymphocytes (%) (Auto) 10.1 Monocytes (%) (Auto) 6.9 Eosinophils (%) (Auto) 0.2 Basophils (%) (Auto) 0.5 Neutrophils # (Auto) 11.8 Lymphocytes # (Auto) 1.4 Monocytes # (Auto) 1.0 Eosinophils # (Auto) 0.0 Basophils # (Auto) 0.1 CBC Comment DIFF FINAL Differential Comment Imaging Last Impressions Chest X-Ray 10/07/17 5729 Signed Impressions: Service Date/Time: Saturday, October 07, 2017 23:13 - CONCLUSION: No evidence of acute cardiopulmonary disease. Heber Osuna MD Physical Exam HEENT: Normocephalic; atraumatic CHEST: Even/unlabored CARDIAC: RRR ABDOMEN: Soft, nondistended, nontender; bowel sounds active EXTREMITIES: L AKA and R partial foot amputation RN TRANSPORT: Alert and oriented times three. (Carol Blair) Assessment and Plan Plan ASSESSMENT - Epigastric pain/N/V/coffee ground emesis- states EGD 2 months ago at [facility] with findings of swelling and redness. S/P EGD yesterday --> Gastritis in the antrum. Normal duodenum. Severe esophagitis, hemorrhagic distal esophagus. Hiatal hernia. History of H Pylori. - Diarrhea- started at same time as symptoms above. Denies continued diarrhea at this time. - Gastroparesis- GES (05/2016) --> Abnormal gastric emptying. Mild response to Reglan. - Anemia- normocytic- H/H 11.1/34.5 on admission - Impaired renal function PLAN - EGD biopsy pending - Carafate - Reglan - BGL control - Clear liquids - Monitor H/H - DC Protonix gtt - Protonix PO BID - Further recommendations based on clinical course Pt has been seen and examined by myself and Dr. Handley and this note is written on her behalf (Carol Blair) Carol Blair Oct 09, 2017 09:35 Aisha Handley MD Oct 09, 2017 17:06
[2017-10-09 11:49] LABS: BICARBONATE 21.8 MEQ/L (21.0-32.0); CALCIUM 7.8 MG/DL (8.5-10.1); CREATININE 3.71 MG/DL (0.60-1.30)
--- NOTE | 2017-10-09 11:56 | HHI.PR ---
Subjective Remarks in no acute distress. no abdominal pain, nausea or vomiting. no active bleed. Objective Vitals Vital Signs Date Time Temp Pulse Resp B/P (MAP) Pulse Ox O2 Delivery O2 Flow Rate FiO2 10/09/17 07:08 98.7 85 18 166/93 (117) 98 10/09/17 07:05 81 10/09/17 05:54 98.3 76 15 174/95 (121) 97 10/09/17 04:44 160/91 (114) 10/09/17 04:11 85 10/09/17 03:03 98.4 84 16 173/103 (126) 100 10/09/17 02:16 98 18 177/93 (121) 100 10/09/17 00:06 103 15 189/98 (128) 98 10/09/17 00:04 101 10/08/17 21:08 101 10/08/17 21:06 98.6 88 16 186/102 (130) 98 10/08/17 18:04 98.3 107 18 188/97 (127) 99 10/08/17 15:45 97.9 94 16 165/96 (119) 98 10/08/17 15:30 93 16 185/96 (125) 96 10/08/17 15:26 97.9 96 15 166/94 (118) 96 Room Air 10/08/17 12:13 103 18 193/89 (123) 98 Room Air I/O 10/08/17 10/08/17 10/08/17 10/09/17 10/09/17 10/09/17 07:00 15:00 23:00 07:00 15:00 23:00 Intake Total 2000 ml 150 ml 1000 ml Output Total 700 ml 1000 ml Balance 2000 ml -700 ml 150 ml 0 ml Intake Oral 1000 ml IV Total 2000 ml Other 150 ml Output Urine Total 700 ml 1000 ml # Voids 1 Result Diagram: 10/09/17 0349 10/09/17 1057 Imaging Last Impressions Chest X-Ray 10/07/17 9941 Signed Impressions: Service Date/Time: Saturday, October 07, 2017 23:13 - CONCLUSION: No evidence of acute cardiopulmonary disease. Heber Osuna MD Objective Remarks GENERAL: This is a well-nourished, well-developed patient, in no apparent distress. CARDIOVASCULAR: Regular rate and regular rhythm without murmurs, gallops, or rubs. RESPIRATORY: Clear to auscultation. Breath sounds equal bilaterally. No wheezes , rales, or rhonchi. GASTROINTESTINAL: Abdomen soft, non-tender, nondistended. Normal, active bowel sounds MUSCULOSKELETAL: Extremities without clubbing, cyanosis, or edema. NEURO: Alert & Oriented x4 to person, place, time, situation. Moves all ext x4 Procedures EGD Medications and IVs Inpatient Medications Acetaminophen/ Hydrocodone Bitart ([place] 5-325 Mg) 1 tab ONCE ONCE PO Last administered on 10/09/17at 04:53; Start 10/09/17 at 04:30; Stop 10/09/17 at 04:32 ; Status DC Amlodipine Besylate (Norvasc) 10 mg DAILY PO Last administered on 10/09/17at 08: 57; Start 10/08/17 at 09:00 Chlorhexidine Gluconate (Chlorhexidine 2% Cloth) 3 pack V BELT INSPECTOR PRN TOPICAL SEE LABEL COMMENTS; Start 10/08/17 at 13:30; Stop 10/11/17 at 13:29 Clonidine (Catapres) 0.1 mg ONCE ONCE PO Last administered on 10/09/17at 06:02 ; Start 10/09/17 at 04:30; Stop 10/09/17 at 04:32; Status DC Dextrose (D50w (Vial) Inj) 50 ml UNSCH PRN IV PUSH HYPOGLYCEMIA-SEE COMMENTS; Start 10/09/17 at 00:00 Dextrose/Sodium Chloride 1,000 ml @ 100 mls/hr Q10H IV Last administered on at 03:10; Start 10/08/17 at 01:45 Glucagon (Glucagon Inj) 1 mg UNSCH PRN OTHER HYPOGLYCEMIA-SEE COMMENTS; Start 10/09/17 at 00:00 Insulin Aspart (NovoLOG SUPPLEMENTAL SCALE) 1 ACHS SLIDING SCALE SQ ; Start at 08:00 Insulin Detemir (Levemir Inj) 5 units HS SQ ; Start 10/09/17 at 21:00 Lactated Ringer's 1,000 ml @ 30 mls/hr Q24H PRN IV SEE LABEL COMMENTS; Start at 13:30; Stop 10/11/17 at 13:29 Metoclopramide HCl (Reglan Inj) 5 mg Q8HR IV PUSH Last administered on at 04:53; Start 10/08/17 at 22:00 Metoprolol Tartrate (Lopressor) 25 mg V BELT INSPECTOR PRN PO SEE LABEL COMMENTS; Start 10/08/17 at 13:30; Stop 10/11/17 at 13:29 Miscellaneous Information ALL NURSING DEPARTME... UNSCH PRN .XX SEE LABEL COMMENTS; Start 10/08/17 at 16:00; Stop 10/09/17 at 15:59 Morphine Sulfate (Morphine Inj) 2 mg Q3H PRN IV PUSH pain > 4 Last administered on 10/08/17at 20:09; Start 10/08/17 at 01:45 Nitroglycerin (Nitrostat Sl) 0.4 mg Q5M PRN SL ANGINA Last administered on 10/08at 22:19; Start 10/08/17 at 22:15 Ondansetron HCl (Zofran Inj) 4 mg Q6HR PRN IV PUSH NAUSEA OR VOMITING Last administered on 10/09/17at 06:08; Start 10/08/17 at 09:00 Pantoprazole Sodium (Protonix Inj) 80 mg ONCE ONCE IV PUSH Last administered on 10/07/17at 23:24; Start 10/07/17 at 23:00; Stop 10/07/17 at 23:01; Status DC Pantoprazole Sodium (Protonix) 40 mg Q12HR PO ; Start 10/09/17 at 21:00 Pantoprazole Sodium 80 mg/ Sodium Chloride 100 ml @ 10 mls/hr Q10H IV Last administered on 10/09/17at 03:08; Start 10/08/17 at 10:00; Stop 10/09/17 at 09:35 ; Status DC Povidone Iodine (Betadine 5% Antisepsis Kit) 1 applic V BELT INSPECTOR PRN EACH NARE SEE LABEL COMMENTS; Start 10/08/17 at 13:30; Stop 10/11/17 at 13:29 Sodium Chloride 500 ml @ 30 mls/hr [id number] PRN IV SEE LABEL COMMENTS; Start at 13:30; Stop 10/11/17 at 13:29 Sodium Chloride (NS Flush) 2 ml BID IV FLUSH ; Start 10/08/17 at 09:00 Sucralfate (Carafate Liq) 1 gm ACHS PO Last administered on 10/09/17at 08:56; Start 10/09/17 at 08:00 A/P Problem List: (1) Acute GI bleeding ICD Code: K92.2 - Gastrointestinal hemorrhage, unspecified (2) Chronic kidney disease (CKD) stage G4/A1, severely decreased glomerular filtration rate (GFR) between 15-29 mL/min/1.73 square meter and albuminuria creatinine ratio less than 30 mg/g ICD Code: N18.4 - Chronic kidney disease, stage 4 (severe) Status: Chronic (3) HTN (hypertension) ICD Code: I10 - Essential (primary) hypertension Status: Chronic (4) DM (diabetes mellitus) ICD Code: E11.9 - Type 2 diabetes mellitus without complications Status: Chronic Assessment and Plan Acute upper GI bleeding EGD shows gastritis and hemorrhagic distal esophagus. Sucralfate, PPI drip. GI following. Hypertension Continue amlodipine 10 mg daily. Clonidine as needed. Diabetes mellitus we will continue sliding scale insulin. added Levemir. Acute on chronic kidney disease Chronic kidney disease stage IV Has outpatient manager shell. Creatinine 3.6 in May 2017. Avoid nephrotoxins. Discharge Planning discharge when cleared by GI. Jazmyne Izaguirre MD Oct 09, 2017 11:56
[2017-10-09 12:05] LABS: TROPONIN I 0.03 NG/ML (0.02-0.05)
[2017-10-09] MEDS: PANTOPRAZOLE SOD 40 MG DELAYED RELEASE TAB PO SCH (20:20)
[2017-10-09] MEDS: INSULIN DETEMIR 100 UNITS/ML VIAL SQ SCH ×2 (20:21→20:32)
[2017-10-09] MEDS: MORPHINE SULFATE 2 MG/ML SYRINGE IV PUSH PRN (21:33)
[2017-10-09] MEDS ORDERED: PROCHLORPERAZINE INJ 10 MG/2 ML VIAL IV PUSH ONE (23:30)
[2017-10-10] VITALS (8 sets, daily range): BP systolic 138–177; BP diastolic 67–89; PULSE 76–95; RESP 16–18; TEMP 96.2–98.7; O2SAT 97–100
[2017-10-10] MEDS: DEXT 5%-NACL 0.9% 1000 ML INJ 1,000 ML IV SCH ×3 (03:45→21:29)
[2017-10-10] MEDS: METOCLOPRAMIDE HCL 10 MG/2 ML VIAL IV PUSH SCH ×3 (05:06→21:11)
[2017-10-10] MEDS: cloNIDine HCL 0.1 MG TAB PO PRN (05:07)
[2017-10-10] MEDS: INSULIN ASPART SUPPLEMENTAL SCALE SQ SCH ×4 (08:00→20:29)
[2017-10-10] MEDS: SUCRALFATE 1 GM/10 ML CUP PO SCH ×4 (08:35→21:11)
[2017-10-10] MEDS: SODIUM CHLORIDE 0.9% FLUSH 10 ML FLUSH IV FLUSH SCH ×2 (08:38→21:00)
--- NOTE | 2017-10-10 08:46 | HHI.PR ---
Subjective Remarks in no acute distress. abdominal pain is improving. no nausea or vomiting and tolerating the liquid diet. d/w the RN and no acute issues over night. Objective Vitals Vital Signs Date Time Temp Pulse Resp B/P (MAP) Pulse Ox O2 Delivery O2 Flow Rate FiO2 10/10/17 04:58 98.7 95 18 177/84 (115) 99 10/09/17 23:28 98.3 89 18 195/100 (131) 97 10/09/17 23:00 96 10/09/17 21:38 18 10/09/17 20:26 98.8 90 18 171/99 (123) 99 10/09/17 15:51 98.7 82 20 133/76 (95) 99 10/09/17 15:15 87 10/09/17 12:04 98.6 88 18 166/93 (117) 100 I/O 10/09/17 10/09/17 10/09/17 10/10/17 10/10/17 10/10/17 06:59 14:59 22:59 06:59 14:59 22:59 Intake Total 1000 ml 340 ml Output Total 1000 ml Balance 0 ml 340 ml Intake Oral 1000 ml 340 ml Output Urine Total 1000 ml # Voids 4 # Bowel Movements 2 Result Diagram: 10/09/17 0349 10/09/17 1057 Imaging Last Impressions Chest X-Ray 10/07/17 1475 Signed Impressions: Service Date/Time: Saturday, October 07, 2017 23:13 - CONCLUSION: No evidence of acute cardiopulmonary disease. Heber Osuna MD Objective Remarks GENERAL: This is a well-nourished, well-developed patient, in no apparent distress. CARDIOVASCULAR: Regular rate and regular rhythm without murmurs, gallops, or rubs. RESPIRATORY: Clear to auscultation. Breath sounds equal bilaterally. No wheezes , rales, or rhonchi. GASTROINTESTINAL: Abdomen soft, non-tender, nondistended. Normal, active bowel sounds MUSCULOSKELETAL: Extremities without clubbing, cyanosis, or edema. NEURO: Alert & Oriented x4 to person, place, time, situation. Moves all ext x4 Procedures EGD Medications and IVs Inpatient Medications Acetaminophen/ Hydrocodone Bitart ([place] 5-325 Mg) 1 tab ONCE ONCE PO Last administered on 10/09/17at 04:53; Start 10/09/17 at 04:30; Stop 10/09/17 at 04:32 ; Status DC Amlodipine Besylate (Norvasc) 10 mg DAILY PO Last administered on 10/09/17at 08: 57; Start 10/08/17 at 09:00 Chlorhexidine Gluconate (Chlorhexidine 2% Cloth) 3 pack STOCK HANGER PRN TOPICAL SEE LABEL COMMENTS; Start 10/08/17 at 13:30; Stop 10/11/17 at 13:29 Clonidine (Catapres) 0.1 mg ONCE ONCE PO Last administered on 10/09/17at 06:02 ; Start 10/09/17 at 04:30; Stop 10/09/17 at 04:32; Status DC Dextrose (D50w (Vial) Inj) 50 ml UNSCH PRN IV PUSH HYPOGLYCEMIA-SEE COMMENTS; Start 10/09/17 at 00:00 Dextrose/Sodium Chloride 1,000 ml @ 100 mls/hr Q10H IV Last administered on at 03:45; Start 10/08/17 at 01:45 Glucagon (Glucagon Inj) 1 mg UNSCH PRN OTHER HYPOGLYCEMIA-SEE COMMENTS; Start 10/09/17 at 00:00 Insulin Aspart (NovoLOG SUPPLEMENTAL SCALE) 1 ACHS SLIDING SCALE SQ ; Start at 08:00 Insulin Detemir (Levemir Inj) 5 units HS SQ ; Start 10/09/17 at 21:00 Lactated Ringer's 1,000 ml @ 30 mls/hr Q24H PRN IV SEE LABEL COMMENTS; Start at 13:30; Stop 10/11/17 at 13:29 Metoclopramide HCl (Reglan Inj) 5 mg Q8HR IV PUSH Last administered on at 05:06; Start 10/08/17 at 22:00 Metoprolol Tartrate (Lopressor) 25 mg STOCK HANGER PRN PO SEE LABEL COMMENTS; Start 10/08/17 at 13:30; Stop 10/11/17 at 13:29 Miscellaneous Information ALL NURSING DEPARTME... UNSCH PRN .XX SEE LABEL COMMENTS; Start 10/08/17 at 16:00; Stop 10/09/17 at 15:59; Status DC Morphine Sulfate (Morphine Inj) 2 mg Q3H PRN IV PUSH pain > 4 Last administered on 10/09/17 21:33; Start 10/08/17 at 01:45 Nitroglycerin (Nitrostat Sl) 0.4 mg Q5M PRN SL ANGINA Last administered on 10/08at 22:19; Start 10/08/17 at 22:15 Ondansetron HCl (Zofran Inj) 4 mg Q6HR PRN IV PUSH NAUSEA OR VOMITING Last administered on 10/09/17 21:33; Start 10/08/17 at 09:00 Pantoprazole Sodium (Protonix Inj) 80 mg ONCE ONCE IV PUSH Last administered on 10/07/17 23:24; Start 10/07/17 at 23:00; Stop 10/07/17 at 23:01; Status DC Pantoprazole Sodium (Protonix) 40 mg Q12HR PO Last administered on 10/09/17 20 :20; Start 10/09/17 at 21:00 Pantoprazole Sodium 80 mg/ Sodium Chloride 100 ml @ 10 mls/hr Q10H IV Last administered on 10/09/17at 03:08; Start 10/08/17 at 10:00; Stop 10/09/17 at 09:35 ; Status DC Povidone Iodine (Betadine 5% Antisepsis Kit) 1 applic STOCK HANGER PRN EACH NARE SEE LABEL COMMENTS; Start 10/08/17 at 13:30; Stop 10/11/17 at 13:29 Prochlorperazine Edisylate (Compazine Inj) 5 mg ONCE ONCE IV PUSH Last administered on 10/09/17at 23:34; Start 10/09/17 at 23:30; Stop 10/09/17 at 23:31 ; Status DC Sodium Chloride 500 ml @ 30 mls/hr [id number] PRN IV SEE LABEL COMMENTS; Start at 13:30; Stop 10/11/17 at 13:29 Sodium Chloride (NS Flush) 2 ml BID IV FLUSH Last administered on 10/09/17at 20: 21; Start 10/08/17 at 09:00 Sucralfate (Carafate Liq) 1 gm ACHS PO Last administered on 10/09/17 20:20; Start 10/09/17 at 08:00 A/P Problem List: (1) Acute GI bleeding ICD Code: K92.2 - Gastrointestinal hemorrhage, unspecified (2) Chronic kidney disease (CKD) stage G4/A1, severely decreased glomerular filtration rate (GFR) between 15-29 mL/min/1.73 square meter and albuminuria creatinine ratio less than 30 mg/g ICD Code: N18.4 - Chronic kidney disease, stage 4 (severe) Status: Chronic (3) HTN (hypertension) ICD Code: I10 - Essential (primary) hypertension Status: Chronic (4) DM (diabetes mellitus) ICD Code: E11.9 - Type 2 diabetes mellitus without complications Status: Chronic Assessment and Plan Acute upper GI bleeding EGD shows gastritis and hemorrhagic distal esophagus. Sucralfate, PPI. GI following. will advance the diet per GI. Hypertension Continue amlodipine 10 mg daily. Clonidine as needed. Diabetes mellitus we will continue sliding scale insulin. added Levemir. Acute on chronic kidney disease Chronic kidney disease stage IV Has outpatient crushed stone grader. Creatinine 3.6 in May 2017. Avoid nephrotoxins. monitor renal function. Discharge Planning discharge when cleared by GI. Jazmyne Izaguirre MD Oct 10, 2017 08:46
--- NOTE | 2017-10-10 08:49 | HHI.GIFU ---
Subjective Remarks Pt resting in bed States some nausea and dry heaving, no emesis Last BM was yesterday, states formed Some epigastric abdominal pain Tolerating clear liquids but is concerned about advancing his diet Objective Vitals I&O Vital Signs Date Time Temp Pulse Resp B/P (MAP) Pulse Ox O2 Delivery O2 Flow Rate FiO2 10/10/17 04:58 98.7 95 18 177/84 (115) 99 10/09/17 23:28 98.3 89 18 195/100 (131) 97 10/09/17 23:00 96 10/09/17 21:38 18 10/09/17 20:26 98.8 90 18 171/99 (123) 99 10/09/17 15:51 98.7 82 20 133/76 (95) 99 10/09/17 15:15 87 10/09/17 12:04 98.6 88 18 166/93 (117) 100 I/O 10/09/17 10/09/17 10/09/17 10/10/17 10/10/17 10/10/17 07:00 15:00 23:00 07:00 15:00 23:00 Intake Total 1000 ml 340 ml Output Total 1000 ml Balance 0 ml 340 ml Intake Oral 1000 ml 340 ml Output Urine Total 1000 ml # Voids 4 # Bowel Movements 2 Laboratory Laboratory Tests Test 10/09/17 10:57 Blood Urea Nitrogen 50 Creatinine 3.71 Random Glucose 151 Calcium Level 7.8 Sodium Level 142 Potassium Level 3.4 Chloride Level 114 Carbon Dioxide Level 21.8 Anion Gap 6 Estimat Glomerular Filtration Rate 21 Total Creatine Kinase 1162 Creatine Kinase MB 5.8 Creatine Kinase MB % 0.5 Troponin I 0.03 Imaging Last Impressions Chest X-Ray 10/07/17 3837 Signed Impressions: Service Date/Time: Saturday, October 07, 2017 23:13 - CONCLUSION: No evidence of acute cardiopulmonary disease. 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 Assessment and Plan Plan ASSESSMENT - Epigastric pain/N/V/coffee ground emesis- states EGD 2 months ago at [facility] with findings of swelling and redness. S/P EGD yesterday --> Gastritis in the antrum. Normal duodenum. Severe esophagitis, hemorrhagic distal esophagus. Hiatal hernia. History of H Pylori. - Diarrhea- started at same time as symptoms above. Denies continued diarrhea at this time. - Gastroparesis- GES (05/2016) --> Abnormal gastric emptying. Mild response to Reglan. - Anemia- normocytic- H/H 11.1/34.5 on admission - Impaired renal function (10/10) Complaining of mild epigastric pain and continued nausea with dry heaving , denies emesis. Currently on clear liquids, concerned about advancing his diet. Diarrhea resolved, reports BM yesterday was formed. EGD biopsy pending. H/H stable, no further reports of GIB. Currently on Protonix BID, Sucralfate ACHS, and Reglan 5mg q8hr. PLAN - EGD biopsy pending - Carafate - Reglan - BGL control - Advance to full liquid diet - Monitor H/H - Protonix PO BID - Further recommendations based on clinical course Pt has been seen and examined by myself and Dr. Lozoya and this note is written on her behalf Carol Blair Oct 10, 2017 08:49
--- NOTE | 2017-10-10 09:06 | EKG ---
Date Performed: 10/08/2017 Time Performed: 22:11:18 PTAGE: 47 years EKG: Sinus rhythm INCOMPLETE RIGHT BUNDLE BRANCH BLOCK BORDERLINE ECG NO PREVIOUS TRACING DOCTOR: Bela Gregory Interpretating Date/Time 10/10/2017 09:03:27
[2017-10-10] MEDS: PANTOPRAZOLE SOD 40 MG DELAYED RELEASE TAB PO SCH ×2 (09:20→21:11)
[2017-10-10 14:09] LABS: BASOPHIL # 0.1 TH/MM3 (0-0.2); BASOPHIL % 0.6 % (0.0-2.0); EOSINOPHIL # 0.2 TH/MM3 (0-0.4); EOSINOPHIL % 1.6 % (0.0-4.0); HEMATOCRIT 30.5 % (39.0-51.0); HEMOGLOBIN 9.8 GM/DL (13.0-17.0); LYMPH % 22.7 % (9.0-44.0); LYMPHOCYTE # 2.1 TH/MM3 (1.0-4.8); MEAN CELL VOLUME 88.9 FL (80.0-100.0); MEAN CORPUSCULAR HEMOGLOBIN 28.6 PG (27.0-34.0); MEAN CORPUSCULAR HGB CONC 32.2 % (32.0-36.0); MEAN PLATELET VOLUME 7.5 FL (7.0-11.0); MONO % 10.2 % (0.0-8.0); MONOCYTE # 0.9 TH/MM3 (0-0.9); NEUT % 64.9 % (16.0-70.0); PLATELET COUNT 148 TH/MM3 (150-450); RED BLOOD COUNT 3.43 MIL/MM3 (4.50-5.90); RED CELL DISTRIBUTION WIDTH 16.2 % (11.6-17.2); WHITE BLOOD COUNT 9.3 TH/MM3 (4.0-11.0)
[2017-10-10 14:36] LABS: BICARBONATE 21.1 MEQ/L (21.0-32.0); CALCIUM 7.5 MG/DL (8.5-10.1); CREATININE 3.34 MG/DL (0.60-1.30)
[2017-10-10] MEDS ORDERED: MORPHINE SULFATE 2 MG/ML SYRINGE IV PUSH PRN (19:15)
[2017-10-10] MEDS ORDERED: ACETAMINOPHEN/HYDROcodone 325 MG/5 MG TAB PO PRN (19:15)
[2017-10-10] MEDS: INSULIN DETEMIR 100 UNITS/ML VIAL SQ SCH (20:29)
[2017-10-11 00:10] VITALS: PULSE 77
[2017-10-11 01:55] VITALS: BP 160/87; PULSE 81; RESP 16; TEMP 98; O2SAT 99
[2017-10-11] MEDS ORDERED: SINCALIDE 5 MCG/5 ML VIAL IV ONE (03:23)
[2017-10-11 04:40] VITALS: BP 170/84; PULSE 78; RESP 16; TEMP 97.8; O2SAT 100
[2017-10-11 05:27] LABS: BACTERIA, URINE OCC /hpf; BILIRUBIN, URINE NEG (NEG); BLOOD, URINE SMALL (NEG); GLUCOSE,URINE NEG (NEG); KETONE, URINE NEG (NEG); NITRITE,URINE NEG (NEG); PH, URINE 5.5 (5.0-8.5); SQUAMOUS EPITHELIAL CELL URINE <1 /hpf (0-5); URINE COLOR LIGHT-YELLOW (YELLW/STRAW); URINE LEUKOCYTE ESTERASE NEG (NEG)
[2017-10-11] MEDS: METOCLOPRAMIDE HCL 10 MG/2 ML VIAL IV PUSH SCH ×2 (05:45→13:50)
[2017-10-11 07:38] VITALS: BP 162/89; PULSE 91; RESP 18; TEMP 98.5; O2SAT 100
--- NOTE | 2017-10-11 08:19 | HHI.PR ---
Subjective Remarks in no acute distress. has minimal to mild abdominal pain. no nausea/ vomiting. Objective Vitals Vital Signs Date Time Temp Pulse Resp B/P (MAP) Pulse Ox O2 Delivery O2 Flow Rate FiO2 10/11/17 07:38 98.5 91 18 162/89 (113) 100 10/11/17 04:40 97.8 78 16 170/84 (112) 100 10/11/17 01:55 98.0 81 16 160/87 (111) 99 10/11/17 00:10 77 10/10/17 21:53 98.0 95 16 172/89 (116) 98 10/10/17 20:15 80 10/10/17 15:11 77 10/10/17 14:41 96.2 88 18 154/88 (110) 97 10/10/17 12:05 97.1 79 18 138/67 (90) 100 Result Diagram: 10/10/17 1337 10/10/17 1337 Imaging Last Impressions Chest X-Ray 10/07/17 4622 Signed Impressions: Service Date/Time: Saturday, October 07, 2017 23:13 - CONCLUSION: No evidence of acute cardiopulmonary disease. Heber Osuna MD Objective Remarks GENERAL: This is a well-nourished, well-developed patient, in no apparent distress. CARDIOVASCULAR: Regular rate and regular rhythm without murmurs, gallops, or rubs. RESPIRATORY: Clear to auscultation. Breath sounds equal bilaterally. No wheezes , rales, or rhonchi. GASTROINTESTINAL: Abdomen soft, non-tender, nondistended. Normal, active bowel sounds MUSCULOSKELETAL: Extremities without clubbing, cyanosis, or edema. NEURO: Alert & Oriented x4 to person, place, time, situation. Moves all ext x4 Procedures EGD Medications and IVs Inpatient Medications Acetaminophen/ Hydrocodone Bitart ([place] 5-325 Mg) 1 tab Q4H PRN PO PAIN > 4 Last administered on 10/10/17at 19:44; Start 10/10/17 at 19:15 Amlodipine Besylate (Norvasc) 10 mg DAILY PO Last administered on 10/10/17at 09: 20; Start 10/08/17 at 09:00 Chlorhexidine Gluconate (Chlorhexidine 2% Cloth) 3 pack HOUSING QUALITY STANDARD INSPECTOR PRN TOPICAL SEE LABEL COMMENTS; Start 10/08/17 at 13:30; Stop 10/11/17 at 13:29 Clonidine (Catapres) 0.1 mg ONCE ONCE PO Last administered on 10/09/17at 06:02 ; Start 10/09/17 at 04:30; Stop 10/09/17 at 04:32; Status DC Dextrose (D50w (Vial) Inj) 50 ml UNSCH PRN IV PUSH HYPOGLYCEMIA-SEE COMMENTS; Start 10/09/17 at 00:00 Dextrose/Sodium Chloride 1,000 ml @ 100 mls/hr Q10H IV Last administered on at 21:29; Start 10/08/17 at 01:45 Glucagon (Glucagon Inj) 1 mg UNSCH PRN OTHER HYPOGLYCEMIA-SEE COMMENTS; Start 10/09/17 at 00:00 Insulin Aspart (NovoLOG SUPPLEMENTAL SCALE) 1 ACHS SLIDING SCALE SQ ; Start at 08:00 Insulin Detemir (Levemir Inj) 5 units HS SQ ; Start 10/09/17 at 21:00 Lactated Ringer's 1,000 ml @ 30 mls/hr Q24H PRN IV SEE LABEL COMMENTS; Start at 13:30; Stop 10/11/17 at 13:29 Metoclopramide HCl (Reglan Inj) 5 mg Q8HR IV PUSH Last administered on at 05:45; Start 10/08/17 at 22:00 Metoprolol Tartrate (Lopressor) 25 mg HOUSING QUALITY STANDARD INSPECTOR PRN PO SEE LABEL COMMENTS; Start 10/08/17 at 13:30; Stop 10/11/17 at 13:29 Miscellaneous Information ALL NURSING DEPARTME... UNSCH PRN .XX SEE LABEL COMMENTS; Start 10/08/17 at 16:00; Stop 10/09/17 at 15:59; Status DC Morphine Sulfate (Morphine Inj) 2 mg Q4H PRN IV PUSH BREAKTHROUGH PAIN; Start 10/10/17 at 19:15 Nitroglycerin (Nitrostat Sl) 0.4 mg Q5M PRN SL ANGINA Last administered on 10/08at 22:19; Start 10/08/17 at 22:15 Ondansetron HCl (Zofran Inj) 4 mg Q6HR PRN IV PUSH NAUSEA OR VOMITING Last administered on 10/09/17at 21:33; Start 10/08/17 at 09:00 Pantoprazole Sodium (Protonix Inj) 80 mg ONCE ONCE IV PUSH Last administered on 10/07/17at 23:24; Start 10/07/17 at 23:00; Stop 10/07/17 at 23:01; Status DC Pantoprazole Sodium (Protonix) 40 mg Q12HR PO Last administered on 10/10/17at 21 :11; Start 10/09/17 at 21:00 Pantoprazole Sodium 80 mg/ Sodium Chloride 100 ml @ 10 mls/hr Q10H IV Last administered on 10/09/17at 03:08; Start 10/08/17 at 10:00; Stop 10/09/17 at 09:35 ; Status DC Povidone Iodine (Betadine 5% Antisepsis Kit) 1 applic HOUSING QUALITY STANDARD INSPECTOR PRN EACH NARE SEE LABEL COMMENTS; Start 10/08/17 at 13:30; Stop 10/11/17 at 13:29 Prochlorperazine Edisylate (Compazine Inj) 5 mg ONCE ONCE IV PUSH Last administered on 10/09/17at 23:34; Start 10/09/17 at 23:30; Stop 10/09/17 at 23:31 ; Status DC Sodium Chloride 500 ml @ 30 mls/hr [id number] PRN IV SEE LABEL COMMENTS; Start at 13:30; Stop 10/11/17 at 13:29 Sodium Chloride (NS Flush) 2 ml BID IV FLUSH Last administered on 10/10/17at 08: 38; Start 10/08/17 at 09:00 Sucralfate (Carafate Liq) 1 gm ACHS PO Last administered on 10/10/17at 21:11; Start 10/09/17 at 08:00 A/P Problem List: (1) Acute GI bleeding ICD Code: K92.2 - Gastrointestinal hemorrhage, unspecified (2) Chronic kidney disease (CKD) stage G4/A1, severely decreased glomerular filtration rate (GFR) between 15-29 mL/min/1.73 square meter and albuminuria creatinine ratio less than 30 mg/g ICD Code: N18.4 - Chronic kidney disease, stage 4 (severe) Status: Chronic (3) HTN (hypertension) ICD Code: I10 - Essential (primary) hypertension Status: Chronic (4) DM (diabetes mellitus) ICD Code: E11.9 - Type 2 diabetes mellitus without complications Status: Chronic Assessment and Plan Acute upper GI bleeding EGD shows gastritis and hemorrhagic distal esophagus. Sucralfate, PPI. GI following. HIDA scan today. will advance the diet per GI. Hypertension Continue amlodipine 10 mg daily. Clonidine as needed. Diabetes mellitus we will continue sliding scale insulin and Levemir. Acute on chronic kidney disease Chronic kidney disease stage IV renal function stable. Has outpatient air crew officer. Avoid nephrotoxins. Discharge Planning discharge when cleared by GI. Jazmyne Izaguirre MD Oct 11, 2017 08:19
[2017-10-11] MEDS: SUCRALFATE 1 GM/10 ML CUP PO SCH ×3 (08:32→18:24)
[2017-10-11] MEDS: DEXT 5%-NACL 0.9% 1000 ML INJ 1,000 ML IV SCH (08:33)
[2017-10-11] MEDS: INSULIN ASPART SUPPLEMENTAL SCALE SQ SCH ×3 (08:35→17:00)
[2017-10-11] MEDS: SODIUM CHLORIDE 0.9% FLUSH 10 ML FLUSH IV FLUSH SCH (09:36)
[2017-10-11] MEDS: PANTOPRAZOLE SOD 40 MG DELAYED RELEASE TAB PO SCH (09:37)
--- NOTE | 2017-10-11 13:40 | RADRPT ---
EXAM DATE/TIME: 10/11/2017 11:46 [facility] COMPARISON: No previous studies available for comparison. INDICATIONS : Abdominal pain with vomiting. DOSE: 3.8 mCi Tc99m Mebrofenin IV MEDICATION: 1.2 mcg Cholecystokinin IV; Similar symptomatic response. Cholecystokinin was administered by slow infusion over 8 minutes beginning at 60 minutes. MEDICAL HISTORY : Renal disease, end stage. Hypertension. SURGICAL HISTORY : Right leg amputation. Right foot. ENCOUNTER: Initial ACUITY: 2 days PAIN SCALE: 4/10 LOCATION: Right upper quadrant TECHNIQUE: Following the intravenous administration of radiotracer, dynamic sequential image were performed with continuous acquisition. Time-activity curves were generated. FINDINGS: HEPATIC KINETICS: There is prompt uptake of radiotracer in the liver. No focal defects are seen. There is normal rate of washout from the hepatic parenchyma. BILIARY CLEARANCE: Activity is first seen in the extrahepatic biliary system at 50 minutes. There is normal excretion i nto the small bowel. GALLBLADDER: Activity is first seen in the gallbladder at 15 minutes. POST CHOLECYSTOKININ: After Cholecystokinin administration, there is no significant gallbladder emptying. Common bile duct kinetics are normal and there is no evidence of biliary obstruction. BILIARY ENTERIC REFLUX: Single episode identified. CLINICAL: Patient experienced abdominal cramping with CCK administration.. CONCLUSION: 1. Prompt appearance of the gallbladder at 15 minutes with the small bowel identified at 50 minutes. No findings of acute cholecystitis. 2. However, patient did experience abdominal cramping with CCK administration with no significant gal lbladder emptying. In the appropriate clinical setting, findings could represent a chronic cholecysti tis. 3. Single episode of biliary enteric reflux. Emil Gould MD on October 11, 2017 at 13:30 Board Certified Radiologist. This report was verified electronically.
--- NOTE | 2017-10-11 15:45 | HHI.GIFU ---
Subjective Remarks Pt denies any continued abdominal pain, nausea, vomiting Continued loose BMs Has not been eating (Carol Blair) Objective Vitals I&O Vital Signs Date Time Temp Pulse Resp B/P (MAP) Pulse Ox O2 Delivery O2 Flow Rate FiO2 10/11/17 07:38 98.5 91 18 162/89 (113) 100 10/11/17 04:40 97.8 78 16 170/84 (112) 100 10/11/17 01:55 98.0 81 16 160/87 (111) 99 10/11/17 00:10 77 10/10/17 21:53 98.0 95 16 172/89 (116) 98 10/10/17 20:15 80 Laboratory Laboratory Tests Test 10/11/17 04:45 10/11/17 10:45 Urine Color LIGHT-YELLOW Urine Turbidity CLEAR Urine pH 5.5 Urine Specific Kirby 1.007 Urine Protein 100 Urine Glucose (UA) NEG Urine Ketones NEG Urine Occult Blood SMALL Urine Nitrite NEG Urine Bilirubin NEG Urine Urobilinogen LESS THAN 2.0 Urine Leukocyte Esterase NEG Urine RBC 1 Urine WBC 3 Urine Squamous Epithelial Cells <1 Urine Bacteria OCC Urine Yeast (Budding) MANY Microscopic Urinalysis Comment CULT NOT INDICATED Stool C. difficile Toxin (PCR) NEGATIVE Stl C. difficile Toxin Epiderm 027 PRESUMPTIVE NEGATIVE Date/Time Source Procedure Growth Status 10/11/17 10:45 Stool Stool - Final NO ENTERIC PATHOGENS DETECTED BY PCR... Complete Imaging Last Impressions Hepatobiliary Scan Nuclear Medicine 10/11/17 0000 Signed Impressions: Service Date/Time: Wednesday, October 11, 2017 11:46 - CONCLUSION: 1. Prompt appearance of the gallbladder at 15 minutes with the small bowel identified at 50 minutes. No findings of acute cholecystitis. 2. However, patient did experience abdominal cramping with CCK administration with no significant gallbladder emptying. In the appropriate clinical setting, findings could represent a chronic cholecystitis. 3. Single episode of biliary enteric reflux. Emil Gould MD Chest X-Ray 10/07/17 [id number] Signed Impressions: Service Date/Time: Saturday, October 07, 2017 23:13 - CONCLUSION: No evidence of acute cardiopulmonary disease. 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 (Carol Blair) Assessment and Plan Plan ASSESSMENT - Epigastric pain/N/V/coffee ground emesis- states EGD 2 months ago at [facility] with findings of swelling and redness. S/P EGD yesterday --> Gastritis in the antrum. Normal duodenum. Severe esophagitis, hemorrhagic distal esophagus. Hiatal hernia. History of H Pylori. - Diarrhea- started at same time as symptoms above. Denies continued diarrhea at this time. - Gastroparesis- GES (05/2016) --> Abnormal gastric emptying. Mild response to Reglan. - Anemia- normocytic- H/H 11.1/34.5 on admission - Impaired renal function (10/10) Complaining of mild epigastric pain and continued nausea with dry heaving , denies emesis. Currently on clear liquids, concerned about advancing his diet. Diarrhea resolved, reports BM yesterday was formed. EGD biopsy pending. H/H stable, no further reports of GIB. Currently on Protonix BID, Sucralfate ACHS, and Reglan 5mg q8hr. (10/11) Pt denies nausea, vomiting, abdominal pain. Still with loose BMs, C. diff negative, stool culture pending. Wants to go home, he is not eating full liquids. Talked about advancing to regular diet and he states he will try to eat that. HIDA scan (10/11) --> Prompt appearance of the gallbladder at 15 minutes with the small bowel identified at 50 minutes. No findings of acute cholecystitis. However, patient did experience abdominal cramping with CCK administration with no significant gallbladder emptying. In the appropriate clinical setting, findings could represent a chronic cholecystitis. Single episode of biliary enteric reflux. Per RN pt does not have working IV, will switch to PO Reglan. PLAN - EGD biopsy pending - Carafate - Reglan - BGL control - Regular diet - Monitor H/H - Protonix PO BID - Stool culture pending - If tolerating diet OK to DC with GI follow up Pt has been seen and examined by myself and Dr. Reeder and this note is written on his behalf (Carol Blair) Physician Comments Patient seen and examined Agree with above Continue with current supportive care Monitor labs (Rodolfo Reeder MD) Carol Blair Oct 11, 2017 15:45 Rodolfo Reeder MD Oct 12, 2017 00:40
[2017-10-11 15:50] VITALS: BP 152/80; PULSE 95; RESP 18; TEMP 98; O2SAT 100
[2017-10-11] MEDS ORDERED: METOCLOPRAMIDE HCL 10 MG TAB PO SCH (17:00)
[2017-10-11] MEDS ORDERED: SUCR1S PO (17:14)
[2017-10-11] MEDS ORDERED: METO10TA PO (17:14)
[2017-10-11] MEDS ORDERED: PANT40TA3 PO (17:14)
--- NOTE | 2017-10-11 17:16 | HHI.DCPOC ---
Discharge Care Plan Diagnosis: (1) Gastritis (2) Esophagitis (3) Gastroparesis Goals to Promote Your Health * To prevent worsening of your condition and complications * To maintain your health at the optimal level Directions to Meet Your Goals Take your medications as prescribed Follow your dietary instruction Follow activity as directed Keep your appointments as scheduled Take your immunizations and boosters as scheduled If your symptoms worsen call your PCP, if no PCP go to Urgent Care Center or Emergency Room Smoking is Dangerous to Your Health. Avoid second hand smoke Call the 24-hour hour crisis hotline for domestic abuse at Janel Palencia PA-C Oct 11, 2017 17:16
== END 2017-10-11 21:40 | disposition home or self-care (01) ==
LOC: NEPE 19:07 → NEDA 10-08 03:22 → NEPFCDU 10-08 18:05
PROVIDERS: ADMIT Internal Medicine; ATTEND Internal Medicine
DX: K29.70 Gastritis, unspecified, without bleeding (principal); K25.4 Chronic or unspecified gastric ulcer with hemorrhage; K20.9 Esophagitis, unspecified; K31.84 Gastroparesis; I12.9 Hypertensive chronic kidney disease with stage 1 through stage 4 chronic kidney disease, or unspecified chronic kidney disease; N18.4 Chronic kidney disease, stage 4 (severe); E11.22 Type 2 diabetes mellitus with diabetic chronic kidney disease; K44.9 Diaphragmatic hernia without obstruction or gangrene; D64.9 Anemia, unspecified; R94.31 Abnormal electrocardiogram [ECG] [EKG]; Z79.4 Long term (current) use of insulin; Z86.19 Personal history of other infectious and parasitic diseases; Z89.612 Acquired absence of left leg above knee
CPT/HCPCS: 00731; 43239; 71045; 78227; 80048; 80053; 81001; 82550; 82552; 82948; 83690; 83735; 84484; 85014; 85018; 85025; 86850; 86900; 86901; 87493; 87506; 88305; 88312; 93005; 96361; 96365; 96375; 96376; 99285; A9537; C9113; G0378; J0330; J0780; J2270; J2405; J2765; J2805; J7030; J7042